=== PATIENT | female | born 1935 | race Caucasian/White ===

== ENCOUNTER 2016-11-21 10:29 | Inpatient (IN) ==
[2016-11-21] MEDS ORDERED: *HR* Morphine 2 MG/ML SYRINGE IVP ONE ×2 (10:45→12:01)
[2016-11-21] MEDS ORDERED: Ondansetron 4 MG/2 ML VIAL IVP STA (10:51)
--- NOTE | 2016-11-21 10:57 | Emergency Department Note ---
Disposition Clinical Impression: Fall, Pain Disposition: Admitted As Inpatient Referrals: Glenroy Lin MD [Primary Care Provider] - Forms: ED Satisfaction Letter Fall HPI - General Chief Complaint: ED Fall Stated Complaint: fall last pm Time Seen by Provider: 11/21/16 10:43 Nursing Notes Reviewed: Yes Vital Signs Reviewed: Yes - Related Data Home Medications Medication Instructions Recorded Confirmed Aspirin Enteric Coated [Aspirin EC] 81 mg PO DAILY 05/27/15 02/05/16 Calcium Carbonate/Vitamin D3 600 mg PO DAILY 05/27/15 02/05/16 [Calcium 600 + D Tablet] Clopidogrel [Plavix] 75 mg PO DAILY 05/27/15 02/05/16 Levothyroxine [Synthroid] 50 mcg PO DAILY 05/27/15 02/05/16 Oxygen 2 l .ROUTE DAILY 05/27/15 02/05/16 Albuterol Sulfate [Albuterol 2 puff IH Q6HR PRN 05/28/15 02/05/16 Inhaler] Gabapentin [Neurontin] 600 mg PO BID 05/28/15 02/05/16 Isosorbide MONOnitrate (24 HR) 60 mg PO DAILY 05/28/15 02/05/16 [Imdur] Metoprolol XL (24 HR) Succ [Toprol 50 mg PO DAILY 05/28/15 02/05/16 XL] Pravastatin Sodium [Pravachol] 40 mg PO DAILY 05/28/15 02/05/16 [place] Oil/[place]-3 Fatty Acids 1 each PO BID 05/28/15 02/05/16 [Fish Oil 500 mg Softgel] Benzonatate [Tessalon] 200 mg PO TID 02/05/16 02/05/16 Calcitonin Nasal [place] [Miacalcin 1 spray NS DAILY 02/05/16 02/05/16 Nasal [place]] Docusate Sodium [Stool Softener] 100 mg PO DAILY 02/05/16 02/05/16 Melatonin [Melatin] 3 mg PO HS 02/05/16 02/05/16 Mv,Calcium,Min/Iron/Folic/Vitk 1 each PO DAILY 02/05/16 02/05/16 [Multi For Her Tablet] Nitroglycerin [Nitrostat] 0.4 mg SL Q5M PRN 02/05/16 02/05/16 Omeprazole [PriLOSEC] 20 mg PO DAILY 02/05/16 02/05/16 Previous Rx's Medication Instructions Recorded Cefdinir [Omnicef] 300 mg PO BID 5 Days 05/31/15 HYDROcodone/Acet 5/325 mg [[place] 1 tab PO Q6H PRN #30 tab 02/06/16 5-325 mg] Ciprofloxacin HCl [Cipro] 500 mg PO BID #14 tablet 05/07/16 Ciprofloxacin HCl [Cipro] 500 mg PO BID #14 tablet 09/04/16 Allergies Allergy/AdvReac Type Severity Reaction Status Date / Time Amoxicillin [From Augmentin] Allergy Rash Verified 05/27/15 12:26 clavulanic acid Allergy Rash Verified 05/27/15 12:26 [From Augmentin] lisinopril Allergy Cough Verified 05/27/15 12:26 nitrofurantoin Allergy Rash Verified 05/27/15 12:26 [From Macrobid] Penicillins [PCN] Allergy Rash Verified 05/27/15 12:26 Sulfa (Sulfonamide AdvReac Nausea Verified 05/27/15 12:26 Antibiotics) Fall PMH - Past Medical History Medical history: Reports: GERD, hyperlipidemia, hypertension, myocardial infarction, syncope, other Surgical history: Reports: cholecystectomy, coronary bypass (CABG), orthopedic, other, other Psychiatric history: Reports: no psych history - Social History Smoking Status: Never smoker Alcohol use: Reports: none Drug use: Reports: none Physical Exam - General General appearance: alert, in no apparent distress Course Vital Signs Temperature 98.2 F 11/21/16 10:31 Pulse Rate 76 11/21/16 10:31 Respiratory Rate 18 11/21/16 10:31 Blood Pressure 163/83 11/21/16 10:31 O2 Sat by Pulse Oximetry 95 11/21/16 10:31 Temperature 98.2 F 11/21/16 10:31 Pulse Rate 87 11/21/16 12:10 Respiratory Rate 18 11/21/16 12:10 Blood Pressure 157/86 11/21/16 12:10 O2 Sat by Pulse Oximetry 98 11/21/16 12:10 Oxygen Delivery Oxygen Delivery Nasal Cannula Fall - [facility] Narrative Medical decision making narrative: I examined this patient and my medical decision-making was reviewed with the DIRECTOR OF CUSTOMER ACQUISITION/PA/Advanced Practice Nurse/Resident Physician. I agree with the documented findings, disposition and treatment plan as described except to the extent set forth below. Patient presents today from home and was seen by myself and Dr. Gross, please see his evaluation, I agree with his management plan and supervised the care of the patient stay. Patient tripped over her oxygen tubing last night using her walker and she fell backwards she said she did not strike her head she says she has pain in her lumbar region denies any hip pain arm pain and wrist pain as a loss of consciousness. Her daughter says this has happened before she does see pain management and set up facet injections and her lumbar spine in the past. Patient states only in her lumbar spine hurts now. Receiving and make her more comfortable DuoNeb reassessment on her exam do x-rays of her lumbar and thoracic spine and then reassess. She is in agreement with this plan. Lumbar Spine X-Ray 11/21/16 10:50 IMPRESSION: 1. Moderate to severe compression deformity at L1, which has progressed since 10/22/2016. 2. Chronic moderate to severe compression deformity at L3. 3. Vertebroplasty changes at L2. 4. 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 D/ / Roderick Marie MD / Roderick Marie MD Interpreting Provider: Roderick Marie MD Thoracic Spine X-Ray 11/21/16 10:50 IMPRESSION: 1. Moderate to severe compression deformity at L1, which has progressed since 10/22/2016. 2. Chronic moderate to severe compression deformity at L3. 3. Vertebroplasty changes at L2. 4. 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 D/ / Roderick Marie MD / Roderick Marie MD Interpreting Provider: Roderick Marie MD 1200 hrs.: Patient does have worsening compression fracture on her spine. I am worried that if she goes home she will not be acute pain or control or she will fall again. We spoke with hospitalist and graciously agreed to bring her into the hospital. Basic labs for them and then we will bring her in patient's in agreement with plan. Did receive another dose of pain medications here while waiting for bed management. Patient's agreement this plan. - Lab Data Lab Results 11/21/16 Range/Units 11:48 Urine Color Yellow (Yellow) Urine Clarity Cloudy A (Clear) Urine pH 7.0 (5.0-8.0) pH Units Ur Specific [place] 1.017 (1.010-1.025) Urine Protein Negative (Neg-Trace) mg/dL Urine Glucose (UA) Normal (Normal) mg/dL Urine Ketones Negative (Negative) mg/dL Urine Blood Negative (Negative) Urine Nitrite Positive A (Negative) Urine Bilirubin Negative (Negative) Urine Urobilinogen Normal (Normal) mg/dL Ur Leukocyte Esterase Moderate H (Negative) Urine Microscopic RBC 3-5 H (0-3) per hpf Urine Microscopic WBC 50-100 H (0-3) per hpf Ur Squamous Epith Cells Many H (None-Few) per lpf Urine Bacteria Many H (None-Few) per hpf Hyaline Casts Few (None-Few) per lpf Ur Culture Indicated? YES A (NO)
--- NOTE | 2016-11-21 11:02 | Emergency Department Note ---
Disposition Clinical Impression: Pain Fall Qualifiers: Encounter type: initial encounter Qualified Code(s): W19.XXXA - Unspecified fall, initial encounter Disposition: Admitted As Inpatient Referrals: Glenroy Lin MD [Primary Care Provider] - Forms: ED Satisfaction Letter Fall HPI - General Chief Complaint: ED Fall Stated Complaint: fall last pm Time Seen by Provider: 11/21/16 10:43 Nursing Notes Reviewed: Yes Vital Signs Reviewed: Yes - History of Present Illness HPI Narrative: Ms. Winters, a 81yo female, presents from home via POV with CC: back pain from fall. Occurred last night. Described as getting her O2 tubing caught on her walker. She describes gently falling onto her back on hardwood floor. Denies LOC or head or neck trauma. She got herself up and called her daughter. She chose to see if the pain improved overnight instead of presenting last night to the ER. Patient lives by herself. She was not 'found down.' Daughter notes patient has required assistance to get out of bed over the past several weeks. Patient has a history of falls. Anticoagulated on plavix. PMH: HLD, HTN, CAD s/p TX with stents. Hx pulmonary fibrosis, osteopenia, vertebral compression fx. PCP: Dr. Lin. Spinal: Dr. Macias. Admits: lower back pain. Denies: Headache, changes in vision, chest pain, palpitations, unusual numbness or tingling in her lower extremities, saddle anesthesia, incontinence of bowel and bladder. - Related Data Home Medications Medication Instructions Recorded Confirmed Aspirin Enteric Coated [Aspirin EC] 81 mg PO DAILY 05/27/15 02/05/16 Calcium Carbonate/Vitamin D3 600 mg PO DAILY 05/27/15 02/05/16 [Calcium 600 + D Tablet] Clopidogrel [Plavix] 75 mg PO DAILY 05/27/15 02/05/16 Levothyroxine [Synthroid] 50 mcg PO DAILY 05/27/15 02/05/16 Oxygen 2 l .ROUTE DAILY 05/27/15 02/05/16 Albuterol Sulfate [Albuterol 2 puff IH Q6HR PRN 05/28/15 02/05/16 Inhaler] Gabapentin [Neurontin] 600 mg PO BID 05/28/15 02/05/16 Isosorbide MONOnitrate (24 HR) 60 mg PO DAILY 05/28/15 02/05/16 [Imdur] Metoprolol XL (24 HR) Succ [Toprol 50 mg PO DAILY 05/28/15 02/05/16 XL] Pravastatin Sodium [Pravachol] 40 mg PO DAILY 05/28/15 02/05/16 [place] Oil/[place]-3 Fatty Acids 1 each PO BID 05/28/15 02/05/16 [Fish Oil 500 mg Softgel] Benzonatate [Tessalon] 200 mg PO TID 02/05/16 02/05/16 Calcitonin Nasal [place] [Miacalcin 1 spray NS DAILY 02/05/16 02/05/16 Nasal [place]] Docusate Sodium [Stool Softener] 100 mg PO DAILY 02/05/16 02/05/16 Melatonin [Melatin] 3 mg PO HS 02/05/16 02/05/16 Mv,Calcium,Min/Iron/Folic/Vitk 1 each PO DAILY 02/05/16 02/05/16 [Multi For Her Tablet] Nitroglycerin [Nitrostat] 0.4 mg SL Q5M PRN 02/05/16 02/05/16 Omeprazole [PriLOSEC] 20 mg PO DAILY 02/05/16 02/05/16 Previous Rx's Medication Instructions Recorded Cefdinir [Omnicef] 300 mg PO BID 5 Days 05/31/15 HYDROcodone/Acet 5/325 mg [[place] 1 tab PO Q6H PRN #30 tab 02/06/16 5-325 mg] Ciprofloxacin HCl [Cipro] 500 mg PO BID #14 tablet 05/07/16 Ciprofloxacin HCl [Cipro] 500 mg PO BID #14 tablet 09/04/16 Allergies Allergy/AdvReac Type Severity Reaction Status Date / Time Amoxicillin [From Augmentin] Allergy Rash Verified 05/27/15 12:26 clavulanic acid Allergy Rash Verified 05/27/15 12:26 [From Augmentin] lisinopril Allergy Cough Verified 05/27/15 12:26 nitrofurantoin Allergy Rash Verified 05/27/15 12:26 [From Macrobid] Penicillins [PCN] Allergy Rash Verified 05/27/15 12:26 Sulfa (Sulfonamide AdvReac Nausea Verified 05/27/15 12:26 Antibiotics) All systems ED: reviewed and negative except as stated. (as per HPI) Fall PMH - Past Medical History Medical history: Reports: GERD, hyperlipidemia, hypertension, myocardial infarction, syncope, other Surgical history: Reports: cholecystectomy, coronary bypass (CABG), orthopedic, other, other Psychiatric history: Reports: no psych history - Social History Smoking Status: Never smoker Alcohol use: Reports: none Drug use: Reports: none Physical Exam - General General appearance: alert, in no apparent distress Course Course Narrative: Patient presents from home with what appears to be a mechanical fall. She denies any preceding symptoms, chest pain, vertigo. As such, I do not suspect cardiac etiology, likely imbalance, or neurologic etiology. Patient's back pain appears to be focal in the mid back. Coupled with her history of falls, I believe this warrants renographic imaging of her thoracic and lumbar spine. She has no lower extremity neurologic deficits. Strength exam is limited secondary to patient. Patient appears to be mildly dehydrated. She has no history of kidney problems or congestive heart disease. All IV rehydration and attempt pain control. Patient notes mild improvement of pain after 4 mg morphine. Had an in-depth discussion with patient and her daughter regarding pain control and rationale for admission versus discharge home with close follow-up. She became teary-eyed as the intensity of her pain which she had been dealing with for some time becoming too great for her. Daughter also noted difficulty caring for her mother as patient is requiring assistance to get out of bed. At this time, not believe the patient will be able to live by herself. Both patient and daughter feel much more comfortable with patient being admitted. 12:00 Spoke with hospitalist, Dr. Navarrete. Discussed patient's past medical history, mechanical fall, regarding the findings, and my concerns not only for pain control but also from the social aspects. He agrees to accept the patient. We discussed baseling labs, which I will place in the ER. Vital Signs Temperature 98.2 F 11/21/16 10:31 Pulse Rate 76 11/21/16 10:31 Respiratory Rate 18 11/21/16 10:31 Blood Pressure 163/83 11/21/16 10:31 O2 Sat by Pulse Oximetry 95 11/21/16 10:31 Temperature 98.2 F 11/21/16 10:31 Pulse Rate 87 11/21/16 12:10 Respiratory Rate 18 11/21/16 12:10 Blood Pressure 157/86 11/21/16 12:10 O2 Sat by Pulse Oximetry 98 11/21/16 12:10 Oxygen Delivery Oxygen Delivery Nasal Cannula Fall - Lab Data Lab Results 11/21/16 Range/Units 11:48 Urine Color Yellow (Yellow) Urine Clarity Cloudy A (Clear) Urine pH 7.0 (5.0-8.0) pH Units Ur Specific [place] 1.017 (1.010-1.025) Urine Protein Negative (Neg-Trace) mg/dL Urine Glucose (UA) Normal (Normal) mg/dL Urine Ketones Negative (Negative) mg/dL Urine Blood Negative (Negative) Urine Nitrite Positive A (Negative) Urine Bilirubin Negative (Negative) Urine Urobilinogen Normal (Normal) mg/dL Ur Leukocyte Esterase Moderate H (Negative) Urine Microscopic RBC 3-5 H (0-3) per hpf Urine Microscopic WBC 50-100 H (0-3) per hpf Ur Squamous Epith Cells Many H (None-Few) per lpf Urine Bacteria Many H (None-Few) per hpf Hyaline Casts Few (None-Few) per lpf Ur Culture Indicated? YES A (NO)
[2016-11-21] MEDS ORDERED: 0.9 % Sodium Chloride 1,000 ML IVC ONE (11:18)
[2016-11-21 12:05] LABS: Bilirubin,Urine Negative (Negative); Blood,Urine Negative (Negative); Clarity,Urine Cloudy (Clear); Color,Urine Yellow (Yellow); Glucose,Urine (UA) Normal (Normal); Ketones,Urine Negative (Negative); Leukocyte Esterase,Urine Moderate (Negative); Nitrite,Urine Positive (Negative); Protein,Urine Negative (Neg-Trace); Specific Gravity,Urine 1.017 (1.010-1.025); Urobilinogen,Urine Normal (Normal)
[2016-11-21 12:09] LABS: Bacteria,Urine Many per hpf (None-Few); Hyaline Casts,Urine Few per lpf (None-Few); Squamous Epithelial Cell,Urine Many per lpf (None-Few); WBC,Urine 50-100 per hpf (0-3)
[2016-11-21 12:42] LABS: Basophils % 0.2 %; Eosinophils # 0.2 K/mcL (0.0-0.6); Hematocrit 40.2 % (35.3-44.9); Immature Granulocytes % 0.7 % (0-4); Lymphocytes # 2.7 K/mcL (0.6-4.6); Lymphocytes % 29.8 %; Mean Corpuscular HGB Conc 32.3 g/dL (31.6-35.5); Mean Corpuscular Hemoglobin 32.1 pg (28.0-33.3); Mean Corpuscular Volume 99.3 fL (83.0-100.0); Mean Platelet Volume 8.5 fL (9.4-12.4); Monocytes # 0.8 K/mcL (0.0-1.3); Neutrophils # 5.2 K/mcL (1.6-8.9); Platelet Count 174 K/mcL (140-400); Red Blood Count 4.05 M/mcL (3.82-4.97); Red Cell Distribution Width 14.6 % (11.5-14.5); Segmented Neutrophils % 58.3 %
[2016-11-21 12:47] LABS: Prothrombin Time 11.2 Seconds (9.4-12.1)
[2016-11-21 12:56] LABS: BUN/Creatinine Ratio 23 (6-26); Blood Urea Nitrogen 16 mg/dL (7-20); Calcium 8.8 mg/dL (8.6-10.8); Carbon Dioxide 24 mEq/L (19-29); Chloride 111 mEq/L (98-109); Glucose 84 mg/dL (70-99); Osmolality,Calculated 292 (280-300); Potassium 3.9 mEq/L (3.5-4.5); Sodium 141 mEq/L (136-145); eGFR For African Americans > 60 (> 60); eGFR For Non-African Americans > 60 (> 60)
[2016-11-21] MEDS ORDERED: Naloxone 0.4 MG/ML INJ IVP PRN (17:48)
[2016-11-21] MEDS: *HR* Morphine 2 MG/ML SYRINGE IVP PRN (18:07)
[2016-11-21] MEDS ORDERED: Nitroglycerin 0.4 MG TAB.SUBL SL PRN (19:00)
[2016-11-21] MEDS: Melatonin 3 MG TABLET PO SCH (21:19)
[2016-11-21] MEDS: Gabapentin 400 MG CAPSULE PO SCH (21:19)
[2016-11-21] MEDS: *HR* OxyCODONE Immed Rel 5 MG TABLET PO PRN (21:21)
--- NOTE | 2016-11-21 22:54 | Internal Med History&Physical ---
Date of Encounter: 11/21/16 Time of Encounter: 22:52 Assessment and Plan (1) Fall Current visit: Yes Status: Acute Patient fell at home, after getting her oxygen tubing tangled in her walker. Denies loss of consciousness or head injury. She has had multiple falls over the last several months. PT consult OT consult Social work consult for consideration of senior living placement on discharge. Qualifiers: Encounter type: initial encounter Qualified Code(s): W19.XXXA - Unspecified fall, initial encounter (2) Pain Current visit: Yes Status: Acute Patient with significant pain in lower back and tail bone related to her fall injury. Oxycodone IR and Morphine IVP ordered PRN for pain control Narcan ordered PRN for respiratory depression. (3) Vertebral compression fracture Current visit: Yes Status: Acute Xray shows moderate to sever compression deformity at L1 which has progressed since prior imaging on 10/22/16. Patient with history of vertebroplasty in January with Dr. Rios. Consult to Dr. Rios, orthopedic spine, he will need to be called tomorrow. Pain control with PRN Oxycodone and morphine. PT/OT consults Qualifiers: Encounter type: initial encounter Qualified Code(s): M48.50XA - Collapsed vertebra, not elsewhere classified, site unspecified, initial encounter for fracture (4) UTI (urinary tract infection) Current visit: Yes Status: Acute Patient denies dysuria, however UA concerning for infection. Cipro 250mg PO BID X 3 days Qualifiers: Urinary tract infection type: acute cystitis Hematuria presence: with hematuria Qualified Code(s): N30.01 - Acute cystitis with hematuria (5) Pulmonary fibrosis Current visit: No Status: Chronic Patient wears 2L NC at night and PRN at home. Titrate oxygen to maintain O2 sat > 92%. (6) DVT prophylaxis Current visit: Yes Status: Acute Up to chair BID anti-embolic stockings Lovenox 40mg SQ Daily Internal Medicine - H&P: HPI Chief complaint: Fall injury Admitted From: Emergency Dept Plans for Post Hospital Care: Home History of present illness: Ms. Winters is a 81 year old female with hypertension, hyperlipidemia, pulmonary fibrosis, coronary artery disease status post CABG, acid reflux, hypothyroid, who presented with to the emergency department today after suffering a fall last evening. Hurts her oxygen to contain gold in her walker and she fell landing on her buttocks. Denies hitting her head, or losing consciousness. He denies dizziness, lightheadedness, faint. She denies any dysuria. She reports she came in because she could not bear the pain. It is in her low back, and tailbone, is worse when sitting up or standing. Pain is improved with pain medication. Evaluation in the emergency department was significant for urinalysis that is suspicious for UTI, x-ray of the lumbar spine shows moderate to severe compression deformity at L1 which has progressed since her previous imaging 10/22/2016. Chronic moderate to severe compression deformity at L3, vertebral plasty changes at L2, multilevel degenerative changes in the thoracic and lumbar spine including severe disc height loss at L4-5. On exam patient is alert and oriented, initially tearful with pain, lungs are clear to auscultation bilaterally, heart has regular rate and rhythm. Abdomen is nontender with normal bowel sounds. Lumbar spine is tender to palpation. Past Med Surg Social Fam HX - Past Medical History Medical history: GERD, hyperlipidemia, hypertension, myocardial infarction, syncope, other Psychiatric history: no psych history - Past Surgical History Surgical History: cholecystectomy, coronary bypass (CABG), orthopedic, other, other - Social History Smoking Status: Never smoker Smokeless Tobacco Status: No Alcohol use: none Drug use: none - Family History Sister Adopted: No Living Status: Hx Family Respiratory Disorders: Yes (PULMONARY FIBROSIS) Mother Living Status: Age at : 84 Cause of : COPD Internal Medicine - H&P: Meds Aspirin Enteric Coated [Aspirin EC] 81 mg PO DAILY 05/27/15 [History] Calcium Carbonate/Vitamin D3 [Calcium 600 + D Tablet] 600 mg PO DAILY 05/27/15 [ History] Clopidogrel [Plavix] 75 mg PO DAILY 05/27/15 [History] Levothyroxine [Synthroid] 50 mcg PO DAILY 05/27/15 [History] Oxygen 2 l .ROUTE DAILY 05/27/15 [History] Albuterol Sulfate [Albuterol Inhaler] 2 puff IH Q6HR PRN 05/28/15 [History] Gabapentin [Neurontin] 1,200 mg PO BID 05/28/15 [History] Isosorbide MONOnitrate (24 HR) [Imdur] 60 mg PO DAILY 05/28/15 [History] Metoprolol XL (24 HR) Succ [Toprol XL] 50 mg PO DAILY 05/28/15 [History] Pravastatin Sodium [Pravachol] 40 mg PO DAILY 05/28/15 [History] [place] Oil/[place]-3 Fatty Acids [Fish Oil 500 mg Softgel] 1 cap PO BID 05/28/15 [ History] Docusate Sodium [Stool Softener] 100 mg PO DAILY 02/05/16 [History] Melatonin [Melatin] 3 mg PO HS 02/05/16 [History] Mv,Calcium,Min/Iron/Folic/Vitk [Multi For Her Tablet] 1 each PO DAILY 02/05/16 [ History] Nitroglycerin [Nitrostat] 0.4 mg SL Q5M PRN 02/05/16 [History] Omeprazole [PriLOSEC] 20 mg PO DAILY 02/05/16 [History] HYDROcodone/Acet 5/325 mg [[place] 5-325 mg] 1 tab PO Q6H PRN #30 tab 02/06/16 [Rx ] Allergies Amoxicillin [From Augmentin] Allergy (Verified 05/27/15 12:26) Rash clavulanic acid [From Augmentin] Allergy (Verified 05/27/15 12:26) Rash lisinopril Allergy (Verified 05/27/15 12:26) Cough nitrofurantoin [From Macrobid] Allergy (Verified 05/27/15 12:26) Rash Penicillins [PCN] Allergy (Verified 05/27/15 12:26) Rash Sulfa (Sulfonamide Antibiotics) Adverse Reaction (Verified 05/27/15 12:26) Nausea All Systems PM: A 10-system review of systems was performed and is negative for pertinent findings except as documented above in the HPI. - Constitutional Constitutional: no chills, no fever(s), no night sweats - EENT Eyes: no change in vision, no discharge, no pain, no photophobia Ears: no ear discharge, no ear pain, no tinnitus Nose, mouth and throat: no dysphagia, no nasal discharge, no neck pain, no sore throat - Cardiovascular Cardiovascular ROS IM: no chest pain, no diaphoresis, no dyspnea, no lightheadedness, no palpitations, no syncope - Respiratory Respiratory: no cough, no dyspnea, no wheezing, no excessive phlegm production - Gastrointestinal Gastrointestinal: no abdominal pain, no diarrhea, no hematemesis, no hematochezia, no melena, no nausea, no vomiting - Genitourinary Genitourinary: no change in urinary stream, no dysuria, no flank pain, no hematuria - Musculoskeletal Musculoskeletal ROS IM: back pain, no numbness, no tingling - Integumentary Integumentary IM: no rash, no unusual bruising - Neurological Neurological ROS: no confusion, no convulsions, no focal weakness, no numbness, no tingling, no tremor(s) - Hematologic/Lymphatic Hematologic/Lymphatic: no easy bruising - Constitutional Vitals: Temp Pulse Resp BP Pulse Ox 98.2 F 71 18 107/64 96 11/21/16 22:48 11/21/16 22:48 11/21/16 22:48 11/21/16 22:48 11/21/16 22:48 General appearance: Present: A&O X 3, no acute distress - Head Head exam: Present: atraumatic, normocephalic - Eye Eye exam: Present: PERRL, conjuntiva pink, sclera anicteric Pupils: Present: PERRL - Neck Neck exam general surgery: Present: supple, trachea midline. Absent: lymphadenopathy - Respiratory Respiratory exam: Present: CTAB. Absent: accessory muscle use, rales, rhonchi, wheezes - Cardiovascular Cardiovascular exam: Present: RRR, +S1, +S2. Absent: diastolic murmur, gallop, rubs, systolic murmur - GI/Abdominal GI/Abdominal exam: Present: normal bowel sounds, soft, no peritoneal signs. Absent: distended, tenderness - Extremities Exam Extremities exam: Present: warm, radial pulses palpable and symetrical. Absent : calf tenderness, cyanotic, pedal edema - Back Exam Back exam: Present: tenderness (lumbar), vertebral tenderness (lumbar) - Neurological Exam Neurological exam: Present: CN II-XII intact, oriented X3, no focal deficits, strengths equal and symetr throughout. Absent: facial droop, speech deficit - Skin Skin exam: Present: dry, intact Internal Med - H&P Results - Labs CBC & Chem 7: 11/21/16 12:36 11/21/16 12:36 Labs: All Lab Results (24 Hours) 11/21/16 11/21/16 11/21/16 Range/Units 11:48 12:36 12:36 WBC 9.0 (4.3-11.1) K/mcL RBC 4.05 (3.82-4.97) M/mcL Hgb 13.0 (11.5-15.4) g/dL Hct 40.2 (35.3-44.9) % MCV 99.3 (83.0-100.0) fL MCH 32.1 (28.0-33.3) pg MCHC 32.3 (31.6-35.5) g/dL RDW 14.6 H (11.5-14.5) % Plt Count 174 (140-400) K/mcL MPV 8.5 L (9.4-12.4) fL Immature Gran % 0.7 (0-4) % Seg Neutrophils % 58.3 % Lymphocytes % 29.8 % Monocytes % 9.0 % Eosinophils % 2.0 % Basophils % 0.2 % Neutrophils # 5.2 (1.6-8.9) K/mcL Lymphocytes # 2.7 (0.6-4.6) K/mcL Monocytes # 0.8 (0.0-1.3) K/mcL Eosinophils # 0.2 (0.0-0.6) K/mcL Basophils # 0.0 (0.0-0.2) K/mcL PT 11.2 (9.4-12.1) Seconds INR 1.0 Sodium (136-145) mEq/L Potassium (3.5-4.5) mEq/L Chloride (98-109) mEq/L Carbon Dioxide (19-29) mEq/L BUN (7-20) mg/dL Creatinine (0.57-1.11) mg/dL Est GFR ( Amer) (> 60) Est GFR (Non-Af Amer) (> 60) BUN/Creatinine Ratio (6-26) Glucose (70-99) mg/dL Calculated Osmolality (280-300) Calcium (8.6-10.8) mg/dL Urine Color Yellow (Yellow) Urine Clarity Cloudy A (Clear) Urine pH 7.0 (5.0-8.0) pH Units Ur Specific [place] 1.017 (1.010-1.025) Urine Protein Negative (Neg-Trace) mg/dL Urine Glucose (UA) Normal (Normal) mg/dL Urine Ketones Negative (Negative) mg/dL Urine Blood Negative (Negative) Urine Nitrite Positive A (Negative) Urine Bilirubin Negative (Negative) Urine Urobilinogen Normal (Normal) mg/dL Ur Leukocyte Esterase Moderate H (Negative) Urine Microscopic RBC 3-5 H (0-3) per hpf Urine Microscopic WBC 50-100 H (0-3) per hpf Ur Squamous Epith Cells Many H (None-Few) per lpf Urine Bacteria Many H (None-Few) per hpf Hyaline Casts Few (None-Few) per lpf Ur Culture Indicated? YES A (NO) 11/21/16 Range/Units 12:36 WBC (4.3-11.1) K/mcL RBC (3.82-4.97) M/mcL Hgb (11.5-15.4) g/dL Hct (35.3-44.9) % MCV (83.0-100.0) fL MCH (28.0-33.3) pg MCHC (31.6-35.5) g/dL RDW (11.5-14.5) % Plt Count (140-400) K/mcL MPV (9.4-12.4) fL Immature Gran % (0-4) % Seg Neutrophils % % Lymphocytes % % Monocytes % % Eosinophils % % Basophils % % Neutrophils # (1.6-8.9) K/mcL Lymphocytes # (0.6-4.6) K/mcL Monocytes # (0.0-1.3) K/mcL Eosinophils # (0.0-0.6) K/mcL Basophils # (0.0-0.2) K/mcL PT (9.4-12.1) Seconds INR Sodium 141 (136-145) mEq/L Potassium 3.9 (3.5-4.5) mEq/L Chloride 111 H (98-109) mEq/L Carbon Dioxide 24 (19-29) mEq/L BUN 16 (7-20) mg/dL Creatinine 0.69 (0.57-1.11) mg/dL Est GFR ( Amer) > 60 (> 60) Est GFR (Non-Af Amer) > 60 (> 60) BUN/Creatinine Ratio 23 (6-26) Glucose 84 (70-99) mg/dL Calculated Osmolality 292 (280-300) Calcium 8.8 (8.6-10.8) mg/dL Urine Color (Yellow) Urine Clarity (Clear) Urine pH (5.0-8.0) pH Units Ur Specific [place] (1.010-1.025) Urine Protein (Neg-Trace) mg/dL Urine Glucose (UA) (Normal) mg/dL Urine Ketones (Negative) mg/dL Urine Blood (Negative) Urine Nitrite (Negative) Urine Bilirubin (Negative) Urine Urobilinogen (Normal) mg/dL Ur Leukocyte Esterase (Negative) Urine Microscopic RBC (0-3) per hpf Urine Microscopic WBC (0-3) per hpf Ur Squamous Epith Cells (None-Few) per lpf Urine Bacteria (None-Few) per hpf Hyaline Casts (None-Few) per lpf Ur Culture Indicated? (NO)
[2016-11-22] MEDS: (Salmon Oil/Omega-3 Fatty Acids [Fish Oil 500 Mg Soft) PO SCH ×3 (00:09→20:05)
--- NOTE | 2016-11-22 01:35 | Event Note ---
Date of Encounter: 11/22/16 Time of Encounter: 01:34 Patients and examined with nurse practitioner. Agree with assessment and plan
[2016-11-22] MEDS: *HR* OxyCODONE Immed Rel 5 MG TABLET PO PRN ×3 (05:08→20:05)
[2016-11-22] MEDS: *HR* Enoxaparin 40 MG/0.4 ML SYRINGE SQ SCH (06:06)
[2016-11-22] MEDS: *HR* Morphine 2 MG/ML SYRINGE IVP PRN (07:46)
[2016-11-22 08:05] LABS: Basophils % 0.4 %; Eosinophils # 0.2 K/mcL (0.0-0.6); Eosinophils % 2.3 %; Hematocrit 40.3 % (35.3-44.9); Hemoglobin 12.7 g/dL (11.5-15.4); Immature Granulocytes % 0.7 % (0-4); Lymphocytes # 2.9 K/mcL (0.6-4.6); Lymphocytes % 30.5 %; Mean Corpuscular HGB Conc 31.5 g/dL (31.6-35.5); Mean Corpuscular Hemoglobin 31.4 pg (28.0-33.3); Mean Corpuscular Volume 99.5 fL (83.0-100.0); Mean Platelet Volume 8.5 fL (9.4-12.4); Monocytes # 0.8 K/mcL (0.0-1.3); Monocytes % 8.3 %; Neutrophils # 5.5 K/mcL (1.6-8.9); Platelet Count 187 K/mcL (140-400); Red Blood Count 4.05 M/mcL (3.82-4.97); Red Cell Distribution Width 14.6 % (11.5-14.5); Segmented Neutrophils % 57.8 %
[2016-11-22 08:11] LABS: BUN/Creatinine Ratio 17 (6-26); Blood Urea Nitrogen 12 mg/dL (7-20); Calcium 9.5 mg/dL (8.6-10.8); Carbon Dioxide 25 mEq/L (19-29); Chloride 108 mEq/L (98-109); Glucose 78 mg/dL (70-99); Osmolality,Calculated 287 (280-300); Potassium 4.5 mEq/L (3.5-4.5); Sodium 139 mEq/L (136-145); eGFR For African Americans > 60 (> 60); eGFR For Non-African Americans > 60 (> 60)
[2016-11-22] MEDS ORDERED: Aspirin Enteric Coated 81 MG Tablet PO SCH (09:00)
[2016-11-22] MEDS: Isosorbide MONOnitrate (24 HR) 60 MG TAB.ER.24H PO SCH (10:29)
[2016-11-22] MEDS: Cholecalciferol (D-3) 1,000 UNIT TABLET PO SCH (10:29)
[2016-11-22] MEDS: Metoprolol XL (24 HR) Succ 50 MG TAB.ER.24H PO SCH (10:30)
[2016-11-22] MEDS: Gabapentin 400 MG CAPSULE PO SCH ×2 (10:30→20:04)
--- NOTE | 2016-11-22 13:08 | Event Note ---
Date of Encounter: 11/22/16 Time of Encounter: 13:07 Holding aspirin and plavix until Spine surgery sees patient in case of possible procedure.
--- NOTE | 2016-11-22 16:40 | Internal Med Progress Note ---
Date of Encounter: 11/22/16 Time of Encounter: 11:45 - Assessment and plan (1) Recurrent falls Current Visit: Yes Status: Acute Assessment and plan: She has had multiple falls over the last several months. Patient is very high risk for fall and not a safe discharge home, she needs placement and is educated about this Xray shows moderate to sever compression deformity at L1 which has progressed since prior imaging on 10/22/16. She meets criteria for in-patient due to recurrent falls with a new vertebral fracture, intractable pain due to vertebral fracture requiring IV morphine and UTI Spine surgery has been consulted, awaiting review Continue to hole ASA/Plavix for possible intervention by spine surgery Patient is high risk due to risk of falls and bleeding (from dual antiplatelet therapy), risk of neurologic compromise from vertebral fracture and stuart of IV opiates PT consult OT consult Social work consult for consideration of shelter placement Already on Vit D replacement Check Vit D level for possible need for high dose therapy Resume other home meds (2) Pain Current Visit: Yes Status: Acute Assessment and plan: As above (3) UTI (urinary tract infection) Current Visit: Yes Status: Acute Assessment and plan: Urine culture with GNR Patient with multiple antibiotic allergies She is on Cipro po, continue same for now Will escalate antibiotic therapy prn culture sensitivity She is not septic Qualifiers: Urinary tract infection type: acute cystitis Hematuria presence: with hematuria Qualified Code(s): N30.01 - Acute cystitis with hematuria (4) Vertebral compression fracture Current Visit: Yes Status: Acute Qualifiers: Encounter type: initial encounter Qualified Code(s): M48.50XA - Collapsed vertebra, not elsewhere classified, site unspecified, initial encounter for fracture (5) Coronary artery disease Current Visit: Yes Status: Chronic Qualifiers: Coronary Disease-Associated Artery/Lesion type: nome artery [place] vs. transplanted heart: nome heart Associated angina: without angina Qualified Code(s): I25.10 - Atherosclerotic heart disease of [place] coronary artery without angina pectoris (6) Hypertension Current Visit: No Status: Chronic Qualifiers: Hypertension type: essential hypertension Qualified Code(s): I10 - Essential (primary) hypertension (7) Overactive bladder Current Visit: Yes Status: Chronic (8) Pulmonary fibrosis Current Visit: Yes Status: Chronic (9) Hypothyroidism Current Visit: No Status: Chronic Qualifiers: Hypothyroidism type: unspecified Qualified Code(s): E03.9 - Hypothyroidism , unspecified - Subjective Interval history: 81 Y/O F Patient is being managed for UTI, Recurrent falls with a new vertebral fracture , Intractable pain due to fall and fracture patient is seen at bedside, teary and complaining of pain and wishing she would ambulate She has other PMH of HTN, HLD, GERD, CAD s/p CABG, Pulmonary fibrosis - Constitutional Vitals: Temp Pulse Resp BP Pulse Ox 98.0 F 78 18 92/60 95 11/22/16 15:24 11/22/16 15:24 11/22/16 15:24 11/22/16 15:24 11/22/16 15:24 General appearance: Present: mild distress, A&O X 3, pleasant, no acute distress - Head Head exam: Present: atraumatic, normocephalic - Eye Eye exam: Present: PERRL, conjuntiva pink, sclera anicteric Pupils: Present: PERRL - Neck Neck exam general surgery: Present: supple, trachea midline. Absent: lymphadenopathy - Respiratory Respiratory exam: Present: CTAB. Absent: accessory muscle use, rales, rhonchi, wheezes - Cardiovascular Cardiovascular exam: Present: RRR, +S1, +S2. Absent: diastolic murmur, gallop, rubs, systolic murmur - GI/Abdominal GI/Abdominal exam: Present: normal bowel sounds, soft, no peritoneal signs. Absent: distended, tenderness - Extremities Exam Extremities exam: Present: warm, radial pulses palpable and symetrical. Absent : calf tenderness, cyanotic, pedal edema - Neurological Exam Neurological exam: Present: CN II-XII intact, oriented X3, no focal deficits. Absent: pronater drift, facial droop, speech deficit - Skin Skin exam: Present: dry Internal Medicine: Result - Labs CBC & Chem 7: 11/22/16 07:20 11/22/16 07:20 Labs: Short CBC 11/22/16 Range/Units 07:20 WBC 9.6 (4.3-11.1) K/mcL Hgb 12.7 (11.5-15.4) g/dL Hct 40.3 (35.3-44.9) % Plt Count 187 (140-400) K/mcL Neutrophils # 5.5 (1.6-8.9) K/mcL BMP 11/22/16 07:20 Sodium 139 Potassium 4.5 Chloride 108 Carbon Dioxide 25 BUN 12 Creatinine 0.70 Glucose 78 Calcium 9.5 - ABG Interpretation ABG results: PT/INR, D-dimer PT 11.2 Seconds (9.4-12.1) 11/21/16 12:36 Consult Discharge Plan - Plan Referrals: Glenroy Lin MD [Primary Care Provider] -
[2016-11-23] MEDS: Melatonin 3 MG TABLET PO SCH ×2 (01:45→21:03)
[2016-11-23] MEDS: *HR* OxyCODONE Immed Rel 5 MG TABLET PO PRN ×3 (02:31→15:24)
[2016-11-23] MEDS: *HR* Enoxaparin 40 MG/0.4 ML SYRINGE SQ SCH (05:43)
[2016-11-23] MEDS: Isosorbide MONOnitrate (24 HR) 60 MG TAB.ER.24H PO SCH (07:58)
[2016-11-23] MEDS: Cholecalciferol (D-3) 1,000 UNIT TABLET PO SCH (07:58)
[2016-11-23] MEDS: Gabapentin 400 MG CAPSULE PO SCH ×2 (07:58→21:04)
[2016-11-23] MEDS: (Salmon Oil/Omega-3 Fatty Acids [Fish Oil 500 Mg Soft) PO SCH ×2 (07:59→21:05)
[2016-11-23] MEDS: Metoprolol XL (24 HR) Succ 50 MG TAB.ER.24H PO SCH (07:59)
[2016-11-23] MEDS: Cefdinir 300 MG CAPSULE PO SCH ×2 (11:25→21:03)
--- NOTE | 2016-11-23 13:44 | Spinal Consult Note ---
Date of Encounter: 11/23/16 Time of Encounter: 13:41 Assessment and Plan (1) History of kyphoplasty Current Visit: Yes Status: Chronic (2) Osteopenia Current Visit: No Status: Chronic The patient is afebrile vital signs are stable. She has tenderness to palpation in the lumbar spine. She is neurovascularly intact with regard to her bilateral upper and lower extremities. MRI examination of the lumbar spine dated 11/23/2016 reveals a new acute vertebral compression fracture at L1 with approximately 50% loss of height. There are old compression fractures and below L1. There are multilevel degenerative changes. Impression: 1) osteopenia 2) acute vertebral compression fracture L1 3) history of previous kyphoplasty Plan: After the Plavix is discontinued for several days and the patient is medically optimized and cleared we will plan to do a kyphoplasty L1. Risk and benefits were discussed and the patient would like to proceed. Qualifiers: Osteopenia location: spine Qualified Code(s): M85.88 - Other specified disorders of bone density and structure, other site History of Present Illness Chief complaint: vertebral fracture, back pain HPI: Ms. Winters is a 81 year old female Who had recent fall and is experiencing significant back pain. She has a history of osteopenia and previous. Vertebral compression fractures. She has had a kyphoplasty in the past which provided significant pain relief. Evaluation by the hospitalist team revealed a new acute vertebral compression fracture at L1. We are asked to see regarding potential management. She denies fevers chills or neurological symptoms. Past Med Surg Social Fam HX - Past Medical History Medical history: GERD, hyperlipidemia, hypertension, myocardial infarction, syncope, other Psychiatric history: no psych history - Past Surgical History Surgical History: cholecystectomy, coronary bypass (CABG), orthopedic, other, other - Social History Smoking Status: Never smoker Smokeless Tobacco Status: No Alcohol use: none Drug use: none - Family History Mother Living Status: Age at : 84 Cause of : COPD Sister Adopted: No Living Status: Hx Family Respiratory Disorders: Yes (PULMONARY FIBROSIS) Medications and Allergies Aspirin Enteric Coated [Aspirin EC] 81 mg PO DAILY 05/27/15 [History] Calcium Carbonate/Vitamin D3 [Calcium 600 + D Tablet] 600 mg PO DAILY 05/27/15 [ History] Clopidogrel [Plavix] 75 mg PO DAILY 05/27/15 [History] Levothyroxine [Synthroid] 50 mcg PO DAILY 05/27/15 [History] Oxygen 2 l .ROUTE DAILY 05/27/15 [History] Albuterol Sulfate [Albuterol Inhaler] 2 puff IH Q6HR PRN 05/28/15 [History] Gabapentin [Neurontin] 1,200 mg PO BID 05/28/15 [History] Isosorbide MONOnitrate (24 HR) [Imdur] 60 mg PO DAILY 05/28/15 [History] Metoprolol XL (24 HR) Succ [Toprol XL] 50 mg PO DAILY 05/28/15 [History] Pravastatin Sodium [Pravachol] 40 mg PO DAILY 05/28/15 [History] [place] Oil/[place]-3 Fatty Acids [Fish Oil 500 mg Softgel] 1 cap PO BID 05/28/15 [ History] Docusate Sodium [Stool Softener] 100 mg PO DAILY 02/05/16 [History] Melatonin [Melatin] 3 mg PO HS 02/05/16 [History] Mv,Calcium,Min/Iron/Folic/Vitk [Multi For Her Tablet] 1 each PO DAILY 02/05/16 [ History] Nitroglycerin [Nitrostat] 0.4 mg SL Q5M PRN 02/05/16 [History] Omeprazole [PriLOSEC] 20 mg PO DAILY 02/05/16 [History] HYDROcodone/Acet 5/325 mg [[place] 5-325 mg] 1 tab PO Q6H PRN #30 tab 02/06/16 [Rx ] Allergies Amoxicillin [From Augmentin] Allergy (Verified 05/27/15 12:26) Rash clavulanic acid [From Augmentin] Allergy (Verified 05/27/15 12:26) Rash lisinopril Allergy (Verified 05/27/15 12:26) Cough nitrofurantoin [From Macrobid] Allergy (Verified 05/27/15 12:26) Rash Penicillins [PCN] Allergy (Verified 05/27/15 12:26) Rash Sulfa (Sulfonamide Antibiotics) Adverse Reaction (Verified 05/27/15 12:26) Nausea Results - Labs Result Diagrams: 11/22/16 07:20 11/22/16 07:20 Labs: Abnormal lab results MCHC 31.5 g/dL (31.6-35.5) L 11/22/16 07:20 RDW 14.6 % (11.5-14.5) H 11/22/16 07:20 MPV 8.5 fL (9.4-12.4) L 11/22/16 07:20 Urine Clarity Cloudy (Clear) A 11/21/16 11:48 Urine Nitrite Positive (Negative) A 11/21/16 11:48 Ur Leukocyte Esterase Moderate (Negative) H 11/21/16 11:48 Urine Microscopic RBC 3-5 per hpf (0-3) H 11/21/16 11:48 Urine Microscopic WBC 50-100 per hpf (0-3) H 11/21/16 11:48 Ur Squamous Epith Cells Many per lpf (None-Few) H 11/21/16 11:48 Urine Bacteria Many per hpf (None-Few) H 11/21/16 11:48 Ur Culture Indicated? YES (NO) A 11/21/16 11:48 All other labs normal. Consult Discharge Plan - Plan Referrals: Glenroy Lin MD [Primary Care Provider] - 12/01/16 1:15 pm
--- NOTE | 2016-11-23 13:47 | Internal Med Progress Note ---
Date of Encounter: 11/23/16 Time of Encounter: 12:40 - Assessment and plan (1) Recurrent falls Current Visit: Yes Status: Acute Assessment and plan: She has had multiple falls over the last several months. Xray shows moderate to sever compression deformity at L1 which has progressed since prior imaging on 10/22/16. Spine surgeon consulted, had requested a Lumbar spine MRI which reveals a subacute L1 compression fracture with severe, greater than 50% loss of vertebral body height and 2-3mm retropulsion of the posterior L1 vertebral body. Associated severe spinal canal stenosis at L1-L2 which is progressive. Patient continues to require pain meds, she is otherwise in stable condition Vitamin D level acceptable, continue supplements Patient will be having kyphoplasty on Saturday 11/25 a.m, ASA and Plavix have been held since 11/22, last dose 11/22 a.m Check CBC, TYpe and screen, coagulation panel again Friday 11/24 a.m She is medically clear for low risk surgery, she has extensive cardiac history but none active at this time Hold PT/OT consultation till after procedure She meets criteria for in-patient due to recurrent falls with a new vertebral fracture, intractable pain due to vertebral fracture requiring IV morphine and need for surgical intervention Patient is very high risk for fall and not a safe discharge home, she probably will need inpatient rehab and physical therapy upon discharge (2) Pain Current Visit: Yes Status: Acute Assessment and plan: As above (3) Vertebral compression fracture Current Visit: Yes Status: Acute Assessment and plan: Mgt as in recurrent falls Spine surgery eval appreciated Qualifiers: Encounter type: initial encounter Qualified Code(s): M48.50XA - Collapsed vertebra, not elsewhere classified, site unspecified, initial encounter for fracture (4) UTI (urinary tract infection) Current Visit: Yes Status: Acute Assessment and plan: Urine culture with GNR E.coli sensitive to cephalosporins, nitrofurantoin, resistant to fluoroquinolones D/C cipro Change to Omnicef po No evidence of sepsis Qualifiers: Urinary tract infection type: acute cystitis Hematuria presence: with hematuria Qualified Code(s): N30.01 - Acute cystitis with hematuria (5) Coronary artery disease Current Visit: Yes Status: Chronic Assessment and plan: Chronic, stable, no chest pain Hold ASA/Plavix for procedure Continue other meds Qualifiers: Coronary Disease-Associated Artery/Lesion type: [place] artery [place] vs. transplanted heart: [place] heart Associated angina: without angina Qualified Code(s): I25.10 - Atherosclerotic heart disease of [place] coronary artery without angina pectoris (6) Hypertension Current Visit: No Status: Chronic Assessment and plan: Controlled, continue meds Qualifiers: Hypertension type: essential hypertension Qualified Code(s): I10 - Essential (primary) hypertension (7) Overactive bladder Current Visit: Yes Status: Chronic (8) Pulmonary fibrosis Current Visit: Yes Status: Chronic (9) Hypothyroidism Current Visit: Yes Status: Chronic Qualifiers: Hypothyroidism type: unspecified Qualified Code(s): E03.9 - Hypothyroidism , unspecified - Subjective Interval history: 81 Y/O F Patient is being managed for UTI, Recurrent falls with a new vertebral fracture , Intractable pain due to fall and fracture She has other PMH of HTN, HLD, GERD, CAD s/p CABG, Pulmonary fibrosis She is seen at bedside with family this morning No new complains, pain persists, but is responsive to medications Urine culture with GNR . Ecoli resistant to fluoroquinolones, patient was on ciprofloxacin po , will change to po cephalosporin - Constitutional Vitals: Temp Pulse Resp BP Pulse Ox 97.4 F L 72 16 97/61 96 11/23/16 11:45 11/23/16 11:45 11/23/16 11:45 11/23/16 11:45 11/23/16 11:45 General appearance: Present: A&O X 3, pleasant, no acute distress - Head Head exam: Present: atraumatic, normocephalic - Eye Eye exam: Present: PERRL, conjuntiva pink, sclera anicteric Pupils: Present: PERRL - Neck Neck exam general surgery: Present: supple, trachea midline. Absent: lymphadenopathy - Respiratory Respiratory exam: Present: CTAB. Absent: accessory muscle use, rales, rhonchi, wheezes - Cardiovascular Cardiovascular exam: Present: RRR, +S1, +S2. Absent: diastolic murmur, gallop, rubs, systolic murmur - GI/Abdominal GI/Abdominal exam: Present: normal bowel sounds, soft, no peritoneal signs. Absent: distended, tenderness - Extremities Exam Extremities exam: Present: warm, radial pulses palpable and symetrical. Absent : calf tenderness, cyanotic, pedal edema - Neurological Exam Neurological exam: Present: CN II-XII intact, oriented X3, no focal deficits. Absent: pronater drift, facial droop, speech deficit - Skin Skin exam: Present: dry Internal Medicine: Result - Labs CBC & Chem 7: 11/22/16 07:20 11/22/16 07:20 - ABG Interpretation ABG results: PT/INR, D-dimer PT 11.2 Seconds (9.4-12.1) 11/21/16 12:36 - Impressions Impressions Lumbar Spine MRI 11/23/16 10:36 IMPRESSION: 1. Subacute L1 compression fracture with severe, greater than 50%, loss of vertebral body height and 2-3 mm retropulsion of the posterior L1 vertebral body. There is associated moderate to severe spinal canal stenosis at L1-L2, which has progressed since the prior examination. 2. Chronic L2 and L3 compression fractures. Loss of vertebral body height at L2 has progressed since the prior examination. Moderate to severe spinal canal stenosis at L2-L3 has mildly progressed since the prior examination. 3. Multilevel degenerative changes of the lumbar spine are similar to prior. Moderate to severe spinal canal stenosis at L3-L4 is unchanged. 4. Multilevel neural foraminal narrowing, including severe bilateral neural foraminal stenosis at L5-S1. D/ /23/2016 11:35:03 Joy Bae MD / Francesca Bowie Interpreting Provider: Joy Bae MD Consult Discharge Plan - Plan Referrals: Glenroy Lin MD [Primary Care Provider] - 12/01/16 1:15 pm
[2016-11-24] MEDS: *HR* OxyCODONE Immed Rel 5 MG TABLET PO PRN ×4 (00:08→22:41)
[2016-11-24 04:27] LABS: Basophils % 0.4 %; Eosinophils # 0.2 K/mcL (0.0-0.6); Eosinophils % 2.1 %; Hematocrit 38.6 % (35.3-44.9); Hemoglobin 12.5 g/dL (11.5-15.4); Immature Granulocytes % 0.4 % (0-4); Lymphocytes # 2.6 K/mcL (0.6-4.6); Lymphocytes % 22.9 %; Mean Corpuscular HGB Conc 32.4 g/dL (31.6-35.5); Mean Corpuscular Hemoglobin 31.9 pg (28.0-33.3); Mean Corpuscular Volume 98.5 fL (83.0-100.0); Monocytes % 8.8 %; Neutrophils # 7.3 K/mcL (1.6-8.9); Platelet Count 183 K/mcL (140-400); Red Blood Count 3.92 M/mcL (3.82-4.97); Red Cell Distribution Width 14.4 % (11.5-14.5); Segmented Neutrophils % 65.4 %
[2016-11-24 04:33] LABS: INR 1.1; Prothrombin Time 11.4 Seconds (9.4-12.1)
[2016-11-24] MEDS: *HR* Enoxaparin 40 MG/0.4 ML SYRINGE SQ SCH (05:59)
[2016-11-24] MEDS: Cefdinir 300 MG CAPSULE PO SCH ×2 (08:30→22:40)
[2016-11-24] MEDS: Isosorbide MONOnitrate (24 HR) 60 MG TAB.ER.24H PO SCH (08:31)
[2016-11-24] MEDS: Metoprolol XL (24 HR) Succ 50 MG TAB.ER.24H PO SCH (08:31)
[2016-11-24] MEDS: Gabapentin 400 MG CAPSULE PO SCH ×2 (08:31→22:41)
[2016-11-24] MEDS: Cholecalciferol (D-3) 1,000 UNIT TABLET PO SCH (08:31)
--- NOTE | 2016-11-24 13:22 | Internal Med Progress Note ---
Date of Encounter: 11/24/16 Time of Encounter: 10:30 - Assessment and plan (1) Vertebral compression fracture Current Visit: Yes Status: Acute Assessment and plan: Continue fall precautions. Imaging consistent with severe compression deformity at L1 which is new for this patient and is currently causing her significant pain and significant limitations to her activities of daily living. Patient remains at elevated risk as she is unable to stand up secondary to pain. Kyphoplasty scheduled for tomorrow of L1 per Dr. Rios. Nothing by mouth at midnight. OT and PT to see the patient after her kyphoplasty to make the determination ECF versus home with home health. ITS Impressions Lumbar Spine X-Ray 11/21/16 10:50 IMPRESSION: 1. Moderate to severe compression deformity at L1, which has progressed since 10/22/2016. 2. Chronic moderate to severe compression deformity at L3. 3. Vertebroplasty changes at L2. 4. 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 D/ / Roderick Marie MD / Roderick Marie MD Interpreting Provider: Roderick Marie MD Electroncally signed by Roderick Marie MD on 11/21/2016 11:41:42 Thoracic Spine X-Ray 11/21/16 10:50 IMPRESSION: 1. Moderate to severe compression deformity at L1, which has progressed since 10/22/2016. 2. Chronic moderate to severe compression deformity at L3. 3. Vertebroplasty changes at L2. 4. 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 D/ / Roderick Marie MD / Roderick Marie MD Interpreting Provider: Roderick Marie MD Lumbar Spine MRI 11/23/16 10:36 IMPRESSION: 1. Subacute L1 compression fracture with severe, greater than 50%, loss of vertebral body height and 2-3 mm retropulsion of the posterior L1 vertebral body. There is associated moderate to severe spinal canal stenosis at L1-L2, which has progressed since the prior examination. 2. Chronic L2 and L3 compression fractures. Loss of vertebral body height at L2 has progressed since the prior examination. Moderate to severe spinal canal stenosis at L2-L3 has mildly progressed since the prior examination. 3. Multilevel degenerative changes of the lumbar spine are similar to prior. Moderate to severe spinal canal stenosis at L3-L4 is unchanged. 4. Multilevel neural foraminal narrowing, including severe bilateral neural foraminal stenosis at L5-S1. D/ / 11/23/2016 11:35:03 Joy Bae MD / Francesca Bowie Interpreting Provider: Joy Bae MD Qualifiers: Encounter type: initial encounter Qualified Code(s): M48.50XA - Collapsed vertebra, not elsewhere classified, site unspecified, initial encounter for fracture (2) UTI (urinary tract infection) Current Visit: Yes Status: Acute Assessment and plan: Urine culture with GNR E.coli sensitive to cephalosporins, nitrofurantoin, resistant to fluoroquinolones. Ciprofloxacin was discharged yesterday and the patient was transitioned to Omnicef. Vital signs stable, no signs of sepsis. Qualifiers: Urinary tract infection type: acute cystitis Hematuria presence: with hematuria Qualified Code(s): N30.01 - Acute cystitis with hematuria (3) Recurrent falls Current Visit: Yes Status: Acute Assessment and plan: She has had multiple falls over the last several months. Xray shows moderate to sever compression deformity at L1 which has progressed since prior imaging on 10/22/16. Spine surgeon consulted, had requested a Lumbar spine MRI which reveals a subacute L1 compression fracture with severe, greater than 50% loss of vertebral body height and 2-3mm retropulsion of the posterior L1 vertebral body. Associated severe spinal canal stenosis at L1-L2 which is progressive. Patient continues to require pain meds, she is otherwise in stable condition. Vitamin D level acceptable, continue supplements. Patient will be having kyphoplasty on Saturday 11/25 a.m, ASA and Plavix have been held since 11/22, last dose 11/22 a.m. Check CBC, TYpe and screen, coagulation panel again Friday 11/24 a.m. She is medically clear for low risk surgery, she has extensive cardiac history but none active at this time. Hold PT/OT consultation till after procedure. She meets criteria for in-patient due to recurrent falls with a new vertebral fracture, intractable pain due to vertebral fracture requiring IV morphine and need for surgical intervention. Patient is very high risk for fall and not a safe discharge home, she probably will need inpatient rehab and physical therapy upon discharge (4) DVT prophylaxis Current Visit: Yes Status: Acute Assessment and plan: Subcutaneous Lovenox (5) Pain Current Visit: Yes Status: Acute Assessment and plan: Her pain is now more tolerable using by mouth medications, will continue to plan on controlling her pain as much as possible with by mouth medications. She remains at high risk. (6) Coronary artery disease Current Visit: Yes Status: Chronic Assessment and plan: Chronic, stable, no chest pain. Hold ASA/Plavix for procedure. Qualifiers: Coronary Disease-Associated Artery/Lesion type: [place] artery [place] vs. transplanted heart: [place] heart Associated angina: without angina Qualified Code(s): I25.10 - Atherosclerotic heart disease of [place] coronary artery without angina pectoris (7) History of kyphoplasty Current Visit: Yes Status: Chronic (8) Hypothyroidism Current Visit: Yes Status: Chronic Assessment and plan: No recent TSH, will check with a.m. labs (9) Overactive bladder Current Visit: Yes Status: Chronic Assessment and plan: +UTI (10) Pulmonary fibrosis Current Visit: Yes Status: Chronic Assessment and plan: Patient denies shortness of breath above her normal (11) Hypertension Current Visit: No Status: Chronic Assessment and plan: Controlled, we will continue to trend and adjust medications as indicated Qualifiers: Hypertension type: essential hypertension Qualified Code(s): I10 - Essential (primary) hypertension (12) Osteopenia Current Visit: No Status: Chronic - Subjective Interval history: Patient seen and examined. On examination, patient sitting upright in her bed eating breakfast. Patient stating her pain is currently controlled. She states that she is unable to stand up at this time secondary to severe pain. - Constitutional Vitals: Temp Pulse Resp BP Pulse Ox 97.9 F 63 18 113/73 97 11/24/16 11:24 11/24/16 11:24 11/24/16 11:24 11/24/16 11:24 11/24/16 11:24 General appearance: Present: A&O X 3, pleasant, no acute distress, answers questions appropriately - Head Head exam: Present: atraumatic, normocephalic - Eye Eye exam: Present: PERRL, conjuntiva pink, sclera anicteric Pupils: Present: PERRL - Neck Neck exam general surgery: Present: supple, trachea midline. Absent: lymphadenopathy - Respiratory Respiratory exam: Present: CTAB. Absent: accessory muscle use, rales, respiratory distress, rhonchi, wheezes - Cardiovascular Cardiovascular exam: Present: RRR, +S1, +S2. Absent: diastolic murmur, gallop, rubs, systolic murmur - GI/Abdominal GI/Abdominal exam: Present: normal bowel sounds, soft, no peritoneal signs. Absent: distended, tenderness - Extremities Exam Extremities exam: Present: warm, radial pulses palpable and symetrical. Absent : calf tenderness, cyanotic, pedal edema - Back Exam Back exam: Present: tenderness, vertebral tenderness - Neurological Exam Neurological exam: Present: alert, CN II-XII intact, oriented X3, no focal deficits, strengths equal and symetr throughout. Absent: pronater drift, facial droop, speech deficit - Skin Skin exam: Present: dry, intact, normal color, warm Internal Medicine: Result - Labs CBC & Chem 7: 11/24/16 03:45 11/22/16 07:20 Labs: Short CBC 11/24/16 Range/Units 03:45 WBC 11.2 H (4.3-11.1) K/mcL Hgb 12.5 (11.5-15.4) g/dL Hct 38.6 (35.3-44.9) % Plt Count 183 (140-400) K/mcL Neutrophils # 7.3 (1.6-8.9) K/mcL - ABG Interpretation ABG results: PT/INR, D-dimer PT 11.4 Seconds (9.4-12.1) 11/24/16 03:45 Consult Discharge Plan - Plan Referrals: Glenroy Lin MD [Primary Care Provider] - 12/01/16 1:15 pm
[2016-11-24] MEDS: (Salmon Oil/Omega-3 Fatty Acids [Fish Oil 500 Mg Soft) PO SCH ×2 (15:52→22:42)
--- NOTE | 2016-11-24 19:13 | Anesthesia Evaluation PreOp ---
Date of Encounter: 11/24/16 Time of Encounter: 19:00 - Past History Planned Operation: Kyphoplasty 1 Level Cardiac History: [place] (s/p PTCA, Plavix held since before 11-21 admission), HTN, Hyperlipidemia, Cardiac Surgery (CABG) Pulmonary History: MICHEAL Dx (does not tolerate CPAP), Other (Pulmonary Fibrosis on home oxygen at night 2L) [employer] History: Denies Any Significant HX Other Medical History: Thyroid Anesthesia History: No Prior Anesthetic Complications : No Alcohol Use: none Drug use: none Medications and Allergies Aspirin Enteric Coated [Aspirin EC] 81 mg PO DAILY 05/27/15 [History] Calcium Carbonate/Vitamin D3 [Calcium 600 + D Tablet] 600 mg PO DAILY 05/27/15 [ History] Clopidogrel [Plavix] 75 mg PO DAILY 05/27/15 [History] Levothyroxine [Synthroid] 50 mcg PO DAILY 05/27/15 [History] Oxygen 2 l .ROUTE DAILY 05/27/15 [History] Albuterol Sulfate [Albuterol Inhaler] 2 puff IH Q6HR PRN 05/28/15 [History] Gabapentin [Neurontin] 1,200 mg PO BID 05/28/15 [History] Isosorbide MONOnitrate (24 HR) [Imdur] 60 mg PO DAILY 05/28/15 [History] Metoprolol XL (24 HR) Succ [Toprol XL] 50 mg PO DAILY 05/28/15 [History] Pravastatin Sodium [Pravachol] 40 mg PO DAILY 05/28/15 [History] [place] Oil/Leiter-3 Fatty Acids [Fish Oil 500 mg Softgel] 1 cap PO BID 05/28/15 [ History] Docusate Sodium [Stool Softener] 100 mg PO DAILY 02/05/16 [History] Melatonin [Melatin] 3 mg PO HS 02/05/16 [History] Mv,Calcium,Min/Iron/Folic/Vitk [Multi For Her Tablet] 1 each PO DAILY 02/05/16 [ History] Nitroglycerin [Nitrostat] 0.4 mg SL Q5M PRN 02/05/16 [History] Omeprazole [PriLOSEC] 20 mg PO DAILY 02/05/16 [History] HYDROcodone/Acet 5/325 mg [[place] 5-325 mg] 1 tab PO Q6H PRN #30 tab 02/06/16 [Rx ] Allergies Amoxicillin [From Augmentin] Allergy (Verified 05/27/15 12:26) Rash clavulanic acid [From Augmentin] Allergy (Verified 05/27/15 12:26) Rash lisinopril Allergy (Verified 05/27/15 12:26) Cough nitrofurantoin [From Macrobid] Allergy (Verified 05/27/15 12:26) Rash Penicillins [PCN] Allergy (Verified 05/27/15 12:26) Rash Sulfa (Sulfonamide Antibiotics) Adverse Reaction (Verified 05/27/15 12:26) Nausea - Meds/Allergy Pre-op Review Medications Reviewed: Yes Allergies Reviewed: Yes Beta Blockers on Current Med List: Yes Anesthesia Results - Labs 11/24/16 03:45 11/22/16 07:20 - Imaging EKG: pending (Ordered 2-15 am, last EKG from showed SR old infarct) Additional studies: ECHO from 2013 showed EF 60-65%, mild LVH, mild diastolic dysfunction Stress test negative for ischemia EF>75% Anesthesia Exam Vital Signs/O2 Sat/Glucose, Most Current Temp Pulse Resp BP Pulse Ox 11/24/16 16:45 97.8 F 71 15 101/52 92 L 11/24/16 15:40 98.1 F 83 17 106/88 92 L Height: 5'1 Weight: 173 lbs NPO (# of Hours): MN Pain Scale: 1 - HEENT Pupil (Motor): Pupils equal, EOMI Mallampati: II Denture Type: Upper: Complete Oral Opening: Greater than 3 - [employer] LOC: Oriented [employer] Motor: Normal RUE, Normal LUE, Normal RLE, Normal LLE, Normal Face [employer] Sensory: Normal: RUE, LUE, RLE, LLE, Face - Cardiac Rhythm: Regular Murmur: None JVD: No Carotid Bruit: No - Pulmonary Breath Sounds: bilateral Clear Respiratory Effort: Symmetrical Anesthesia Assess/Plan ASA Score: 4 (CAD, HTN, Pulmonary Fibrosis on home oxygen) Modified Miguelito Scale for Level of Consciousness: Cooperative, oriented, and tranquil Anesthetic Plan: General Monitoring Plan: Standard Monitors Recovery Plan: PACU (Discussed high risk for GA, possible ICU ventilation post op, discussed with patient and son, understands risk and wishes to proceed)
[2016-11-24] MEDS: *HR* Morphine 2 MG/ML SYRINGE IVP PRN (20:02)
[2016-11-24] MEDS ORDERED: MOM Conc 10 ML UD.LIQ PO ONE ×2 (20:21→20:45)
[2016-11-24] MEDS: Melatonin 3 MG TABLET PO SCH (22:40)
[2016-11-24] MEDS: Sennosides 8.6 MG TABLET PO SCH (22:40)
[2016-11-25] MEDS: *HR* Enoxaparin 40 MG/0.4 ML SYRINGE SQ SCH (05:29)
[2016-11-25 06:22] LABS: Basophils % 0.3 %; Eosinophils # 0.2 K/mcL (0.0-0.6); Eosinophils % 2.3 %; Hematocrit 41.4 % (35.3-44.9); Hemoglobin 13.2 g/dL (11.5-15.4); Immature Granulocytes % 0.4 % (0-4); Lymphocytes # 2.5 K/mcL (0.6-4.6); Lymphocytes % 25.5 %; Mean Corpuscular HGB Conc 31.9 g/dL (31.6-35.5); Mean Corpuscular Hemoglobin 31.1 pg (28.0-33.3); Mean Corpuscular Volume 97.6 fL (83.0-100.0); Mean Platelet Volume 8.5 fL (9.4-12.4); Monocytes # 0.9 K/mcL (0.0-1.3); Monocytes % 8.8 %; Neutrophils # 6.2 K/mcL (1.6-8.9); Platelet Count 197 K/mcL (140-400); Red Blood Count 4.24 M/mcL (3.82-4.97); Red Cell Distribution Width 14.4 % (11.5-14.5); Segmented Neutrophils % 62.7 %
[2016-11-25 06:27] LABS: Prothrombin Time 10.9 Seconds (9.4-12.1)
[2016-11-25 06:42] LABS: BUN/Creatinine Ratio 29 (6-26); Blood Urea Nitrogen 19 mg/dL (7-20); Calcium 9.4 mg/dL (8.6-10.8); Carbon Dioxide 30 mEq/L (19-29); Chloride 107 mEq/L (98-109); Glucose 99 mg/dL (70-99); Osmolality,Calculated 298 (280-300); Potassium 4.5 mEq/L (3.5-4.5); Sodium 143 mEq/L (136-145); eGFR For African Americans > 60 (> 60); eGFR For Non-African Americans > 60 (> 60)
[2016-11-25] MEDS: Isosorbide MONOnitrate (24 HR) 60 MG TAB.ER.24H PO SCH (07:25)
[2016-11-25] MEDS: Cholecalciferol (D-3) 1,000 UNIT TABLET PO SCH (07:25)
[2016-11-25] MEDS: Gabapentin 400 MG CAPSULE PO SCH ×2 (07:25→20:31)
[2016-11-25] MEDS: (Salmon Oil/Omega-3 Fatty Acids [Fish Oil 500 Mg Soft) PO SCH (07:25)
[2016-11-25] MEDS: Cefdinir 300 MG CAPSULE PO SCH ×2 (07:25→20:30)
[2016-11-25] MEDS: Sennosides 8.6 MG TABLET PO SCH ×2 (07:25→20:30)
[2016-11-25] MEDS: Metoprolol XL (24 HR) Succ 50 MG TAB.ER.24H PO SCH (08:05)
[2016-11-25] MEDS ORDERED: *HR* FentaNYL (PF) 100 MCG/2 ML VIAL ONE (12:19)
[2016-11-25] MEDS ORDERED: *HR* Midazolam HCl 2 MG/2 ML VIAL ONE (12:20)
[2016-11-25] MEDS ORDERED: *HR* Propofol 200 MG/20 ML VIAL IVP ONE (12:22)
[2016-11-25] MEDS ORDERED: Ondansetron 4 MG/2 ML VIAL ONE (12:23)
[2016-11-25] MEDS ORDERED: Lidocaine -MPF 2% 2 ML VIAL ONE (12:23)
[2016-11-25] MEDS ORDERED: Dexamethasone 4 MG/ML VIAL ONE (12:23)
[2016-11-25] MEDS ORDERED: Water for inj. (sterile) 10 ML IV ONE (12:25)
[2016-11-25] MEDS ORDERED: *HR* Rocuronium Bromide 50 MG/5 ML VIAL ONE (12:25)
[2016-11-25] MEDS ORDERED: *HR* Succinylcholine 200 MG/10 ML VIAL IVP ONE (12:25)
[2016-11-25] MEDS: *HR* Morphine 2 MG/ML SYRINGE IVP PRN (12:27)
[2016-11-25] MEDS ORDERED: Clindamycin 900 MG/50 ML 900 MG/50 ML IV.SOLN IVPB ONE (14:00)
--- NOTE | 2016-11-25 14:01 | Internal Med Progress Note ---
Date of Encounter: 11/25/16 Time of Encounter: 13:00 - Assessment and plan (1) Vertebral compression fracture Current Visit: Yes Status: Acute Assessment and plan: Patient sustained acute fracture of L1 vertebra after sustaining a mechanical fall at home. Orthopedic/spine surgery consult appreciated, patient has been off aspirin and Plavix for 4 days and is scheduled for L1 vertebroplasty today. Continue pain control with when necessary IV morphine and supportive care. Pending physical therapy evaluation. Plan of care discussed with patient's family at bedside. After reviewing goals of care, patient shows to be DNR/DNI. Qualifiers: Encounter type: initial encounter Qualified Code(s): M48.50XA - Collapsed vertebra, not elsewhere classified, site unspecified, initial encounter for fracture (2) UTI (urinary tract infection) Current Visit: Yes Status: Acute Assessment and plan: Urine culture with E.coli sensitive to cephalosporins, nitrofurantoin, resistant to fluoroquinolones. Patient is noted to be on Omnicef, tolerating well, continue the same. Qualifiers: Urinary tract infection type: acute cystitis Hematuria presence: with hematuria Qualified Code(s): N30.01 - Acute cystitis with hematuria (3) Recurrent falls Current Visit: Yes Status: Acute Assessment and plan: Pending physical and occupation therapy evaluation after spine surgery. Patient will benefit from placement in extended care facility, at least for short-term rehabilitation as she is noted to be living alone at home and has already sustained multiple falls and she is also noted to be on antiplatelet agents like aspirin and Plavix, putting her at increased risk for internal bleeds. (4) Coronary artery disease Current Visit: Yes Status: Chronic Assessment and plan: Hold aspirin and Plavix for now and continue the other home medications. Qualifiers: Coronary Disease-Associated Artery/Lesion type: bypass graft [place] vs. transplanted heart: [place] heart Associated angina: without angina Qualified Code(s): I25.810 - Atherosclerosis of coronary artery bypass graft(s) without angina pectoris (5) Hypothyroidism Current Visit: Yes Status: Chronic Assessment and plan: Resume levothyroxine. Qualifiers: Hypothyroidism type: unspecified Qualified Code(s): E03.9 - Hypothyroidism , unspecified (6) Overactive bladder Current Visit: Yes Status: Chronic (7) Pulmonary fibrosis Current Visit: Yes Status: Chronic Assessment and plan: Continue supplemental oxygen as needed. (8) Hypertension Current Visit: Yes Status: Chronic Qualifiers: Hypertension type: essential hypertension Qualified Code(s): I10 - Essential (primary) hypertension - Subjective Interval history: Reports back pain, only partly controlled with narcotic pain medications. No nausea, vomiting, abdominal pain. No chest pain or shortness of breath. Awaiting back surgery today. Plan of care explained to daughters at bedside. - Constitutional Vitals: Temp Pulse Resp BP Pulse Ox 98.3 F 65 16 119/78 96 11/25/16 10:57 11/25/16 10:57 11/25/16 10:57 11/25/16 10:57 11/25/16 10:57 General appearance: Present: A&O X 3, answers questions appropriately - Respiratory Respiratory exam: Present: CTAB (Anterolaterally). Absent: accessory muscle use , rales, rhonchi, wheezes - Cardiovascular Cardiovascular exam: Present: RRR, +S1, +S2. Absent: diastolic murmur, gallop, rubs, systolic murmur - GI/Abdominal GI/Abdominal exam: Present: normal bowel sounds, soft, no peritoneal signs. Absent: distended, tenderness Internal Medicine: Result - Labs CBC & Chem 7: 11/25/16 06:08 11/25/16 06:08 Labs: Short CBC 11/25/16 Range/Units 06:08 WBC 10.0 (4.3-11.1) K/mcL Hgb 13.2 (11.5-15.4) g/dL Hct 41.4 (35.3-44.9) % Plt Count 197 (140-400) K/mcL Neutrophils # 6.2 (1.6-8.9) K/mcL BMP 11/25/16 06:08 Sodium 143 Potassium 4.5 Chloride 107 Carbon Dioxide 30 H BUN 19 Creatinine 0.65 Glucose 99 Calcium 9.4 - ABG Interpretation ABG results: PT/INR, D-dimer PT 10.9 Seconds (9.4-12.1) 11/25/16 06:08 - VTE Documentation of Mechanical Device: Graduated compression elastic hosiery Consult Discharge Plan - Plan Referrals: Mer Mayer, PAC [Physician Burn Out Scarfing Operator] - 12/08/16 10:00 am Greyson Macias DO [Partnered Physician] - 12/07/16 3:40 pm Glenroy Lin MD [Primary Care Provider] - 12/01/16 1:15 pm Baldev Olivier DO [Partnered Physician] - 01/21/17 9:40 am
[2016-11-25] MEDS ORDERED: *HR* Morphine 2 MG/ML SYRINGE IVP PRN ×2 (14:33→15:43)
[2016-11-25] MEDS ORDERED: Ringers Solution, Lactated 1,000 ML IVC SCH (14:45)
--- NOTE | 2016-11-25 14:58 | Orthopedic Operative Note ---
Date of procedure: 11/25/16 Pre-op diagnosis: osteopenia, vertebral compression fracture Post-op diagnosis: same Operation/Findings: Kyphoplasty L1: The patient was brought to the operative theater where successful endotracheal anesthesia was performed. The patient was given antibiotics prior to the start of the procedure. Compression boots and stockings were used for deep vein thrombosis prophylaxis. Patient was then turned prone on a well-padded Yony table. The back was prepped and draped in the usual sterile fashion. 2 C-arm fluorographic devices were brought into position such that simultaneous AP and lateral views centered over the involved 1 vertebral body could be performed. A stab incision was made over the superior -lateral aspect of the left L1 pedicle. We introduced a Jamshidi needle into the vertebral body via a transpedicular route. We took biplanar images of the vertebral body using fluorography. The needle was found to be in appropriate position and within the confines of the L1 vertebral body. We then introduced a biopsy trocar and obtained a biopsy specimen of the L1 vertebral body. This was sent for pathologic evaluation. We then removed the biopsy trocar and introduced a Kyphon balloon. The balloon was insufflated to approximately 54mL volume and subsequently deflated. The balloon was seen to expand within the confines of the vertebral body on biplanar fluorographic views. The balloon was then removed. We then inserted cement trochars and sequentially placed bone cement within the confines of the L1 vertebral body. We took intermittent fluorographic views which confirmed satisfactory placement of the cement. After completion of the cementation process, the trocar was removed. We took final AP and lateral fluorographic views. We then closed the stab incision with 2-0 nylon suture. A Band-Aid was placed over the wound. The patient was turned supine on a hospital bed and extubated. All sponge instrument and needle counts were correct at the end of the procedure. The patient tolerated the procedure well without complications. Anesthesia: GETA Surgeon: Diogenes Rios Jr Estimated blood loss (cc): 2 Specimen: L1 vertebral biopsy Condition: stable Disposition: PACU
--- NOTE | 2016-11-25 15:32 | Anesthesia Evaluation Post Op ---
Date of Encounter: 11/25/16 Time of Encounter: 15:32 - Vital Signs Vital Signs: Vital Signs/O2 Sat/Glucose, Most Current Temp Pulse Resp BP Pulse Ox 11/25/16 15:26 70 16 152/86 98 11/25/16 15:16 69 16 146/98 99 11/25/16 15:06 97.8 F 67 16 147/73 100 - Lungs Lungs: Clear Ascult./Percussion - Airway Airway: Non-obstructed - Cardiovascular Regular Rate - Mental Status Mental Status: Alert & Oriented, Answers Appropriately - Pain Pain Scale: 0 - Nausea Vomiting Nausea Vomiting: Not Present - Hydration Hydration: NPO - Discharge PostOp Status: Transfer Patient to floor
[2016-11-25] MEDS ORDERED: Nitroglycerin 0.4 MG TAB.SUBL SL PRN (15:43)
[2016-11-25] MEDS ORDERED: Naloxone 0.4 MG/ML INJ IVP PRN (15:43)
[2016-11-25] MEDS ORDERED: *HR* OxyCODONE Immed Rel 5 MG TABLET PO PRN (15:43)
[2016-11-25] MEDS ORDERED: Clindamycin 300 MG in D5% in Water 50 ML IVPB SCH ×3 (16:00→22:00)
[2016-11-25] MEDS: Clindamycin 300 MG in D5% in Water 50 ML IVPB SCH (20:31)
[2016-11-25] MEDS ORDERED: Melatonin 3 MG TABLET PO SCH (21:00)
[2016-11-26] MEDS ORDERED: Acetaminophen 325 MG TABLET PO PRN (03:24)
[2016-11-26] MEDS ORDERED: *HR* Enoxaparin 40 MG/0.4 ML SYRINGE SQ SCH (06:00)
[2016-11-26] MEDS: Clindamycin 300 MG in D5% in Water 50 ML IVPB SCH (06:04)
[2016-11-26] MEDS: Gabapentin 400 MG CAPSULE PO SCH (08:44)
[2016-11-26] MEDS: Cefdinir 300 MG CAPSULE PO SCH (08:44)
[2016-11-26] MEDS: Sennosides 8.6 MG TABLET PO SCH (08:45)
[2016-11-26] MEDS ORDERED: Isosorbide MONOnitrate (24 HR) 60 MG TAB.ER.24H PO SCH (09:00)
[2016-11-26] MEDS ORDERED: Multivit/Ca/Min/Fe/FA 1 TAB TABLET PO SCH (09:00)
[2016-11-26] MEDS ORDERED: Metoprolol XL (24 HR) Succ 50 MG TAB.ER.24H PO SCH (09:00)
[2016-11-26] MEDS ORDERED: Cholecalciferol (D-3) 1,000 UNIT TABLET PO SCH (09:00)
[2016-11-26] MEDS ORDERED: NON-FORMULARY MEDICATION 1 EACH EACH (Oxygen [Oxygen] 2 L) SCH (09:00)
--- NOTE | 2016-11-26 14:52 | Discharge Summary ---
Date of Encounter: 11/26/16 Time of Encounter: 14:50 - Discharge Diagnosis (1) Vertebral compression fracture Priority: Primary Status: Acute Qualifiers: Encounter type: initial encounter Qualified Code(s): M48.50XA - Collapsed vertebra, not elsewhere classified, site unspecified, initial encounter for fracture (2) UTI (urinary tract infection) Priority: Primary Status: Acute Qualifiers: Urinary tract infection type: acute cystitis Hematuria presence: with hematuria Qualified Code(s): N30.01 - Acute cystitis with hematuria (3) Recurrent falls Priority: Primary Status: Acute (4) Coronary artery disease Priority: Secondary Status: Chronic Qualifiers: Coronary Disease-Associated Artery/Lesion type: bypass graft [place] vs. transplanted heart: unga heart Associated angina: without angina Qualified Code(s): I25.810 - Atherosclerosis of coronary artery bypass graft(s) without angina pectoris (5) Hypothyroidism Priority: Secondary Status: Chronic Qualifiers: Hypothyroidism type: unspecified Qualified Code(s): E03.9 - Hypothyroidism , unspecified (6) Overactive bladder Priority: Secondary Status: Chronic (7) Pulmonary fibrosis Priority: Secondary Status: Chronic (8) Hypertension Priority: Secondary Status: Chronic Qualifiers: Hypertension type: essential hypertension Qualified Code(s): I10 - Essential (primary) hypertension - Discharge Medications Prescriptions: Cefdinir [Omnicef] 300 mg PO BID #4 capsule Home Medications: Aspirin Enteric Coated [Aspirin EC] 81 mg PO DAILY 05/27/15 [History] Calcium Carbonate/Vitamin D3 [Calcium 600 + D Tablet] 600 mg PO DAILY 05/27/15 [ History] Clopidogrel [Plavix] 75 mg PO DAILY 05/27/15 [History] Levothyroxine [Synthroid] 50 mcg PO DAILY 05/27/15 [History] Oxygen 2 l .ROUTE DAILY 05/27/15 [History] Albuterol Sulfate [Albuterol Inhaler] 2 puff IH Q6HR PRN 05/28/15 [History] Gabapentin [Neurontin] 1,200 mg PO BID 05/28/15 [History] Isosorbide MONOnitrate (24 HR) [Imdur] 60 mg PO DAILY 05/28/15 [History] Metoprolol XL (24 HR) Succ [Toprol XL] 50 mg PO DAILY 05/28/15 [History] Pravastatin Sodium [Pravachol] 40 mg PO DAILY 05/28/15 [History] [place] Oil/[place]-3 Fatty Acids [Fish Oil 500 mg Softgel] 1 cap PO BID 05/28/15 [ History] Docusate Sodium [Stool Softener] 100 mg PO DAILY 02/05/16 [History] Melatonin [Melatin] 3 mg PO HS 02/05/16 [History] Mv,Calcium,Min/Iron/Folic/Vitk [Multi For Her Tablet] 1 each PO DAILY 02/05/16 [ History] Nitroglycerin [Nitrostat] 0.4 mg SL Q5M PRN 02/05/16 [History] Omeprazole [PriLOSEC] 20 mg PO DAILY 02/05/16 [History] HYDROcodone/Acet 5/325 mg [[place] 5-325 mg] 1 tab PO Q6H PRN #30 tab 02/06/16 [Rx ] Cranberry Fruit Extract/Vit C [Azo Cranberry Softgel] 1 each PO DAILY 11/25/16 [ History] Cefdinir [Omnicef] 300 mg PO BID #4 capsule 11/26/16 [Rx] Allergies/Adverse Reactions: Allergies Amoxicillin [From Augmentin] Allergy (Verified 05/27/15 12:26) Rash clavulanic acid [From Augmentin] Allergy (Verified 05/27/15 12:26) Rash lisinopril Allergy (Verified 05/27/15 12:26) Cough nitrofurantoin [From Macrobid] Allergy (Verified 05/27/15 12:26) Rash Penicillins [PCN] Allergy (Verified 05/27/15 12:26) Rash Sulfa (Sulfonamide Antibiotics) Adverse Reaction (Verified 05/27/15 12:26) Nausea Procedures/tests Complete & Pending: Procedures Performed prior 72 hours Category Date Time Status ECG 12 lead ECG [ECG] AM 0600 Y 11/25/16 06:00 Completed Date of admission: 11/21/16 17:48 Primary care physician: Glenroy Lin MD Consults: 11/21/16 19:23 Consult to Occupational Therapy [CONS] Routine Comment: Evaluate, develop and implement POC Consult to Physical Therapy [CONS] Routine Comment: Evaluate, develop and implement POC 11/26/16 09:57 Consult to Occupational Therapy [CONS] Routine Comment: Evaluate, develop and implement POC Consult to Physical Therapy [CONS] Routine Comment: Evaluate, develop and implement POC Discharging clinician: Mey Graham Anticipated date of discharge: 11/26/16 - Patient Status Disposition: Home Health Service Condition: Fair Functional capacity at discharge: uses cane/walker Overall status at discharge: patient is progressing back to baseline - Discharge Instructions Follow Up With: Mer Mayer PAC [Physician Manager Cardiology] - 12/08/16 10:00 am Greyson Macias DO [Partnered Physician] - 12/07/16 3:40 pm Glenroy Lin MD [Primary Care Provider] - 12/01/16 1:15 pm Baldev Olivier DO [Partnered Physician] - 01/21/17 9:40 am Additional Instructions: Discharge Instructions: Lumbar Please call [facility] ([phone]), your Primary Care Physician, or report to the ER if you have any of the following symptoms: Fever greater that 101.5, increased pain/redness/drainage/odor for your incision site or any other concerning symptoms. ACTIVITY * May Shower * No Tub Baths * No lifting greater than 10 pounds * No Smoking * No Swimming * No off Ground Activities (Running, Climbing, Ladders, Horseback Riding) * No Driving MEDICATIONS: Upon discharge resume your home medications. Take all the medications as prescribed. Take a stool softener if taking narcotic pain medications. Stool softeners are only effective if you drink enough fluids. Drink 6-8 glass of water or fluids a day, unless this is not allowed for another health problem. Despite using stool softeners, if you haven't had a bowel movement in 3 days, please switch to a gentle laxative. Gentle laxatives are sold over the counter. You should have a bowel movement within 24 hours, if not call the office. You will be discharged from the hospital with a prescription for pain medication. You are encouraged to decrease the use of narcotic pain medication as tolerated. Should you require a refill, please call the office. It is best to call 48-72 hours in advance of needing a prescription refill so you don't run out of medication. WOUND CARE: Remove Dressing Tomorrow. Leave incision open to air. Pat dry when you get out of the shower. FOLLOW-UP: Please follow up with your surgeon in the orthopedic clinic in 2 weeks from the day of surgery. References: [employer] (www.apta.org) - Diet and Activity Activity: as per physical therapy, wear oxygen at all times Diet: low fat, low cholesterol, low salt diet Hospital course: Ms. Winters is a 81 year old female with the above medical problems who was admitted after sustaining a mechanical fall at home and injuring her back, complaining of low back pain. MRI lumbar spine showed subacute L1 compression fracture with loss of body height. She was given pain control and supportive care. Spine surgery was consulted. Patient was noted to be on aspirin and Plavix at home, which were held for 3 days and patient underwent L1 vertebroplasty. She had an uneventful recovery. Physical therapy evaluation was done and recommended home health PT. Home health referral has been done. Patient was also noted to have a UTI at the time of admission. Urine culture grew Escherichia coli, resistant to fluoroquinolones and she is being discharged with Omnicef to complete the antibiotic course. Patient is medically stable for discharge. - Time Spent with Patient Total time spent providing and/or coordinating discharge services: Greater than 30 minutes (45 min) - Constitutional Vitals: Temp Pulse Resp BP Pulse Ox 98.1 F 76 18 119/78 95 11/26/16 06:35 11/26/16 06:35 11/26/16 06:35 11/26/16 06:35 11/26/16 06:35 General appearance: Present: A&O X 3, answers questions appropriately - Respiratory Respiratory exam: Present: CTAB. Absent: accessory muscle use, rales, rhonchi, wheezes - Cardiovascular Cardiovascular exam: Present: RRR, +S1, +S2. Absent: diastolic murmur, gallop, rubs, systolic murmur - VTE Documentation of Mechanical Device: Intermittent pneumatic compression device
--- NOTE | 2016-11-26 14:55 | Physician Discharge Referral ---
Home Health/Hosp Referral Info Transfer to: Home Health Attending Provider: Mey Graham Provider in Charge Post Discharge: PCP - Diagnosis (1) Vertebral compression fracture Priority: Primary Status: Acute (2) UTI (urinary tract infection) Priority: Primary Status: Acute (3) Recurrent falls Priority: Primary Status: Acute (4) Coronary artery disease Priority: Secondary Status: Chronic (5) Hypothyroidism Priority: Secondary Status: Chronic (6) Overactive bladder Priority: Secondary Status: Chronic (7) Pulmonary fibrosis Priority: Secondary Status: Chronic (8) Hypertension Priority: Secondary Status: Chronic - Respiratory Orders Oxygen / L per min (2L/min) Smoking Cessation: Smoking cessation has been advised. For more information, call the [employer] Tobacco Quit Line at 1-497-IVZN-NOW. - Diet/Nutrition Diet/Nutrition Orders: Cardiac - Activity Activity Orders: Ambulate - Services Needed Following services are medically necessary services: Home Health Aide, Physical Therapy, Occupational Therapy - Transfer Medications Prescriptions: Cefdinir [Omnicef] 300 mg PO BID #4 capsule Home Medications: Aspirin Enteric Coated [Aspirin EC] 81 mg PO DAILY 05/27/15 [History] Calcium Carbonate/Vitamin D3 [Calcium 600 + D Tablet] 600 mg PO DAILY 05/27/15 [ History] Clopidogrel [Plavix] 75 mg PO DAILY 05/27/15 [History] Levothyroxine [Synthroid] 50 mcg PO DAILY 05/27/15 [History] Oxygen 2 l .ROUTE DAILY 05/27/15 [History] Albuterol Sulfate [Albuterol Inhaler] 2 puff IH Q6HR PRN 05/28/15 [History] Gabapentin [Neurontin] 1,200 mg PO BID 05/28/15 [History] Isosorbide MONOnitrate (24 HR) [Imdur] 60 mg PO DAILY 05/28/15 [History] Metoprolol XL (24 HR) Succ [Toprol XL] 50 mg PO DAILY 05/28/15 [History] Pravastatin Sodium [Pravachol] 40 mg PO DAILY 05/28/15 [History] [place] Oil/[place]-3 Fatty Acids [Fish Oil 500 mg Softgel] 1 cap PO BID 05/28/15 [ History] Docusate Sodium [Stool Softener] 100 mg PO DAILY 02/05/16 [History] Melatonin [Melatin] 3 mg PO HS 02/05/16 [History] Mv,Calcium,Min/Iron/Folic/Vitk [Multi For Her Tablet] 1 each PO DAILY 02/05/16 [ History] Nitroglycerin [Nitrostat] 0.4 mg SL Q5M PRN 02/05/16 [History] Omeprazole [PriLOSEC] 20 mg PO DAILY 02/05/16 [History] HYDROcodone/Acet 5/325 mg [[place] 5-325 mg] 1 tab PO Q6H PRN #30 tab 02/06/16 [Rx ] Cranberry Fruit Extract/Vit C [Azo Cranberry Softgel] 1 each PO DAILY 11/25/16 [ History] Cefdinir [Omnicef] 300 mg PO BID #4 capsule 11/26/16 [Rx] Allergies/Adverse Reactions: Allergies Amoxicillin [From Augmentin] Allergy (Verified 05/27/15 12:26) Rash clavulanic acid [From Augmentin] Allergy (Verified 05/27/15 12:26) Rash lisinopril Allergy (Verified 05/27/15 12:26) Cough nitrofurantoin [From Macrobid] Allergy (Verified 05/27/15 12:26) Rash Penicillins [PCN] Allergy (Verified 05/27/15 12:26) Rash Sulfa (Sulfonamide Antibiotics) Adverse Reaction (Verified 05/27/15 12:26) Nausea Certification: Further, I certify that my clinical findings support that this patient is homebound (i.e. absences from home require considerable and taxing effort and are for medical reasons or rastafarian services or infrequently or short duration when for other reasons) because: Homebound Reason: Patient requires assistance of a person or device to safely leave home, Severity of cardiac or pulmonary status limits activity tolerance Attestation: My signature below is to certify that this patient is under my care and that I, or nurse practitioner, or a physician's parts room assistant working with me, has a face-to -face encounter with this patient.
[2016-11-26 16:02] VITALS: BP 124/68
--- NOTE | 2016-11-26 19:40 | Electrocardiograph Report ---
[address] [place], [place] [address] Test Date: 2016-11-25 Pat Name: Kathryn Winters Department: 114 Room: [facility] Gender: F Voice Systems Engineer: : [id number] Requested By: Parrish Cordero Order Number: [id number] Reading MD: Parrish Boudreaux Measurements Intervals [place] Rate: 69 P: 51 NE: 136 QRS: 7 QRSD: 82 T: -7 QT: 364 QTc: 383 Interpretive Statements SINUS RHYTHM LOW QRS VOLTAGE IN PRECORDIAL LEADS ST DEVIATION AND MODERATE T-WAVE ABNORMALITY, CONSIDER ANTERIOR ISCHEMIA Electronically Signed On 11-26-2016 19:38:46 EST by Parrish Boudreaux
== END 2016-11-26 18:40 | disposition home health service (06) | DRG 478 ==
LOC: 3BNU 10:29 → EMEROO 10:29 → 3BNU 15:05 → SUATTDRO 17:48 → 3NENU 11-24 16:54
PROVIDERS: ADMIT Internal Medicine; ATTEND Internal Medicine

== ENCOUNTER 2016-12-01 14:13 | Inpatient (IN) ==
[2016-12-01] MEDS ORDERED: *HR* OxyCODONE/APAP 5/325 TABLET PO ONE ×2 (15:45→20:08)
--- NOTE | 2016-12-01 15:48 | Emergency Department Note ---
Disposition Clinical Impression: Unable to ambulate T12 compression fracture Qualifiers: Encounter type: initial encounter Qualified Code(s): M48.54XA - Collapsed vertebra, not elsewhere classified, thoracic region, initial encounter for fracture Disposition: Admitted As Inpatient Condition: Good Back Pain HPI - General Chief Complaint: ED Back Pain/Injury Stated Complaint: Back pain Time Seen by Provider: 12/01/16 15:05 Source: patient, family Mode of arrival: wheelchair Limitations: physical limitation Nursing Notes Reviewed: Yes Vital Signs Reviewed: Yes - History of Present Illness HPI Narrative: 81-year-old female presents to the ER with a chief complaint of back pain. Pt Subjective Complaint: back pain Onset (ago): day(s) Duration: constant Similar Symptoms Previously: Yes Location: lumbar spine Pain Severity: moderate Quality: aching Radiation: none Improves with: immobilization Worsens with: movement Context: other (Recent kyphoplasty status post L1 vertebral compression fracture ) Associated symptoms: Reports: weakness, difficulty walking. Denies: numbness, incontinence of bowel/bladder, fever, abdominal pain - Related Data Home Medications Medication Instructions Recorded Confirmed Aspirin Enteric Coated [Aspirin EC] 81 mg PO DAILY 05/27/15 12/01/16 Calcium Carbonate/Vitamin D3 600 mg PO DAILY 05/27/15 12/01/16 [Calcium 600 + D Tablet] Clopidogrel [Plavix] 75 mg PO DAILY 05/27/15 12/01/16 Levothyroxine [Synthroid] 50 mcg PO DAILY 05/27/15 12/01/16 Oxygen 2 l NS HS 05/27/15 12/01/16 Albuterol Sulfate [Albuterol 2 puff IH Q6HR PRN 05/28/15 12/01/16 Inhaler] Gabapentin [Neurontin] 1,200 mg PO BID 05/28/15 12/01/16 Isosorbide MONOnitrate (24 HR) 60 mg PO DAILY 05/28/15 12/01/16 [Imdur] Metoprolol XL (24 HR) Succ [Toprol 50 mg PO DAILY 05/28/15 12/01/16 XL] Pravastatin Sodium [Pravachol] 40 mg PO DAILY 05/28/15 12/01/16 [place] Oil/[place]-3 Fatty Acids 1 cap PO BID 05/28/15 12/01/16 [Fish Oil 500 mg Softgel] Docusate Sodium [Stool Softener] 100 mg PO DAILY 04/27/16 02/21/17 Melatonin [Melatin] 3 mg PO HS 02/05/16 12/01/16 Mv,Calcium,Min/Iron/Folic/Vitk 1 each PO DAILY 02/05/16 12/01/16 [Multi For Her Tablet] Nitroglycerin [Nitrostat] 0.4 mg SL Q5M PRN 02/05/16 12/01/16 Omeprazole [PriLOSEC] 20 mg PO DAILY 02/05/16 12/01/16 Cranberry Fruit Extract/Vit C [Azo 1 each PO DAILY 11/25/16 12/01/16 Cranberry Softgel] Tramadol HCl [Ultram] 100 mg PO Q6H PRN 12/01/16 12/01/16 Allergies Allergy/AdvReac Type Severity Reaction Status Date / Time Amoxicillin [From Augmentin] Allergy Rash Verified 05/27/15 12:26 clavulanic acid Allergy Rash Verified 05/27/15 12:26 [From Augmentin] lisinopril Allergy Cough Verified 05/27/15 12:26 nitrofurantoin Allergy Rash Verified 05/27/15 12:26 [From Macrobid] Penicillins [PCN] Allergy Rash Verified 05/27/15 12:26 Sulfa (Sulfonamide AdvReac Nausea Verified 05/27/15 12:26 Antibiotics) All systems ED: reviewed and negative except as stated. Constitutional: Denies: fever ( ) Cardiovascular: Denies: chest pain Gastrointestinal: Denies: abdominal pain, nausea, vomiting Genitourinary: Denies: dysuria, frequency Musculoskeletal: Reports: back pain Neurological: Reports: weakness. Denies: numbness Past Medical History - Past Medical History Attestation: Yes The following information was validated with the patient. Source: patient Medical history: Reports: GERD, hyperlipidemia, hypertension, myocardial infarction, syncope, other Surgical history: Reports: cholecystectomy, coronary bypass (CABG), orthopedic, other, other Psychiatric history: Reports: no psych history - Social History Smoking Status: Never smoker Smokeless Tobacco Status: No Alcohol use: Reports: none Drug use: Reports: none Physical Exam - General Limitations: no limitations General appearance: alert, in no apparent distress - Head Head exam: atraumatic, normocephalic, normal inspection - Eye Eye exam: Present: normal appearance - ENT ENT exam: normal exam - Neck Neck exam: Present: normal inspection - Chest Chest inspection: Present: normal inspection - Respiratory Respiratory exam: Present: normal lung sounds bilaterally - Cardiovascular Cardiovascular exam: Present: regular rate, normal rhythm, normal heart sounds - Abdominal Exam Abdominal exam: Present: soft, Non-Tender. Absent: tenderness, guarding, rigidity - Extremities Exam Extremities exam: Present: normal inspection - Expanded Lower Extremity Exam Hip/Pelvis exam: Present: normal inspection Upper leg exam: Present: normal inspection Knee exam: Present: normal inspection Lower leg exam: Present: normal inspection Ankle exam: Present: normal inspection Foot/toe exam: Present: normal inspection - Back Exam Back exam: Present: normal inspection, other (Vertical midline incision over the lumbar spine with sutures intact without surrounding erythema or induration. ) - Neurological Exam Neurological exam: Present: alert, other (Negative straight leg raise bilaterally.). Absent: motor sensory deficit - Psychiatric Psychiatric exam: Present: normal affect, normal mood - Skin Skin exam: Present: warm, dry, intact Course Course Narrative: 81-year-old female history of recent L1 vertebral compression fracture status post kyphoplasty of L1 on 11/25/16 presents to the ER with a chief complaint of back pain. Patient reports that she fell at home and sustained the L1 fracture. She was admitted here and underwent kyphoplasty on the of this month and was discharged soon after. She reports that she has had continued pain since discharge. She reports that she has been taking tramadol and contacted her primary care provider who told her to double the dose but the daughter did not want to change the medication dose because she was afraid they would mask symptoms. She reports that she walks at home with a walker and has felt weaker on her feet. Family is concerned that she went home too early or requires rehabilitation. She denies any numbness, tingling or paresthesias in her lower extremity. She denies any bowel or bladder incontinence out of her usual. She denies saddle anesthesia. No other complaints voiced. Plan for this patient is x-ray of the lumbar spine as the patient's family is very concerned that she might have fractured something else although she has no recent trauma. We will also obtain a urinalysis as the patient's family states that she recently had a UTI and was treated and they would like to check on that. meat process worker will also come in and talk to the family about placement options. - Reevaluation(s) Reevaluation #1: Discussed the results of lumbar x-ray with patient and family. Also discussed diet program with the spine surgeon and the family is in agreement for admission to the hospital. - Consultations Consultation #1: I discussed this patient with the on-call spine surgeon Dr. Riso. He reports that if she is unable to complete her care for herself at home that we can admit to the hospitalist service and he will consult for management of her fracture. Vital Signs Temperature 98.4 F 12/01/16 14:22 Pulse Rate 84 12/01/16 14:22 Respiratory Rate 18 12/01/16 14:22 Blood Pressure 104/72 12/01/16 14:22 O2 Sat by Pulse Oximetry 94 L 12/01/16 14:22 Temperature 98.4 F 12/01/16 14:22 Pulse Rate 84 12/01/16 14:22 Respiratory Rate 14 12/01/16 20:10 Blood Pressure 110/78 12/01/16 20:10 O2 Sat by Pulse Oximetry 94 L 12/01/16 14:22 Oxygen Delivery Oxygen Delivery Room Air Back Pain/Injury - MDM Narrative Medical decision making narrative: 81-year-old female presents to the ER due to low back pain status post kyphoplasty on 11/25/16. She reports no recent trauma however x-rays today show a new compression fracture of T12. She has a nonfocal neurologic exam. She is unable to ambulate here or to care for herself at home. Case discussed with her spinal surgeon. Patient will be admitted to the hospital for further management. - Radiology Data Radiology results reviewed: Yes I reviewed the patient's radiology results. Lumbar Spine X-Ray 12/01/16 15:45 IMPRESSION: New T12 compression D/ / Rigoberto Ulloa MD / Rigoberto Ulloa MD Interpreting Provider: Rigoberto Ulloa MD S.B.A.R. - S.B.A.R. Situation: Demographics, MOA Background: Presenting Complaint, Relevant PMH, Meds, & Allergies Assessment: Vital Signs, Course and respsone to treatment, Exam Concerns, Patient/Family Expectation, Pertinant Lab Results, Outstanding Labs Recommendation: Barrier(s) to disposition, Recommendation based on pending studies, treatments, or consults S.B.A.R. Report Given to: Dr. Hansen
--- NOTE | 2016-12-01 17:35 | Emergency Department Note ---
Disposition Clinical Impression: T12 compression fracture, Unable to ambulate Disposition: Admitted As Inpatient Condition: Good General Adult HPI - General Chief complaint: ED Back Pain/Injury Stated complaint: Back pain Time Seen by Provider: 12/01/16 15:05 Source: patient, family Mode of arrival: wheelchair Limitations: no limitations - History of Present Illness Pain Scale: 5 - Related Data Home Medications Medication Instructions Recorded Confirmed Aspirin Enteric Coated [Aspirin EC] 81 mg PO DAILY 05/27/15 12/01/16 Calcium Carbonate/Vitamin D3 600 mg PO DAILY 05/27/15 12/01/16 [Calcium 600 + D Tablet] Clopidogrel [Plavix] 75 mg PO QPM 05/27/15 12/01/16 Levothyroxine [Synthroid] 50 mcg PO DAILY 05/27/15 12/01/16 Oxygen 2 l NS HS 05/27/15 12/01/16 Albuterol Sulfate [Albuterol 2 puff IH Q6HR PRN 05/28/15 12/01/16 Inhaler] Gabapentin [Neurontin] 1,200 mg PO BID 05/28/15 12/01/16 Isosorbide MONOnitrate (24 HR) 60 mg PO DAILY 05/28/15 12/01/16 [Imdur] Metoprolol XL (24 HR) Succ [Toprol 50 mg PO DAILY 05/28/15 12/01/16 XL] Pravastatin Sodium [Pravachol] 40 mg PO DAILY 05/28/15 12/01/16 [place] Oil/[place]-3 Fatty Acids 1 cap PO BID 05/28/15 12/01/16 [Fish Oil 500 mg Softgel] Docusate Sodium [Stool Softener] 100 mg PO DAILY 02/05/16 12/01/16 Melatonin [Melatin] 3 mg PO HS 02/05/16 12/01/16 Mv,Calcium,Min/Iron/Folic/Vitk 1 each PO DAILY 02/05/16 12/01/16 [Multi For Her Tablet] Nitroglycerin [Nitrostat] 0.4 mg SL Q5M PRN 02/05/16 12/01/16 Omeprazole [PriLOSEC] 20 mg PO DAILY 02/05/16 12/01/16 Cranberry Fruit Extract/Vit C [Azo 1 each PO DAILY 11/25/16 12/01/16 Cranberry Softgel] Tramadol HCl [Ultram] 100 mg PO Q6H PRN 12/01/16 12/01/16 Allergies Allergy/AdvReac Type Severity Reaction Status Date / Time Amoxicillin [From Augmentin] Allergy Rash Verified 05/27/15 12:26 clavulanic acid Allergy Rash Verified 05/27/15 12:26 [From Augmentin] lisinopril Allergy Cough Verified 05/27/15 12:26 nitrofurantoin Allergy Rash Verified 05/27/15 12:26 [From Macrobid] Penicillins [PCN] Allergy Rash Verified 05/27/15 12:26 Sulfa (Sulfonamide AdvReac Nausea Verified 05/27/15 12:26 Antibiotics) Constitutional: Denies: fever ( ) Cardiovascular: Denies: chest pain Gastrointestinal: Denies: abdominal pain, nausea, vomiting Genitourinary: Denies: dysuria, frequency Musculoskeletal: Reports: back pain Neurological: Reports: weakness. Denies: numbness Past Medical History - Past Medical History Medical history: Reports: GERD, hyperlipidemia, hypertension, myocardial infarction, syncope, other Surgical history: Reports: cholecystectomy, coronary bypass (CABG), orthopedic, other, other Psychiatric history: Reports: no psych history - Social History Smoking Status: Never smoker Smokeless Tobacco Status: No Alcohol use: Reports: none Drug use: Reports: none Physical Exam - General Limitations: no limitations General appearance: alert, in no apparent distress Course - Reevaluation(s) Reevaluation #1: I saw the patient with the resident, Dr. Bragg. Patient presents with back pain. She just had a kyphoplasty done on her back. She started having more pain after that. She denied any neurologic symptoms to the lower extremities. She denied any bowel or bladder issues acutely. Examination shows no actual tenderness to palpation but there is pain with range of motion. Distal neurologic examination extremities is normal. X-rays reveal an acute compression fracture at T 12. We spoke with the trading specialist, Dr. Rios, and he recommended admission to the hospitalist service and he will consult and consider another kyphoplasty. Patient and family are comfortable with the plan. Time: 17:35 Vital Signs Temperature 98.4 F 12/01/16 14:22 Pulse Rate 84 12/01/16 14:22 Respiratory Rate 18 12/01/16 14:22 Blood Pressure 104/72 12/01/16 14:22 O2 Sat by Pulse Oximetry 94 L 12/01/16 14:22 Temperature 97.7 F 12/01/16 21:10 Pulse Rate 75 12/01/16 21:10 Respiratory Rate 16 12/01/16 21:10 Blood Pressure 114/76 12/01/16 21:10 O2 Sat by Pulse Oximetry 93 L 12/01/16 21:10 Oxygen Delivery Oxygen Delivery Room Air Attestation Statement - Attestation Attestation: I, Dr. Mcdonald, examined this patient [id number] and my medical decision- making was reviewed with Dr. Bragg, Resident Physician. I agree with the documented findings, disposition and treatment plan as described except to the extent set forth below. Please see my progress note for details.
[2016-12-01] MEDS ORDERED: *HR* Morphine 2 MG/ML SYRINGE IVP PRN (21:10)
[2016-12-01] MEDS ORDERED: Naloxone 0.4 MG/ML INJ IVP PRN (21:10)
[2016-12-01] MEDS ORDERED: Nitroglycerin 0.4 MG TAB.SUBL SL PRN (21:20)
--- NOTE | 2016-12-01 21:39 | Internal Med History&Physical ---
Date of Encounter: 12/01/16 Time of Encounter: 20:00 Assessment and Plan (1) T12 compression fracture Current visit: Yes Status: Acute 1. Will initiate pain control with oral Oxycodone for mild pain; IV Morphine for severe pain. 2. Will order MRI of spine. 3. Consult Dr. Rios for possible kyphoplasty. 4. Pt will need PT/OT consults once pain controlled. 5. Hold Aspirin and Plavix in anticipation of surgery. Qualifiers: Encounter type: initial encounter Qualified Code(s): M48.54XA - Collapsed vertebra, not elsewhere classified, thoracic region, initial encounter for fracture (2) Coronary artery disease Current visit: No Status: Chronic 1. No signs or symptoms of angina. 2. Continue home meds as appropriate. 3. Check baseline EKG and monitor telemetry. Qualifiers: Coronary Disease-Associated Artery/Lesion type: bypass graft [place] vs. transplanted heart: [place] heart Associated angina: without angina Qualified Code(s): I25.810 - Atherosclerosis of coronary artery bypass graft(s) without angina pectoris (3) Pulmonary fibrosis Current visit: No Status: Chronic 1. Continue home meds and oxygen as needed. 2. No chronic steroid use. Pt did have one course of Medrol Dose Pack this winter per family for treatment of bronchitis. 3. Monitor clinically. Pt follows with [facility] chronically. (4) DVT prophylaxis Current visit: No Status: Acute 1. Heparin SQ. Internal Medicine - H&P: HPI Chief complaint: back pain Admitted From: Emergency Dept Plans for Post Hospital Care: Home History of present illness: Ms. Winters is a 81 year old female who presents with severe pain in her back for the last several days. She was just discharged from the hospital last week after undergoing kyphoplasty for an L1 compression fracture. She denies any trauma, fall, or injury to her back since her discharge. She noticed the pain in her back the very next day after discharge. She saw her PCP today who referred her to ER for evaluation. Workup in the ER included an x-ray of her spine which revealed a new T12 compression fracture. She was therefore admitted to hospitalist service for further workup and care. Of note, ER staff contacted Dr. Rios who noted he will see her in the morning and and consider further intervention/kyphoplasty if she is a candidate. I saw and interviewed patient in the ER. She and her family confirms above history. She otherwise feels well and has no complaints. Her only complaint is the pain in her back which is severe with any mobility and/or activity. She again denies any fall or injury. She denies any fevers, vomiting, or diarrhea. Appetite and fluid intake have been depressed somewhat however. Past Med Surg Social Fam HX - Past Medical History Attestation: Yes The following information was validated with the patient. Source: patient, old records reviewed, obtained from family Medical history: GERD, hyperlipidemia, hypertension, myocardial infarction, syncope, other (pulmonary fibrosis) Psychiatric history: no psych history - Past Surgical History Surgical History: cholecystectomy, coronary bypass (CABG), orthopedic, other, other - Social History Smoking Status: Never smoker Smokeless Tobacco Status: No Alcohol use: none Drug use: none Current living situation: Home - Independent Activity Level: Independent ambulation Recent Out of Country Travel Within the Last 8 Weeks: No - Family History Mother Living Status: Sister Adopted: No Living Status: Hx Family Respiratory Disorders: Yes (PULMONARY FIBROSIS) Internal Medicine - H&P: Meds Aspirin Enteric Coated [Aspirin EC] 81 mg PO DAILY 05/27/15 [History] Calcium Carbonate/Vitamin D3 [Calcium 600 + D Tablet] 600 mg PO DAILY 05/27/15 [ History] Clopidogrel [Plavix] 75 mg PO QPM 05/27/15 [History] Levothyroxine [Synthroid] 50 mcg PO DAILY 05/27/15 [History] Oxygen 2 l NS HS 05/27/15 [History] Albuterol Sulfate [Albuterol Inhaler] 2 puff IH Q6HR PRN 05/28/15 [History] Gabapentin [Neurontin] 1,200 mg PO BID 05/28/15 [History] Isosorbide MONOnitrate (24 HR) [Imdur] 60 mg PO DAILY 05/28/15 [History] Metoprolol XL (24 HR) Succ [Toprol XL] 50 mg PO DAILY 05/28/15 [History] Pravastatin Sodium [Pravachol] 40 mg PO DAILY 05/28/15 [History] [place] Oil/[place]-3 Fatty Acids [Fish Oil 500 mg Softgel] 1 cap PO BID 05/28/15 [ History] Docusate Sodium [Stool Softener] 100 mg PO DAILY 04/27/16 [History] Melatonin [Melatin] 3 mg PO HS 02/05/16 [History] Mv,Calcium,Min/Iron/Folic/Vitk [Multi For Her Tablet] 1 each PO DAILY 02/05/16 [ History] Nitroglycerin [Nitrostat] 0.4 mg SL Q5M PRN 02/05/16 [History] Omeprazole [PriLOSEC] 20 mg PO DAILY 02/05/16 [History] Cranberry Fruit Extract/Vit C [Azo Cranberry Softgel] 1 each PO DAILY 11/25/16 [ History] Tramadol HCl [Ultram] 100 mg PO Q6H PRN 12/01/16 [History] Allergies Amoxicillin [From Augmentin] Allergy (Verified 05/27/15 12:26) Rash clavulanic acid [From Augmentin] Allergy (Verified 05/27/15 12:26) Rash lisinopril Allergy (Verified 05/27/15 12:26) Cough nitrofurantoin [From Macrobid] Allergy (Verified 05/27/15 12:26) Rash Penicillins [PCN] Allergy (Verified 05/27/15 12:26) Rash Sulfa (Sulfonamide Antibiotics) Adverse Reaction (Verified 05/27/15 12:26) Nausea - Constitutional Constitutional: fatigue, falls (none recently, but + history of falls), no chills, no fever(s) - EENT Eyes: no blurry vision, no change in vision Ears: no ear pain, no tinnitus Nose, mouth and throat: no nasal congestion, no sinus pressure, no sore throat - Cardiovascular Cardiovascular ROS IM: dyspnea (chronic), no chest pain, no palpitations - Respiratory Respiratory: dyspnea, no cough, no hemoptysis, no wheezing, no excessive phlegm production, no change in phlegm color - Gastrointestinal Gastrointestinal: no abdominal pain, no hematemesis, no hematochezia, no melena , no nausea, no vomiting - Genitourinary Genitourinary: no dysuria, no hematuria - Musculoskeletal Musculoskeletal ROS IM: arthralgias, back pain - Integumentary Integumentary IM: no rash, no unusual bruising - Neurological Neurological ROS: frequent falls, no dizziness, no focal weakness, no headache(s ) - Psychiatric Psychiatric: no anxiety, no depression - Endocrine Endocrine IM: no polydipsia, no polyuria - Hematologic/Lymphatic Hematologic/Lymphatic: no easy bruising, no lymphadenopathy - Allergic/Immunologic Allergic/Immunologic: no GI upset with certain foods - Constitutional Vitals: Temp Pulse Resp BP Pulse Ox 97.7 F 75 16 114/76 93 L 12/01/16 21:10 12/01/16 21:10 12/01/16 21:10 12/01/16 21:10 12/01/16 21:10 General appearance: Present: cooperative, mild distress, A&O X 3, pleasant, answers questions appropriately - Head Head exam: Present: atraumatic, normal inspection - Expanded Head Exam Head exam expanded: Absent: abrasion, contusion, general tenderness - Eye Eye exam: Present: EOMI, normal appearance, PERRL. Absent: scleral icterus Pupils: Present: normal accommodation - ENT ENT exam: Present: mucous membranes dry, normal exam, normal oropharynx - Neck Neck exam general surgery: Present: full ROM, normal inspection, supple. Absent : lymphadenopathy, nuchal rigidity - Respiratory Respiratory exam: Present: rales (dry crackles in bases). Absent: accessory muscle use, chest wall tenderness, respiratory distress, rhonchi, wheezes - Cardiovascular Cardiovascular exam: Present: RRR, +S1, +S2. Absent: diastolic murmur, systolic murmur - GI/Abdominal GI/Abdominal exam: Present: normal bowel sounds, soft. Absent: guarding, hepatomegaly, mass, rebound, splenomegaly, tenderness - Extremities Exam Extremities exam: Present: full ROM, normal capillary refill, warm. Absent: calf tenderness, joint swelling, tenderness - Back Exam Back exam: Present: vertebral tenderness - Neurological Exam Neurological exam: Present: alert, oriented X3, no focal deficits - Psychiatric Psychiatric exam: Present: normal affect, normal mood - Skin Skin exam: Present: dry, warm. Absent: rash Internal Med - H&P Results - Diagnostic Studies Other Images Additional comments: Lumbar Spine X-ray report reviewed -- new T12 compression fracture
[2016-12-01] MEDS: 0.9 % Sodium Chloride 1,000 ML IVC SCH (22:06)
[2016-12-01] MEDS: *HR* Heparin 5,000 UNIT/ML VIAL SQ SCH (22:06)
[2016-12-02] MEDS: *HR* OxyCODONE Immed Rel 5 MG TABLET PO PRN ×3 (02:31→11:25)
[2016-12-02 04:22] LABS: Basophils % 0.3 %; Eosinophils # 0.4 K/mcL (0.0-0.6); Hematocrit 36.5 % (35.3-44.9); Hemoglobin 11.8 g/dL (11.5-15.4); Immature Granulocytes % 0.4 % (0-4); Lymphocytes # 1.9 K/mcL (0.6-4.6); Lymphocytes % 26.4 %; Mean Corpuscular HGB Conc 32.3 g/dL (31.6-35.5); Mean Corpuscular Hemoglobin 31.9 pg (28.0-33.3); Mean Corpuscular Volume 98.6 fL (83.0-100.0); Mean Platelet Volume 9.1 fL (9.4-12.4); Monocytes # 0.8 K/mcL (0.0-1.3); Monocytes % 11.2 %; Neutrophils # 4.2 K/mcL (1.6-8.9); Platelet Count 158 K/mcL (140-400); Red Cell Distribution Width 14.2 % (11.5-14.5); Segmented Neutrophils % 56.7 %
[2016-12-02 04:25] LABS: INR 1.1; Prothrombin Time 11.8 Seconds (9.4-12.1)
[2016-12-02 04:28] LABS: Activated Partial Thrombo Time 29.6 Seconds (26.0-36.0)
[2016-12-02 04:40] LABS: Alanine Aminotransferase 17 Units/L (0-55); Albumin 2.4 g/dL (3.5-5.0); Albumin/Globulin Ratio 0.8 (1.1-2.2); Alkaline Phosphatase 51 Units/L (38-126); Aspartate Amino Transferase 17 Units/L (5-34); BUN/Creatinine Ratio 17 (6-26); Bilirubin,Total 0.5 mg/dL (0.2-1.2); Blood Urea Nitrogen 12 mg/dL (7-20); Calcium 8.9 mg/dL (8.6-10.8); Carbon Dioxide 27 mEq/L (19-29); Chloride 105 mEq/L (98-109); Glucose 79 mg/dL (70-99); Magnesium 1.9 mg/dL (1.6-2.6); Osmolality,Calculated 287 (280-300); Potassium 4.4 mEq/L (3.5-4.5); Sodium 139 mEq/L (136-145); Total Protein 5.4 g/dL (6.0-8.3); eGFR For African Americans > 60 (> 60); eGFR For Non-African Americans > 60 (> 60)
[2016-12-02] MEDS: *HR* Heparin 5,000 UNIT/ML VIAL SQ SCH ×2 (06:05→18:16)
[2016-12-02 06:15] LABS: Bilirubin,Urine Negative (Negative); Blood,Urine Negative (Negative); Clarity,Urine Clear (Clear); Color,Urine Yellow (Yellow); Glucose,Urine (UA) Normal (Normal); Ketones,Urine Trace mg/dL (Negative); Leukocyte Esterase,Urine Negative (Negative); Nitrite,Urine Negative (Negative); PH,Urine 6.5 pH Units (5.0-8.0); Protein,Urine Negative (Neg-Trace); Urobilinogen,Urine Normal (Normal)
[2016-12-02] MEDS: Gabapentin 400 MG CAPSULE PO SCH ×2 (07:47→21:06)
[2016-12-02] MEDS: Metoprolol XL (24 HR) Succ 50 MG TAB.ER.24H PO SCH (07:48)
[2016-12-02] MEDS: Isosorbide MONOnitrate (24 HR) 60 MG TAB.ER.24H PO SCH (07:48)
[2016-12-02] MEDS: Multivit/Ca/Min/Fe/FA 1 TAB TABLET PO SCH (07:49)
--- NOTE | 2016-12-02 09:39 | Internal Med Progress Note ---
Date of Encounter: 12/02/16 Time of Encounter: 08:45 - Assessment and plan (1) T12 compression fracture Current Visit: Yes Status: Acute Assessment and plan: Patient is status post kyphoplasty of L1 on 11/25/[address] Rios. She was then discharged home with home health services on 11/26/16. Patient is stating that she noticed pain in her back the day after her discharge but failed to improve prompting of presentation to her primary care provider sent her to the emergency department. Patient denies any falls, trauma, or injuries since her discharge. Imaging consistent with new T12 compression fracture. Dr. Rios was contacted per ER and will see the patient today for possible kyphoplasty. MRI of cervical, lumbar, and thoracic spine pending. Patient's pain medication increased at this time. ITS Impressions Lumbar Spine X-Ray 12/01/16 15:45 IMPRESSION: New T12 compression D/ / Rigoberto Ulloa MD / Rigoberto Ulloa MD Interpreting Provider: Rigoberto Ulloa MD Qualifiers: Encounter type: initial encounter Qualified Code(s): M48.54XA - Collapsed vertebra, not elsewhere classified, thoracic region, initial encounter for fracture (2) Unable to ambulate Current Visit: Yes Status: Acute (3) DVT prophylaxis Current Visit: No Status: Acute Assessment and plan: Subcutaneous heparin (4) Vertebral compression fracture Current Visit: No Status: Acute Qualifiers: Encounter type: initial encounter Qualified Code(s): M48.50XA - Collapsed vertebra, not elsewhere classified, site unspecified, initial encounter for fracture (5) Weakness Current Visit: No Status: Acute Assessment and plan: Will bring IT and PTT on board after her procedure if one is indicated. (6) Coronary artery disease Current Visit: No Status: Chronic Assessment and plan: Patient denies chest pain or shortness of breath. Qualifiers: Coronary Disease-Associated Artery/Lesion type: bypass graft [place] vs. transplanted heart: [place] heart Associated angina: without angina Qualified Code(s): I25.810 - Atherosclerosis of coronary artery bypass graft(s) without angina pectoris (7) History of kyphoplasty Current Visit: No Status: Chronic (8) Hypertension Current Visit: No Status: Chronic Assessment and plan: Controlled, we will continue to trend and adjust medications as indicated. Qualifiers: Hypertension type: essential hypertension Qualified Code(s): I10 - Essential (primary) hypertension (9) Hypothyroidism Current Visit: No Status: Chronic Assessment and plan: TSH normal (10) Osteopenia Current Visit: No Status: Chronic Qualifiers: Osteopenia location: spine Qualified Code(s): M85.88 - Other specified disorders of bone density and structure, other site (11) Overactive bladder Current Visit: No Status: Chronic (12) Pulmonary fibrosis Current Visit: No Status: Chronic Assessment and plan: Patient denies shortness of breath above her norm. - Subjective Interval history: Patient seen and examined. On examination, patient resting supine in bed. Patient tearful at this time complaining of severe pain to her back. She states she does not have an appetite. She denies nausea. - Constitutional Vitals: Temp Pulse Resp BP Pulse Ox 98.2 F 77 20 135/81 94 L 12/02/16 07:16 12/02/16 07:16 12/02/16 07:16 12/02/16 07:16 12/02/16 07:16 General appearance: Present: cooperative, mild distress (moderate 2/2 pain), A& O X 3, pleasant, answers questions appropriately - Head Head exam: Present: atraumatic, normocephalic - Eye Eye exam: Present: PERRL, conjuntiva pink, sclera anicteric Pupils: Present: PERRL - Neck Neck exam general surgery: Present: supple, trachea midline. Absent: lymphadenopathy - Respiratory Respiratory exam: Present: decreased breath sounds. Absent: accessory muscle use, rales, respiratory distress, rhonchi, wheezes - Cardiovascular Cardiovascular exam: Present: RRR, +S1, +S2. Absent: diastolic murmur, gallop, rubs, systolic murmur - GI/Abdominal GI/Abdominal exam: Present: normal bowel sounds, soft, no peritoneal signs. Absent: distended, tenderness - Extremities Exam Extremities exam: Present: warm, radial pulses palpable and symetrical. Absent : calf tenderness, cyanotic, pedal edema - Back Exam Back exam: Present: paraspinal tenderness, tenderness, vertebral tenderness - Neurological Exam Neurological exam: Present: alert, CN II-XII intact, oriented X3, no focal deficits, strengths equal and symetr throughout. Absent: pronater drift, facial droop, speech deficit - Skin Skin exam: Present: dry, intact, pallor, warm Internal Medicine: Result - Labs CBC & Chem 7: 12/02/16 03:46 12/02/16 03:46 Labs: Short CBC 12/02/16 Range/Units 03:46 WBC 7.3 (4.3-11.1) K/mcL Hgb 11.8 (11.5-15.4) g/dL Hct 36.5 (35.3-44.9) % Plt Count 158 (140-400) K/mcL Neutrophils # 4.2 (1.6-8.9) K/mcL BMP 12/02/16 03:46 Sodium 139 Potassium 4.4 Chloride 105 Carbon Dioxide 27 BUN 12 Creatinine 0.72 Glucose 79 Calcium 8.9 Liver Function 12/02/16 Range/Units 03:46 Total Bilirubin 0.5 (0.2-1.2) mg/dL AST 17 (5-34) Units/L ALT 17 (0-55) Units/L Alkaline Phosphatase 51 (38-126) Units/L Albumin 2.4 L (3.5-5.0) g/dL Urine 12/02/16 Range/Units 06:00 Urine Color Yellow (Yellow) Urine Clarity Clear (Clear) Urine pH 6.5 (5.0-8.0) pH Units Ur Specific [place] 1.010 (1.010-1.025) Urine Protein Negative (Neg-Trace) mg/dL Urine Glucose (UA) Normal (Normal) mg/dL - ABG Interpretation ABG results: PT/INR, D-dimer PT 11.8 Seconds (9.4-12.1) 12/02/16 03:46 Consult Discharge Plan - Plan Referrals: Glenroy Lin MD [Primary Care Provider] -
[2016-12-02] MEDS ORDERED: Ondansetron 4 MG/2 ML VIAL IVP PRN (09:48)
[2016-12-02] MEDS: 0.9 % Sodium Chloride 1,000 ML IVC SCH (12:28)
[2016-12-02] MEDS: *HR* Morphine 2 MG/ML SYRINGE IVP PRN ×2 (15:01→18:16)
[2016-12-02] MEDS: Acetaminophen 325 MG TABLET PO PRN (21:07)
[2016-12-03] MEDS: Melatonin 3 MG TABLET PO SCH ×2 (00:37→21:14)
[2016-12-03] MEDS: 0.9 % Sodium Chloride 1,000 ML IVC SCH ×2 (01:45→15:22)
[2016-12-03 04:49] LABS: INR 1.1; Prothrombin Time 12.3 Seconds (9.4-12.1)
[2016-12-03 05:54] LABS: Basophils % 0.4 %; Eosinophils # 0.2 K/mcL (0.0-0.6); Eosinophils % 4.5 %; Hematocrit 33.9 % (35.3-44.9); Immature Granulocytes % 0.8 % (0-4); Immature Platelets 1.5 % (1.1-6.1); Lymphocytes # 0.8 K/mcL (0.6-4.6); Lymphocytes % 15.6 %; Mean Corpuscular HGB Conc 32.4 g/dL (31.6-35.5); Mean Corpuscular Hemoglobin 32.1 pg (28.0-33.3); Mean Corpuscular Volume 98.8 fL (83.0-100.0); Mean Platelet Volume 8.9 fL (9.4-12.4); Monocytes # 0.7 K/mcL (0.0-1.3); Neutrophils # 3.2 K/mcL (1.6-8.9); Platelet Count 155 K/mcL (140-400); Red Blood Count 3.43 M/mcL (3.82-4.97); Red Cell Distribution Width 14.4 % (11.5-14.5); Segmented Neutrophils % 64.7 %
[2016-12-03] MEDS: *HR* Heparin 5,000 UNIT/ML VIAL SQ SCH ×2 (06:19→18:07)
[2016-12-03 06:49] LABS: BUN/Creatinine Ratio 16 (6-26); Blood Urea Nitrogen 11 mg/dL (7-20); Calcium 8.3 mg/dL (8.6-10.8); Carbon Dioxide 25 mEq/L (19-29); Chloride 108 mEq/L (98-109); Glucose 93 mg/dL (70-99); Osmolality,Calculated 287 (280-300); Potassium 4.2 mEq/L (3.5-4.5); Sodium 139 mEq/L (136-145); eGFR For African Americans > 60 (> 60); eGFR For Non-African Americans > 60 (> 60)
[2016-12-03] MEDS: *HR* OxyCODONE Immed Rel 5 MG TABLET PO PRN ×2 (08:06→21:13)
[2016-12-03] MEDS: Gabapentin 400 MG CAPSULE PO SCH ×2 (08:07→21:14)
[2016-12-03] MEDS: Multivit/Ca/Min/Fe/FA 1 TAB TABLET PO SCH (08:07)
[2016-12-03] MEDS: Isosorbide MONOnitrate (24 HR) 60 MG TAB.ER.24H PO SCH (08:07)
[2016-12-03] MEDS: Metoprolol XL (24 HR) Succ 50 MG TAB.ER.24H PO SCH (08:07)
[2016-12-03] MEDS: *HR* Morphine 2 MG/ML SYRINGE IVP PRN ×3 (11:11→19:33)
--- NOTE | 2016-12-03 12:32 | Pain Management History & Phys ---
Date of Encounter: 12/03/16 Time of Encounter: 12:00 Assessment and Plan (1) T12 compression fracture Current Visit: Yes Status: Acute The assessment and plan as outlined above was discussed with the patient and/or family members who expressed understanding and agreement. All questions were answered. Discussion with the patient. Back pain is concordant with the patient's T12 inferior endplate compression fracture. Due to the Plavix last taken prior to admission, 7 full days abstains from Plavix would be Wednesday. Patient will be added to the schedule Wednesday for kyphoplasty of T12. Recommendations at this time or pain control and advance activity as tolerated. She is a fall precaution. Qualifiers: Encounter type: initial encounter Qualified Code(s): M48.54XA - Collapsed vertebra, not elsewhere classified, thoracic region, initial encounter for fracture History of Present Illness Chief complaint: back pain HPI: Ms. Winters is a 81 year old female who is status post L1 and L2 kyphoplasty 2 weeks ago. Patient had new onset thoracolumbar pain that began a few days ago. The patient went to see her for primary care provider, and she was subsequently sent to the emergency room. Imaging was performed and the patient was found to have a new T12 compression fracture. Patient was admitted in anticipation of repair. Patient complains of thoracic back pain that is constant and worse with walking. She has a hard time sitting upright. She is not maintaining her activities of daily living. She is having difficulty caring for herself subsequent to the severe pain. Patient has a cardiac history and had taken Plavix up to the day of admission. She reports no new onset weakness, fevers, chills or malaise. She is reporting no new bowel or bladder dysfunction. Past Med Surg Social Fam HX - Past Medical History Medical history: GERD, hyperlipidemia, hypertension, myocardial infarction, syncope, other Psychiatric history: no psych history - Past Surgical History Surgical History: cholecystectomy, coronary bypass (CABG), orthopedic, other, other - Social History Smoking Status: Never smoker Smokeless Tobacco Status: No Alcohol use: none Drug use: none - Family History Mother Living Status: Sister Adopted: No Living Status: Hx Family Respiratory Disorders: Yes (PULMONARY FIBROSIS) Medications and Allergies Aspirin Enteric Coated [Aspirin EC] 81 mg PO DAILY 05/27/15 [History] Calcium Carbonate/Vitamin D3 [Calcium 600 + D Tablet] 600 mg PO DAILY 05/27/15 [ History] Clopidogrel [Plavix] 75 mg PO QPM 05/27/15 [History] Levothyroxine [Synthroid] 50 mcg PO DAILY 05/27/15 [History] Oxygen 2 l NS HS 05/27/15 [History] Albuterol Sulfate [Albuterol Inhaler] 2 puff IH Q6HR PRN 05/28/15 [History] Gabapentin [Neurontin] 1,200 mg PO BID 05/28/15 [History] Isosorbide MONOnitrate (24 HR) [Imdur] 60 mg PO DAILY 05/28/15 [History] Metoprolol XL (24 HR) Succ [Toprol XL] 50 mg PO DAILY 05/28/15 [History] Pravastatin Sodium [Pravachol] 40 mg PO DAILY 05/28/15 [History] [place] Oil/[place]-3 Fatty Acids [Fish Oil 500 mg Softgel] 1 cap PO BID 05/28/15 [ History] Docusate Sodium [Stool Softener] 100 mg PO DAILY 02/05/16 [History] Melatonin [Melatin] 3 mg PO HS 02/05/16 [History] Mv,Calcium,Min/Iron/Folic/Vitk [Multi For Her Tablet] 1 each PO DAILY 02/05/16 [ History] Nitroglycerin [Nitrostat] 0.4 mg SL Q5M PRN 02/05/16 [History] Omeprazole [PriLOSEC] 20 mg PO DAILY 02/05/16 [History] Cranberry Fruit Extract/Vit C [Azo Cranberry Softgel] 1 each PO DAILY 11/25/16 [ History] Tramadol HCl [Ultram] 100 mg PO Q6H PRN 12/01/16 [History] Allergies Amoxicillin [From Augmentin] Allergy (Verified 05/27/15 12:26) Rash clavulanic acid [From Augmentin] Allergy (Verified 05/27/15 12:26) Rash lisinopril Allergy (Verified 05/27/15 12:26) Cough nitrofurantoin [From Macrobid] Allergy (Verified 05/27/15 12:26) Rash Penicillins [PCN] Allergy (Verified 05/27/15 12:26) Rash Sulfa (Sulfonamide Antibiotics) Adverse Reaction (Verified 05/27/15 12:26) Nausea Review of Systems - Constitutional Constitutional ROS IM: as per HPI - Cardiovascular Cardiovascular ROS: no chest pain, no leg edema, no lightheadedness - Respiratory Respiratory: no pain on inspiration, no pain with cough - Gastrointestinal Gastrointestinal: no abdominal pain, no constipation, no diarrhea, no heartburn - Genitourinary Genitourinary ROS: no difficulty urinating, no flank pain, no urinary hesitancy - Musculoskeletal Musculoskeletal ROS: as per HPI, abnormal gait - Integumentary Integumentary: no erythema, no lesions, no swelling - Neurological Neurological ROS: abnormal gait, no behavioral changes, no focal weakness, no radicular pain - Psychiatric Psychiatric general: no anxiety, no confusion, no depression - Hematologic/Lymphatic Hematologic/Lymphatic pediatric: easy bleeding Physical Exam Initial Vital Signs Temp Pulse Resp BP Pulse Ox 98.4 F 84 18 104/72 94 L 12/01/16 14:22 12/01/16 14:22 12/01/16 14:22 12/01/16 14:22 12/01/16 14:22 - General physical appearance General physical appearance: awake & oriented - Eyes Eye exam: normal ocular movement - Respiratory normal respiratory effort - Integumentary Integumentary general surgery: no rash - Neurologic other (Moving all extremities equally) - Musculoskeletal Musculoskeletal: kyphosis, point tenderness over spinal process (T12 severe TTP) - Psychiatric Psychiatric: other (tearful) Results - Labs 12/03/16 04:30 12/03/16 04:30 Abnormal lab results RBC 3.43 M/mcL (3.82-4.97) L 12/03/16 04:30 Hgb 11.0 g/dL (11.5-15.4) L 12/03/16 04:30 Hct 33.9 % (35.3-44.9) L 12/03/16 04:30 MPV 8.9 fL (9.4-12.4) L 12/03/16 04:30 PT 12.3 Seconds (9.4-12.1) H 12/03/16 04:30 Calcium 8.3 mg/dL (8.6-10.8) L 12/03/16 04:30 Serum Total Protein 5.4 g/dL (6.0-8.3) L 12/02/16 03:46 Albumin 2.4 g/dL (3.5-5.0) L 12/02/16 03:46 Albumin/Globulin Ratio 0.8 (1.1-2.2) L 12/02/16 03:46 Urine Ketones Trace mg/dL (Negative) H 12/02/16 06:00 Diabetes panel 12/03/16 Range/Units 04:30 Sodium 139 (136-145) mEq/L Potassium 4.2 (3.5-4.5) mEq/L Chloride 108 (98-109) mEq/L Carbon Dioxide 25 (19-29) mEq/L BUN 11 (7-20) mg/dL Creatinine 0.70 (0.57-1.11) mg/dL Glucose 93 (70-99) mg/dL Calcium 8.3 L (8.6-10.8) mg/dL Calcium panel 12/03/16 Range/Units 04:30 Calcium 8.3 L (8.6-10.8) mg/dL Pituitary panel 12/03/16 Range/Units 04:30 Sodium 139 (136-145) mEq/L Potassium 4.2 (3.5-4.5) mEq/L Chloride 108 (98-109) mEq/L Carbon Dioxide 25 (19-29) mEq/L BUN 11 (7-20) mg/dL Creatinine 0.70 (0.57-1.11) mg/dL Glucose 93 (70-99) mg/dL Calcium 8.3 L (8.6-10.8) mg/dL Adrenal panel 12/03/16 Range/Units 04:30 Sodium 139 (136-145) mEq/L Potassium 4.2 (3.5-4.5) mEq/L Chloride 108 (98-109) mEq/L Carbon Dioxide 25 (19-29) mEq/L BUN 11 (7-20) mg/dL Creatinine 0.70 (0.57-1.11) mg/dL Glucose 93 (70-99) mg/dL Calcium 8.3 L (8.6-10.8) mg/dL All other labs normal. - Imaging Additional studies: I reviewed the patient's recent thoracic and lumbar MRI images and report.
--- NOTE | 2016-12-03 12:38 | Internal Med Progress Note ---
Date of Encounter: 12/03/16 Time of Encounter: 09:00 - Assessment and plan (1) T12 compression fracture Current Visit: Yes Status: Acute Assessment and plan: Patient is status post kyphoplasty of L1 on 11/25/[address] Rios. She was then discharged home with home health services on 11/26/16. Patient is stating that she noticed pain in her back the day after her discharge but failed to improve prompting of presentation to her primary care provider sent her to the emergency department. Patient denies any falls, trauma, or injuries since her discharge. Imaging consistent with new T12 compression fracture. Dr. Rios was contacted per ER and saw the patient however he would be unable to perform the surgery until wednesday, so another physician, Dr Dennis was brought onboard to possible perform the kyphoplasty tomrrow (wednesday). The patient, however last took her Plavix 3 days ago and there needs to be a 7 day washout time prior to surgery. Therefore, she will need to be kept inpatient until Wednesday when she can have her srugery. Plan is to then discharge her to an inpatient rehabilitation. She is not safe to be discharged in the meantime. She is also requiring regular dosing of IV pain medication. MRI of cervical, lumbar, and thoracic spine again revealing new T12 compression fracture. Her pain is currently controlled. ITS Impressions Lumbar Spine X-Ray 12/01/16 15:45 IMPRESSION: New T12 compression D/ / Rigoberto Ulloa MD / Rigoberto Ulloa MD Interpreting Provider: Rigoberto Ulloa MD Cervical Spine MRI 12/02/16 08:46 IMPRESSION: No evidence of fracture or destructive osseous lesion in the cervical spine. No prevertebral soft tissue edema. Multilevel degenerative disc disease as described above, exacerbating congenitally narrow cervical spinal canal. Spinal canal narrowing, mild at C4-5 and C5-6, minimal at C6-7. Foraminal narrowing, moderate to severe at left C5-6 and left C6-7, moderate at the bilateral C4-5, right C5-6 and right C6-7, mild at bilateral C2-3 and bilateral C3-4. D/ / Morales Soto MD / Morales Soto MD Interpreting Provider: Morales Soto MD Lumbar Spine MRI 12/02/16 08:46 IMPRESSION: 1. Acute T12 inferior endplate compression fracture with approximately 15% loss of vertebral body height. 2. Interval vertebroplasty at L1 since the 11/23/2016 exam. 3. Stable vertebroplasty at L2, and chronic compression fracture at L3. 4. Multilevel foraminal narrowing and central spinal canal narrowing, not appreciably changed, as above. D/ / 12/02/2016 11:41:23 Edin Trimble MD / leila Interpreting Provider: Edin Trimble MD Thoracic Spine MRI 12/02/16 08:46 IMPRESSION: 1. Mild T12 inferior endplate compression deformity with associated bone marrow edema, new from MRI of 11/23/2016. There is less than 25% vertebral body height loss centrally at this level. 2. Mild degenerative disease in the lower thoracic spine with shallow disc bulges, but no high-grade spinal canal or neural foraminal stenosis. D/ / 12/02/2016 11:46:31 Rudy Sargent MD / leila Interpreting Provider: Rudy Sargent MD Qualifiers: Encounter type: initial encounter Qualified Code(s): M48.54XA - Collapsed vertebra, not elsewhere classified, thoracic region, initial encounter for fracture (2) Unable to ambulate Current Visit: Yes Status: Acute (3) DVT prophylaxis Current Visit: No Status: Acute Assessment and plan: Subcutaneous heparin (4) Vertebral compression fracture Current Visit: No Status: Acute Qualifiers: Encounter type: initial encounter Qualified Code(s): M48.50XA - Collapsed vertebra, not elsewhere classified, site unspecified, initial encounter for fracture (5) Weakness Current Visit: No Status: Acute Assessment and plan: Will bring OT and PT on board after her procedure; prior to her procedure, her pain and inability to ambulate proclude her from participating in physical or occupational therapy. (6) Coronary artery disease Current Visit: No Status: Chronic Assessment and plan: Patient denies chest pain or shortness of breath. Qualifiers: Coronary Disease-Associated Artery/Lesion type: bypass graft [place] vs. transplanted heart: [place] heart Associated angina: without angina Qualified Code(s): I25.810 - Atherosclerosis of coronary artery bypass graft(s) without angina pectoris (7) History of kyphoplasty Current Visit: No Status: Chronic (8) Hypertension Current Visit: No Status: Chronic Assessment and plan: Controlled, we will continue to trend and adjust medications as indicated. Qualifiers: Hypertension type: essential hypertension Qualified Code(s): I10 - Essential (primary) hypertension (9) Hypothyroidism Current Visit: No Status: Chronic Assessment and plan: TSH normal (10) Osteopenia Current Visit: No Status: Chronic Qualifiers: Osteopenia location: spine Qualified Code(s): M85.88 - Other specified disorders of bone density and structure, other site (11) Overactive bladder Current Visit: No Status: Chronic (12) Pulmonary fibrosis Current Visit: No Status: Chronic Assessment and plan: Patient denies shortness of breath above her norm. - Subjective Interval history: Patient seen and examined. On examination, patient sitting upright in bed eating breakfast. She is much more alert and interactive than yesterday and states that her pain is currently controlled. She states she is feeling much better now that her pain is controlled. She denies any numbness or tingling but states that when she does have pain, sharp pain radiates down her left leg. - Constitutional Vitals: Temp Pulse Resp BP Pulse Ox 98.1 F 76 16 119/76 92 L 12/03/16 11:33 12/03/16 11:33 12/03/16 11:33 12/03/16 11:33 12/03/16 11:33 General appearance: Present: cooperative, A&O X 3, pleasant, no acute distress, answers questions appropriately - Head Head exam: Present: atraumatic, normocephalic - Eye Eye exam: Present: PERRL, conjuntiva pink, sclera anicteric Pupils: Present: PERRL - Neck Neck exam general surgery: Present: supple, trachea midline. Absent: lymphadenopathy - Respiratory Respiratory exam: Present: CTAB. Absent: accessory muscle use, rales, respiratory distress, rhonchi, wheezes - Cardiovascular Cardiovascular exam: Present: RRR, +S1, +S2. Absent: diastolic murmur, gallop, rubs, systolic murmur - GI/Abdominal GI/Abdominal exam: Present: normal bowel sounds, soft, no peritoneal signs. Absent: distended, tenderness - Extremities Exam Extremities exam: Present: warm, radial pulses palpable and symetrical. Absent : calf tenderness, cyanotic, pedal edema - Back Exam Back exam: Present: paraspinal tenderness, vertebral tenderness - Neurological Exam Neurological exam: Present: alert, CN II-XII intact, oriented X3, no focal deficits, strengths equal and symetr throughout. Absent: pronater drift, facial droop, speech deficit - Skin Skin exam: Present: dry, intact, normal color, warm Internal Medicine: Result - Labs CBC & Chem 7: 12/03/16 04:30 12/03/16 04:30 Labs: Short CBC 12/03/16 Range/Units 04:30 WBC 4.9 (4.3-11.1) K/mcL Hgb 11.0 L (11.5-15.4) g/dL Hct 33.9 L (35.3-44.9) % Plt Count 155 (140-400) K/mcL Neutrophils # 3.2 (1.6-8.9) K/mcL BMP 12/03/16 04:30 Sodium 139 Potassium 4.2 Chloride 108 Carbon Dioxide 25 BUN 11 Creatinine 0.70 Glucose 93 Calcium 8.3 L - ABG Interpretation ABG results: PT/INR, D-dimer PT 12.3 Seconds (9.4-12.1) H 12/03/16 04:30 - Impressions Impressions Thoracic Spine MRI 12/02/16 08:46 IMPRESSION: 1. Mild T12 inferior endplate compression deformity with associated bone marrow edema, new from MRI of 11/23/2016. There is less than 25% vertebral body height loss centrally at this level. 2. Mild degenerative disease in the lower thoracic spine with shallow disc bulges, but no high-grade spinal canal or neural foraminal stenosis. D/ / 12/02/2016 11:46:31 Rudy Sargent MD / [email or web address] Interpreting Provider: Rudy Sargent MD Consult Discharge Plan - Plan Referrals: Glenroy Lin MD [Primary Care Provider] -
[2016-12-04] MEDS: 0.9 % Sodium Chloride 1,000 ML IVC SCH (05:21)
--- NOTE | 2016-12-04 06:38 | Electrocardiograph Report ---
[address] [place], [place] [address] Test Date: 2016-12-02 Pat Name: Kathryn Winters Department: 113 Room: [facility] Gender: F Registered Dental Hygienist: : 1935 Requested By: Rick Vázquez Order Number: [id number] Reading MD: Ricci Hensley MD Measurements Intervals [place] Rate: 73 P: 52 LA: 140 QRS: 5 QRSD: 90 T: -19 QT: 392 QTc: 417 Interpretive Statements SINUS RHYTHM INFERIOR MYOCARDIAL INFARCTION, OF INDETERMINATE AGE MODERATE T-WAVE ABNORMALITY, CONSIDER ANTEROLATERAL ISCHEMIA Electronically Signed On 12-04-2016 6:36:02 EST by Ricci Hensley MD
[2016-12-04] MEDS: *HR* Heparin 5,000 UNIT/ML VIAL SQ SCH ×2 (06:50→17:29)
[2016-12-04] MEDS: Isosorbide MONOnitrate (24 HR) 60 MG TAB.ER.24H PO SCH (09:12)
[2016-12-04] MEDS: Multivit/Ca/Min/Fe/FA 1 TAB TABLET PO SCH (09:12)
[2016-12-04] MEDS: Gabapentin 400 MG CAPSULE PO SCH ×2 (09:12→20:13)
[2016-12-04] MEDS: Metoprolol XL (24 HR) Succ 50 MG TAB.ER.24H PO SCH (09:12)
--- NOTE | 2016-12-04 10:21 | Internal Med Progress Note ---
Date of Encounter: 12/04/16 Time of Encounter: 10:17 - Assessment and plan (1) T12 compression fracture Current Visit: Yes Status: Acute Assessment and plan: Patient is status post kyphoplasty of L1 on 11/25/[address] Rios. She was then discharged home with home health services on 11/26/16. Patient is stating that she noticed pain in her back the day after her discharge but failed to improve prompting of presentation to her primary care provider sent her to the emergency department. Patient denies any falls, trauma, or injuries since her discharge. Imaging consistent with new T12 compression fracture. The patient, however last took her Plavix 3 days ago and there needs to be a 7 day washout time prior to surgery. Therefore, she will need to be kept inpatient until Wednesday when she can have her surgery. Plan is to then discharge her to an inpatient rehabilitation. She is not safe to be discharged in the meantime. She is still also requiring IV pain medication. MRI of cervical, lumbar, and thoracic spine again revealing new T12 compression fracture. Her pain is currently controlled. ITS Impressions Lumbar Spine X-Ray 12/01/16 15:45 IMPRESSION: New T12 compression D/ / Rigoberto Ulloa MD / Rigoberto Ulloa MD Interpreting Provider: Rigoberto Ulloa MD Cervical Spine MRI 12/02/16 08:46 IMPRESSION: No evidence of fracture or destructive osseous lesion in the cervical spine. No prevertebral soft tissue edema. Multilevel degenerative disc disease as described above, exacerbating congenitally narrow cervical spinal canal. Spinal canal narrowing, mild at C4-5 and C5-6, minimal at C6-7. Foraminal narrowing, moderate to severe at left C5-6 and left C6-7, moderate at the bilateral C4-5, right C5-6 and right C6-7, mild at bilateral C2-3 and bilateral C3-4. D/ / Morales Soto MD / Morales Soto MD Interpreting Provider: Morales Soto MD Lumbar Spine MRI 12/02/16 08:46 IMPRESSION: 1. Acute T12 inferior endplate compression fracture with approximately 15% loss of vertebral body height. 2. Interval vertebroplasty at L1 since the 11/23/2016 exam. 3. Stable vertebroplasty at L2, and chronic compression fracture at L3. 4. Multilevel foraminal narrowing and central spinal canal narrowing, not appreciably changed, as above. D/ / 12/02/2016 11:41:23 Edin Trimble MD / leila Interpreting Provider: Edin Trimble MD Thoracic Spine MRI 12/02/16 08:46 IMPRESSION: 1. Mild T12 inferior endplate compression deformity with associated bone marrow edema, new from MRI of 11/23/2016. There is less than 25% vertebral body height loss centrally at this level. 2. Mild degenerative disease in the lower thoracic spine with shallow disc bulges, but no high-grade spinal canal or neural foraminal stenosis. D/ / 12/02/2016 11:46:31 Rudy Sargent MD / leila Interpreting Provider: Rudy Sargent MD Qualifiers: Encounter type: initial encounter Qualified Code(s): M48.54XA - Collapsed vertebra, not elsewhere classified, thoracic region, initial encounter for fracture (2) Unable to ambulate Current Visit: Yes Status: Acute (3) DVT prophylaxis Current Visit: No Status: Acute Assessment and plan: Subcutaneous heparin (4) Constipation Current Visit: Yes Status: Acute Assessment and plan: Miralax today. Qualifiers: Constipation type: other constipation type Qualified Code(s): K59.09 - Other constipation - Time Spent With Patient 25 - 35 minutes - Subjective Interval history: First encounter with the patient. Afebrile. Pain is currently controlled. Last bowel movement was 1 week ago. Had breakfast, no nausea or abd pain. Lives by herself. - Constitutional Vitals: Temp Pulse Resp BP Pulse Ox 98.3 F 80 16 122/76 93 L 12/04/16 06:45 12/04/16 06:45 12/04/16 06:45 12/04/16 06:45 12/04/16 06:45 General appearance: Present: cooperative, A&O X 3, pleasant, no acute distress, answers questions appropriately - Head Head exam: Present: atraumatic, normocephalic - Eye Eye exam: Present: PERRL, conjuntiva pink, sclera anicteric Pupils: Present: PERRL - Neck Neck exam general surgery: Present: supple, trachea midline. Absent: lymphadenopathy - Respiratory Respiratory exam: Present: CTAB. Absent: accessory muscle use, rales, rhonchi, wheezes - Cardiovascular Cardiovascular exam: Present: RRR, +S1, +S2. Absent: diastolic murmur, gallop, rubs, systolic murmur - GI/Abdominal GI/Abdominal exam: Present: normal bowel sounds, soft, no peritoneal signs. Absent: distended, tenderness - Extremities Exam Extremities exam: Present: warm, radial pulses palpable and symetrical. Absent : calf tenderness, cyanotic, pedal edema - Neurological Exam Neurological exam: Present: CN II-XII intact, oriented X3, no focal deficits. Absent: pronater drift, facial droop, speech deficit - Skin Skin exam: Present: dry, intact Internal Medicine: Result - Labs CBC & Chem 7: 12/03/16 04:30 12/03/16 04:30 - ABG Interpretation ABG results: PT/INR, D-dimer PT 12.3 Seconds (9.4-12.1) H 12/03/16 04:30 Consult Discharge Plan - Plan Referrals: Glenroy Lin MD [Primary Care Provider] -
[2016-12-04] MEDS: Melatonin 3 MG TABLET PO SCH (20:13)
[2016-12-05 04:06] LABS: Basophils % 0.4 %; Eosinophils # 0.4 K/mcL (0.0-0.6); Eosinophils % 4.8 %; Hematocrit 36.9 % (35.3-44.9); Hemoglobin 11.7 g/dL (11.5-15.4); Immature Granulocytes % 0.4 % (0-4); Lymphocytes # 2.2 K/mcL (0.6-4.6); Lymphocytes % 26.3 %; Mean Corpuscular HGB Conc 31.7 g/dL (31.6-35.5); Mean Corpuscular Hemoglobin 31.5 pg (28.0-33.3); Mean Corpuscular Volume 99.5 fL (83.0-100.0); Mean Platelet Volume 8.9 fL (9.4-12.4); Monocytes # 0.7 K/mcL (0.0-1.3); Monocytes % 8.2 %; Neutrophils # 4.9 K/mcL (1.6-8.9); Platelet Count 116 K/mcL (140-400); Red Blood Count 3.71 M/mcL (3.82-4.97); Red Cell Distribution Width 14.5 % (11.5-14.5); Segmented Neutrophils % 59.9 %
[2016-12-05 04:19] LABS: BUN/Creatinine Ratio 9 (6-26); Blood Urea Nitrogen 6 mg/dL (7-20); Calcium 9.1 mg/dL (8.6-10.8); Carbon Dioxide 26 mEq/L (19-29); Chloride 109 mEq/L (98-109); Glucose 97 mg/dL (70-99); Osmolality,Calculated 290 (280-300); Potassium 4.7 mEq/L (3.5-4.5); Sodium 141 mEq/L (136-145); eGFR For African Americans > 60 (> 60); eGFR For Non-African Americans > 60 (> 60)
[2016-12-05 04:49] LABS: Platelet Estimate Normal (Normal); Reactive Lymphocytes Present (Not Present)
[2016-12-05] MEDS: *HR* Heparin 5,000 UNIT/ML VIAL SQ SCH ×2 (07:15→17:46)
[2016-12-05] MEDS: Metoprolol XL (24 HR) Succ 50 MG TAB.ER.24H PO SCH (07:45)
[2016-12-05] MEDS: Gabapentin 400 MG CAPSULE PO SCH ×2 (07:46→22:04)
[2016-12-05] MEDS: Multivit/Ca/Min/Fe/FA 1 TAB TABLET PO SCH (07:46)
[2016-12-05] MEDS: Isosorbide MONOnitrate (24 HR) 60 MG TAB.ER.24H PO SCH (07:46)
[2016-12-05] MEDS: *HR* OxyCODONE Immed Rel 5 MG TABLET PO PRN (09:26)
--- NOTE | 2016-12-05 11:26 | Internal Med Progress Note ---
Date of Encounter: 12/05/16 Time of Encounter: 11:25 - Assessment and plan (1) T12 compression fracture Current Visit: Yes Status: Acute Assessment and plan: Patient is status post kyphoplasty of L1 on 11/25/[address] Rios. She was then discharged home with home health services on 11/26/16. Patient is stating that she noticed pain in her back the day after her discharge but failed to improve prompting of presentation to her primary care provider sent her to the emergency department. Patient denies any falls, trauma, or injuries since her discharge. Imaging consistent with new T12 compression fracture. The patient, however last took her Plavix 3 days ago and there needs to be a 7 day washout time prior to surgery. Therefore, she will need to be kept inpatient until Wednesday when she can have her surgery. Plan is to then discharge her to an inpatient rehabilitation. She is not safe to be discharged in the meantime. She is still also requiring IV pain medication. MRI of cervical, lumbar, and thoracic spine again revealing new T12 compression fracture. Her pain is currently controlled. ITS Impressions Lumbar Spine X-Ray 12/01/16 15:45 IMPRESSION: New T12 compression D/ / Rigoberto Ulloa MD / Rigoberto Ulloa MD Interpreting Provider: Rigoberto Ulloa MD Cervical Spine MRI 12/02/16 08:46 IMPRESSION: No evidence of fracture or destructive osseous lesion in the cervical spine. No prevertebral soft tissue edema. Multilevel degenerative disc disease as described above, exacerbating congenitally narrow cervical spinal canal. Spinal canal narrowing, mild at C4-5 and C5-6, minimal at C6-7. Foraminal narrowing, moderate to severe at left C5-6 and left C6-7, moderate at the bilateral C4-5, right C5-6 and right C6-7, mild at bilateral C2-3 and bilateral C3-4. D/ / Morales Soto MD / Morales Soto MD Interpreting Provider: Morales Soto MD Lumbar Spine MRI 12/02/16 08:46 IMPRESSION: 1. Acute T12 inferior endplate compression fracture with approximately 15% loss of vertebral body height. 2. Interval vertebroplasty at L1 since the 11/23/2016 exam. 3. Stable vertebroplasty at L2, and chronic compression fracture at L3. 4. Multilevel foraminal narrowing and central spinal canal narrowing, not appreciably changed, as above. D/ / 12/02/2016 11:41:23 Edin Trimble MD / leila Interpreting Provider: Edin Trimble MD Thoracic Spine MRI 12/02/16 08:46 IMPRESSION: 1. Mild T12 inferior endplate compression deformity with associated bone marrow edema, new from MRI of 11/23/2016. There is less than 25% vertebral body height loss centrally at this level. 2. Mild degenerative disease in the lower thoracic spine with shallow disc bulges, but no high-grade spinal canal or neural foraminal stenosis. D/ / 12/02/2016 11:46:31 Rudy Sargent MD / leila Interpreting Provider: Rudy Sargent MD Qualifiers: Encounter type: initial encounter Qualified Code(s): M48.54XA - Collapsed vertebra, not elsewhere classified, thoracic region, initial encounter for fracture (2) Unable to ambulate Current Visit: Yes Status: Acute (3) DVT prophylaxis Current Visit: No Status: Acute Assessment and plan: Subcutaneous heparin (4) Constipation Current Visit: Yes Status: Acute Qualifiers: Constipation type: other constipation type Qualified Code(s): K59.09 - Other constipation - Subjective Interval history: Afebrile. Pain is currently controlled. Last bowel movement was 1 week ago. Had breakfast, no nausea or abd pain. Lives by herself. Awaiting for surgery on wednesday. - Constitutional Vitals: Temp Pulse Resp BP Pulse Ox 98.3 F 82 16 99/63 95 12/05/16 10:53 12/05/16 10:53 12/05/16 10:53 12/05/16 10:53 12/05/16 10:53 General appearance: Present: cooperative, A&O X 3, pleasant, no acute distress, answers questions appropriately - Head Head exam: Present: atraumatic, normocephalic - Eye Eye exam: Present: PERRL, conjuntiva pink, sclera anicteric Pupils: Present: PERRL - Neck Neck exam general surgery: Present: supple, trachea midline. Absent: lymphadenopathy - Respiratory Respiratory exam: Present: CTAB. Absent: accessory muscle use, rales, rhonchi, wheezes - Cardiovascular Cardiovascular exam: Present: RRR, +S1, +S2. Absent: diastolic murmur, gallop, rubs, systolic murmur - GI/Abdominal GI/Abdominal exam: Present: normal bowel sounds, soft, no peritoneal signs. Absent: distended, tenderness - Extremities Exam Extremities exam: Present: warm, radial pulses palpable and symetrical. Absent : calf tenderness, cyanotic, pedal edema - Neurological Exam Neurological exam: Present: CN II-XII intact, oriented X3, no focal deficits. Absent: pronater drift, facial droop, speech deficit - Skin Skin exam: Present: dry, intact Internal Medicine: Result - Labs CBC & Chem 7: 12/05/16 03:42 12/05/16 03:42 Labs: Short CBC 12/05/16 Range/Units 03:42 WBC 8.2 D (4.3-11.1) K/mcL Hgb 11.7 (11.5-15.4) g/dL Hct 36.9 (35.3-44.9) % Plt Count 116 L (140-400) K/mcL Neutrophils # 4.9 (1.6-8.9) K/mcL BMP 12/05/16 03:42 Sodium 141 Potassium 4.7 H Chloride 109 Carbon Dioxide 26 BUN 6 L Creatinine 0.65 Glucose 97 Calcium 9.1 - ABG Interpretation ABG results: PT/INR, D-dimer PT 12.3 Seconds (9.4-12.1) H 12/03/16 04:30 Consult Discharge Plan - Plan Referrals: Glenroy Lin MD [Primary Care Provider] -
[2016-12-05] MEDS: Melatonin 3 MG TABLET PO SCH (22:04)
[2016-12-06] MEDS: *HR* Heparin 5,000 UNIT/ML VIAL SQ SCH ×2 (06:17→17:18)
[2016-12-06] MEDS: Multivit/Ca/Min/Fe/FA 1 TAB TABLET PO SCH (07:35)
[2016-12-06] MEDS: Isosorbide MONOnitrate (24 HR) 60 MG TAB.ER.24H PO SCH (07:35)
[2016-12-06] MEDS: Metoprolol XL (24 HR) Succ 50 MG TAB.ER.24H PO SCH (07:35)
[2016-12-06] MEDS: Gabapentin 400 MG CAPSULE PO SCH ×2 (07:35→21:22)
--- NOTE | 2016-12-06 11:41 | Internal Med Progress Note ---
Date of Encounter: 12/06/16 Time of Encounter: 11:40 - Assessment and plan (1) T12 compression fracture Current Visit: Yes Status: Acute Assessment and plan: Patient is status post kyphoplasty of L1 on 11/25/[address] Rios. She was then discharged home with home health services on 11/26/16. Patient is stating that she noticed pain in her back the day after her discharge but failed to improve prompting of presentation to her primary care provider sent her to the emergency department. Patient denies any falls, trauma, or injuries since her discharge. Imaging consistent with new T12 compression fracture. The patient, however last took her Plavix 3 days ago and there needs to be a 7 day washout time prior to surgery. Therefore, she will need to be kept inpatient until Wednesday when she can have her surgery. Plan is to then discharge her to an inpatient rehabilitation. She is not safe to be discharged in the meantime. She is still also requiring IV pain medication. MRI of cervical, lumbar, and thoracic spine again revealing new T12 compression fracture. Her pain is currently controlled. NPO after midnight in anticipation for surgery. ITS Impressions Lumbar Spine X-Ray 12/01/16 15:45 IMPRESSION: New T12 compression D/ / Rigoberto Ulloa MD / Rigoberto Ulloa MD Interpreting Provider: Rigoberto Ulloa MD Cervical Spine MRI 12/02/16 08:46 IMPRESSION: No evidence of fracture or destructive osseous lesion in the cervical spine. No prevertebral soft tissue edema. Multilevel degenerative disc disease as described above, exacerbating congenitally narrow cervical spinal canal. Spinal canal narrowing, mild at C4-5 and C5-6, minimal at C6-7. Foraminal narrowing, moderate to severe at left C5-6 and left C6-7, moderate at the bilateral C4-5, right C5-6 and right C6-7, mild at bilateral C2-3 and bilateral C3-4. D/ / Morales Soto MD / Morales Soto MD Interpreting Provider: Morales Soto MD Lumbar Spine MRI 12/02/16 08:46 IMPRESSION: 1. Acute T12 inferior endplate compression fracture with approximately 15% loss of vertebral body height. 2. Interval vertebroplasty at L1 since the 11/23/2016 exam. 3. Stable vertebroplasty at L2, and chronic compression fracture at L3. 4. Multilevel foraminal narrowing and central spinal canal narrowing, not appreciably changed, as above. D/ / 12/02/2016 11:41:23 Edin Trimble MD / leila Interpreting Provider: Edin Trimble MD Thoracic Spine MRI 12/02/16 08:46 IMPRESSION: 1. Mild T12 inferior endplate compression deformity with associated bone marrow edema, new from MRI of 11/23/2016. There is less than 25% vertebral body height loss centrally at this level. 2. Mild degenerative disease in the lower thoracic spine with shallow disc bulges, but no high-grade spinal canal or neural foraminal stenosis. D/ / 12/02/2016 11:46:31 Rudy Sargent MD / leila Interpreting Provider: Rudy Sargent MD Qualifiers: Encounter type: initial encounter Qualified Code(s): M48.54XA - Collapsed vertebra, not elsewhere classified, thoracic region, initial encounter for fracture (2) Unable to ambulate Current Visit: Yes Status: Acute (3) DVT prophylaxis Current Visit: No Status: Acute (4) Constipation Current Visit: Yes Status: Acute Qualifiers: Constipation type: other constipation type Qualified Code(s): K59.09 - Other constipation - Time Spent With Patient 25 - 35 minutes - Subjective Interval history: Afebrile. Pain is currently controlled. Last bowel movement was 1 week ago. Had breakfast, no nausea or abd pain. Lives by herself. Awaiting for surgery tomorrow. - Constitutional Vitals: Temp Pulse Resp BP Pulse Ox 97.8 F 76 18 106/58 95 12/06/16 06:34 12/06/16 06:34 12/06/16 06:34 12/06/16 06:34 12/06/16 06:34 General appearance: Present: cooperative, A&O X 3, pleasant, no acute distress, answers questions appropriately Exam: mccann placed. - Head Head exam: Present: atraumatic, normocephalic - Eye Eye exam: Present: PERRL, conjuntiva pink, sclera anicteric Pupils: Present: PERRL - Neck Neck exam general surgery: Present: supple, trachea midline. Absent: lymphadenopathy - Respiratory Respiratory exam: Present: CTAB. Absent: accessory muscle use, rales, rhonchi, wheezes - Cardiovascular Cardiovascular exam: Present: RRR, +S1, +S2. Absent: diastolic murmur, gallop, rubs, systolic murmur - GI/Abdominal GI/Abdominal exam: Present: normal bowel sounds, soft, no peritoneal signs. Absent: distended, tenderness - Extremities Exam Extremities exam: Present: warm, radial pulses palpable and symetrical. Absent : calf tenderness, cyanotic, pedal edema - Neurological Exam Neurological exam: Present: CN II-XII intact, oriented X3, no focal deficits. Absent: pronater drift, facial droop, speech deficit - Skin Skin exam: Present: dry, intact Internal Medicine: Result - Labs CBC & Chem 7: 12/05/16 03:42 12/05/16 03:42 - ABG Interpretation ABG results: PT/INR, D-dimer PT 12.3 Seconds (9.4-12.1) H 12/03/16 04:30 Consult Discharge Plan - Plan Referrals: Glenroy Lin MD [Primary Care Provider] -
[2016-12-06] MEDS: Melatonin 3 MG TABLET PO SCH (21:22)
[2016-12-06] MEDS: Acetaminophen 325 MG TABLET PO PRN (21:26)
[2016-12-07 05:16] LABS: Basophils % 0.5 %; Eosinophils # 0.6 K/mcL (0.0-0.6); Eosinophils % 6.4 %; Hematocrit 37.9 % (35.3-44.9); Hemoglobin 12.1 g/dL (11.5-15.4); Immature Granulocytes % 0.5 % (0-4); Lymphocytes # 2.4 K/mcL (0.6-4.6); Lymphocytes % 27.2 %; Mean Corpuscular HGB Conc 31.9 g/dL (31.6-35.5); Mean Corpuscular Hemoglobin 31.8 pg (28.0-33.3); Mean Corpuscular Volume 99.7 fL (83.0-100.0); Mean Platelet Volume 9.4 fL (9.4-12.4); Monocytes % 11.8 %; Neutrophils # 4.6 K/mcL (1.6-8.9); Platelet Count 117 K/mcL (140-400); Red Cell Distribution Width 14.2 % (11.5-14.5); Segmented Neutrophils % 53.6 %
[2016-12-07] MEDS: *HR* Heparin 5,000 UNIT/ML VIAL SQ SCH ×2 (05:19→21:38)
[2016-12-07 05:29] LABS: BUN/Creatinine Ratio 11 (6-26); Blood Urea Nitrogen 8 mg/dL (7-20); Calcium 9.6 mg/dL (8.6-10.8); Carbon Dioxide 27 mEq/L (19-29); Chloride 105 mEq/L (98-109); Glucose 92 mg/dL (70-99); Osmolality,Calculated 286 (280-300); Potassium 4.5 mEq/L (3.5-4.5); Sodium 139 mEq/L (136-145); eGFR For African Americans > 60 (> 60); eGFR For Non-African Americans > 60 (> 60)
[2016-12-07] MEDS: *HR* OxyCODONE Immed Rel 5 MG TABLET PO PRN (08:13)
[2016-12-07] MEDS: Metoprolol XL (24 HR) Succ 50 MG TAB.ER.24H PO SCH (08:14)
[2016-12-07] MEDS: Multivit/Ca/Min/Fe/FA 1 TAB TABLET PO SCH (09:36)
[2016-12-07] MEDS: Gabapentin 400 MG CAPSULE PO SCH ×2 (09:37→21:39)
[2016-12-07] MEDS: Isosorbide MONOnitrate (24 HR) 60 MG TAB.ER.24H PO SCH (09:37)
[2016-12-07] MEDS ORDERED: D5% in 0.45% NACL 1,000 ML IVC SCH (10:15)
--- NOTE | 2016-12-07 10:15 | Internal Med Progress Note ---
Date of Encounter: 12/07/16 Time of Encounter: 10:14 - Assessment and plan (1) T12 compression fracture Current Visit: Yes Status: Acute Assessment and plan: Patient is status post kyphoplasty of L1 on 11/25/[address] Rios. She was then discharged home with home health services on 11/26/16. Patient is stating that she noticed pain in her back the day after her discharge but failed to improve prompting of presentation to her primary care provider sent her to the emergency department. Patient denies any falls, trauma, or injuries since her discharge. Imaging consistent with new T12 compression fracture. The patient, however last took her Plavix 3 days ago and there needs to be a 7 day washout time prior to surgery. Therefore, she will need to be kept inpatient until Wednesday when she can have her surgery. Plan is to then discharge her to an inpatient rehabilitation. She is not safe to be discharged in the meantime. She is still also requiring IV pain medication. MRI of cervical, lumbar, and thoracic spine again revealing new T12 compression fracture. Her pain is currently controlled. NPO in anticipation for surgery, iv fluids for now. ITS Impressions Lumbar Spine X-Ray 12/01/16 15:45 IMPRESSION: New T12 compression D/ / Rigoberto Ulloa MD / Rigoberto Ulloa MD Interpreting Provider: Rigoberto Ulloa MD Cervical Spine MRI 12/02/16 08:46 IMPRESSION: No evidence of fracture or destructive osseous lesion in the cervical spine. No prevertebral soft tissue edema. Multilevel degenerative disc disease as described above, exacerbating congenitally narrow cervical spinal canal. Spinal canal narrowing, mild at C4-5 and C5-6, minimal at C6-7. Foraminal narrowing, moderate to severe at left C5-6 and left C6-7, moderate at the bilateral C4-5, right C5-6 and right C6-7, mild at bilateral C2-3 and bilateral C3-4. D/ / Morales Soto MD / Morales Soto MD Interpreting Provider: Morales Soto MD Lumbar Spine MRI 12/02/16 08:46 IMPRESSION: 1. Acute T12 inferior endplate compression fracture with approximately 15% loss of vertebral body height. 2. Interval vertebroplasty at L1 since the 11/23/2016 exam. 3. Stable vertebroplasty at L2, and chronic compression fracture at L3. 4. Multilevel foraminal narrowing and central spinal canal narrowing, not appreciably changed, as above. D/ / 12/02/2016 11:41:23 Edin Trimble MD / leila Interpreting Provider: Edin Trimble MD Thoracic Spine MRI 12/02/16 08:46 IMPRESSION: 1. Mild T12 inferior endplate compression deformity with associated bone marrow edema, new from MRI of 11/23/2016. There is less than 25% vertebral body height loss centrally at this level. 2. Mild degenerative disease in the lower thoracic spine with shallow disc bulges, but no high-grade spinal canal or neural foraminal stenosis. D/ / 12/02/2016 11:46:31 Rudy Sargent MD / leila Interpreting Provider: Rudy aSrgent MD Qualifiers: Encounter type: initial encounter Qualified Code(s): M48.54XA - Collapsed vertebra, not elsewhere classified, thoracic region, initial encounter for fracture (2) Unable to ambulate Current Visit: Yes Status: Acute (3) DVT prophylaxis Current Visit: No Status: Acute (4) Constipation Current Visit: Yes Status: Acute Qualifiers: Constipation type: other constipation type Qualified Code(s): K59.09 - Other constipation - Subjective Interval history: Afebrile. Pain is currently controlled. Had a bowel movement yesterday. NPO since midnight, no nausea or abd pain. Lives by herself. Awaiting for surgery today. - Constitutional Vitals: Temp Pulse Resp BP Pulse Ox 98.2 F 72 20 120/69 97 12/07/16 08:34 12/07/16 08:34 12/07/16 08:34 12/07/16 08:34 12/07/16 08:34 General appearance: Present: cooperative, A&O X 3, pleasant, no acute distress, answers questions appropriately - Head Head exam: Present: atraumatic, normocephalic - Eye Eye exam: Present: PERRL, conjuntiva pink, sclera anicteric Pupils: Present: PERRL - Neck Neck exam general surgery: Present: supple, trachea midline. Absent: lymphadenopathy - Respiratory Respiratory exam: Present: CTAB. Absent: accessory muscle use, rales, rhonchi, wheezes - Cardiovascular Cardiovascular exam: Present: RRR, +S1, +S2. Absent: diastolic murmur, gallop, rubs, systolic murmur - GI/Abdominal GI/Abdominal exam: Present: normal bowel sounds, soft, no peritoneal signs. Absent: distended, tenderness - Extremities Exam Extremities exam: Present: warm, radial pulses palpable and symetrical. Absent : calf tenderness, cyanotic, pedal edema - Neurological Exam Neurological exam: Present: CN II-XII intact, oriented X3, no focal deficits. Absent: pronater drift, facial droop, speech deficit - Skin Skin exam: Present: dry, intact Internal Medicine: Result - Labs CBC & Chem 7: 12/07/16 04:51 12/07/16 04:51 Labs: Short CBC 12/07/16 Range/Units 04:51 WBC 8.6 (4.3-11.1) K/mcL Hgb 12.1 (11.5-15.4) g/dL Hct 37.9 (35.3-44.9) % Plt Count 117 L (140-400) K/mcL Neutrophils # 4.6 (1.6-8.9) K/mcL BMP 12/07/16 04:51 Sodium 139 Potassium 4.5 Chloride 105 Carbon Dioxide 27 BUN 8 Creatinine 0.72 Glucose 92 Calcium 9.6 - ABG Interpretation ABG results: PT/INR, D-dimer PT 12.3 Seconds (9.4-12.1) H 12/03/16 04:30 Consult Discharge Plan - Plan Referrals: Glenroy Lin MD [Primary Care Provider] -
[2016-12-07] MEDS ORDERED: *HR* Remifentanil 1 MG VIAL IVP ONE (11:38)
[2016-12-07] MEDS ORDERED: Lidocaine -MPF 4% 5 ML AMPUL ONE (11:40)
[2016-12-07] MEDS ORDERED: *HR* Propofol 200 MG/20 ML VIAL IVP ONE (11:40)
[2016-12-07] MEDS ORDERED: Lidocaine -MPF 2% 2 ML VIAL ONE (11:40)
[2016-12-07] MEDS ORDERED: Dexamethasone 4 MG/ML VIAL ONE (11:40)
[2016-12-07] MEDS ORDERED: Ondansetron 4 MG/2 ML VIAL ONE (11:40)
[2016-12-07] MEDS ORDERED: *HR* FentaNYL (PF) 100 MCG/2 ML VIAL ONE (11:40)
[2016-12-07] MEDS ORDERED: *HR* Succinylcholine 200 MG/10 ML VIAL IVP ONE (11:40)
--- NOTE | 2016-12-07 12:47 | Spine Progress Note ---
Date of Encounter: 12/07/16 Time of Encounter: 12:46 Subjective Principal diagnosis: vertebral compression fracture Interval history: The patient has been medically optimized including weaning off anticoagulants prior the hospital service. Patient's been seen and evaluated and is well known to this practice. MRI shows an acute vertebral compression fracture at T12. She has had success with prior kyphoplasty. I find a reason to consider surgery in the form of a kyphoplasty T12. Risks benefits possible complications and alternatives were discussed and the patient would like to proceed. Objective Vital signs: Vital Signs Temp Pulse Resp BP Pulse Ox 12/07/16 11:17 98.4 F 83 16 122/68 98 12/07/16 08:34 98.2 F 72 20 120/69 97 12/07/16 06:25 98.8 F 68 16 135/81 99 12/07/16 05:15 98.4 F 66 15 120/76 98 12/07/16 00:22 98.4 F 76 14 98/53 94 L 12/06/16 20:31 97.9 F 79 18 130/79 97 12/06/16 15:21 97.8 F 80 18 98/62 96 Intake and Output 12/06/16 12/07/16 12/07/16 23:59 07:59 15:59 Intake Total 200 / 200 600 / 600 Output Total 850 / 850 250 / 250 Balance -650 / -650 600 / 600 -250 / -250 Intake: Oral 200 / 200 600 / 600 Output: Urine 250 / 250 Catheter 850 / 850 Other: Stool Size Large Stool Consistency soft Stool Characteristics Normal for Patient Stool Color Brown # Bowel Movements 1 - Labs CBC & BMP: 12/07/16 04:51 12/07/16 04:51 Labs: Abnormal lab results RBC 3.80 M/mcL (3.82-4.97) L 12/07/16 04:51 Plt Count 117 K/mcL (140-400) L 12/07/16 04:51 Reactive Lymphocytes Present (Not Present) A 12/05/16 03:42 PT 12.3 Seconds (9.4-12.1) H 12/03/16 04:30 Serum Total Protein 5.4 g/dL (6.0-8.3) L 12/02/16 03:46 Albumin 2.4 g/dL (3.5-5.0) L 12/02/16 03:46 Albumin/Globulin Ratio 0.8 (1.1-2.2) L 12/02/16 03:46 Urine Ketones Trace mg/dL (Negative) H 12/02/16 06:00 Consult Discharge Plan - Plan Referrals: Glenroy Lin MD [Primary Care Provider] -
--- NOTE | 2016-12-07 12:50 | Anesthesia Evaluation PreOp ---
Date of Encounter: 12/07/16 Time of Encounter: 12:49 - Past History Planned Operation: Kyphoplasty T12 Cardiac History: LA, HTN, Hyperlipidemia, Cardiac Surgery, Cardiac Stent Pulmonary History: MICHEAL Dx (Does not tolerate CPAP), Other (Pulmonary fibrosis on 2L home O2) SYSTEMS ADMIN History: Denies Any Significant HX, Syncope Other Medical History: Thyroid (Hypothyroid), GERD Anesthesia History: No Prior Anesthetic Complications, Past Anesthesia (GB, CABG , Orhopedic procedures) : No Alcohol Use: none Drug use: none Medications and Allergies Aspirin Enteric Coated [Aspirin EC] 81 mg PO DAILY 05/27/15 [History] Calcium Carbonate/Vitamin D3 [Calcium 600 + D Tablet] 600 mg PO DAILY 05/27/15 [ History] Clopidogrel [Plavix] 75 mg PO QPM 05/27/15 [History] Levothyroxine [Synthroid] 50 mcg PO DAILY 05/27/15 [History] Oxygen 2 l NS HS 05/27/15 [History] Albuterol Sulfate [Albuterol Inhaler] 2 puff IH Q6HR PRN 05/28/15 [History] Gabapentin [Neurontin] 1,200 mg PO BID 05/28/15 [History] Isosorbide MONOnitrate (24 HR) [Imdur] 60 mg PO DAILY 05/28/15 [History] Metoprolol XL (24 HR) Succ [Toprol XL] 50 mg PO DAILY 05/28/15 [History] Pravastatin Sodium [Pravachol] 40 mg PO DAILY 05/28/15 [History] [place] Oil/Landis-3 Fatty Acids [Fish Oil 500 mg Softgel] 1 cap PO BID 05/28/15 [ History] Docusate Sodium [Stool Softener] 100 mg PO DAILY 02/05/16 [History] Melatonin [Melatin] 3 mg PO HS 02/05/16 [History] Mv,Calcium,Min/Iron/Folic/Vitk [Multi For Her Tablet] 1 each PO DAILY 02/05/16 [ History] Nitroglycerin [Nitrostat] 0.4 mg SL Q5M PRN 02/05/16 [History] Omeprazole [PriLOSEC] 20 mg PO DAILY 02/05/16 [History] Cranberry Fruit Extract/Vit C [Azo Cranberry Softgel] 1 each PO DAILY 11/25/16 [ History] Tramadol HCl [Ultram] 100 mg PO Q6H PRN 12/01/16 [History] Allergies Amoxicillin [From Augmentin] Allergy (Verified 05/27/15 12:26) Rash clavulanic acid [From Augmentin] Allergy (Verified 05/27/15 12:26) Rash lisinopril Allergy (Verified 05/27/15 12:26) Cough nitrofurantoin [From Macrobid] Allergy (Verified 05/27/15 12:26) Rash Penicillins [PCN] Allergy (Verified 05/27/15 12:26) Rash Sulfa (Sulfonamide Antibiotics) Adverse Reaction (Verified 05/27/15 12:26) Nausea - Meds/Allergy Pre-op Review Medications Reviewed: Yes Allergies Reviewed: Yes Beta Blockers on Current Med List: Yes If Beta Blockers taken, Date/Time (Last Dose taken): 08:14 12/07/16 Anesthesia Results - Labs 12/07/16 04:51 12/07/16 04:51 Echo 2013 60-65% EF Mild LVH mild diastolic dysfunction Stress 10/2013 no ischemia EF 75% - Imaging EKG: image reviewed (, poss. Old Inf LA, consider Anterolateral ischemia) Anesthesia Exam Height: 5'1'' Weight: 182# NPO (# of Hours): > 8 Hrs Pain Scale: 0 Pain Scale Used: Numeric (1 - 10) - HEENT Pupil (Motor): Pupils equal, EOMI Mallampati: II Teeth: Missing Denture Type: Upper: Complete Oral Opening: Greater than 3 - SYSTEMS ADMIN LOC: Oriented SYSTEMS ADMIN Motor: Normal RUE, Normal LUE, Normal RLE, Normal LLE, Normal Face SYSTEMS ADMIN Sensory: Normal: RUE, LUE, RLE, LLE, Face - Cardiac Rhythm: Regular Murmur: None JVD: No Carotid Bruit: No - Pulmonary Breath Sounds: bilateral Clear Respiratory Effort: Symmetrical Anesthesia Assess/Plan ASA Score: 4 Modified Miguelito Scale for Level of Consciousness: Cooperative, oriented, and tranquil Anesthetic Plan: General Autologous Blood: Yes Monitoring Plan: Standard Monitors Recovery Plan: PACU
[2016-12-07] MEDS ORDERED: *HR* HYDROmorphone (PF) 1 MG/ML SYRINGE IVP PRN (13:12)
[2016-12-07] MEDS ORDERED: *HR* Promethazine 25 MG/ML VIAL IVP PRN ×2 (13:12→16:49)
[2016-12-07] MEDS ORDERED: Clindamycin 900 MG/50 ML 900 MG/50 ML IV.SOLN IVPB ONE (13:25)
[2016-12-07] MEDS ORDERED: *HR* Phenylephrine 10 MG/ML VIAL ONE (14:09)
[2016-12-07] MEDS ORDERED: *HR* HYDROmorphone 2 MG/ML SYRINGE ONE (14:13)
--- NOTE | 2016-12-07 14:19 | Orthopedic Operative Note ---
Date of procedure: 12/07/16 Pre-op diagnosis: osteopenia, vertebral compression fracture Post-op diagnosis: same Operation/Findings: Kyphoplasty T12: The patient was brought to the operative theater where successful endotracheal anesthesia was performed. The patient was given antibiotics prior to the start of the procedure. Compression boots and stockings were used for deep vein thrombosis. Patient was then turned prone on a well-padded Yony table. The back was prepped and draped in the usual sterile fashion. 2 C-arm fluorographic devices were brought into position such that simultaneous AP and lateral views centered over the involved T12 vertebral body could be performed. A stab incision was made over the superior-lateral aspect of the left T12 pedicle. We introduced a Jamshidi needle into the vertebral body via a transpedicular route. We took biplanar images of the vertebral body using fluorography. The needle was found to be in appropriate position and within the confines of the T12 vertebral body. We then introduced a biopsy trocar and obtained a biopsy specimen of the vertebral body. This was sent for pathologic evaluation. We then removed the biopsy trocar and introduced a Kyphon balloon. The balloon was insufflated to approximately 4mL volume and subsequently deflated. The balloon was seen to expand within the confines of the T12 vertebral body on biplanar fluorographic views. The balloon was then removed. We then inserted some cement trochars and sequentially placed bone cement within the confines of the T12 vertebral body. We took intermittent fluorographic views which confirmed satisfactory placement of the cement. After completion of the cementation process, the trocar was removed. We took final AP and lateral fluorographic views. We then closed the stab incision with 2-0 nylon suture. A Band-Aid was placed over the wound. The patient was turned supine on a hospital bed and extubated. All sponge instrument and needle counts were correct at the end of the procedure. The patient tolerated the procedure well without complications. Anesthesia: GETA Surgeon: Diogenes Rios Jr Estimated blood loss (cc): 2 Specimen: T12 vertebral biopsy Condition: stable Disposition: PACU
--- NOTE | 2016-12-07 15:16 | Anesthesia Evaluation Post Op ---
Date of Encounter: 12/07/16 Time of Encounter: 15:14 - Vital Signs Vital Signs: Last Vital Signs Temp 97.9 F 12/07/16 14:58 Pulse 84 12/07/16 15:08 Resp 18 12/07/16 15:08 BP 132/74 12/07/16 15:08 Pulse Ox 98 12/07/16 15:08 - Lungs Lungs: Clear Ascult./Percussion - Airway Airway: Non-obstructed - Cardiovascular Regular Rate - Mental Status Mental Status: Alert & Oriented, Answers Appropriately - Pain Pain Scale: 2 - Nausea Vomiting Nausea Vomiting: Not Present - Hydration Hydration: Ice chips, Bueno catheter - Discharge PostOp Status: Transfer Patient to floor
[2016-12-07] MEDS ORDERED: Acetaminophen 325 MG TABLET PO PRN (16:49)
[2016-12-07] MEDS ORDERED: Ondansetron 4 MG/2 ML VIAL IVP PRN (16:49)
[2016-12-07] MEDS ORDERED: Naloxone 0.4 MG/ML INJ IVP PRN (16:49)
[2016-12-07] MEDS ORDERED: *HR* OxyCODONE Immed Rel 5 MG TABLET PO PRN (16:49)
[2016-12-07] MEDS ORDERED: Nitroglycerin 0.4 MG TAB.SUBL SL PRN (16:49)
[2016-12-07] MEDS ORDERED: *HR* Morphine 2 MG/ML SYRINGE IVP PRN (16:49)
[2016-12-07] MEDS ORDERED: Melatonin 3 MG TABLET PO SCH (21:00)
[2016-12-08] MEDS: Clindamycin 600 MG/50 ML 600 MG/50 ML IV.SOLN IVPB SCH ×2 (00:06→08:40)
[2016-12-08] MEDS: *HR* Heparin 5,000 UNIT/ML VIAL SQ SCH (06:47)
[2016-12-08] MEDS: Gabapentin 400 MG CAPSULE PO SCH (08:42)
[2016-12-08] MEDS ORDERED: Isosorbide MONOnitrate (24 HR) 60 MG TAB.ER.24H PO SCH (09:00)
[2016-12-08] MEDS ORDERED: Multivit/Ca/Min/Fe/FA 1 TAB TABLET PO SCH (09:00)
[2016-12-08] MEDS ORDERED: Metoprolol XL (24 HR) Succ 50 MG TAB.ER.24H PO SCH (09:00)
[2016-12-08] MEDS ORDERED: Cholecalciferol (D-3) 1,000 UNIT TABLET PO SCH (09:45)
[2016-12-08 11:27] VITALS: BP 100/72
--- NOTE | 2016-12-08 14:05 | Spine Progress Note ---
Date of Encounter: 12/08/16 Time of Encounter: 14:04 Subjective Principal diagnosis: vertebral compression fracture Interval history: The patient is without complaints. Afebrile vital signs are stable. Incision is clean dry and intact. Neurovascularly intact with regard to bilateral lower extremities. Fires all upper and lower extremity motor groups. Assessment : stable. Plan mobilize ,continue analgesics, discharge planning per hospitalist service. Objective Vital signs: Vital Signs Temp Pulse Resp BP Pulse Ox 12/08/16 11:22 97.8 F 71 16 100/72 95 12/08/16 07:13 97.5 F L 78 18 128/76 93 L 12/08/16 03:52 98.2 F 81 17 121/76 96 12/08/16 00:12 95 12/08/16 00:00 98.0 F 85 17 108/61 95 12/07/16 17:24 97.9 F 88 16 107/64 95 12/07/16 16:45 98.2 F 89 16 108/61 94 L 12/07/16 16:16 97.2 F L 89 16 125/88 94 L 12/07/16 15:43 98.2 F 84 16 111/75 93 L 12/07/16 15:28 87 18 133/88 97 12/07/16 15:18 98.0 F 84 16 131/80 96 12/07/16 15:08 84 18 132/74 98 12/07/16 14:58 97.9 F 84 18 132/81 96 12/07/16 14:48 84 16 138/81 98 12/07/16 14:38 84 16 148/85 97 12/07/16 14:28 98.1 F 79 12 140/70 100 Intake and Output 12/07/16 12/08/16 12/08/16 23:59 07:59 15:59 Intake Total 50 / 50 Output Total 750 / 750 300 / 300 Balance -750 / -750 -250 / -250 Intake: IV Fluids 50 / 50 Cleocin 600 MG/50 ML 600 50 / 50 mg In 50 ml @ 50 mls/hr IVPB Q8HR [facility] Rx#: [id number] Output: Catheter 750 / 750 300 / 300 Other: # Urine Diapers 1 - Labs CBC & BMP: 12/07/16 04:51 12/07/16 04:51 Labs: Abnormal lab results RBC 3.80 M/mcL (3.82-4.97) L 12/07/16 04:51 Plt Count 117 K/mcL (140-400) L 12/07/16 04:51 Reactive Lymphocytes Present (Not Present) A 12/05/16 03:42 PT 12.3 Seconds (9.4-12.1) H 12/03/16 04:30 Serum Total Protein 5.4 g/dL (6.0-8.3) L 12/02/16 03:46 Albumin 2.4 g/dL (3.5-5.0) L 12/02/16 03:46 Albumin/Globulin Ratio 0.8 (1.1-2.2) L 12/02/16 03:46 Urine Ketones Trace mg/dL (Negative) H 12/02/16 06:00 Consult Discharge Plan - Plan Additional Instructions: Discharge Instructions: Lumbar Please call [facility] ([phone]), your Primary Care Physician, or report to the ER if you have any of the following symptoms: Fever greater that 101.5, increased pain/redness/drainage/odor for your incision site or any other concerning symptoms. ACTIVITY * May Shower * No Tub Baths * No lifting greater than 10 pounds * No Smoking * No Swimming * No off Ground Activities (Running, Climbing, Ladders, Horseback Riding) * No Driving MEDICATIONS: Upon discharge resume your home medications. Take all the medications as prescribed. Take a stool softener if taking narcotic pain medications. Stool softeners are only effective if you drink enough fluids. Drink 6-8 glass of water or fluids a day, unless this is not allowed for another health problem. Despite using stool softeners, if you haven't had a bowel movement in 3 days, please switch to a gentle laxative. Gentle laxatives are sold over the counter. You should have a bowel movement within 24 hours, if not call the office. You will be discharged from the hospital with a prescription for pain medication. You are encouraged to decrease the use of narcotic pain medication as tolerated. Should you require a refill, please call the office. It is best to call 48-72 hours in advance of needing a prescription refill so you don't run out of medication. WOUND CARE: Remove Dressing Tomorrow. Leave incision open to air. Pat dry when you get out of the shower. FOLLOW-UP: Please follow up with your surgeon in the orthopedic clinic in 2 weeks from the day of surgery. References: [employer] ([email or web address]) Referrals: Mer Mayer PAC [Physician Industrial Arts Teacher] - 12/22/16 9:00 am Glenroy Lin MD [Primary Care Provider] - 12/24/16 2:45 pm Baldev Olivier DO [Partnered Physician] - 01/21/17 9:40 am
--- NOTE | 2016-12-08 14:33 | Discharge Summary ---
Date of Encounter: 12/08/16 Time of Encounter: 14:31 - Discharge Diagnosis (1) T12 compression fracture Priority: Primary Status: Acute Qualifiers: Encounter type: initial encounter Qualified Code(s): M48.54XA - Collapsed vertebra, not elsewhere classified, thoracic region, initial encounter for fracture (2) Unable to ambulate Priority: Secondary Status: Acute (3) DVT prophylaxis Priority: Secondary Status: Acute (4) Constipation Priority: Secondary Status: Acute Qualifiers: Constipation type: other constipation type Qualified Code(s): K59.09 - Other constipation - Discharge Medications Prescriptions: Cholecalciferol (D-3) [Vitamin D] 1,000 unit PO DAILY #30 tablet Tramadol HCl [Ultram] 100 mg PO Q6H PRN #20 tablet PRN Reason: Pain Home Medications: Aspirin Enteric Coated [Aspirin EC] 81 mg PO DAILY 05/27/15 [History] Calcium Carbonate/Vitamin D3 [Calcium 600 + D Tablet] 600 mg PO DAILY 05/27/15 [ History] Clopidogrel [Plavix] 75 mg PO QPM 05/27/15 [History] Levothyroxine [Synthroid] 50 mcg PO DAILY 05/27/15 [History] Oxygen 2 l NS HS 05/27/15 [History] Albuterol Sulfate [Albuterol Inhaler] 2 puff IH Q6HR PRN 05/28/15 [History] Gabapentin [Neurontin] 1,200 mg PO BID 05/28/15 [History] Isosorbide MONOnitrate (24 HR) [Imdur] 60 mg PO DAILY 05/28/15 [History] Metoprolol XL (24 HR) Succ [Toprol XL] 50 mg PO DAILY 05/28/15 [History] Pravastatin Sodium [Pravachol] 40 mg PO DAILY 05/28/15 [History] [place] Oil/[place]-3 Fatty Acids [Fish Oil 500 mg Softgel] 1 cap PO BID 05/28/15 [ History] Docusate Sodium [Stool Softener] 100 mg PO DAILY 02/05/16 [History] Melatonin [Melatin] 3 mg PO HS 02/05/16 [History] Mv,Calcium,Min/Iron/Folic/Vitk [Multi For Her Tablet] 1 each PO DAILY 02/05/16 [ History] Nitroglycerin [Nitrostat] 0.4 mg SL Q5M PRN 02/05/16 [History] Omeprazole [PriLOSEC] 20 mg PO DAILY 02/05/16 [History] Cranberry Fruit Extract/Vit C [Azo Cranberry Softgel] 1 each PO DAILY 11/25/16 [ History] Cholecalciferol (D-3) [Vitamin D] 1,000 unit PO DAILY #30 tablet 12/08/16 [Rx] Tramadol HCl [Ultram] 100 mg PO Q6H PRN #20 tablet 12/08/16 [Rx] Allergies/Adverse Reactions: Allergies Amoxicillin [From Augmentin] Allergy (Verified 05/27/15 12:26) Rash clavulanic acid [From Augmentin] Allergy (Verified 05/27/15 12:26) Rash lisinopril Allergy (Verified 05/27/15 12:26) Cough nitrofurantoin [From Macrobid] Allergy (Verified 05/27/15 12:26) Rash Penicillins [PCN] Allergy (Verified 05/27/15 12:26) Rash Sulfa (Sulfonamide Antibiotics) Adverse Reaction (Verified 05/27/15 12:26) Nausea Date of admission: 12/03/16 12:41 Primary care physician: Glenroy Lin MD Consults: 12/08/16 08:30 Consult to Physical Therapy [CONS] Routine Comment: Evaluate, develop and implement POC OT [Consult to Occupational Therapy] [CONS] Routine Comment: Evaluate, develop and implement POC Discharging clinician: Jalen Gary Anticipated date of discharge: 12/08/16 - Patient Status Disposition: Transfer SNF Condition: Good Functional capacity at discharge: bed bound Overall status at discharge: patient is progressing back to baseline - Discharge Instructions Follow Up With: Mer Mayer PAC [Physician Athletic Equipment Manager] - 12/22/16 9:00 am Glenroy Lin MD [Primary Care Provider] - 12/24/16 2:45 pm Baldev Olivier DO [Partnered Physician] - 01/21/17 9:40 am Additional Instructions: Discharge Instructions: Lumbar Please call [facility] ([phone]), your Primary Care Physician, or report to the ER if you have any of the following symptoms: Fever greater that 101.5, increased pain/redness/drainage/odor for your incision site or any other concerning symptoms. ACTIVITY * May Shower * No Tub Baths * No lifting greater than 10 pounds * No Smoking * No Swimming * No off Ground Activities (Running, Climbing, Ladders, Horseback Riding) * No Driving MEDICATIONS: Upon discharge resume your home medications. Take all the medications as prescribed. Take a stool softener if taking narcotic pain medications. Stool softeners are only effective if you drink enough fluids. Drink 6-8 glass of water or fluids a day, unless this is not allowed for another health problem. Despite using stool softeners, if you haven't had a bowel movement in 3 days, please switch to a gentle laxative. Gentle laxatives are sold over the counter. You should have a bowel movement within 24 hours, if not call the office. You will be discharged from the hospital with a prescription for pain medication. You are encouraged to decrease the use of narcotic pain medication as tolerated. Should you require a refill, please call the office. It is best to call 48-72 hours in advance of needing a prescription refill so you don't run out of medication. WOUND CARE: Remove Dressing Tomorrow. Leave incision open to air. Pat dry when you get out of the shower. FOLLOW-UP: Please follow up with your surgeon in the orthopedic clinic in 2 weeks from the day of surgery. References: [employer] ([email or web address]) - Diet and Activity Activity: as per physical therapy Diet: advance to your usual diet Interval History: Ms. Winters is a 81 year old female who presents with severe pain in her back for the last several days. She was just discharged from the hospital last week after undergoing kyphoplasty for an L1 compression fracture. She denies any trauma, fall, or injury to her back since her discharge. She noticed the pain in her back the very next day after discharge. She saw her PCP today who referred her to ER for evaluation. Workup in the ER included an x-ray of her spine which revealed a new T12 compression fracture. She was therefore admitted to hospitalist service for further workup and care. Of note, ER staff contacted Dr. Rios who noted he will see her in the morning and and consider further intervention/kyphoplasty if she is a candidate. I saw and interviewed patient in the ER. She and her family confirms above history. She otherwise feels well and has no complaints. Her only complaint is the pain in her back which is severe with any mobility and/or activity. She again denies any fall or injury. She denies any fevers, vomiting, or diarrhea. Appetite and fluid intake have been depressed somewhat however. Hospital course: Ms. Winters is a 81 year old female Patient is status post kyphoplasty of L1 on 11/25/[address] Rios. She was then discharged home with home health services on 11/26/16. Patient is stating that she noticed pain in her back the day after her discharge but failed to improve prompting of presentation to her primary care provider sent her to the emergency department. Patient denies any falls, trauma, or injuries since her discharge. Imaging consistent with new T12 compression fracture. The patient, however last took her plavix just before admission and there needs to be a 7 day washout time prior to surgery. Therefore, she was kept inpatient until Wednesday when she had her surgery. Plan is to discharge her to an inpatient rehabilitation. Her pain is currently controlled. Patient will follow up with pcp, jade benefit from treatment for ospteoporosis. D/W patient. Date of procedure: 12/07/16 Pre-op diagnosis: osteopenia, vertebral compression fracture Post-op diagnosis: same Operation/Findings: Kyphoplasty T12: The patient was brought to the operative theater where successful endotracheal anesthesia was performed. The patient was given antibiotics prior to the start of the procedure. Compression boots and stockings were used for deep vein thrombosis. Patient was then turned prone on a well-padded Yony table. The back was prepped and draped in the usual sterile fashion. 2 C-arm fluorographic devices were brought into position such that simultaneous AP and lateral views centered over the involved T12 vertebral body could be performed. A stab incision was made over the superior-lateral aspect of the left T12 pedicle. We introduced a Jamshidi needle into the vertebral body via a transpedicular route. We took biplanar images of the vertebral body using fluorography. The needle was found to be in appropriate position and within the confines of the T12 vertebral body. We then introduced a biopsy trocar and obtained a biopsy specimen of the vertebral body. This was sent for pathologic evaluation. We then removed the biopsy trocar and introduced a Kyphon balloon. The balloon was insufflated to approximately 4mL volume and subsequently deflated. The balloon was seen to expand within the confines of the T12 vertebral body on biplanar fluorographic views. The balloon was then removed. We then inserted some cement trochars and sequentially placed bone cement within the confines of the T12 vertebral body. We took intermittent fluorographic views which confirmed satisfactory placement of the cement. After completion of the cementation process, the trocar was removed. We took final AP and lateral fluorographic views. We then closed the stab incision with 2-0 nylon suture. A Band-Aid was placed over the wound. The patient was turned supine on a hospital bed and extubated. All sponge instrument and needle counts were correct at the end of the procedure. The patient tolerated the procedure well without complications. Please call [facility] ([phone]), your Primary Care Physician, or report to the ER if you have any of the following symptoms: Fever greater that 101.5, increased pain/redness/drainage/odor for your incision site or any other concerning symptoms. ACTIVITY * May Shower * No Tub Baths * No lifting greater than 10 pounds * No Smoking * No Swimming * No off Ground Activities (Running, Climbing, Ladders, Horseback Riding) * No Driving MEDICATIONS: Upon discharge resume your home medications. Take all the medications as prescribed. Take a stool softener if taking narcotic pain medications. Stool softeners are only effective if you drink enough fluids. Drink 6-8 glass of water or fluids a day, unless this is not allowed for another health problem. Despite using stool softeners, if you haven't had a bowel movement in 3 days, please switch to a gentle laxative. Gentle laxatives are sold over the counter. You should have a bowel movement within 24 hours, if not call the office. You will be discharged from the hospital with a prescription for pain medication. You are encouraged to decrease the use of narcotic pain medication as tolerated. Should you require a refill, please call the office. It is best to call 48-72 hours in advance of needing a prescription refill so you don't run out of medication. WOUND CARE: Remove Dressing Tomorrow. Leave incision open to air. Pat dry when you get out of the shower. FOLLOW-UP: Please follow up with your surgeon in the orthopedic clinic in 2 weeks from the day of surgery. References: [employer] ([email or web address]) Referrals: Mer Mayer, PAC [Physician Athletic Equipment Manager] - 12/22/16 9:00 am Glenroy Lin MD [Primary Care Provider] - 12/24/16 2:45 pm Baldev Olivier DO [Partnered Physician] - 01/21/17 9:40 am Anesthesia: GETA Surgeon: Diogenes Rios Jr Estimated blood loss (cc): 2 Specimen: T12 vertebral biopsy Condition: stable Disposition: PACU ITS Impressions Lumbar Spine X-Ray 12/01/16 15:45 IMPRESSION: New T12 compression D/ / Rigoberto Ulloa MD / Rigoberto Ulloa MD Interpreting Provider: Rigoberto Ulloa MD Cervical Spine MRI 12/02/16 08:46 IMPRESSION: No evidence of fracture or destructive osseous lesion in the cervical spine. No prevertebral soft tissue edema. Multilevel degenerative disc disease as described above, exacerbating congenitally narrow cervical spinal canal. Spinal canal narrowing, mild at C4-5 and C5-6, minimal at C6-7. Foraminal narrowing, moderate to severe at left C5-6 and left C6-7, moderate at the bilateral C4-5, right C5-6 and right C6-7, mild at bilateral C2-3 and bilateral C3-4. D/ / Morales Soto MD / Morales Soto MD Interpreting Provider: Morales Soto MD Lumbar Spine MRI 12/02/16 08:46 IMPRESSION: 1. Acute T12 inferior endplate compression fracture with approximately 15% loss of vertebral body height. 2. Interval vertebroplasty at L1 since the 11/23/2016 exam. 3. Stable vertebroplasty at L2, and chronic compression fracture at L3. 4. Multilevel foraminal narrowing and central spinal canal narrowing, not appreciably changed, as above. D/ / 12/02/2016 11:41:23 Edin Trimble MD / leila Interpreting Provider: Edin Trimble MD Thoracic Spine MRI 12/02/16 08:46 IMPRESSION: 1. Mild T12 inferior endplate compression deformity with associated bone marrow edema, new from MRI of 11/23/2016. There is less than 25% vertebral body height loss centrally at this level. 2. Mild degenerative disease in the lower thoracic spine with shallow disc bulges, but no high-grade spinal canal or neural foraminal stenosis. D/ / 12/02/2016 11:46:31 Rudy Sargent MD / leila Interpreting Provider: Rudy Sargent MD - Time Spent with Patient Total time spent providing and/or coordinating discharge services: Greater than 30 minutes - Constitutional Vitals: Temp Pulse Resp BP Pulse Ox 97.8 F 71 16 100/72 95 12/08/16 11:22 12/08/16 11:22 12/08/16 11:22 12/08/16 11:22 12/08/16 11:22 General appearance: Present: cooperative, A&O X 3, pleasant, no acute distress, answers questions appropriately - Head Head exam: Present: atraumatic, normocephalic - Eye Eye exam: Present: PERRL, conjuntiva pink, sclera anicteric Pupils: Present: PERRL - Neck Neck exam general surgery: Present: supple, trachea midline. Absent: lymphadenopathy - Respiratory Respiratory exam: Present: CTAB. Absent: accessory muscle use, rales, rhonchi, wheezes - Cardiovascular Cardiovascular exam: Present: RRR, +S1, +S2. Absent: diastolic murmur, gallop, rubs, systolic murmur - GI/Abdominal GI/Abdominal exam: Present: normal bowel sounds, soft, no peritoneal signs. Absent: distended, tenderness - Extremities Exam Extremities exam: Present: warm, radial pulses palpable and symetrical. Absent : calf tenderness, cyanotic, pedal edema - Neurological Exam Neurological exam: Present: CN II-XII intact, oriented X3, no focal deficits. Absent: pronater drift, facial droop, speech deficit - Skin Skin exam: Present: dry, intact - VTE Documentation of Mechanical Device: Intermittent pneumatic compression device
--- NOTE | 2016-12-08 14:39 | Physician Discharge Referral ---
ExtendedCare Referral Info Transfer To: [facility] Provider in Charge after Transfer: PCP Institutional Level of Care: Skilled - Diagnosis (1) T12 compression fracture Status: Acute (2) Unable to ambulate Status: Acute (3) DVT prophylaxis Status: Acute (4) Constipation Status: Acute Prognosis: Fair Aware of Diagnosis: Patient Aware of Prognosis: Patient - Transfer Medications Prescriptions: Cholecalciferol (D-3) [Vitamin D] 1,000 unit PO DAILY #30 tablet Tramadol HCl [Ultram] 100 mg PO Q6H PRN #20 tablet PRN Reason: Pain Home Medications: Aspirin Enteric Coated [Aspirin EC] 81 mg PO DAILY 05/27/15 [History] Calcium Carbonate/Vitamin D3 [Calcium 600 + D Tablet] 600 mg PO DAILY 05/27/15 [ History] Clopidogrel [Plavix] 75 mg PO QPM 05/27/15 [History] Levothyroxine [Synthroid] 50 mcg PO DAILY 05/27/15 [History] Oxygen 2 l NS HS 05/27/15 [History] Albuterol Sulfate [Albuterol Inhaler] 2 puff IH Q6HR PRN 05/28/15 [History] Gabapentin [Neurontin] 1,200 mg PO BID 05/28/15 [History] Isosorbide MONOnitrate (24 HR) [Imdur] 60 mg PO DAILY 05/28/15 [History] Metoprolol XL (24 HR) Succ [Toprol XL] 50 mg PO DAILY 05/28/15 [History] Pravastatin Sodium [Pravachol] 40 mg PO DAILY 05/28/15 [History] [place] Oil/[place]-3 Fatty Acids [Fish Oil 500 mg Softgel] 1 cap PO BID 05/28/15 [ History] Docusate Sodium [Stool Softener] 100 mg PO DAILY 02/05/16 [History] Melatonin [Melatin] 3 mg PO HS 02/05/16 [History] Mv,Calcium,Min/Iron/Folic/Vitk [Multi For Her Tablet] 1 each PO DAILY 02/05/16 [ History] Nitroglycerin [Nitrostat] 0.4 mg SL Q5M PRN 02/05/16 [History] Omeprazole [PriLOSEC] 20 mg PO DAILY 02/05/16 [History] Cranberry Fruit Extract/Vit C [Azo Cranberry Softgel] 1 each PO DAILY 11/25/16 [ History] Cholecalciferol (D-3) [Vitamin D] 1,000 unit PO DAILY #30 tablet 12/08/16 [Rx] Tramadol HCl [Ultram] 100 mg PO Q6H PRN #20 tablet 12/08/16 [Rx] Allergies/Adverse Reactions: Allergies Amoxicillin [From Augmentin] Allergy (Verified 05/27/15 12:26) Rash clavulanic acid [From Augmentin] Allergy (Verified 05/27/15 12:26) Rash lisinopril Allergy (Verified 05/27/15 12:26) Cough nitrofurantoin [From Macrobid] Allergy (Verified 05/27/15 12:26) Rash Penicillins [PCN] Allergy (Verified 05/27/15 12:26) Rash Sulfa (Sulfonamide Antibiotics) Adverse Reaction (Verified 05/27/15 12:26) Nausea - Respiratory Orders Smoking Cessation: Smoking cessation has been advised. For more information, call the [place] Tobacco Quit Line at 2-965-FPPG-NOW. - Advance Directives Code Status: Full Code - Mobility Orders Other ( per PT) - Rehabiliation Orders Rehab Potential: Fair Rehab Orders: ROM Exercises, Evaluation for Physical Therapy, Evaluation for Occupational Therapy - Diet Orders Regular CERTIFICATION: I certify that the transfer of the above named patient to an Extended Care Facility is necessary for the continuing treatment of the diagnosis listed. The above information is true and accurate reflection of patient's current condition. Confidential - Redisclosure prohibited without a patient's written consent.
== END 2016-12-08 16:20 | DRG 479 ==
LOC: EMEROO 14:13 → 3BNU 14:13 → SUATTDRO 12-03 12:41 → 3NENU 12-03 20:40
PROVIDERS: ADMIT Internal Medicine; ATTEND Internal Medicine

== ENCOUNTER 2017-02-03 11:04 | Inpatient (IN) ==
[2017-02-03] MEDS ORDERED: Furosemide 40 MG/4 ML VIAL IVP ONE (11:31)
[2017-02-03] MEDS ORDERED: Nitroglycerin 0.4 MG TAB.SUBL SL PRN ×2 (11:31→15:21)
[2017-02-03 11:33] LABS: Basophils # 0.1 K/mcL (0.0-0.2); Basophils % 0.6 %; Eosinophils # 0.6 K/mcL (0.0-0.6); Eosinophils % 5.6 %; Hemoglobin 11.2 g/dL (11.5-15.4); Immature Granulocytes % 0.5 % (0-4); Lymphocytes # 2.4 K/mcL (0.6-4.6); Lymphocytes % 21.6 %; Mean Corpuscular HGB Conc 31.1 g/dL (31.6-35.5); Mean Corpuscular Hemoglobin 30.4 pg (28.0-33.3); Mean Corpuscular Volume 97.8 fL (83.0-100.0); Mean Platelet Volume 8.5 fL (9.4-12.4); Monocytes # 1.2 K/mcL (0.0-1.3); Neutrophils # 6.6 K/mcL (1.6-8.9); Platelet Count 279 K/mcL (140-400); Red Blood Count 3.68 M/mcL (3.82-4.97); Red Cell Distribution Width 13.5 % (11.5-14.5); Segmented Neutrophils % 60.7 %
--- NOTE | 2017-02-03 11:34 | Emergency Department Note ---
Disposition Clinical Impression: Pulmonary fibrosis, Localized swelling of both lower legs, Hypoxia Pulmonary edema Qualifiers: Chronicity: acute Qualified Code(s): J81.0 - Acute pulmonary edema Disposition: Admitted As Inpatient Condition: Fair Referrals: NO,PCP [Primary Care Provider] - Forms: ED Satisfaction Letter SOB HPI - General Chief Complaint: ED Shortness of Breath/Dyspnea Stated Complaint: DARIUS Time Seen by Provider: 02/03/17 11:04 Source: patient, family Mode of arrival: ambulatory Limitations: no limitations Nursing Notes Reviewed: Yes Vital Signs Reviewed: Yes - History of Present Illness 81-year-old female is for evaluation of dyspnea for the past 2-3 days. Notes more dyspnea with exertion. Patient does have a history of pulmonary fibrosis ( not on any steroids) as well as CABG in the remote past. Patient also notes that she is anticoagulated on Coumadin for a DVT. Patient denies any fevers or cough. Denies any confirmed diagnosis of CHF. Denies any nausea vomiting. No abdominal pain. Denies being on any diuretics. - Related Data Home Medications Medication Instructions Recorded Confirmed Aspirin Enteric Coated [Aspirin EC] 81 mg PO DAILY 05/27/15 02/03/17 Calcium Carbonate/Vitamin D3 600 mg PO DAILY 05/27/15 02/03/17 [Calcium 600 + D Tablet] Clopidogrel [Plavix] 75 mg PO QPM 05/27/15 02/03/17 Levothyroxine [Synthroid] 50 mcg PO QAM 05/27/15 02/03/17 Oxygen 2 l NS HS 05/27/15 02/03/17 Albuterol Sulfate [Albuterol 2 puff IH Q6HR PRN 05/28/15 02/03/17 Inhaler] Gabapentin [Neurontin] 600 mg PO BID 05/28/15 02/03/17 Isosorbide MONOnitrate (24 HR) 60 mg PO QPM 05/28/15 02/03/17 [Imdur] Metoprolol XL (24 HR) Succ [Toprol 50 mg PO DAILY 05/28/15 02/03/17 XL] Pravastatin Sodium [Pravachol] 40 mg PO QPM 05/28/15 02/03/17 [place] Oil/[place]-3 Fatty Acids 1,200 mg PO BID 05/28/15 02/03/17 [Fish Oil 500 mg Softgel] Docusate Sodium [Stool Softener] 100 mg PO 1-2XD 02/05/16 02/03/17 Melatonin [Melatin] 3 mg PO HS 02/05/16 02/03/17 Mv,Calcium,Min/Iron/Folic/Vitk 1 tab PO DAILY 02/05/16 02/03/17 [Multi For Her Tablet] Nitroglycerin [Nitrostat] 0.4 mg SL Q5M PRN 02/05/16 02/03/17 Cranberry Fruit Extract/Vit C [Azo 1 cap PO BID 11/25/16 02/03/17 Cranberry Softgel] Alendronate Sodium [Fosamax] 70 mg PO SA 02/03/17 02/03/17 Citalopram [CeleXA] 20 mg PO DAILY 02/03/17 02/03/17 Famotidine [Pepcid] 40 mg PO DAILY 02/03/17 02/03/17 Tramadol HCl [Ultram] 50 mg PO Q6H PRN 02/03/17 02/03/17 Vitamin E Mixed [Vitamin E] 1,000 unit PO DAILY 02/03/17 02/03/17 Warfarin [Coumadin] 2.5 mg PO Q48H 02/03/17 02/03/17 Warfarin [Coumadin] 5 mg PO Q48H 02/03/17 02/03/17 Allergies Allergy/AdvReac Type Severity Reaction Status Date / Time Amoxicillin [From Augmentin] Allergy Rash Verified 01/23/17 14:43 clavulanic acid Allergy Rash Verified 01/23/17 14:43 [From Augmentin] lisinopril Allergy Cough Verified 01/23/17 14:43 nitrofurantoin Allergy Rash Verified 01/23/17 14:43 [From Macrobid] Penicillins [PCN] Allergy Rash Verified 01/23/17 14:43 Sulfa (Sulfonamide AdvReac Nausea Verified 01/23/17 14:43 Antibiotics) All systems ED: reviewed and negative except as stated. Constitutional: Reports: as per HPI. Denies: fever Eyes: Reports: as per HPI ENT ED: Reports: as per HPI Cardiovascular: Reports: as per HPI. Denies: chest pain, palpitations Respiratory: Reports: as per HPI, dyspnea. Denies: cough, sputum production Gastrointestinal: Reports: as per HPI. Denies: abdominal pain, nausea, vomiting Genitourinary: Reports: as per HPI Musculoskeletal: Reports: as per HPI Integumentary: Reports: as per HPI Neurological: Reports: as per HPI Psychiatric: Reports: as per HPI Endocrine: Reports: as per HPI Past Medical History - Past Medical History Medical history: Reports: GERD, hyperlipidemia, hypertension, myocardial infarction, syncope, other Surgical history: Reports: cholecystectomy, coronary bypass (CABG), orthopedic, other, other Psychiatric history: Reports: no psych history - Social History Smoking Status: Never smoker Smokeless Tobacco Status: No Alcohol use: Reports: none Drug use: Reports: none Physical Exam - General Limitations: no limitations General appearance: alert, in no apparent distress - Head Head exam: atraumatic, normocephalic, normal inspection - Eye Eye exam: Present: normal appearance, PERRL, EOMI - ENT ENT exam: normal exam, mucous membranes moist - Neck Neck exam: Present: normal inspection, trachea midline - Chest Chest inspection: Present: normal inspection, symmetric chest wall rise - Respiratory Respiratory exam: Present: accessory muscle use, other (Dependent Rales bilaterally). Absent: respiratory distress - Cardiovascular Cardiovascular exam: Present: regular rate, normal rhythm - Abdominal Exam Abdominal exam: Present: soft, Non-Tender - Extremities Exam Extremities exam: Present: normal inspection, pedal edema (3+ B/L) - Back Exam Back exam: Present: normal inspection - Neurological Exam Neurological exam: Present: alert, oriented X3 - Skin Skin exam: Present: warm, dry, intact, normal color Course Course Narrative: Patient seen and examined. Patient is not conversational dyspneic. Patient does have signs and symptoms consistent with congestive heart failure. Patient denies having known history of congestive heart failure despite having a CABG in the remote past. Reported intermittent chest pain that is resolved over the past 2-3 days. Patient will get a cardiac evaluation including chest x-ray, labs, EKG. Patient also be treated with nitroglycerin as well as diuretics and Lasix. Disposition pending - Reevaluation(s) Reevaluation #1: Patient has responded to Lasix. Patient's breathing has not significantly improved. Patient's labs revealed. Patient possibly has multiple etiologies to explain her dyspnea. A lengthy discussion with the family bedside about plan of care and recommendation for admission. Patient family agree. Time: 13:12 Vital Signs Temperature 97.3 F L 02/03/17 11:06 Pulse Rate 86 04/26/17 11:06 Respiratory Rate 24 02/03/17 11:06 Blood Pressure 136/69 02/03/17 11:06 O2 Sat by Pulse Oximetry 75 02/03/17 11:06 Temperature 97.3 F L 02/03/17 11:06 Pulse Rate 87 02/03/17 13:38 Respiratory Rate 18 02/03/17 13:38 Blood Pressure 112/72 02/03/17 13:38 O2 Sat by Pulse Oximetry 96 02/03/17 13:38 Oxygen Delivery Oxygen Delivery Room Air Shortness of Breath/Dyspnea - MDM Narrative Medical decision making narrative: 81-year-old female with a history of pulmonary fibrosis presents for evaluation of dyspnea. Patient does have a cardiac history with CABG in the remote past. Patient also had intermittent chest pain associated with dyspnea over the past 2 -3 days. Patient stable on 3 L is cannula at home. Patient's clinical picture was consistent with congestive heart failure. Patient did have symmetric pitting bilateral edema as well as rails on lung exam. Patient was dyspneic with exertion in the department. Patient was treated with IV Lasix with relief of dyspnea with exertion at bedside. Patient is also given sublingual nitroglycerin. Patient's EKG shows no acute changes. Patient's lab work shows a BNP that was not significantly elevated. Patient's records were reviewed and showed that she had pulmonary function test last year that showed FEV1 over FVC of 25-75%. Patient would likely benefit from inpatient admission, pulmonology consult, heart echo. This information was assessed with the family at bedside as well as the patient who agreed with plan of care. - Lab Data Lab results reviewed: Yes I reviewed the patient's lab results. Result diagrams: 02/03/17 11:26 02/03/17 11:26 Lab Results 02/03/17 02/03/17 02/03/17 Range/Units 11:26 11:26 11:26 WBC 10.9 (4.3-11.1) K/mcL RBC 3.68 L (3.82-4.97) M/mcL Hgb 11.2 L (11.5-15.4) g/dL Hct 36.0 (35.3-44.9) % MCV 97.8 (83.0-100.0) fL MCH 30.4 (28.0-33.3) pg MCHC 31.1 L (31.6-35.5) g/dL RDW 13.5 (11.5-14.5) % Plt Count 279 (140-400) K/mcL MPV 8.5 L (9.4-12.4) fL Immature Gran % 0.5 (0-4) % Seg Neutrophils % 60.7 % Lymphocytes % 21.6 % Monocytes % 11.0 % Eosinophils % 5.6 % Basophils % 0.6 % Neutrophils # 6.6 (1.6-8.9) K/mcL Lymphocytes # 2.4 (0.6-4.6) K/mcL Monocytes # 1.2 (0.0-1.3) K/mcL Eosinophils # 0.6 (0.0-0.6) K/mcL Basophils # 0.1 (0.0-0.2) K/mcL PT (9.4-12.1) Seconds INR Sodium 136 (136-145) mEq/L Potassium 4.1 (3.5-4.5) mEq/L Chloride 103 (98-109) mEq/L Carbon Dioxide 27 (19-29) mEq/L BUN 10 (7-20) mg/dL Creatinine 0.65 (0.57-1.11) mg/dL Est GFR ( Amer) > 60 (> 60) Est GFR (Non-Af Amer) > 60 (> 60) BUN/Creatinine Ratio 15 (6-26) Glucose 121 H (70-99) mg/dL Calculated Osmolality 282 (280-300) Calcium 9.1 (8.6-10.8) mg/dL Troponin I 0.00 (0-0.03) ng/mL B-Natriuretic Peptide (0-100) pg/mL 02/03/17 02/03/17 Range/Units 11:26 11:26 WBC (4.3-11.1) K/mcL RBC (3.82-4.97) M/mcL Hgb (11.5-15.4) g/dL Hct (35.3-44.9) % MCV (83.0-100.0) fL MCH (28.0-33.3) pg MCHC (31.6-35.5) g/dL RDW (11.5-14.5) % Plt Count (140-400) K/mcL MPV (9.4-12.4) fL Immature Gran % (0-4) % Seg Neutrophils % % Lymphocytes % % Monocytes % % Eosinophils % % Basophils % % Neutrophils # (1.6-8.9) K/mcL Lymphocytes # (0.6-4.6) K/mcL Monocytes # (0.0-1.3) K/mcL Eosinophils # (0.0-0.6) K/mcL Basophils # (0.0-0.2) K/mcL PT 24.2 H (9.4-12.1) Seconds INR 2.2 Sodium (136-145) mEq/L Potassium (3.5-4.5) mEq/L Chloride (98-109) mEq/L Carbon Dioxide (19-29) mEq/L BUN (7-20) mg/dL Creatinine (0.57-1.11) mg/dL Est GFR ( Amer) (> 60) Est GFR (Non-Af Amer) (> 60) BUN/Creatinine Ratio (6-26) Glucose (70-99) mg/dL Calculated Osmolality (280-300) Calcium (8.6-10.8) mg/dL Troponin I (0-0.03) ng/mL B-Natriuretic Peptide 128 H (0-100) pg/mL - Radiology Data Radiology results reviewed: Yes I reviewed the patient's radiology results. Chest X-Ray 02/03/17 11:20 IMPRESSION: 1. Mild prominence of the interstitial markings bilaterally. 2. Patchy opacification within the lungs bilaterally. D/ / Dieter Palacios MD / Dieter Palacios MD Interpreting Provider: Dieter Palacios MD Chest CTA 02/03/17 12:11 IMPRESSION: No evidence of pulmonary embolism. Moderate pulmonary fibrosis. Interval increased patchy airspace opacities bilaterally, likely related to superimposed pneumonia or pulmonary edema. Interval increased mediastinal and hilar lymphadenopathy, likely reactive. D/ / Morales Soto MD / Morales Soto MD Interpreting Provider: Morales Soto MD - EKG Data EKG attestation: Yes I reviewed and interpreted this EKG. EKG shows normal: Reports: sinus rhythm Rate: Reports: normal Rhythm: Reports: NSR [place]le/QRS: Reports: normal T wave inversions noted in: Reports: v1, v2, v3 Interpretation: Reports: no acute changes, unchanged when compared to prior tracing (date) (11/2016) Jose - Jose Situation: Demographics Background: Presenting Complaint Assessment: Vital Signs, Course and respsone to treatment, Patient/Family Expectation, Pertinant Lab Results Recommendation: Barrier(s) to disposition, Recommendation based on pending studies, treatments, or consults Jose Report Given to: Dr. Talya Garcia Repor Time: 13:42 Attestation Statement - Attestation Attestation: I examined this patient and my medical decision-making was reviewed with the SUPERVISOR [employer] TESTING/PA/Advanced Practice Nurse/Resident Physician. I agree with the documented findings, disposition and treatment plan as described except to the extent set forth below. Patient emergency department difficulty in breathing. Dyspnea on exertion. Brought in by family. Patient states he normally wears 3 L of oxygen at home but her oxygen level is dropping now when she ambulates. Also swelling in her legs is chronic but now pitting. No history of CHF. 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 Examination she is in no respiratory distress. Bilateral Rales. 2+ pitting edema bilateral lower charities. Plan. Cardiac workup with CT chest. CT shows pulmonary fibrosis and possible pulmonary edema versus pneumonia. As no fever no white count. Clinical picture is more consistent with pulmonary edema. Admitted to medicine.
[2017-02-03] MEDS ORDERED: Aspirin 81 MG TAB.CHEW PO ONE (11:36)
[2017-02-03 11:40] LABS: INR 2.2; Prothrombin Time 24.2 Seconds (9.4-12.1)
[2017-02-03 11:48] LABS: BUN/Creatinine Ratio 15 (6-26); Blood Urea Nitrogen 10 mg/dL (7-20); Calcium 9.1 mg/dL (8.6-10.8); Carbon Dioxide 27 mEq/L (19-29); Chloride 103 mEq/L (98-109); Glucose 121 mg/dL (70-99); Osmolality,Calculated 282 (280-300); Potassium 4.1 mEq/L (3.5-4.5); Sodium 136 mEq/L (136-145); eGFR For African Americans > 60 (> 60); eGFR For Non-African Americans > 60 (> 60)
[2017-02-03] MEDS ORDERED: Naloxone 0.4 MG/ML INJ IVP PRN (15:06)
[2017-02-03] MEDS ORDERED: traMADol 50 MG TABLET PO PRN (15:21)
--- NOTE | 2017-02-03 15:35 | Internal Med History&Physical ---
<Garima Landry - Last Filed: 02/03/17 15:59> Date of Encounter: 02/03/17 Time of Encounter: 15:29 Assessment and Plan (1) CHF (congestive heart failure) Current visit: Yes Status: Acute Patient with increased shortness of breath and weakness. She wears 3 L of oxygen at home for restrictive lung disease, is requiring 4-5 L to maintain saturations on presentation. CTA showed increased patchy airspace opacities bilaterally likely related to superimposed pneumonia or pulmonary edema, No PE. Patient had bilateral lower extremity edema left greater than right (patient has DVT in LLE). BNP mildly elevated to 128. Patient responded to Lasix with improvement in symptoms. Continuous night monitor and pulse oximetry Daily weights Is/Os Lasix 40mg IVP BID titrate oxygen to maintain O2 sat > 92% echocardiogram in the morning. Qualifiers: Congestive heart failure type: unspecified congestive heart failure type Congestive heart failure chronicity: acute Qualified Code(s): I50.9 - Heart failure, unspecified (2) Hypoxia Current visit: Yes Status: Acute Patient has increased oxygen requirements, requiring 4L NC to maintain saturations > 90% initially. CTA showed increased patchy airspace opacities bilaterally, likely related to superimposed pneumonia or pulmonary edema. Patient denies fever, chills, sweats, or change in appetites. She recently completed a course of cipro (on Wednesday) for suspected UTI. She is afebrile and WBC normal at 10.9. BLE have increased swelling, and patient responded to lasix with improvement in her symptoms. Low suspicion for pneumonia as cause of hypoxia. Will treat for congestive heart failure. (3) Chest pain Current visit: Yes Status: Acute Patient reporting mild dull ache in her mid chest with activity, accompanied by shortness of breath. She has a history of CAD s/p CABG and stent placement. Initial troponin negative at 0.0. EKG with no changes Serial troponins continuous night monitor echocardiogram. Qualifiers: Chest pain type: precordial pain Qualified Code(s): R07.2 - Precordial pain (4) Restrictive lung disease Current visit: Yes Status: Acute Patient follows with Dr. Arroyo as an outpatient and is being worked up for ideopathic pulmonary fibrosis. CTA showed moderate pulmonary fibrosis. increased patchy airspace opacities bilaterally, likely related to superimposed pneumonia or pulmonary edema, interval increased mediastinal and hilar lymphadenopathy, likely reactive. Consult to pulmonology, they will see patient. (5) Anticoagulation management encounter Current visit: Yes Status: Acute Patient on Coumadin for recent DVT diagnosis. INR therapeutic at 2.2. Check PT/INR daily PHarmacy to dose coumadin. (6) Coronary artery disease Current visit: No Status: Chronic Continue home doses of imdur, metoprolol. Qualifiers: Coronary Disease-Associated Artery/Lesion type: bypass graft [place] vs. transplanted heart: [place] heart Associated angina: without angina Qualified Code(s): I25.810 - Atherosclerosis of coronary artery bypass graft(s) without angina pectoris (7) Hypertension Current visit: No Status: Chronic Qualifiers: Hypertension type: essential hypertension Qualified Code(s): I10 - Essential (primary) hypertension (8) DVT prophylaxis Current visit: No Status: Acute Ambulate with assistance, PT ordered anti-embolic stocking to RLE (LLE has DVT) Patient on coumadin for recent DVT diagnosis, additional pharmacologic prophylaxis not indicated. Internal Medicine - H&P: HPI Chief complaint: shortness of breath Admitted From: Emergency Dept Plans for Post Hospital Care: Home History of present illness: Ms. Winters is a 81 year old female with hypertension, hyperlipidemia, coronary artery disease status post CABG and stent placement, sleep apnea, hypothyroid, restrictive lung disease who was brought to the ED today by her family for increasing shortness of breath and weakness. Patient reports that she has had increased shortness of breath over the last several weeks as well as generalized weakness. She reports the shortness of breath happens with any activity, with standing up, if any walking. She also has aching in her chest during these shortness of breath episodes that also resolved at rest. She is using 3L oxygen at home for her restrictive lung disease. She reports an occasional dry cough, occasional lightheadedness, occasional palpitations. She denies headache, fever, chills, sweats, change in appetite, nausea, vomiting, abdominal pain or diarrhea. Patient had recent hospitalization for back surgery in November and was discharged to long-term for rehabilitation where she was diagnosed with a DVT in her left lower extremity, for which she takes coumadin. She also recently just completed a course of antibiotics, Cipro, on Wednesday for a suspected UTI. Evaluation in the emergency department showed normal white blood cell count of 10.9, troponin negative at 0.0, BNP mildly elevated at 128 EKG showed normal sinus rhythm with no acute changes. Chest x- ray shows mild prominence of interstitial markings bilaterally and patchy opacification within the lungs bilaterally. A CTA was obtained given patient's DVT, which showed no evidence of pulmonary embolism, moderate pulmonary fibrosis , interval increased patchy airspace opacities bilaterally likely related to superimposed pneumonia or pulmonary edema, interval increased mediastinal and hilar lymphadenopathy likely reactive. Patient was given Lasix in the ER, and her symptoms improved. On exam, patient is alert and oriented, in no acute distress. She was satting 95% on 4 L nasal cannula. Lungs had fine crackles bilaterally. Heart regular rate and rhythm. Extremities had edema with left greater than right. Past Med Surg Social Fam HX - Past Medical History Medical history: coronary artery disease, DVT, GERD, hyperlipidemia, hypertension, myocardial infarction, syncope, other Psychiatric history: no psych history - Past Surgical History Surgical History: angioplasty/stent, cholecystectomy, coronary bypass (CABG), orthopedic, other, other - Social History Smoking Status: Never smoker Smokeless Tobacco Status: No Alcohol use: none Drug use: none - Family History Mother Living Status: Age at : 84 Cause of : COPD Hx Family Respiratory Disorders: Yes Sister Adopted: No Living Status: Hx Family Respiratory Disorders: Yes (PULMONARY FIBROSIS) Father Living Status: Age at : 82 Internal Medicine - H&P: Meds Aspirin Enteric Coated [Aspirin EC] 81 mg PO DAILY 05/27/15 [History] Calcium Carbonate/Vitamin D3 [Calcium 600 + D Tablet] 600 mg PO DAILY 05/27/15 [ History] Clopidogrel [Plavix] 75 mg PO QPM 05/27/15 [History] Levothyroxine [Synthroid] 50 mcg PO QAM 05/27/15 [History] Oxygen 2 l NS AD 05/27/15 [History] Albuterol Sulfate [Albuterol Inhaler] 2 puff IH Q6HR PRN 05/28/15 [History] Gabapentin [Neurontin] 600 mg PO BID 05/28/15 [History] Isosorbide MONOnitrate (24 HR) [Imdur] 60 mg PO QPM 05/28/15 [History] Metoprolol XL (24 HR) Succ [Toprol XL] 50 mg PO DAILY 05/28/15 [History] Pravastatin Sodium [Pravachol] 40 mg PO QPM 05/28/15 [History] [place] Oil/[place]-3 Fatty Acids [Fish Oil 500 mg Softgel] 1,200 mg PO BID [History] Docusate Sodium [Stool Softener] 100 mg PO 1-2XD 02/05/16 [History] Melatonin [Melatin] 3 mg PO HS 02/05/16 [History] Mv,Calcium,Min/Iron/Folic/Vitk [Multi For Her Tablet] 1 tab PO DAILY 02/05/16 [ History] Nitroglycerin [Nitrostat] 0.4 mg SL Q5M PRN 02/05/16 [History] Cranberry Fruit Extract/Vit C [Azo Cranberry Softgel] 1 cap PO BID 11/25/16 [ History] Alendronate Sodium [Fosamax] 70 mg PO SA 02/03/17 [History] Citalopram [CeleXA] 20 mg PO DAILY 02/03/17 [History] Famotidine [Pepcid] 40 mg PO DAILY 02/03/17 [History] Tramadol HCl [Ultram] 50 mg PO Q6H PRN 02/03/17 [History] Vitamin E Mixed [Vitamin E] 1,000 unit PO DAILY 02/03/17 [History] Warfarin [Coumadin] 2.5 mg PO Q48H 02/03/17 [History] Warfarin [Coumadin] 5 mg PO Q48H 02/03/17 [History] Allergies Amoxicillin [From Augmentin] Allergy (Verified 01/23/17 14:43) Rash clavulanic acid [From Augmentin] Allergy (Verified 01/23/17 14:43) Rash lisinopril Allergy (Verified 01/23/17 14:43) Cough nitrofurantoin [From Macrobid] Allergy (Verified 01/23/17 14:43) Rash Penicillins [PCN] Allergy (Verified 01/23/17 14:43) Rash Sulfa (Sulfonamide Antibiotics) Adverse Reaction (Verified 01/23/17 14:43) Nausea All Systems PM: A 10-system review of systems was performed and is negative for pertinent findings except as documented above in the HPI. - Constitutional Constitutional: weakness, no chills, no fever(s), no night sweats - EENT Eyes: no change in vision, no discharge, no pain, no photophobia Ears: no ear discharge, no ear pain, no tinnitus Nose, mouth and throat: no dysphagia, no nasal discharge, no neck pain, no sore throat - Cardiovascular Cardiovascular ROS IM: chest pain (ache with activity), dyspnea, dyspnea on exertion, lightheadedness, palpitations, no diaphoresis, no syncope - Respiratory Respiratory: cough (dry), dyspnea, dyspnea on exertion, no wheezing, no excessive phlegm production - Gastrointestinal Gastrointestinal: no abdominal pain, no diarrhea, no hematemesis, no hematochezia, no melena, no nausea, no vomiting - Genitourinary Genitourinary: no change in urinary stream, no dysuria, no flank pain, no hematuria - Musculoskeletal Musculoskeletal ROS IM: no numbness, no tingling - Integumentary Integumentary IM: no rash, no unusual bruising - Neurological Neurological ROS: no confusion, no convulsions, no focal weakness, no numbness, no tingling, no tremor(s) - Hematologic/Lymphatic Hematologic/Lymphatic: no easy bruising - Constitutional Vitals: Temp Pulse Resp BP Pulse Ox 97.3 F L 81 18 92/60 93 02/03/17 11:06 02/03/17 14:38 02/03/17 14:52 02/03/17 14:52 02/03/17 14:38 General appearance: Present: A&O X 3, pleasant, no acute distress - Head Head exam: Present: atraumatic, normocephalic - Eye Eye exam: Present: PERRL, conjuntiva pink, sclera anicteric Pupils: Present: PERRL - Neck Neck exam general surgery: Present: supple, trachea midline. Absent: lymphadenopathy - Respiratory Respiratory exam: Present: rales. Absent: accessory muscle use, rhonchi, wheezes - Cardiovascular Cardiovascular exam: Present: RRR, +S1, +S2. Absent: diastolic murmur, gallop, rubs, systolic murmur - GI/Abdominal GI/Abdominal exam: Present: normal bowel sounds, soft, no peritoneal signs. Absent: distended, tenderness - Extremities Exam Extremities exam: Present: pedal edema (+1 RLE, +2 LLE), warm, radial pulses palpable and symetrical. Absent: calf tenderness, cyanotic - Neurological Exam Neurological exam: Present: CN II-XII intact, oriented X3, no focal deficits. Absent: facial droop, speech deficit - Skin Skin exam: Present: dry, intact Internal Med - H&P Results - Labs CBC & Chem 7: 02/03/17 11:26 02/03/17 11:26 <Mayra Babin - Last Filed: 02/03/17 16:45> Date of Encounter: 02/03/17 Internal Medicine - H&P: HPI History of present illness: Ms. Winters is a 81 year old female All Systems PM: A 10-system review of systems was performed and is negative for pertinent findings except as documented above in the HPI. - Constitutional Vitals: Temp Pulse Resp BP Pulse Ox 97.3 F L 81 18 92/60 93 02/03/17 11:06 02/03/17 14:38 02/03/17 14:52 02/03/17 14:52 02/03/17 14:38 Internal Med - H&P Results - Labs CBC & Chem 7: 02/03/17 11:26 02/03/17 11:26 - Attending Attestation I examined this patient and my medical decision-making was reviewed with the Nurse Practitioner. I agree with the documented history of present illness, review of systems, past medical, surgical social and family histories and examination findings, disposition and treatment plan as described above except to any changes set forth below. Patient is a 81-year-old female with a history of restrictive lung disease on chronic home oxygen who presented to the ER with complaints of shortness of breath over the past several weeks but mainly worsening over the past 3 days. She was seen by her radio commentator yesterday and had some blood work done. She continued to decline with increasing shortness of breath and apparently had bluish discoloration of 4 fingernail beds and her daughter brought her into the ER today. She has been having occasional cough with worsening swelling in her both lower extremities. She says her lower extremities have been swollen and ever since was diagnosed with a deep vein thrombosis in December of this year. She is on anticoagulation for this with Coumadin. However over the past 3 days the swelling has also worsened. On arrival to the ER, she was hypoxic on her usual O2 supplementation and required increased FiO2. She has mild dull chest pain. No fever or chills or night sweats. Patient was recently treated for UTI with ciprofloxacin which she completed on Wednesday for 10 days. On examination, she is awake alert and oriented 3. Heart sounds sound normal with normal S1 and S2 without any murmur. Patient does have dry crackles bilaterally in all lung thapa. Bilateral pedal edema is also present. CTA shows patchy bilateral airspace opacities concerning for pulmonary edema/ pneumonia. Chest x-ray shows increased interstitial markings. Patient's respiratory status improved after she received IV Lasix. She has an elevated BNP which is actually improved compared to yesterday. She also has elevated ESR and CRP on labs done yesterday. For now, we will place the patient under observation. Treat her for acute congestive heart failure. Will get 2-D echocardiogram. Telemetry and cardiac monitoring. Nonspecific at this time. Continue IV Lasix. Acute on chronic hypoxia: Due to CHF/restrictive lung disease. Will continue O2 supplementation and wean FiO2 as tolerated. For chest pain, we will trend troponins. Continue telemetry monitoring. Restrictive lung disease: Will consult pulmonology. We will follow recommendations. No indication for steroids at this time. History of DVT: Continue anticoagulation with Coumadin. Her hypertension and coronary artery disease, we will continue patient's usual medications and monitor blood pressure closely. This document has been at least partially created by [employer] voice recognition technology by Dr. Babin. Errors in grammar, wording or other phrases may exist. If errors are found after the documentation is signed, they will be addressed individually in the addendum section of this document when appropriate.
--- NOTE | 2017-02-03 16:53 | Pulmonology Consult Note ---
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 There is no clinical evidence to support a bacterial or infectious etiology as a possible concurrent issue producing exacerbation and respiratory failure. I reviewed my impressions with the patient as well as the family member (I believe it is the patient's granddaughter). I explained that idiopathic pulmonary fibrosis is a chronic relentlessly progressive disorder progressing at various rates depending upon patient makeup. I agree with empiric diuresis. I believe it is also be reasonable to place the patient on a two-week to 3 week course of prednisone which can be tapered off. Echocardiography may be useful in order to discern whether the patient has diastolic or systolic heart dysfunction although I suspect diastolic is the etiology of concurrent acute congestive heart failure. Patient may also have pulmonary hypertension based upon physical examination findings as well as enlargement of the pulmonary artery noted from my review of the CT scan of the chest. If this is in fact the case, pulmonary hypertension is always a serious poor prognostic factor in patient's with interstitial fibrotic lung disease. Patients with the pulmonary fibrosis may have occult reflux and therefore the patient should receive empiric PPI treatment in spite of other potential side effects related to the same. Continue supplemental O2, saturation goal 90-94% Immunizations are current. The patient may benefit form outpatient plmonary rehabilitation Please call if you have any questions. Thank you for this consultation. Rudy Lozano [phone] Code(s): J96.21 - Acute and chronic respiratory failure with hypoxia SNOMED Code(s): 39193596075337141 History of Present Illness Consult date: 02/03/17 Chief complaint: Dyspnea, nonproductive cough History of present illness: 81-year-old female who is a lifelong nonsmoker although has had secondhand smoke exposure, note family history of pulmonary fibrosis was admitted to the hospital with progressive exertional breathlessness. She noted worsening of her respiratory status over the past 2-3 days. Per discussion with the family member that accompanies the patient, reportedly this individual utilizes supplemental oxygen in the home setting and has not and has done so for the last several years and reportedly periodically checks pulse oximetry. Pulse oximetry values claimed to be approximately 75-80% which intempo with the patient's progressive breathlessness prompted evaluation and admission to the hospital. The patient has a history of interstitial lung disease likely idiopathic pulmonary fibrosis. Patient as well as the family member accompanying the patient are aware of this diagnosis and have known of the same for approximately a year to year and a half. Reportedly, the patient was recently evaluated through outpatient pulmonary clinic for ILD. Past Med Surg Social Fam HX - Past Medical History Medical history: coronary artery disease, DVT, GERD, hyperlipidemia, hypertension, myocardial infarction, syncope, other Psychiatric history: no psych history - Past Surgical History Surgical History: angioplasty/stent, cholecystectomy, coronary bypass (CABG), orthopedic, other, other - Social History Smoking Status: Never smoker Smokeless Tobacco Status: No Alcohol use: none Drug use: none - Family History Mother Living Status: Age at : 84 Cause of : COPD Hx Family Respiratory Disorders: Yes Father Living Status: Age at : 82 Sister Adopted: No Living Status: Hx Family Respiratory Disorders: Yes (PULMONARY FIBROSIS) Medications and Allergies Aspirin Enteric Coated [Aspirin EC] 81 mg PO DAILY 05/27/15 [History] Calcium Carbonate/Vitamin D3 [Calcium 600 + D Tablet] 600 mg PO DAILY 05/27/15 [ History] Clopidogrel [Plavix] 75 mg PO QPM 05/27/15 [History] Levothyroxine [Synthroid] 50 mcg PO QAM 05/27/15 [History] Oxygen 2 l NS AD 05/27/15 [History] Albuterol Sulfate [Albuterol Inhaler] 2 puff IH Q6HR PRN 05/28/15 [History] Gabapentin [Neurontin] 600 mg PO BID 05/28/15 [History] Isosorbide MONOnitrate (24 HR) [Imdur] 60 mg PO QPM 05/28/15 [History] Metoprolol XL (24 HR) Succ [Toprol XL] 50 mg PO DAILY 05/28/15 [History] Pravastatin Sodium [Pravachol] 40 mg PO QPM 05/28/15 [History] [place] Oil/[place]-3 Fatty Acids [Fish Oil 500 mg Softgel] 1,200 mg PO BID [History] Docusate Sodium [Stool Softener] 100 mg PO 1-2XD 02/05/16 [History] Melatonin [Melatin] 3 mg PO HS 02/05/16 [History] Mv,Calcium,Min/Iron/Folic/Vitk [Multi For Her Tablet] 1 tab PO DAILY 02/05/16 [ History] Nitroglycerin [Nitrostat] 0.4 mg SL Q5M PRN 02/05/16 [History] Cranberry Fruit Extract/Vit C [Azo Cranberry Softgel] 1 cap PO BID 11/25/16 [ History] Alendronate Sodium [Fosamax] 70 mg PO SA 02/03/17 [History] Citalopram [CeleXA] 20 mg PO DAILY 02/03/17 [History] Famotidine [Pepcid] 40 mg PO DAILY 02/03/17 [History] Tramadol HCl [Ultram] 50 mg PO Q6H PRN 02/03/17 [History] Vitamin E Mixed [Vitamin E] 1,000 unit PO DAILY 02/03/17 [History] Warfarin [Coumadin] 2.5 mg PO Q48H 02/03/17 [History] Warfarin [Coumadin] 5 mg PO Q48H 02/03/17 [History] Allergies Amoxicillin [From Augmentin] Allergy (Verified 01/23/17 14:43) Rash clavulanic acid [From Augmentin] Allergy (Verified 01/23/17 14:43) Rash lisinopril Allergy (Verified 01/23/17 14:43) Cough nitrofurantoin [From Macrobid] Allergy (Verified 01/23/17 14:43) Rash Penicillins [PCN] Allergy (Verified 01/23/17 14:43) Rash Sulfa (Sulfonamide Antibiotics) Adverse Reaction (Verified 01/23/17 14:43) Nausea All Systems: A 10-system review of systems was performed and is negative for pertinent findings except as documented above in the HPI. - Constitutional Constitutional: as per HPI - Respiratory Respiratory: as per HPI Physical Examination Vital Signs: Vital Signs, Last 4 Hours Pulse Resp BP Pulse Ox 02/03/17 14:52 18 92/60 02/03/17 14:38 81 18 92/60 93 General appearance: no acute distress, other (Elderly obese female awake alert no distress) Eyes: nonicteric ENT: oropharynx moist Mallampati (class): 2 Neck: supple, no lymphadenopathy, no JVD Effort: normal Inspection: other (Healed sternotomy, abundant soft tissue structures) Auscultation: bilateral: rales (Dry Velcro type crackles over the mid lower lung zones.) Cardiovascular: regular rate and rhythm, other (Gallop) Gastrointestinal: normoactive bowel sounds, non-distended Extremities: no cyanosis, no clubbing, edema (Mild lower extremity edema) Results - Laboratory Findings CBC and BMP: 02/03/17 11:26 02/03/17 11:26 PT/INR, D-dimer PT 24.2 Seconds (9.4-12.1) H 02/03/17 11:26 Abnormal lab findings: Abnormal lab results RBC 3.68 M/mcL (3.82-4.97) L 02/03/17 11:26 Hgb 11.2 g/dL (11.5-15.4) L 02/03/17 11:26 MCHC 31.1 g/dL (31.6-35.5) L 02/03/17 11:26 MPV 8.5 fL (9.4-12.4) L 02/03/17 11:26 PT 24.2 Seconds (9.4-12.1) H 02/03/17 11:26 Glucose 121 mg/dL (70-99) H 02/03/17 11:26 B-Natriuretic Peptide 128 pg/mL (0-100) H 02/03/17 11:26 - Diagnostic Findings CT scan - chest: image reviewed (The chest CT scan reveals findings suggestive of fibrotic lung disease probable UIP pattern. In addition there are superimposed airspace opacities likely due to either pulmonary edema or perhaps groundglass opacities due to exacerbation of interstitial lung disease.) Consult Discharge Plan - Plan Referrals: NO,PCP [Primary Care Provider] -
[2017-02-03] MEDS ORDERED: Warfarin perPT PO PRN (18:00)
[2017-02-03] MEDS: Isosorbide MONOnitrate (24 HR) 60 MG TAB.ER.24H PO SCH (18:06)
[2017-02-03] MEDS: Furosemide 40 MG/4 ML VIAL IVP SCH (18:06)
[2017-02-03] MEDS: Melatonin 3 MG TABLET PO SCH (19:53)
[2017-02-03] MEDS: Gabapentin 300 MG CAPSULE PO SCH (19:53)
[2017-02-04 07:03] LABS: INR 2.2; Prothrombin Time 23.8 Seconds (9.4-12.1)
[2017-02-04 07:06] LABS: Activated Partial Thrombo Time 37.8 Seconds (26.0-36.0); Basophils # 0.1 K/mcL (0.0-0.2); Basophils % 0.5 %; Eosinophils # 0.8 K/mcL (0.0-0.6); Eosinophils % 7.4 %; Hematocrit 35.3 % (35.3-44.9); Hemoglobin 11.4 g/dL (11.5-15.4); Immature Granulocytes % 0.5 % (0-4); Lymphocytes # 2.5 K/mcL (0.6-4.6); Lymphocytes % 22.7 %; Mean Corpuscular HGB Conc 32.3 g/dL (31.6-35.5); Mean Corpuscular Volume 95.9 fL (83.0-100.0); Mean Platelet Volume 8.8 fL (9.4-12.4); Monocytes # 1.3 K/mcL (0.0-1.3); Monocytes % 11.4 %; Neutrophils # 6.4 K/mcL (1.6-8.9); Platelet Count 291 K/mcL (140-400); Red Blood Count 3.68 M/mcL (3.82-4.97); Red Cell Distribution Width 13.5 % (11.5-14.5); Segmented Neutrophils % 57.5 %
[2017-02-04 07:14] LABS: BUN/Creatinine Ratio 18 (6-26); Blood Urea Nitrogen 13 mg/dL (7-20); Calcium 8.9 mg/dL (8.6-10.8); Carbon Dioxide 29 mEq/L (19-29); Chloride 100 mEq/L (98-109); Glucose 95 mg/dL (70-99); Osmolality,Calculated 286 (280-300); Potassium 3.8 mEq/L (3.5-4.5); Sodium 138 mEq/L (136-145); eGFR For African Americans > 60 (> 60); eGFR For Non-African Americans > 60 (> 60)
[2017-02-04] MEDS ORDERED: Famotidine 20 MG TABLET PO SCH (09:00)
--- NOTE | 2017-02-04 09:59 | ECHO - Doppler Report ---
Echocardiogram Name: Kathryn Winters Date of Study: 02/04/2017 Date: 1935 Ht: 61.0 in Medical Record#: [id number] Age: 81 Wt: 167.0 lb Gender: Female BSA: 1.75 Order #: [id number] Location: [facility] Room #: 3B11 Reading Physician: Lizbeth Mohan DO Industrial Ecologist: FRANK RaymundoT, [facility] Ordering Physician: Garima Landry CNP Primary Physician: Glenroy Lin MD Indications: Congestive heart failure Impressions: LVEF 65%. Normal left ventricular size and systolic function. There is evidence of mild diastolic dysfunction of the left ventricle. Atypical septal motion. Normal right ventricular size and function in visualized views. No significant valvular dysfunction. No pulmonary hypertension. Left Ventricular Wall Motion: Rest Echo Findings All wall segments showed normal motion. Findings: Study Quality * Technically adequate exam. ECG Findings * Normal sinus rhythm. Aortic Valve * No aortic regurgitation. * Trileaflet aortic valve. * No aortic stenosis. Mitral Valve * No mitral regurgitation. * No mitral stenosis. * Suboptimally visualized but appears to demonstrate normal leaflet excursion. Aorta * Normally sized aortic root. Left Ventricle * Atypical septal motion consistent with post-operative status. * Mild left ventricular diastolic dysfunction. * LVEF 65%. * Normal LV chamber size, wall thickness and function. Tricuspid Valve * Tricuspid valve not well visualized. * No tricuspid regurgitation. Pulmonic Valve * Pulmonic valve is not well visualized. * No pulmonic stenosis. * Trace pulmonic regurgitation. Left Atrium * Normal left atrial size. Right Atrium * Normal right atrial size. Right Ventricle * Normal right ventricular structure and function in the apical and subcostal view. Not well seen in Parasternal views. Suboptimal Lat S Dwayne. Pulmonary Artery * Pulmonary artery not well visualized. Interatrial Septum * No evidence of PFO by color Doppler. Pericardium * There is no pericardial effusion present. IVC * The IVC is not well evaluated. History Hypertension Hypercholesteremia History of CAD/PTCA Myocardial Infarction Coronary Artery Bypass Graft Measurements: BP: 97/ 62 2D Normal Values RVIDd: 2.10 cm <2.7 cm IVSd: .90 cm 0.6 - 1.0 cm LVIDd: 3.70 cm 3.7 - 5.6 cm LVPWd: .80 cm 0.6 - 1.1 cm LVIDs: 2.50 cm 1.5 - 3.6 cm AO: 2.80 cm < 4.0 cm LA: 2.50 cm 2.0 - 4.0cm %FS: 32.40 cm >25 % LA volume: 29 Mitral Valve Dec Time:289.00 msec Peak E:.54 m/sec Peak A:.81 m/sec E/A Ratio:0.7 Peak E' Lat Dwayne:6.73 cm/s Peak E' Med Dwayne:5.46 cm/s E/E' Lat Ratio:8 E/E' Med Ratio:9.8 Updated by Lizbeth Mohan on 02/04/2017 9:49:22 AM electronically signed on 02/04/2017 9:54:55 AM with status of Final Wall Motion [place]: 1=Normal, 2=Hypokinesis, 3=Akinesis, 4=Dyskinesis, 5=Aneurysmal, 6=Hyperkinetic, X=Not Visualized (Blank)=Missing
[2017-02-04] MEDS: Gabapentin 300 MG CAPSULE PO SCH ×2 (10:45→20:04)
[2017-02-04] MEDS: Furosemide 40 MG/4 ML VIAL IVP SCH ×3 (10:45→16:54)
[2017-02-04] MEDS: Metoprolol XL (24 HR) Succ 50 MG TAB.ER.24H PO SCH (10:45)
[2017-02-04] MEDS: predniSONE 20 MG TABLET PO SCH (10:45)
--- NOTE | 2017-02-04 11:37 | Electrocardiograph Report ---
Bryan Bozuko Test Date: 2017-02-03 Pat Name: Kathryn Winters Department: 102 Room: 3B11 Gender: F Field Evidence Technician: Ki : 1935 Requested By: Roberth Kearney Order Number: [id number] Reading MD: Behzad Iyer MD Measurements Intervals [place] Rate: 83 P: 46 SD: 121 QRS: 8 QRSD: 90 T: 29 QT: 343 QTc: 383 Interpretive Statements SINUS RHYTHM WITH SINUS ARRHYTHMIA INFERIOR MYOCARDIAL INFARCTION [40+ ms Q WAVE AND/OR ST/T ABNORMALITY IN II/aVF], OF INDETERMINATE AGE MODERATE T-WAVE ABNORMALITY, CONSIDER ANTEROLATERAL ISCHEMIA [-0.1+ mV T WAVE IN V3-V6] Electronically Signed On 02-04-2017 11:35:33 EDT by Behzad Iyer MD
--- NOTE | 2017-02-04 15:25 | Internal Med Progress Note ---
Date of Encounter: 02/04/17 Time of Encounter: 08:15 - Assessment and plan (1) CHF (congestive heart failure) Current Visit: Yes Status: Acute Assessment and plan: Patient has approximately 2 week history of increasing shortness of breath, dyspnea on exertion, and weakness. She says that her sats drop to 66% when she is walking, even with her 3 L of oxygen at home. She denies a cough but reports minimal peripheral edema. CTA showed increased patchy airspace opacities bilaterally, likely related to superimposed pneumonia or pulmonary edema. It was negative for PE. On admission patient had bilateral lower extremity edema left greater than right. Patient does have a DVT in her left lower extremity. Her symptoms resolved after Lasix in the emergency department. She said she did feel as if she was breathing better. BNP was mildly elevated at 128 this morning. Peripheral edema according to patient and family has drastically improved. There is little to no edema in lower extremities this morning. Patient had echo this morning LVEF of 65%, normal systolic function, mild diastolic dysfunction. There is atypical septal motion. No significant valvular dysfunction and no pulmonary hypertension. Daily weight Intake and output Lasix 40 mg IVP twice a day- renal function labs within normal limits Maintain oxygen saturations greater than 92% Monitor labs Monitor vital signs Qualifiers: Congestive heart failure type: unspecified congestive heart failure type Congestive heart failure chronicity: acute Qualified Code(s): I50.9 - Heart failure, unspecified (2) Chest pain Current Visit: Yes Status: Resolved Assessment and plan: Patient states that if she did have chest pain was minimal and hard to recall. She says that she did have very mild midsternal/epigastric pain without radiation. She was more concerned with the shortness of breath. Her troponins were negative 3. Echocardiogram was done this morning. Showed ejection fraction of 60-65% with mild diastolic dysfunction. Plan as above Qualifiers: Chest pain type: precordial pain Qualified Code(s): R07.2 - Precordial pain (3) Pulmonary fibrosis Current Visit: No Status: Chronic Assessment and plan: Patient was seen by pulmonology today, as well as previously outpatient in the office. Pulmonology feels that hypoxia is most likely due to pulmonary fibrosis with either an exacerbation of this, superimposed heart failure, or combination of both. Agree with diuresis. Recommend the patient be on a 2 to three-week prednisone taper on discharge. Also recommend him. PPI treatment due to patient with pulmonary fibrosis may have occult reflux. Her lungs are clear and diminished throughout. She denies a cough. There is no leukocytosis or signs of infection. CTA showed moderate pulmonary fibrosis, increased patchy airspace opacities bilaterally, likely related to superimposed pneumonia or pulmonary edema, interval increased mediastinal and hilar lymphadenopathy likely reactive. Titrate oxygen to maintain saturations greater than 92%. Referral to outpatient pulmonary rehabilitation on discharge. (4) Acute on chronic respiratory failure with hypoxemia Current Visit: Yes Status: Acute Assessment and plan: Patient is requiring increased oxygen to maintain her saturations above 90%. She reports that she normally wears 3 L at home and even on continuous home oxygen her sats decreased to around 66% when she is up walking around. She is having to wear 5 L to maintain her saturation around 90%. Titrate oxygen to maintain oxygen saturations above 92% Pulmonology has been consulted. Potential pulmonary rehabilitation on discharge (5) Interstitial lung disease Current Visit: Yes Status: Chronic Assessment and plan: Plan as above. (6) Anticoagulation management encounter Current Visit: Yes Status: Acute Assessment and plan: Patient has current DVT. She is on Coumadin INR is therapeutic today at 2.2. Pharmacy dosing Coumadin PT and INR in the morning Monitor labs. (7) Hypertension Current Visit: No Status: Chronic Assessment and plan: Chronic. Continue home medications. Qualifiers: Hypertension type: essential hypertension Qualified Code(s): I10 - Essential (primary) hypertension (8) Coronary artery disease Current Visit: No Status: Chronic Assessment and plan: Chronic. Continue Imdur and metoprolol Patient has no longer taking Plavix. She is on Coumadin now due to DVT in left lower extremity. Telemetry Qualifiers: Coronary Disease-Associated Artery/Lesion type: bypass graft [place] vs. transplanted heart: [place] heart Associated angina: without angina Qualified Code(s): I25.810 - Atherosclerosis of coronary artery bypass graft(s) without angina pectoris (9) DVT prophylaxis Current Visit: No Status: Acute Assessment and plan: Patient on Coumadin for recurrent DVT. Patient up to bedside with assistance. Antiembolic stocking right lower extremity. - Time Spent With Patient less than 15 minutes - Subjective Interval history: Patient is sitting up in bed. She has returned from her echocardiogram. She reports left chest pain that is minimal, she says is even hard to recall if she did have chest pain. She reports increasing shortness of breath and dyspnea on exertion for the last 2 weeks. She denies any cough fever or mild peripheral edema. She does report intermittent diarrhea for the last 2 weeks but denies abdominal pain. She states when she gets up to go to the bathroom at home her saturation drops to 66% on her oxygen that she wears at home. I have spoken to multiple family members multiple times today. Regarding patient's condition and plan of care. Family member this afternoon has requested evaluation by PT and OT. I also got the criminal justice social worker involved. Family states they do not feel the patient can live on her own anymore due to her decrease in oxygen saturation and increased shortness of breath. Physical therapy consult was put in at admission, they have not been to see her yet. - Constitutional Vitals: Temp Pulse Resp BP Pulse Ox 98.1 F 74 18 95/59 91 02/04/17 14:43 02/04/17 14:43 02/04/17 14:43 02/04/17 14:43 02/04/17 14:43 General appearance: Present: A&O X 3, pleasant, no acute distress, answers questions appropriately - Head Head exam: Present: normal inspection - Eye Eye exam: Present: normal appearance, conjuntiva pink - ENT ENT exam: Present: mucous membranes moist, normal exam - Neck Neck exam general surgery: Absent: lymphadenopathy, tenderness - Respiratory Respiratory exam: Present: decreased breath sounds, rales. Absent: chest wall tenderness, CTAB, respiratory distress, rhonchi, stridor, wheezes, tachypnea - Cardiovascular Cardiovascular exam: Present: RRR, +S1, +S2. Absent: diastolic murmur, systolic murmur - Expanded Cardiovascular Exam Peripheral pulses: 2+: Dorsalis Pedis (L) PM, Dorsalis Pedis (R) PM - GI/Abdominal GI/Abdominal exam: Present: normal bowel sounds, soft. Absent: hepatomegaly, tenderness - Extremities Exam Extremities exam: Present: normal capillary refill, normal inspection, warm, radial pulses palpable and symetrical. Absent: pedal edema, tenderness - Neurological Exam Neurological exam: Present: alert, oriented X3, no focal deficits, strengths equal and symetr throughout. Absent: facial droop, speech deficit Internal Medicine: Result - Labs CBC & Chem 7: 02/04/17 06:47 04/27/17 06:47 Labs: Short CBC 02/04/17 Range/Units 06:47 WBC 11.1 (4.3-11.1) K/mcL Hgb 11.4 L (11.5-15.4) g/dL Hct 35.3 (35.3-44.9) % Plt Count 291 (140-400) K/mcL Neutrophils # 6.4 (1.6-8.9) K/mcL BMP 02/04/17 06:47 Sodium 138 Potassium 3.8 Chloride 100 Carbon Dioxide 29 BUN 13 Creatinine 0.73 Glucose 95 Calcium 8.9 Cardiac Enzymes 02/03/17 02/03/17 Range/Units 17:41 23:45 Troponin I 0.00 0.00 (0-0.03) ng/mL - ABG Interpretation ABG results: PT/INR, D-dimer PT 23.8 Seconds (9.4-12.1) H 02/04/17 06:47 - Impressions Impressions Chest X-Ray 02/04/17 07:00 IMPRESSION: Persistent bilateral lung infiltrates concerning for pulmonary edema versus pneumonia superimposed on chronic lung disease. D/ / 02/04/2017 09:21:20 Colt Ludwig MD / Francesca Bowie Interpreting Provider: Colt Ludwig MD Consult Discharge Plan - Plan Referrals: Glenroy Lin MD [Primary Care Provider] - 02/10/17 9:45 am
[2017-02-04] MEDS: Isosorbide MONOnitrate (24 HR) 60 MG TAB.ER.24H PO SCH (16:54)
[2017-02-04] MEDS ORDERED: *HR* Warfarin 5 MG TABLET PO SCH (18:00)
[2017-02-04] MEDS: Melatonin 3 MG TABLET PO SCH (20:03)
[2017-02-05 03:56] LABS: Basophils % 0.3 %; Eosinophils # 0.1 K/mcL (0.0-0.6); Hematocrit 36.8 % (35.3-44.9); Hemoglobin 11.8 g/dL (11.5-15.4); Immature Granulocytes % 0.7 % (0-4); Lymphocytes # 2.3 K/mcL (0.6-4.6); Lymphocytes % 20.7 %; Mean Corpuscular HGB Conc 32.1 g/dL (31.6-35.5); Mean Corpuscular Hemoglobin 30.7 pg (28.0-33.3); Mean Corpuscular Volume 95.8 fL (83.0-100.0); Mean Platelet Volume 8.7 fL (9.4-12.4); Monocytes % 8.6 %; Neutrophils # 7.8 K/mcL (1.6-8.9); Platelet Count 306 K/mcL (140-400); Red Blood Count 3.84 M/mcL (3.82-4.97); Red Cell Distribution Width 13.1 % (11.5-14.5); Segmented Neutrophils % 68.7 %
[2017-02-05 04:05] LABS: INR 1.8; Prothrombin Time 20.2 Seconds (9.4-12.1)
[2017-02-05 04:14] LABS: BUN/Creatinine Ratio 17 (6-26); Blood Urea Nitrogen 11 mg/dL (7-20); Calcium 9.2 mg/dL (8.6-10.8); Carbon Dioxide 29 mEq/L (19-29); Chloride 99 mEq/L (98-109); Glucose 96 mg/dL (70-99); Osmolality,Calculated 285 (280-300); Potassium 3.9 mEq/L (3.5-4.5); Sodium 138 mEq/L (136-145); eGFR For African Americans > 60 (> 60); eGFR For Non-African Americans > 60 (> 60)
[2017-02-05] MEDS: Furosemide 40 MG/4 ML VIAL IVP SCH ×2 (08:48→17:31)
[2017-02-05] MEDS: predniSONE 20 MG TABLET PO SCH (08:51)
[2017-02-05] MEDS: Metoprolol XL (24 HR) Succ 50 MG TAB.ER.24H PO SCH (08:51)
[2017-02-05] MEDS: Gabapentin 300 MG CAPSULE PO SCH ×2 (08:51→21:13)
--- NOTE | 2017-02-05 17:03 | Internal Med Progress Note ---
Date of Encounter: 02/05/17 Time of Encounter: 08:40 - Assessment and plan (1) CHF (congestive heart failure) Current Visit: Yes Status: Acute Assessment and plan: Patient is diuresing nicely. Her edema in her legs has improved from yesterday. +1-2 nonpitting. She has no edema in her feet. Left leg is larger than the right due to positive DVT in left lower extremity. Patient has been having low normal blood pressures that is sometimes presenting the use of all of her antihypertensive. She is getting her Lasix today. She does have crackles in posterior lung thapa, left greater than right. She is having to wear his oxygen to maintain her saturations. At times when she is sitting her oxygen saturation will drop into the high 80s. She is not in any distress. She is able to get up and around in her room. She did take a shower today and has been sitting in her chair for meals. Daily weight Intake and output Lasix 40 mg IVP twice a day- renal function labs within normal limits Maintain oxygen saturations greater than 92% Monitor labs Monitor vital signs Qualifiers: Congestive heart failure type: unspecified congestive heart failure type Congestive heart failure chronicity: acute Qualified Code(s): I50.9 - Heart failure, unspecified (2) Chest pain Current Visit: Yes Status: Resolved Assessment and plan: Patient denies chest pain. She denies shortness of breath this morning. Her troponins were negative 3. Echocardiogram was done this morning. Showed ejection fraction of 60-65% with mild diastolic dysfunction. Continue diuresis and supplemental oxygen by nasal cannula. Plan as above Qualifiers: Chest pain type: precordial pain Qualified Code(s): R07.2 - Precordial pain (3) Pulmonary fibrosis Current Visit: No Status: Chronic Assessment and plan: Pulmonology feels that hypoxia is most likely due to pulmonary fibrosis with either an exacerbation of this, superimposed heart failure, or combination of both. Agree with diuresis. Recommend the patient be on a 2 to three-week prednisone taper on discharge. Also recommend him. PPI treatment due to patient with pulmonary fibrosis may have occult reflux. Her lungs are clear and diminished throughout. She denies a cough. There is no leukocytosis or signs of infection. CTA showed moderate pulmonary fibrosis, increased patchy airspace opacities bilaterally, likely related to superimposed pneumonia or pulmonary edema, interval increased mediastinal and hilar lymphadenopathy likely reactive. Titrate oxygen to maintain saturations greater than 92%. Referral to outpatient pulmonary rehabilitation on discharge. Started prednisone 40 mg by mouth daily yesterday. Continue long-term taper on discharge. (4) Acute on chronic respiratory failure with hypoxemia Current Visit: Yes Status: Acute Assessment and plan: Patient is requiring increased oxygen to maintain her saturations above 90%. She reports that she normally wears 3 L at home. Patient was wearing 5 L yesterday, today she appears to be between 3 and 4 L. Her saturation was around 90% this morning. Primary nurse reports the patient is 96%, improving potentially due to diuresis. Titrate oxygen to maintain oxygen saturations above 92% Pulmonology has been consulted. Potential pulmonary rehabilitation on discharge (5) Interstitial lung disease Current Visit: Yes Status: Chronic Assessment and plan: Plan as above (6) Anticoagulation management encounter Current Visit: Yes Status: Acute Assessment and plan: Patient has current DVT. She is on Coumadin INR is therapeutic today at 1.8. Pharmacy dosing Coumadin PT and INR in the morning Monitor labs. (7) Hypertension Current Visit: No Status: Chronic Assessment and plan: Patient has been low normal. Some blood pressure medications have been held. Continue to monitor Qualifiers: Hypertension type: essential hypertension Qualified Code(s): I10 - Essential (primary) hypertension (8) Coronary artery disease Current Visit: No Status: Chronic Assessment and plan: Chronic. Continue Imdur and metoprolol Patient has no longer taking Plavix. She is on Coumadin now due to DVT in left lower extremity. Telemetry Qualifiers: Coronary Disease-Associated Artery/Lesion type: bypass graft [place] vs. transplanted heart: [place] heart Associated angina: without angina Qualified Code(s): I25.810 - Atherosclerosis of coronary artery bypass graft(s) without angina pectoris (9) DVT prophylaxis Current Visit: No Status: Acute Assessment and plan: Patient on Coumadin. Pharmacy is dosing. PT/INR daily - Time Spent With Patient less than 15 minutes - Subjective Interval history: Patient is sitting up in bed eating breakfast this morning. She was seen at about oh 8:40 AM. She is satting 90% on 3 L. There is no pedal edema. She does have lower extremity edema left greater than right. She does have a DVT in her left lower extremity. She has crackles in posterior lung thapa. Left greater than right. Patient is in no respiratory distress and she speaks easily in full sentences. Patient is going to stay until Wednesday for diuresis and placement into [facility]. She is inpatient today. She is alert and oriented and is getting up and around her room, she took a shower, has been seeing her chair. She has family who is very involved and visits for a large portion of the day. - Constitutional Vitals: Temp Pulse Resp BP Pulse Ox 97.5 F L 65 17 110/71 95 02/05/17 15:33 02/05/17 15:33 02/05/17 15:33 02/05/17 15:33 02/05/17 15:33 General appearance: Present: A&O X 3, pleasant, no acute distress, answers questions appropriately - Head Head exam: Present: normal inspection - Eye Eye exam: Present: normal appearance, conjuntiva pink - ENT ENT exam: Present: mucous membranes moist, normal exam, normal external ear exam - Neck Neck exam general surgery: Present: normal inspection. Absent: lymphadenopathy , tenderness - Respiratory Respiratory exam: Present: decreased breath sounds, rales. Absent: accessory muscle use, chest wall tenderness, respiratory distress, rhonchi, stridor, wheezes - Cardiovascular Cardiovascular exam: Present: RRR, +S1, +S2. Absent: diastolic murmur, systolic murmur - GI/Abdominal GI/Abdominal exam: Present: normal bowel sounds. Absent: distended, hernia, hepatomegaly, tenderness - Extremities Exam Extremities exam: Present: normal capillary refill, normal inspection, warm, radial pulses palpable and symetrical. Absent: pedal edema, tenderness - Neurological Exam Neurological exam: Present: alert, oriented X3, no focal deficits, strengths equal and symetr throughout. Absent: facial droop, speech deficit Internal Medicine: Result - Labs CBC & Chem 7: 02/05/17 03:31 02/05/17 03:31 - ABG Interpretation ABG results: PT/INR, D-dimer PT 20.2 Seconds (9.4-12.1) H 02/05/17 03:31 Consult Discharge Plan - Plan Referrals: Glenroy Lin MD [Primary Care Provider] - 02/10/17 9:45 am
[2017-02-05] MEDS: Isosorbide MONOnitrate (24 HR) 60 MG TAB.ER.24H PO SCH (17:32)
[2017-02-05] MEDS ORDERED: *HR* Warfarin 5 MG TABLET PO ONE (18:00)
[2017-02-05] MEDS: Melatonin 3 MG TABLET PO SCH (21:13)
[2017-02-06 04:44] LABS: Basophils % 0.2 %; Eosinophils # 0.2 K/mcL (0.0-0.6); Eosinophils % 1.2 %; Hematocrit 37.5 % (35.3-44.9); INR 2.5; Immature Granulocytes % 0.6 % (0-4); Immature Platelets 2.4 % (1.1-6.1); Lymphocytes # 3.1 K/mcL (0.6-4.6); Lymphocytes % 22.2 %; Mean Corpuscular Hemoglobin 30.7 pg (28.0-33.3); Mean Corpuscular Volume 95.9 fL (83.0-100.0); Monocytes % 7.1 %; Neutrophils # 9.6 K/mcL (1.6-8.9); Platelet Count 375 K/mcL (140-400); Prothrombin Time 27.9 Seconds (9.4-12.1); Red Blood Count 3.91 M/mcL (3.82-4.97); Red Cell Distribution Width 13.2 % (11.5-14.5); Segmented Neutrophils % 68.7 %
[2017-02-06 04:55] LABS: BUN/Creatinine Ratio 23 (6-26); Blood Urea Nitrogen 17 mg/dL (7-20); Calcium 9.2 mg/dL (8.6-10.8); Carbon Dioxide 32 mEq/L (19-29); Chloride 100 mEq/L (98-109); Glucose 87 mg/dL (70-99); Osmolality,Calculated 289 (280-300); Potassium 4.1 mEq/L (3.5-4.5); Sodium 139 mEq/L (136-145); eGFR For African Americans > 60 (> 60); eGFR For Non-African Americans > 60 (> 60)
[2017-02-06] MEDS: Furosemide 40 MG/4 ML VIAL IVP SCH ×3 (10:13→18:40)
[2017-02-06] MEDS: Gabapentin 300 MG CAPSULE PO SCH ×2 (10:14→21:19)
[2017-02-06] MEDS: predniSONE 20 MG TABLET PO SCH (10:14)
--- NOTE | 2017-02-06 11:05 | Internal Med Progress Note ---
Date of Encounter: 02/06/17 Time of Encounter: 11:02 - Assessment and plan (1) Hypertension Current Visit: No Status: Chronic Assessment and plan: well controlled Qualifiers: Hypertension type: essential hypertension Qualified Code(s): I10 - Essential (primary) hypertension (2) Coronary artery disease Current Visit: No Status: Chronic Assessment and plan: atypical chest pain Qualifiers: Coronary Disease-Associated Artery/Lesion type: bypass graft [place] vs. transplanted heart: [place] heart Associated angina: without angina Qualified Code(s): I25.810 - Atherosclerosis of coronary artery bypass graft(s) without angina pectoris (3) Pulmonary fibrosis Current Visit: No Status: Chronic Assessment and plan: followed by pulmonary service on steroids (4) Weakness Current Visit: No Status: Chronic Assessment and plan: generalized and chronic (5) Pulmonary fibrosis Current Visit: Yes Status: Chronic Assessment and plan: chronic (6) CHF (congestive heart failure) Current Visit: Yes Status: Acute Assessment and plan: symptoms is more of pulmonary with mild contribution of diastolic heart failure recheck bnp today Qualifiers: Congestive heart failure type: unspecified congestive heart failure type Congestive heart failure chronicity: acute Qualified Code(s): I50.9 - Heart failure, unspecified (7) Anticoagulation management encounter Current Visit: Yes Status: Acute Assessment and plan: inr therapeutic (8) Acute on chronic respiratory failure with hypoxemia Current Visit: Yes Status: Acute Assessment and plan: due to chronic nita fibrosis pulmonary following - Subjective Interval history: Patient with history of hypertension, high cholesterol, CAD history of CABG and stents, sleep apnea, DVT recently and a gerd patient was admitted with several weeks of increased shortness shortness of breath and increased leg swelling has been 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 with diagnoses of restrictive lung disease she is on steroid and breathing treatment also started on some Lasix because of leg edema today patient reported that she had been feeling better no chest pain shortness of breath is better - Constitutional Vitals: Temp Pulse Resp BP Pulse Ox 97.6 F 77 20 118/75 94 02/06/17 11:00 02/06/17 11:00 02/06/17 11:00 02/06/17 11:00 02/06/17 11:00 General appearance: Present: A&O X 3, pleasant, no acute distress, answers questions appropriately - Eye Eye exam: Present: PERRL, conjuntiva pink, sclera anicteric Pupils: Present: PERRL - Neck Neck exam general surgery: Present: supple, trachea midline. Absent: lymphadenopathy - Respiratory Respiratory exam: Present: decreased breath sounds, rales - Cardiovascular Cardiovascular exam: Present: RRR, +S1, +S2. Absent: diastolic murmur, gallop, rubs, systolic murmur - GI/Abdominal GI/Abdominal exam: Present: normal bowel sounds, soft, no peritoneal signs. Absent: distended, tenderness - Extremities Exam Extremities exam: Present: warm, radial pulses palpable and symetrical. Absent : calf tenderness, cyanotic, pedal edema Internal Medicine: Result - Labs CBC & Chem 7: 02/06/17 04:22 02/06/17 04:22 Labs: Short CBC 02/06/17 Range/Units 04:22 WBC 14.0 H (4.3-11.1) K/mcL Hgb 12.0 (11.5-15.4) g/dL Hct 37.5 (35.3-44.9) % Plt Count 375 (140-400) K/mcL Neutrophils # 9.6 H (1.6-8.9) K/mcL BMP 02/06/17 04:22 Sodium 139 Potassium 4.1 Chloride 100 Carbon Dioxide 32 H BUN 17 Creatinine 0.75 Glucose 87 Calcium 9.2 - ABG Interpretation ABG results: PT/INR, D-dimer PT 27.9 Seconds (9.4-12.1) H 02/06/17 04:22 Consult Discharge Plan - Plan Referrals: Glenroy Lin MD [Primary Care Provider] - 02/10/17 9:45 am
[2017-02-06] MEDS: Metoprolol XL (24 HR) Succ 50 MG TAB.ER.24H PO SCH (16:50)
[2017-02-06] MEDS: Isosorbide MONOnitrate (24 HR) 60 MG TAB.ER.24H PO SCH (17:55)
[2017-02-06] MEDS ORDERED: *HR* Warfarin 2.5 MG TABLET PO SCH (18:00)
[2017-02-06] MEDS: Melatonin 3 MG TABLET PO SCH (21:19)
[2017-02-07 03:30] LABS: INR 3.2; Prothrombin Time 35.2 Seconds (9.4-12.1)
[2017-02-07] MEDS: predniSONE 20 MG TABLET PO SCH (09:19)
[2017-02-07] MEDS: Furosemide 40 MG/4 ML VIAL IVP SCH ×2 (09:19→18:06)
[2017-02-07] MEDS: Gabapentin 300 MG CAPSULE PO SCH ×2 (09:20→21:10)
[2017-02-07] MEDS: Metoprolol XL (24 HR) Succ 50 MG TAB.ER.24H PO SCH (09:21)
--- NOTE | 2017-02-07 15:14 | Internal Med Progress Note ---
Date of Encounter: 02/07/17 Time of Encounter: 15:12 - Assessment and plan (1) Hypertension Current Visit: No Status: Chronic Assessment and plan: bP low will decrease lopressor dose to 25 mg bid Qualifiers: Hypertension type: essential hypertension Qualified Code(s): I10 - Essential (primary) hypertension (2) Coronary artery disease Current Visit: No Status: Chronic Assessment and plan: no chest pain Qualifiers: Coronary Disease-Associated Artery/Lesion type: bypass graft [place] vs. transplanted heart: [place] heart Associated angina: without angina Qualified Code(s): I25.810 - Atherosclerosis of coronary artery bypass graft(s) without angina pectoris (3) Pulmonary fibrosis Current Visit: No Status: Chronic Assessment and plan: on steroid appreciate pulm evaluation need s FU (4) Weakness Current Visit: No Status: Chronic (5) Pulmonary fibrosis Current Visit: Yes Status: Chronic Assessment and plan: chronic (6) CHF (congestive heart failure) Current Visit: Yes Status: Acute Assessment and plan: clinically much improved Qualifiers: Congestive heart failure type: unspecified congestive heart failure type Congestive heart failure chronicity: acute Qualified Code(s): I50.9 - Heart failure, unspecified (7) Anticoagulation management encounter Current Visit: Yes Status: Acute Assessment and plan: therapeutic (8) Acute on chronic respiratory failure with hypoxemia Current Visit: Yes Status: Acute - Subjective Interval history: Patient with history of hypertension, high cholesterol, CAD history of CABG and stents, sleep apnea, DVT recently and a gerd patient was admitted with several weeks of increased shortness shortness of breath and increased leg swelling has been seen by narcotics and/or vice detective with diagnoses of restrictive lung disease she is on steroid and breathing treatment also started on some Lasix because of leg edema today patient reported that she had been feeling better no chest pain shortness of breath is better feels much better nurse reports low BP - Constitutional Vitals: Temp Pulse Resp BP Pulse Ox 98.1 F 80 20 100/66 97 02/07/17 14:57 02/07/17 14:57 02/07/17 14:57 02/07/17 14:57 02/07/17 14:57 General appearance: Present: A&O X 3, pleasant, no acute distress, answers questions appropriately - Neck Neck exam general surgery: Present: supple, trachea midline. Absent: lymphadenopathy - Respiratory Respiratory exam: Present: rales - Cardiovascular Cardiovascular exam: Present: RRR, +S1, +S2. Absent: diastolic murmur, gallop, rubs, systolic murmur - GI/Abdominal GI/Abdominal exam: Present: normal bowel sounds, soft, no peritoneal signs. Absent: distended, tenderness - Extremities Exam Extremities exam: Present: warm, radial pulses palpable and symetrical. Absent : calf tenderness, cyanotic, pedal edema Internal Medicine: Result - Labs CBC & Chem 7: 02/06/17 04:22 02/06/17 04:22 - ABG Interpretation ABG results: PT/INR, D-dimer PT 35.2 Seconds (9.4-12.1) H 02/07/17 02:45 Consult Discharge Plan - Plan Referrals: Glenroy Lin MD [Primary Care Provider] - 02/10/17 9:45 am
[2017-02-07] MEDS ORDERED: Metoprolol XL (24 HR) Succ 50 MG TAB.ER.24H PO SCH (15:16)
[2017-02-07] MEDS ORDERED: *HR* Warfarin 5 MG TABLET PO SCH (18:00)
[2017-02-07] MEDS ORDERED: Melatonin 3 MG TABLET PO SCH (19:58)
[2017-02-07] MEDS: Isosorbide MONOnitrate (24 HR) 60 MG TAB.ER.24H PO SCH (21:10)
[2017-02-08 03:50] LABS: Hemoglobin 12.1 g/dL (11.5-15.4); Mean Corpuscular HGB Conc 31.8 g/dL (31.6-35.5); Mean Corpuscular Volume 94.1 fL (83.0-100.0); Mean Platelet Volume 8.5 fL (9.4-12.4); Platelet Count 365 K/mcL (140-400); Red Blood Count 4.04 M/mcL (3.82-4.97); Red Cell Distribution Width 12.8 % (11.5-14.5)
[2017-02-08 03:55] LABS: INR 2.2; Prothrombin Time 24.6 Seconds (9.4-12.1)
[2017-02-08 07:10] VITALS: BP 115/68
[2017-02-08] MEDS: Gabapentin 300 MG CAPSULE PO SCH (07:31)
[2017-02-08] MEDS: predniSONE 20 MG TABLET PO SCH (07:31)
[2017-02-08] MEDS: Furosemide 40 MG/4 ML VIAL IVP SCH (07:31)
--- NOTE | 2017-02-08 11:15 | Discharge Summary ---
Date of Encounter: 02/08/17 Time of Encounter: 09:15 - Discharge Diagnosis (1) Acute on chronic respiratory failure with hypoxemia Priority: Primary Status: Acute (2) Anticoagulation management encounter Priority: Secondary Status: Acute (3) CHF (congestive heart failure) Priority: Secondary Status: Acute Qualifiers: Congestive heart failure type: diastolic Congestive heart failure chronicity: acute on chronic Qualified Code(s): I50.33 - Acute on chronic diastolic (congestive) heart failure (4) Pulmonary fibrosis Priority: Secondary Status: Chronic (5) Weakness Priority: Secondary Status: Chronic (6) Hypertension Priority: Secondary Status: Chronic Qualifiers: Hypertension type: essential hypertension Qualified Code(s): I10 - Essential (primary) hypertension - Discharge Medications Prescriptions: Furosemide [Lasix] 20 mg PO BID #60 tablet PredniSONE 10 mg PO DAILY 12 Days Tramadol HCl [Ultram] 50 mg PO Q6H PRN #20 tablet PRN Reason: Pain Home Medications: Aspirin Enteric Coated [Aspirin EC] 81 mg PO DAILY 05/27/15 [History] Calcium Carbonate/Vitamin D3 [Calcium 600 + D Tablet] 600 mg PO DAILY 05/27/15 [ History] Clopidogrel [Plavix] 75 mg PO QPM 05/27/15 [History] Levothyroxine [Synthroid] 50 mcg PO QAM 05/27/15 [History] Oxygen 2 l NS AD 05/27/15 [History] Albuterol Sulfate [Albuterol Inhaler] 2 puff IH Q6HR PRN 05/28/15 [History] Gabapentin [Neurontin] 600 mg PO BID 05/28/15 [History] Isosorbide MONOnitrate (24 HR) [Imdur] 60 mg PO QPM 05/28/15 [History] Metoprolol XL (24 HR) Succ [Toprol XL] 50 mg PO DAILY 05/28/15 [History] Pravastatin Sodium [Pravachol] 40 mg PO QPM 05/28/15 [History] [place] Oil/[place]-3 Fatty Acids [Fish Oil 500 mg Softgel] 1,200 mg PO BID [History] Docusate Sodium [Stool Softener] 100 mg PO 1-2XD 02/05/16 [History] Melatonin [Melatin] 3 mg PO HS 02/05/16 [History] Mv,Calcium,Min/Iron/Folic/Vitk [Multi For Her Tablet] 1 tab PO DAILY 02/05/16 [ History] Nitroglycerin [Nitrostat] 0.4 mg SL Q5M PRN 02/05/16 [History] Cranberry Fruit Extract/Vit C [Azo Cranberry Softgel] 1 cap PO BID 11/25/16 [ History] Alendronate Sodium [Fosamax] 70 mg PO SA 02/03/17 [History] Citalopram [CeleXA] 20 mg PO DAILY 02/03/17 [History] Famotidine [Pepcid] 40 mg PO DAILY 02/03/17 [History] Vitamin E Mixed [Vitamin E] 1,000 unit PO DAILY 02/03/17 [History] Warfarin [Coumadin] 2.5 mg PO Q48H 02/03/17 [History] Warfarin [Coumadin] 5 mg PO Q48H 02/03/17 [History] Furosemide [Lasix] 20 mg PO BID #60 tablet 02/08/17 [Rx] PredniSONE 10 mg PO DAILY 12 Days 02/08/17 [Rx] Tramadol HCl [Ultram] 50 mg PO Q6H PRN #20 tablet 02/08/17 [Rx] Allergies/Adverse Reactions: Allergies Amoxicillin [From Augmentin] Allergy (Verified 01/23/17 14:43) Rash clavulanic acid [From Augmentin] Allergy (Verified 01/23/17 14:43) Rash lisinopril Allergy (Verified 01/23/17 14:43) Cough nitrofurantoin [From Macrobid] Allergy (Verified 01/23/17 14:43) Rash Penicillins [PCN] Allergy (Verified 01/23/17 14:43) Rash Sulfa (Sulfonamide Antibiotics) Adverse Reaction (Verified 01/23/17 14:43) Nausea Date of admission: 02/05/17 11:15 Primary care physician: Glenroy Lin MD Consults: 02/03/17 15:14 Consult to Physical Therapy [CONS] Routine Comment: Evaluate, develop and implement POC 02/03/17 15:18 Consult to Pulmonology [CONS] Routine Consulting Provider: [facility] Reason for Consult: Patient of Dr. Arroyo with restrictive lung disease, here with increased SOB, likely CHF, but CTA could not rule out PNA Call Completed: Yes 02/03/17 18:33 Consult to Numerical Control Nesting Operator [CONS] Routine Reason for SW Consult: Pt has HH and oxygen 02/04/17 15:31 Consult to Occupational Therapy [CONS] Routine Comment: Evaluate, develop and implement POC Discharging clinician: Mayra Babin Anticipated date of discharge: 02/08/17 - Patient Status Disposition: Transfer SNF Condition: Fair Functional capacity at discharge: uses cane/walker Overall status at discharge: patient is progressing back to baseline - Discharge Instructions Instructions: Chronic Hypertension (DC), Acute Respiratory Distress Syndrome ( DC) Follow Up With: Glenroy Lin MD [Primary Care Provider] - 02/10/17 9:45 am Additional Instructions: Follow up with pulmonology in 2-3 weeks - Diet and Activity Activity: as per physical therapy, wear oxygen at all times Diet: low fat, low cholesterol, low salt diet Hospital course: Ms. 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 This was believed to be due to combination of congestive heart failure and underlying pulmonary fibrosis. She was treated for this with O2 supplementation and IV diuretics. She was seen by pulmonology and recommended steroids also. She underwent a 2-D echocardiogram which showed that the patient had a normal ejection fraction of 65% without and pulmonary hypertension. She did have mild diastolic dysfunction of the left ventricle. The patient has been evaluated by physical therapy and recommended placement to skilled rehabilitation. She will be discharged today to skilled rehabilitation and will follow up with her primary care provider for further management for chronic medical conditions. She will also follow up with pulmonology for further management of her lung disease. She will complete a 2 to three-week course of prednisone taper. She will also be discharged on oral Lasix. - Time Spent with Patient Total time spent providing and/or coordinating discharge services: Greater than 30 minutes (45 min) - Constitutional Vitals: Temp Pulse Resp BP Pulse Ox 98.1 F 75 16 115/68 93 02/08/17 07:07 02/08/17 07:07 02/08/17 07:07 02/08/17 07:07 02/08/17 08:04 General appearance: Present: A&O X 3, pleasant, no acute distress, answers questions appropriately - Neck Neck exam general surgery: Present: supple, trachea midline. Absent: lymphadenopathy - Respiratory Respiratory exam: Absent: accessory muscle use, rales, rhonchi, wheezes Additional comments: Dry crackles bilaterally - Cardiovascular Cardiovascular exam: Present: RRR, +S1, +S2. Absent: diastolic murmur, gallop, rubs, systolic murmur - GI/Abdominal GI/Abdominal exam: Present: normal bowel sounds, soft, no peritoneal signs. Absent: distended, tenderness - Extremities Exam Extremities exam: Present: warm, radial pulses palpable and symetrical. Absent : calf tenderness, cyanotic, pedal edema - Neurological Exam Neurological exam: Present: alert, oriented X3, no focal deficits. Absent: facial droop, speech deficit - Skin Skin exam: Present: dry, intact - Attending Attestation This document has been at least partially created by [employer] voice recognition technology by Dr. Babin. Errors in grammar, wording or other phrases may exist. If errors are found after the documentation is signed, they will be addressed individually in the addendum section of this document when appropriate.
--- NOTE | 2017-02-08 11:34 | Physician Discharge Referral ---
ExtendedCare Referral Info Transfer To: SNF Provider in Charge after Transfer: PCP Institutional Level of Care: Skilled - Diagnosis (1) Acute on chronic respiratory failure with hypoxemia Priority: Primary Status: Acute (2) Anticoagulation management encounter Priority: Secondary Status: Acute (3) CHF (congestive heart failure) Priority: Secondary Status: Acute (4) Pulmonary fibrosis Priority: Secondary Status: Chronic (5) Weakness Priority: Secondary Status: Chronic (6) Hypertension Priority: Secondary Status: Chronic Prognosis: Fair Aware of Diagnosis: Patient Aware of Prognosis: Patient - Transfer Medications Prescriptions: Furosemide [Lasix] 20 mg PO BID #60 tablet PredniSONE 10 mg PO DAILY 12 Days Tramadol HCl [Ultram] 50 mg PO Q6H PRN #20 tablet PRN Reason: Pain Home Medications: Aspirin Enteric Coated [Aspirin EC] 81 mg PO DAILY 05/27/15 [History] Calcium Carbonate/Vitamin D3 [Calcium 600 + D Tablet] 600 mg PO DAILY 05/27/15 [ History] Clopidogrel [Plavix] 75 mg PO QPM 05/27/15 [History] Levothyroxine [Synthroid] 50 mcg PO QAM 05/27/15 [History] Oxygen 2 l NS AD 05/27/15 [History] Albuterol Sulfate [Albuterol Inhaler] 2 puff IH Q6HR PRN 05/28/15 [History] Gabapentin [Neurontin] 600 mg PO BID 05/28/15 [History] Isosorbide MONOnitrate (24 HR) [Imdur] 60 mg PO QPM 05/28/15 [History] Metoprolol XL (24 HR) Succ [Toprol XL] 50 mg PO DAILY 05/28/15 [History] Pravastatin Sodium [Pravachol] 40 mg PO QPM 05/28/15 [History] [place] Oil/[place]-3 Fatty Acids [Fish Oil 500 mg Softgel] 1,200 mg PO BID [History] Docusate Sodium [Stool Softener] 100 mg PO 1-2XD 02/05/16 [History] Melatonin [Melatin] 3 mg PO HS 02/05/16 [History] Mv,Calcium,Min/Iron/Folic/Vitk [Multi For Her Tablet] 1 tab PO DAILY 02/05/16 [ History] Nitroglycerin [Nitrostat] 0.4 mg SL Q5M PRN 02/05/16 [History] Cranberry Fruit Extract/Vit C [Azo Cranberry Softgel] 1 cap PO BID 11/25/16 [ History] Alendronate Sodium [Fosamax] 70 mg PO SA 02/03/17 [History] Citalopram [CeleXA] 20 mg PO DAILY 02/03/17 [History] Famotidine [Pepcid] 40 mg PO DAILY 02/03/17 [History] Vitamin E Mixed [Vitamin E] 1,000 unit PO DAILY 02/03/17 [History] Warfarin [Coumadin] 2.5 mg PO Q48H 02/03/17 [History] Warfarin [Coumadin] 5 mg PO Q48H 02/03/17 [History] Furosemide [Lasix] 20 mg PO BID #60 tablet 02/08/17 [Rx] PredniSONE 10 mg PO DAILY 12 Days 02/08/17 [Rx] Tramadol HCl [Ultram] 50 mg PO Q6H PRN #20 tablet 02/08/17 [Rx] Allergies/Adverse Reactions: Allergies Amoxicillin [From Augmentin] Allergy (Verified 01/23/17 14:43) Rash clavulanic acid [From Augmentin] Allergy (Verified 01/23/17 14:43) Rash lisinopril Allergy (Verified 01/23/17 14:43) Cough nitrofurantoin [From Macrobid] Allergy (Verified 01/23/17 14:43) Rash Penicillins [PCN] Allergy (Verified 01/23/17 14:43) Rash Sulfa (Sulfonamide Antibiotics) Adverse Reaction (Verified 01/23/17 14:43) Nausea - Respiratory Orders Oxygen / L per min (Keep sats >90%) Smoking Cessation: Smoking cessation has been advised. For more information, call the [place] Tobacco Quit Line at 2-387-OZTD-NOW. - Ancillary Orders May use pressure relief devices daily prn, May consult with Dentist, It Security Consulting Director, Face Painter PRN - Advance Directives Code Status: Full Code - Mobility Orders Other (per PT) - Rehabiliation Orders Rehab Orders: Evaluation for Physical Therapy, Evaluation for Occupational Therapy - Diet Orders Cardiac CERTIFICATION: I certify that the transfer of the above named patient to an Extended Care Facility is necessary for the continuing treatment of the diagnosis listed. The above information is true and accurate reflection of patient's current condition. Confidential - Redisclosure prohibited without a patient's written consent.
== END 2017-02-08 12:55 | DRG 291 ==
LOC: EMEROO 11:04 → 3BNU 11:04 → SUATTDRO 02-05 11:15
PROVIDERS: ADMIT Internal Medicine; ATTEND Internal Medicine

== ENCOUNTER 2017-03-01 18:22 | Observation (INO) ==
[2017-03-01 20:06] LABS: Basophils % 0.4 %; Eosinophils # 0.6 K/mcL (0.0-0.6); Eosinophils % 8.2 %; Hemoglobin 11.6 g/dL (11.5-15.4); Immature Granulocytes % 0.5 % (0-4); Lymphocytes # 2.3 K/mcL (0.6-4.6); Lymphocytes % 29.1 %; Mean Corpuscular HGB Conc 31.4 g/dL (31.6-35.5); Mean Corpuscular Hemoglobin 29.9 pg (28.0-33.3); Mean Corpuscular Volume 95.4 fL (83.0-100.0); Mean Platelet Volume 8.7 fL (9.4-12.4); Monocytes # 0.7 K/mcL (0.0-1.3); Monocytes % 8.8 %; Neutrophils # 4.1 K/mcL (1.6-8.9); Platelet Count 250 K/mcL (140-400); Red Blood Count 3.88 M/mcL (3.82-4.97); Red Cell Distribution Width 13.9 % (11.5-14.5)
[2017-03-01 20:17] LABS: BUN/Creatinine Ratio 12 (6-26); Blood Urea Nitrogen 8 mg/dL (7-20); Calcium 9.6 mg/dL (8.6-10.8); Carbon Dioxide 31 mEq/L (19-29); Chloride 103 mEq/L (98-109); Glucose 97 mg/dL (70-99); Osmolality,Calculated 290 (280-300); Potassium 4.3 mEq/L (3.5-4.5); Sodium 141 mEq/L (136-145); eGFR For African Americans > 60 (> 60); eGFR For Non-African Americans > 60 (> 60)
--- NOTE | 2017-03-01 20:59 | Emergency Department Note ---
Disposition Clinical Impression: Urinary tract infection Qualifiers: Urinary tract infection type: site unspecified Hematuria presence: without hematuria Qualified Code(s): N39.0 - Urinary tract infection, site not specified Disposition: Admitted As Inpatient Referrals: NO,PCP [Non-Partnered Physician] - Forms: ED Satisfaction Letter General Adult HPI - General Chief complaint: ED Nausea/Vomiting/Diarrhea Stated complaint: diarrhea Time Seen by Provider: 03/01/17 18:51 Source: patient Limitations: no limitations Nursing Notes Reviewed: Yes Vital Signs Reviewed: Yes - History of Present Illness HPI Narrative: Patient here for evaluation of weakness and being unable to care for herself at home. [facility] to her wanting to go home as she had a granddaughter's wedding to get to. Patient had some blood work and a urinalysis performed which is available in our system that shows that she has a UTI. Daughter is concerned about dehydration secondary to the patient having 3 episodes of loose stool over the last 24 hours. After significant discussion with the patient and the daughter, they did not believe she go home as she lives alone. Do not believe it is safe to discharge her. They state they are unable to watch her. This time it appears that we will have to admit the patient to the hospitalist service so that they can try to get her placed back in [facility] tomorrow. UTI will be treated in the process. Pain Scale: 0 - Related Data Home Medications Medication Instructions Recorded Confirmed Aspirin Enteric Coated [Aspirin EC] 81 mg PO DAILY 05/27/15 02/03/17 Calcium Carbonate/Vitamin D3 600 mg PO DAILY 05/27/15 02/03/17 [Calcium 600 + D Tablet] Clopidogrel [Plavix] 75 mg PO QPM 05/27/15 02/03/17 Levothyroxine [Synthroid] 50 mcg PO QAM 05/27/15 02/03/17 Oxygen 2 l NS AD 05/27/15 02/03/17 Albuterol Sulfate [Albuterol 2 puff IH Q6HR PRN 05/28/15 02/03/17 Inhaler] Gabapentin [Neurontin] 600 mg PO BID 05/28/15 02/03/17 Isosorbide MONOnitrate (24 HR) 60 mg PO QPM 05/28/15 02/03/17 [Imdur] Metoprolol XL (24 HR) Succ [Toprol 50 mg PO DAILY 05/28/15 02/03/17 XL] Pravastatin Sodium [Pravachol] 40 mg PO QPM 05/28/15 02/03/17 [place] Oil/[place]-3 Fatty Acids 1,200 mg PO BID 05/28/15 02/03/17 [Fish Oil 500 mg Softgel] Docusate Sodium [Stool Softener] 100 mg PO 1-2XD 02/05/16 02/03/17 Melatonin [Melatin] 3 mg PO HS 02/05/16 02/03/17 Mv,Calcium,Min/Iron/Folic/Vitk 1 tab PO DAILY 02/05/16 02/03/17 [Multi For Her Tablet] Nitroglycerin [Nitrostat] 0.4 mg SL Q5M PRN 02/05/16 02/03/17 Cranberry Fruit Extract/Vit C [Azo 1 cap PO BID 11/25/16 02/03/17 Cranberry Softgel] Alendronate Sodium [Fosamax] 70 mg PO SA 02/03/17 02/03/17 Citalopram [CeleXA] 20 mg PO DAILY 02/03/17 02/03/17 Famotidine [Pepcid] 40 mg PO DAILY 02/03/17 02/03/17 Vitamin E Mixed [Vitamin E] 1,000 unit PO DAILY 02/03/17 02/03/17 Warfarin [Coumadin] 2.5 mg PO Q48H 02/03/17 02/03/17 Warfarin [Coumadin] 5 mg PO Q48H 02/03/17 02/03/17 Previous Rx's Medication Instructions Recorded Furosemide [Lasix] 20 mg PO BID #60 tablet 02/08/17 Tramadol HCl [Ultram] 50 mg PO Q6H PRN #20 tablet 02/08/17 predniSONE [PredniSONE] 10 mg PO DAILY 12 Days 02/08/17 Allergies Allergy/AdvReac Type Severity Reaction Status Date / Time Amoxicillin [From Augmentin] Allergy Rash Verified 01/23/17 14:43 clavulanic acid Allergy Rash Verified 01/23/17 14:43 [From Augmentin] lisinopril Allergy Cough Verified 01/23/17 14:43 nitrofurantoin Allergy Rash Verified 01/23/17 14:43 [From Macrobid] Penicillins [PCN] Allergy Rash Verified 01/23/17 14:43 Sulfa (Sulfonamide AdvReac Nausea Verified 01/23/17 14:43 Antibiotics) All systems ED: reviewed and negative except as stated. Constitutional: Reports: weakness. Denies: fever, chills Cardiovascular: Denies: chest pain, palpitations Respiratory: Denies: cough, dyspnea, wheezes Gastrointestinal: Reports: diarrhea. Denies: abdominal pain, nausea, vomiting Genitourinary: Denies: urgency, dysuria, frequency Musculoskeletal: Denies: back pain, neck pain Integumentary: Denies: rash, abrasion Neurological: Denies: headache, weakness Past Medical History - Past Medical History Medical history: Reports: CHF, coronary artery disease, DVT, GERD, hyperlipidemia, hypertension, myocardial infarction, syncope, other Surgical history: Reports: angioplasty/stent, cholecystectomy, coronary bypass ( CABG), orthopedic, other, other Psychiatric history: Reports: depression - Social History Smoking Status: Never smoker Smokeless Tobacco Status: No Alcohol use: Reports: none Drug use: Reports: none Physical Exam - General Limitations: no limitations General appearance: alert, in no apparent distress - Head Head exam: atraumatic, normocephalic - Eye Eye exam: Present: normal appearance, PERRL - ENT ENT exam: normal exam, normal oropharynx - Neck Neck exam: Present: normal inspection - Chest Chest inspection: Present: normal inspection - Respiratory Respiratory exam: Present: normal lung sounds bilaterally. Absent: respiratory distress, wheezes - Cardiovascular Cardiovascular exam: Present: regular rate, normal rhythm - Abdominal Exam Abdominal exam: Present: soft, Non-Tender - Extremities Exam Extremities exam: Present: normal inspection. Absent: tenderness - Back Exam Back exam: Present: normal inspection. Absent: CVA tenderness (R), CVA tenderness (L) - Neurological Exam Neurological exam: Present: alert, oriented X3 - Psychiatric Psychiatric exam: Present: normal affect, normal mood Course - Consultations Consultation #1: Discussed with hospitalist. Patient accepted for admission. Vital Signs Temperature 97.5 F L 03/01/17 18:33 Pulse Rate 90 03/01/17 18:33 Respiratory Rate 18 03/01/17 18:33 Blood Pressure 117/69 03/01/17 18:33 O2 Sat by Pulse Oximetry 86 03/01/17 18:33 Temperature 97.5 F L 03/01/17 18:33 Pulse Rate 75 03/01/17 20:57 Respiratory Rate 18 03/01/17 20:57 Blood Pressure 121/69 03/01/17 20:57 O2 Sat by Pulse Oximetry 98 03/01/17 20:57 Oxygen Delivery Oxygen Delivery Nasal Cannula Medical Decision Making - Lab Data Result diagrams: 03/01/17 19:47 03/01/17 19:47 Lab Results 03/01/17 03/01/17 Range/Units 19:47 19:47 WBC 7.8 (4.3-11.1) K/mcL RBC 3.88 (3.82-4.97) M/mcL Hgb 11.6 (11.5-15.4) g/dL Hct 37.0 (35.3-44.9) % MCV 95.4 (83.0-100.0) fL MCH 29.9 (28.0-33.3) pg MCHC 31.4 L (31.6-35.5) g/dL RDW 13.9 (11.5-14.5) % Plt Count 250 D (140-400) K/mcL MPV 8.7 L (9.4-12.4) fL Immature Gran % 0.5 (0-4) % Seg Neutrophils % 53.0 % Lymphocytes % 29.1 % Monocytes % 8.8 % Eosinophils % 8.2 % Basophils % 0.4 % Neutrophils # 4.1 (1.6-8.9) K/mcL Lymphocytes # 2.3 (0.6-4.6) K/mcL Monocytes # 0.7 (0.0-1.3) K/mcL Eosinophils # 0.6 (0.0-0.6) K/mcL Basophils # 0.0 (0.0-0.2) K/mcL Sodium 141 (136-145) mEq/L Potassium 4.3 (3.5-4.5) mEq/L Chloride 103 (98-109) mEq/L Carbon Dioxide 31 H (19-29) mEq/L BUN 8 (7-20) mg/dL Creatinine 0.66 (0.57-1.11) mg/dL Est GFR ( Amer) > 60 (> 60) Est GFR (Non-Af Amer) > 60 (> 60) BUN/Creatinine Ratio 12 (6-26) Glucose 97 (70-99) mg/dL Calculated Osmolality 290 (280-300) Calcium 9.6 (8.6-10.8) mg/dL Attestation Statement - Attestation Attestation: I examined this patient and my medical decision-making was reviewed with the WELDING FOREMAN/PA/Advanced Practice Nurse/Resident Physician. I agree with the documented findings, disposition and treatment plan as described except to the extent set forth below.
--- NOTE | 2017-03-01 23:32 | Internal Med History&Physical ---
Date of Encounter: 03/01/17 Time of Encounter: 23:30 Assessment and Plan (1) UTI (urinary tract infection) Current visit: Yes Status: Acute patient with a history of recurrent UTI's comes in with constitutional symptoms but admits to LUTS when asked, her UA done recently was also suggestive of UTI, it is unclear is she was treated for that, we will empirically treat with Ceftriaxone 2g daily pending microbiology results and clinical resolution Qualifiers: Urinary tract infection type: acute cystitis Hematuria presence: with hematuria Qualified Code(s): N30.01 - Acute cystitis with hematuria (2) Hypertension Current visit: Yes Status: Chronic we will continue her home regimen and monitor BP Qualifiers: Hypertension type: essential hypertension Qualified Code(s): I10 - Essential (primary) hypertension (3) DVT (deep venous thrombosis) Current visit: Yes Status: Chronic per reports she had LLE DVT recently and has been on coumadin for that, I could not find any venous doppler report in the EMR, we will continue her Coumadin with INR monitoring, will need to take into consideration her coumadin intake when selecting outpatient Abx, Qualifiers: DVT location: lower extremity Affected thrombotic vein of extremity: unspecified lower extremity distal vein Laterality: left Chronicity: chronic Qualified Code(s): I82.5Z2 - 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 transplanted heart: [place] heart Associated angina: without angina Qualified Code(s): I25.10 - Atherosclerotic heart disease of [place] coronary artery without angina pectoris (7) Interstitial lung disease Current visit: Yes Status: Chronic nebs PRN Internal Medicine - H&P: HPI Chief complaint: generalized weakness and diarrhea Admitted From: Emergency Dept Plans for Post Hospital Care: Transfer [facility] History of present illness: Ms. Winters is a 81 year old female with a history of prior UTI's was brought in by family with generalized weakness and loose watery stools. [place] was in [place] but was checked out on last week for her granddaughter's wedding. For the past 2 days she has multiple episode of loose watery stools followed by generalized weakness and fatigued. She reports associated nausea but no vomiting as well as subjective chills with no fever. Further history reveals dysuria and frequency and actually had a UA performed on the 02/25 that was suggestive of UTI. Past Med Surg Social Fam HX - Past Medical History Medical history: CHF, coronary artery disease, DVT, GERD, hyperlipidemia, hypertension, myocardial infarction, syncope, other Psychiatric history: depression - Past Surgical History Surgical History: angioplasty/stent, cholecystectomy, coronary bypass (CABG), orthopedic, other, other - Social History Smoking Status: Never smoker Smokeless Tobacco Status: No Alcohol use: none Drug use: none - Family History Mother History Unknown: Yes Living Status: Hx Family Respiratory Disorders: Yes Father History Unknown: Yes Living Status: Sister Adopted: No Living Status: Hx Family Respiratory Disorders: Yes (PULMONARY FIBROSIS) Internal Medicine - H&P: Meds Aspirin Enteric Coated [Aspirin EC] 81 mg PO DAILY 05/27/15 [History] Calcium Carbonate/Vitamin D3 [Calcium 600 + D Tablet] 600 mg PO DAILY 05/27/15 [ History] Clopidogrel [Plavix] 75 mg PO QPM 05/27/15 [History] Levothyroxine [Synthroid] 50 mcg PO QAM 05/27/15 [History] Oxygen 2 l NS AD 05/27/15 [History] Albuterol Sulfate [Albuterol Inhaler] 2 puff IH Q6HR PRN 05/28/15 [History] Gabapentin [Neurontin] 600 mg PO BID 05/28/15 [History] Isosorbide MONOnitrate (24 HR) [Imdur] 60 mg PO QPM 05/28/15 [History] Metoprolol XL (24 HR) Succ [Toprol XL] 25 mg PO HS 05/28/15 [History] Pravastatin Sodium [Pravachol] 40 mg PO QPM 05/28/15 [History] [place] Oil/[place]-3 Fatty Acids [Fish Oil 500 mg Softgel] 1,200 mg PO BID [History] Docusate Sodium [Stool Softener] 100 mg PO 1-2XD PRN 02/05/16 [History] Melatonin [Melatin] 3 mg PO HS 02/05/16 [History] Mv,Calcium,Min/Iron/Folic/Vitk [Multi For Her Tablet] 1 tab PO DAILY 02/05/16 [ History] Nitroglycerin [Nitrostat] 0.4 mg SL Q5M PRN 02/05/16 [History] Cranberry Fruit Extract/Vit C [Azo Cranberry Softgel] 1 cap PO BID 11/25/16 [ History] Alendronate Sodium [Fosamax] 70 mg PO SA 02/03/17 [History] Citalopram [CeleXA] 20 mg PO DAILY 02/03/17 [History] Famotidine [Pepcid] 40 mg PO DAILY 02/03/17 [History] Vitamin E Mixed [Vitamin E] 1,000 unit PO DAILY 02/03/17 [History] Warfarin [Coumadin] 5 mg PO DAILY 02/03/17 [History] Tramadol HCl [Ultram] 50 mg PO Q6H PRN #20 tablet 02/08/17 [Rx] Furosemide [Lasix] 20 mg PO DAILY 03/01/17 [History] Ipratropium/Albuterol Neb [Duoneb] 3 ml IH Q6HR PRN 03/01/17 [History] Potassium Chloride 20 meq PO DAILY 03/01/17 [History] Allergies Amoxicillin [From Augmentin] Allergy (Verified 01/23/17 14:43) Rash clavulanic acid [From Augmentin] Allergy (Verified 01/23/17 14:43) Rash lisinopril Allergy (Verified 01/23/17 14:43) Cough nitrofurantoin [From Macrobid] Allergy (Verified 01/23/17 14:43) Rash Penicillins [PCN] Allergy (Verified 01/23/17 14:43) Rash Sulfa (Sulfonamide Antibiotics) Adverse Reaction (Verified 01/23/17 14:43) Nausea All Systems PM: A 10-system review of systems was performed and is negative for pertinent findings except as documented above in the HPI. - Constitutional Vitals: Temp Pulse Resp BP Pulse Ox 97.6 F 81 14 129/76 94 03/01/17 22:44 03/01/17 22:44 03/01/17 22:44 03/01/17 22:44 03/01/17 22:44 PHYSICAL EXAMINATION: GENERAL: Elderly female, lying in bed with no sign of distress, Alert, HEENT: NC/AT, EOMI, PERRLA, anicteric sclera, conjunctiva normal, sunken eyes, dry mucous membranes RESP: lungs are clear to auscultation bilaterally, good AE bilaterally, No crackles or wheeze CARDIO: normal heart sounds, RRR with no murmurs, GI: Soft, full, no tenderness, no organomegaly felt, normal bowel sounds heard MUSCULOSKELETAL: left lower extremity has non pitting edema and bigger than the right, no deformity noted in either extremity NEUROLOGIC: CN 2-12 intact grossly. No motor/sensory deficit appreciated, PSYCHIATRY: AAO x 3. Mood is fair, SKIN: no rash noted Internal Med - H&P Results - Labs CBC & Chem 7: 03/01/17 19:47 03/01/17 19:47
[2017-03-01] MEDS ORDERED: Ondansetron 4 MG/2 ML VIAL IVP PRN (23:35)
[2017-03-01] MEDS ORDERED: Naloxone 0.4 MG/ML INJ IVP PRN (23:35)
[2017-03-01] MEDS ORDERED: Albuterol 2.5 MG/3 ML NEBULIZER IH PRN (23:44)
[2017-03-01] MEDS: 0.9 % Sodium Chloride 1,000 ML IVC SCH (23:57)
[2017-03-02] MEDS ORDERED: Nitroglycerin 0.4 MG TAB.SUBL SL PRN (00:02)
[2017-03-02] MEDS ORDERED: traMADol 50 MG TABLET PO PRN (00:02)
[2017-03-02] MEDS ORDERED: *HR* Warfarin 5 MG TABLET PO SCH (00:15)
[2017-03-02] MEDS ORDERED: Melatonin 3 MG TABLET PO SCH (00:15)
[2017-03-02 05:24] LABS: Hematocrit 34.3 % (35.3-44.9); Hemoglobin 10.6 g/dL (11.5-15.4); Mean Corpuscular HGB Conc 30.9 g/dL (31.6-35.5); Mean Corpuscular Hemoglobin 29.6 pg (28.0-33.3); Mean Corpuscular Volume 95.8 fL (83.0-100.0); Mean Platelet Volume 8.7 fL (9.4-12.4); Platelet Count 222 K/mcL (140-400); Red Blood Count 3.58 M/mcL (3.82-4.97)
[2017-03-02 05:37] LABS: BUN/Creatinine Ratio 11 (6-26); Blood Urea Nitrogen 7 mg/dL (7-20); Calcium 8.7 mg/dL (8.6-10.8); Carbon Dioxide 30 mEq/L (19-29); Chloride 103 mEq/L (98-109); Glucose 69 mg/dL (70-99); INR 5.1; Magnesium 1.9 mg/dL (1.6-2.6); Osmolality,Calculated 284 (280-300); Phosphorous 2.7 mg/dL (2.3-4.7); Potassium 3.7 mEq/L (3.5-4.5); Prothrombin Time 57.4 Seconds (9.4-12.1); Sodium 139 mEq/L (136-145); eGFR For African Americans > 60 (> 60); eGFR For Non-African Americans > 60 (> 60)
[2017-03-02 06:16] VITALS: BP 105/65
[2017-03-02] MEDS: 0.9 % Sodium Chloride 1,000 ML IVC SCH (08:00)
[2017-03-02] MEDS ORDERED: Gabapentin 300 MG CAPSULE PO SCH (09:00)
[2017-03-02] MEDS ORDERED: Metoprolol XL (24 HR) Succ 50 MG TAB.ER.24H PO SCH (09:00)
[2017-03-02] MEDS ORDERED: Aspirin Enteric Coated 81 MG Tablet PO SCH (09:00)
[2017-03-02] MEDS ORDERED: Famotidine 20 MG TABLET PO SCH (09:00)
[2017-03-02] MEDS ORDERED: Multivit/Ca/Min/Fe/FA 1 TAB TABLET PO SCH (09:00)
[2017-03-02] MEDS ORDERED: Metoprolol XL (24 HR) Succ 25 MG TAB.ER.24H PO SCH (09:00)
[2017-03-02] MEDS ORDERED: Calcium 600 + D PO SCH (09:00)
[2017-03-02] MEDS ORDERED: AZO CRANBERRY PO SCH (09:00)
[2017-03-02 09:10] LABS: Bilirubin,Urine Negative (Negative); Blood,Urine Negative (Negative); Color,Urine Yellow (Yellow); Glucose,Urine (UA) Normal (Normal); Ketones,Urine 15 mg/dL (Negative); Leukocyte Esterase,Urine Large (Negative); Nitrite,Urine Negative (Negative); PH,Urine 6.5 pH Units (5.0-8.0); Protein,Urine Trace mg/dL (Neg-Trace); Specific Gravity,Urine 1.021 (1.010-1.025); Urobilinogen,Urine Normal (Normal)
[2017-03-02 09:11] LABS: Squamous Epithelial Cell,Urine Many per lpf (None-Few); WBC,Urine TNTC per hpf (0-3)
[2017-03-02 09:12] LABS: Clarity,Urine Slightly Hazy (Clear)
[2017-03-02 09:22] LABS: Mucus,Urine Moderate (Few); Renal Epithelial Cells,Urine Few per hpf (None-Few); Transitional Epi Cells,Urine Few per hpf (None-Few)
[2017-03-02 09:24] LABS: Bacteria,Urine Few per hpf (None-Few)
--- NOTE | 2017-03-02 13:07 | Discharge Summary ---
Date of Encounter: 03/02/17 Time of Encounter: 09:15 - Discharge Diagnosis (1) UTI (urinary tract infection) Priority: Primary Status: Acute Comments: Patient with history of recurrent UTIs, cultures show Escherichia coli. Patient has received Rocephin inpatient and will go home on Cefriaxone 500mg by mouth 4x/day x 7 days. Last culture grew Escherichia coli was sensitive Cefazolin, was resistant to Levaquin and Bactrim. Pt has multiple antibiotic allergies. Patient does report a little bit of cramping in her low abdomen, but denies back pain or any other urinary symptoms. Urine the emergency department was slightly hazy with a trace of protein and negative for blood, large leukocyte esterase, 5-15 cells, white cells too numerous to count, few bacteria, moderate amount of mucus, culture pending. Qualifiers: Urinary tract infection type: acute cystitis Hematuria presence: with hematuria Qualified Code(s): N30.01 - Acute cystitis with hematuria (2) Diarrhea Priority: Secondary Status: Resolved Comments: Patient reports that she had diarrhea for 2 days prior to arrival. She says that she has had none since arrival. She does report a little bit of dominant cramping, however, this could be due to urinary tract infection. Her abdomen is soft and nontender with normal bowel sounds. I encouraged the patient to eat this morning, she said that she had been afraid to eat due to the diarrhea. She did tolerate regular breakfast and lunch without any pain, nausea, vomiting, diarrhea. Qualifiers: Diarrhea type: unspecified type Qualified Code(s): R19.7 - Diarrhea, unspecified (3) Hypertension Priority: Secondary Status: Chronic Comments: Chronic. Continue home medications. Qualifiers: Hypertension type: essential hypertension Qualified Code(s): I10 - Essential (primary) hypertension (4) Coronary artery disease Priority: Secondary Status: Chronic Comments: Chronic. Continue aspirin, Plavix, beta rut, Imdur. Qualifiers: Coronary Disease-Associated Artery/Lesion type: [place] artery [place] vs. transplanted heart: [place] heart Associated angina: without angina Qualified Code(s): I25.10 - Atherosclerotic heart disease of [place] coronary artery without angina pectoris (5) Hypothyroidism Priority: Secondary Status: Chronic Comments: Chronic. Continue levothyroxine. Qualifiers: Hypothyroidism type: acquired Qualified Code(s): E03.9 - Hypothyroidism, unspecified (6) Interstitial lung disease Priority: Secondary Status: Chronic Comments: Chronic. Nebulizers when necessary. Lungs are clear and diminished. No wheezing, rhonchi, or rails. Patient does require continuous oxygen at 3 L. (7) DVT (deep venous thrombosis) Priority: Secondary Status: Chronic Comments: Patient has left lower extremity DVT and is taking Coumadin. This will be continued as well as INR monitoring back at the alf. 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 Continue Celexa. Qualifiers: Depression Type: reactive depression Qualified Code(s): F32.9 - Major depressive disorder, single episode, unspecified - Discharge Medications Prescriptions: Cephalexin [Keflex] 500 mg PO QID #28 capsule Home Medications: Aspirin Enteric Coated [Aspirin EC] 81 mg PO DAILY 05/27/15 [History] Calcium Carbonate/Vitamin D3 [Calcium 600 + D Tablet] 600 mg PO DAILY 05/27/15 [ History] Clopidogrel [Plavix] 75 mg PO QPM 05/27/15 [History] Levothyroxine [Synthroid] 50 mcg PO QAM 05/27/15 [History] Oxygen 2 l NS AD 05/27/15 [History] Albuterol Sulfate [Albuterol Inhaler] 2 puff IH Q6HR PRN 05/28/15 [History] Gabapentin [Neurontin] 600 mg PO BID 05/28/15 [History] Isosorbide MONOnitrate (24 HR) [Imdur] 60 mg PO QPM 05/28/15 [History] Metoprolol XL (24 HR) Succ [Toprol XL] 25 mg PO HS 05/28/15 [History] Pravastatin Sodium [Pravachol] 40 mg PO QPM 05/28/15 [History] [place] Oil/[place]-3 Fatty Acids [Fish Oil 500 mg Softgel] 1,200 mg PO BID [History] Docusate Sodium [Stool Softener] 100 mg PO 1-2XD PRN 02/05/16 [History] Melatonin [Melatin] 3 mg PO HS 02/05/16 [History] Mv,Calcium,Min/Iron/Folic/Vitk [Multi For Her Tablet] 1 tab PO DAILY 02/05/16 [ History] Nitroglycerin [Nitrostat] 0.4 mg SL Q5M PRN 02/05/16 [History] Cranberry Fruit Extract/Vit C [Azo Cranberry Softgel] 1 cap PO BID 11/25/16 [ History] Alendronate Sodium [Fosamax] 70 mg PO SA 02/03/17 [History] Citalopram [CeleXA] 20 mg PO DAILY 02/03/17 [History] Famotidine [Pepcid] 40 mg PO DAILY 02/03/17 [History] Vitamin E Mixed [Vitamin E] 1,000 unit PO DAILY 02/03/17 [History] Warfarin [Coumadin] 5 mg PO DAILY 02/03/17 [History] Tramadol HCl [Ultram] 50 mg PO Q6H PRN #20 tablet 02/08/17 [Rx] Furosemide [Lasix] 20 mg PO DAILY 03/01/17 [History] Ipratropium/Albuterol Neb [Duoneb] 3 ml IH Q6HR PRN 03/01/17 [History] Potassium Chloride 20 meq PO DAILY 03/01/17 [History] Cephalexin [Keflex] 500 mg PO QID #28 capsule 03/02/17 [Rx] Allergies/Adverse Reactions: Allergies Amoxicillin [From Augmentin] Allergy (Verified 01/23/17 14:43) Rash clavulanic acid [From Augmentin] Allergy (Verified 01/23/17 14:43) Rash lisinopril Allergy (Verified 01/23/17 14:43) Cough nitrofurantoin [From Macrobid] Allergy (Verified 01/23/17 14:43) Rash Penicillins [PCN] Allergy (Verified 01/23/17 14:43) Rash Sulfa (Sulfonamide Antibiotics) Adverse Reaction (Verified 01/23/17 14:43) Nausea Date of admission: 03/01/17 21:41 Primary care physician: Glenroy Lin MD Consults: 03/01/17 23:37 Consult to Occupational Therapy [CONS] Routine Comment: Evaluate, develop and implement POC Reason for Consult: pls eval and make recs, thanks Consult to Physical Therapy [CONS] Routine Comment: Evaluate, develop and implement POC Reason for Consult: fatoumata eval and isidro recs, thanks 03/02/17 09:25 Consult to Environmental Health Aide [CONS] Routine Reason for SW Consult: to send back to [facility] Discharging clinician: Tammy Kaur Anticipated date of discharge: 03/02/17 - Patient Status Disposition: Transfer LTC Condition: Good Functional capacity at discharge: uses cane/walker Overall status at discharge: patient is progressing back to baseline - Discharge Instructions Follow Up With: Glenroy Lin MD [Primary Care Provider] - Additional Instructions: Return to ED if you have any problems or concerns. Take your antibiotic as scheduled until they are gone. Urine Culture is pending, may need an antibiotic change. INR was 5.1 today, hold pm dose of Coumadin and recheck labs in the a.m. - Diet and Activity Activity: increase activity as tolerated, wear oxygen at all times Diet: advance to your usual diet Interval History: Patient was admitted back to the hospital for 2 day history of diarrhea. She was just recently discharged and went to the alf, [facility], and signed herself out due to close family member wedding on the weekend. Patient has had no diarrhea since arrival. She says that she does have some low abdominal cramping at times. She is able to tolerate a regular diet without nausea, vomiting, diarrhea. She is being admitted with a urinary tract infection at this time. She has a long history of recurrent UTIs that are all positive for Escherichia coli. She has been getting Rocephin inpatient. It is not clear that she was treated for the last urine that appeared to have urinary tract infection. I will treat her with cephalexin 500 mg 4 times daily for 7 days and she returns to the alf. I did note in my discharge instructions her culture is pending and she may need a change in antibiotic. Escherichia coli was resistant to Cipro, Levaquin and Bactrim. Patient has multiple antibiotic allergies. Patient and family both wish for patient to return to [facility] at this time. Patient reports that she is not able to care for herself at home. PT recommends SNF for rehabilitation. Patient is agreeable to this disposition. Patient's INR was 5.1 this morning. Hold p.m. dose and redraw labs in the morning. Otherwise, labs and vital signs are stable. Patient is stable and appropriate for discharge. Hospital course: Ms. Winters is a 81 year old female - Time Spent with Patient Total time spent providing and/or coordinating discharge services: Less than 30 minutes - Constitutional Vitals: Temp Pulse Resp BP Pulse Ox 97.8 F 72 14 105/65 97 03/02/17 07:05 03/02/17 07:05 03/02/17 07:05 03/02/17 08:47 03/02/17 07:05 General appearance: Present: cooperative, A&O X 3, pleasant, no acute distress, answers questions appropriately - Head Head exam: Present: normal inspection - Eye Eye exam: Present: normal appearance, conjuntiva pink - ENT ENT exam: Present: mucous membranes moist, normal exam - Neck Neck exam general surgery: Present: normal inspection. Absent: lymphadenopathy , tenderness - Respiratory Respiratory exam: Present: CTAB. Absent: rales, respiratory distress, rhonchi, stridor, wheezes - Cardiovascular Cardiovascular exam: Present: RRR, +S1, +S2. Absent: diastolic murmur, systolic murmur - GI/Abdominal GI/Abdominal exam: Present: normal bowel sounds, soft. Absent: distended, firm , hepatomegaly, tenderness - Extremities Exam Extremities exam: Present: normal capillary refill, pedal edema, warm, radial pulses palpable and symetrical. Absent: normal inspection, tenderness - Neurological Exam Neurological exam: Present: alert, oriented X3, no focal deficits, strengths equal and symetr throughout. Absent: facial droop, speech deficit
--- NOTE | 2017-03-02 14:17 | Physician Discharge Referral ---
ExtendedCare Referral Info Transfer To: [facility] Provider in Charge after Transfer: PCP Institutional Level of Care: Skilled - Diagnosis (1) UTI (urinary tract infection) Priority: Primary Status: Acute (2) Diarrhea Priority: Secondary Status: Acute (3) Hypertension Priority: Secondary Status: Chronic (4) Coronary artery disease Priority: Secondary Status: Chronic (5) Hypothyroidism Priority: Secondary Status: Chronic (6) Interstitial lung disease Priority: Secondary Status: Chronic (7) DVT (deep venous thrombosis) Priority: Secondary Status: Chronic (8) Depression Priority: Secondary Status: Chronic Expected Duration of Placement: 14 days Prognosis: Good Aware of Diagnosis: Patient - Transfer Medications Prescriptions: Cephalexin [Keflex] 500 mg PO QID #28 capsule Home Medications: Aspirin Enteric Coated [Aspirin EC] 81 mg PO DAILY 05/27/15 [History] Calcium Carbonate/Vitamin D3 [Calcium 600 + D Tablet] 600 mg PO DAILY 05/27/15 [ History] Clopidogrel [Plavix] 75 mg PO QPM 05/27/15 [History] Levothyroxine [Synthroid] 50 mcg PO QAM 05/27/15 [History] Oxygen 2 l NS AD 05/27/15 [History] Albuterol Sulfate [Albuterol Inhaler] 2 puff IH Q6HR PRN 05/28/15 [History] Gabapentin [Neurontin] 600 mg PO BID 05/28/15 [History] Isosorbide MONOnitrate (24 HR) [Imdur] 60 mg PO QPM 05/28/15 [History] Metoprolol XL (24 HR) Succ [Toprol XL] 25 mg PO HS 05/28/15 [History] Pravastatin Sodium [Pravachol] 40 mg PO QPM 05/28/15 [History] [place] Oil/[place]-3 Fatty Acids [Fish Oil 500 mg Softgel] 1,200 mg PO BID [History] Docusate Sodium [Stool Softener] 100 mg PO 1-2XD PRN 02/05/16 [History] Melatonin [Melatin] 3 mg PO HS 02/05/16 [History] Mv,Calcium,Min/Iron/Folic/Vitk [Multi For Her Tablet] 1 tab PO DAILY 02/05/16 [ History] Nitroglycerin [Nitrostat] 0.4 mg SL Q5M PRN 02/05/16 [History] Cranberry Fruit Extract/Vit C [Azo Cranberry Softgel] 1 cap PO BID 11/25/16 [ History] Alendronate Sodium [Fosamax] 70 mg PO SA 02/03/17 [History] Citalopram [CeleXA] 20 mg PO DAILY 02/03/17 [History] Famotidine [Pepcid] 40 mg PO DAILY 02/03/17 [History] Vitamin E Mixed [Vitamin E] 1,000 unit PO DAILY 02/03/17 [History] Warfarin [Coumadin] 5 mg PO DAILY 02/03/17 [History] Tramadol HCl [Ultram] 50 mg PO Q6H PRN #20 tablet 02/08/17 [Rx] Furosemide [Lasix] 20 mg PO DAILY 03/01/17 [History] Ipratropium/Albuterol Neb [Duoneb] 3 ml IH Q6HR PRN 03/01/17 [History] Potassium Chloride 20 meq PO DAILY 03/01/17 [History] Cephalexin [Keflex] 500 mg PO QID #28 capsule 03/02/17 [Rx] Allergies/Adverse Reactions: Allergies Amoxicillin [From Augmentin] Allergy (Verified 01/23/17 14:43) Rash clavulanic acid [From Augmentin] Allergy (Verified 01/23/17 14:43) Rash lisinopril Allergy (Verified 01/23/17 14:43) Cough nitrofurantoin [From Macrobid] Allergy (Verified 01/23/17 14:43) Rash Penicillins [PCN] Allergy (Verified 01/23/17 14:43) Rash Sulfa (Sulfonamide Antibiotics) Adverse Reaction (Verified 01/23/17 14:43) Nausea - Respiratory Orders Oxygen / L per min Smoking Cessation: Smoking cessation has been advised. For more information, call the [place] Tobacco Quit Line at 8-897-YVAR-NOW. - Lab Orders Lab Orders: U/A - Ancillary Orders May use pressure relief devices daily prn, May go on ANGELICA w/family/respon alliance party w /meds at nurse discretion PRN, May consult with Dentist, Senior Research Project Manager, Prop Cutter PRN - Advance Directives Code Status: Full Code - Mobility Orders Other - Rehabiliation Orders Rehab Potential: Good Rehab Orders: ROM Exercises - Treatments May check for fecal impaction rectally daily PRN - Diet Orders Regular (Pt will need INR/PT in the morning. Hold Coumadin on 03/02/17. INR 5.1 today.) CERTIFICATION: I certify that the transfer of the above named patient to an Extended Care Facility is necessary for the continuing treatment of the diagnosis listed. The above information is true and accurate reflection of patient's current condition. Confidential - Redisclosure prohibited without a patient's written consent.
[2017-03-02] MEDS ORDERED: Isosorbide MONOnitrate (24 HR) 60 MG TAB.ER.24H PO SCH (18:00)
[2017-03-06] MEDS ORDERED: NON-FORMULARY MEDICATION 1 EACH EACH (Alendronate Sodium [Fosamax] 70 MG) PO SCH (00:02)
== END 2017-03-02 15:16 ==
LOC: 3BNU 18:22 → EMEROO 18:22 → 3BNU 22:32
PROVIDERS: ADMIT Internal Medicine; ATTEND Nurse Practitioner Family

== ENCOUNTER 2017-04-20 06:02 | Inpatient (IN) ==
[2017-04-20] MEDS ORDERED: Nitroglycerin 0.4 MG TAB.SUBL SL ONE (06:24)
--- NOTE | 2017-04-20 06:43 | Emergency Department Note ---
Disposition Clinical Impression: NSTEMI (non-ST elevated myocardial infarction) Disposition: Admitted As Inpatient Condition: Fair Referrals: NO,PCP [Non-Partnered Physician] - Forms: ED Satisfaction Letter Time of Disposition: : Chest Pain HPI - General Chief Complaint: ED Chest Pain Stated Complaint: Chest pain Time Seen by Provider: 04/20/17 06:06 Source: patient, EMS Limitations: no limitations Vital Signs Reviewed: Yes Nursing Notes Reviewed: Yes - History of Present Illness HPI Narrative: Alert and oriented 81-year-old female presents to the emergency department by EMS for evaluation of left-sided chest pain that woke the patient out of her sleep several hours ago. The patient states the pain has been steadily worsening ever since. She was given aspirin 325 mg per EMS as well as nitroglycerin sublingual tablet 1 prior to arrival by EMS. She states that her pain was drastically improved after the administration of one tablet of nitroglycerin. Patient states pain originates in her left chest and radiates into her left neck and left upper extremity. She complains of being short of breath however states that she is always short of breath due to her pulmonary fibrosis which requires continuous home oxygen by nasal cannula. She denies any cough, hemoptysis, sputum production, or recent fevers. She denies any nausea, vomiting, or diarrhea. She denies any abnormal bleeding. She does state that she was recently switched to Xarelto after being on Coumadin for a DVT in her left lower extremity that was diagnosed in December of this year. Pt complaint: chest pain Onset (ago): hour(s) Duration: constant Onset: awoke with symptoms Pain Location: left chest Severity: moderate Severity scale (1-10): 5 Quality: sharp Pain Radiation: LUE, neck Improves with: nitroglycerin Worsens with: nothing Context: history of DVT/PE Associated symptoms: Denies: nausea, vomiting, diaphoresis, dyspnea, syncope, palpitations, fever, cough Treatments prior to arrival chest pain: aspirin (325mg ASA per EMS), nitroglycerin (Nitro SL x 1 per EMS) - Related Data Home Medications Medication Instructions Recorded Confirmed Aspirin Enteric Coated [Aspirin EC] 81 mg PO DAILY 05/27/15 04/20/17 Calcium Carbonate/Vitamin D3 600 mg PO DAILY 05/27/15 04/20/17 [Calcium 600 + D Tablet] Clopidogrel [Plavix] 75 mg PO QPM 05/27/15 04/20/17 Levothyroxine [Synthroid] 50 mcg PO QAM 05/27/15 04/20/17 Oxygen 4 l NS AD 05/27/15 04/20/17 Albuterol Sulfate [Albuterol 2 puff IH Q6HR PRN 05/28/15 04/20/17 Inhaler] Isosorbide MONOnitrate (24 HR) 60 mg PO QPM 05/28/15 04/20/17 [Imdur] Metoprolol XL (24 HR) Succ [Toprol 25 mg PO HS 05/28/15 04/20/17 XL] Pravastatin Sodium [Pravachol] 40 mg PO QPM 05/28/15 04/20/17 [place] Oil/[place]-3 Fatty Acids 1,200 mg PO BID 05/28/15 04/20/17 [Fish Oil 500 mg Softgel] Docusate Sodium [Stool Softener] 100 mg PO 1-2XD PRN 02/05/16 04/20/17 Melatonin [Melatin] 3 mg PO 02/05/16 04/20/17 Mv,Calcium,Min/Iron/Folic/Vitk 1 tab PO DAILY 02/05/16 04/20/17 [Multi For Her Tablet] Nitroglycerin [Nitrostat] 0.4 mg SL Q5M PRN 02/05/16 04/20/17 Cranberry Fruit Extract/Vit C [Azo 1 cap PO BID 11/25/16 04/20/17 Cranberry Softgel] Alendronate Sodium [Fosamax] 70 mg PO TU 02/03/17 04/20/17 Citalopram [CeleXA] 20 mg PO DAILY 02/03/17 04/20/17 Famotidine [Pepcid] 40 mg PO DAILY 02/03/17 04/20/17 Vitamin E Mixed [Vitamin E] 1,000 unit PO DAILY 02/03/17 04/20/17 Furosemide [Lasix] 20 mg PO DAILY 03/01/17 04/20/17 Ipratropium/Albuterol Neb [Duoneb] 3 ml IH Q6HR PRN 03/01/17 04/20/17 Potassium Chloride 20 meq PO DAILY 03/01/17 04/20/17 Gabapentin [Neurontin] 150 mg PO BID 04/20/17 04/20/17 Rivaroxaban [Xarelto] 20 mg PO DAILY 04/20/17 04/20/17 Previous Rx's Medication Instructions Recorded Tramadol HCl [Ultram] 50 mg PO Q6H PRN #10 tablet 03/02/17 Allergies Allergy/AdvReac Type Severity Reaction Status Date / Time Amoxicillin [From Augmentin] Allergy Rash Verified 01/23/17 14:43 clavulanic acid Allergy Rash Verified 01/23/17 14:43 [From Augmentin] lisinopril Allergy Cough Verified 01/23/17 14:43 nitrofurantoin Allergy Rash Verified 01/23/17 14:43 [From Macrobid] Penicillins [PCN] Allergy Rash Verified 01/23/17 14:43 Sulfa (Sulfonamide AdvReac Nausea Verified 01/23/17 14:43 Antibiotics) All systems ED: reviewed and negative except as stated. Constitutional: Denies: fever, chills, weakness, weight change Eyes: Denies: eye pain, eye discharge, vision change ENT ED: Denies: ear pain, throat pain, dental pain, hearing loss, epistaxis, congestion, dysphagia Cardiovascular: Reports: as per HPI, chest pain. Denies: palpitations, dyspnea on exertion, edema, syncope Respiratory: Reports: as per HPI, dyspnea. Denies: cough, wheezes, hemoptysis, stridor Gastrointestinal: Denies: abdominal pain, nausea, vomiting, diarrhea, constipation, hematemesis, melena, hematochezia Genitourinary: Denies: dysuria, frequency, hematuria, discharge Musculoskeletal: Denies: back pain, neck pain, arthralgia, myalgia Integumentary: Denies: rash, abrasion, lesions Neurological: Denies: headache, weakness, numbness, paresthesias, confusion, abnormal gait, vertigo Psychiatric: Denies: anxiety, depression, suicidal thoughts, homicidal thoughts , auditory hallucinations, visual hallucinations Endocrine: Denies: fatigue Hematological/Lymphatic: Denies: easy bleeding, easy bruising Allergic/Immunologic: Denies: facial swelling, urticaria Chest Pain PMH - Past Medical History Medical history: Reports: CHF, coronary artery disease, DVT, GERD, hyperlipidemia, hypertension, myocardial infarction, syncope, other Surgical history: Reports: angioplasty/stent, cholecystectomy, coronary bypass ( CABG), orthopedic, other, other Psychiatric history: Reports: depression - Social History Smoking Status: Never smoker Alcohol use: Reports: none Drug use: Reports: none Physical Exam - General Limitations: no limitations General appearance: alert, in no apparent distress - Head Head exam: atraumatic, normocephalic, normal inspection - Eye Eye exam: Present: normal appearance, PERRL, EOMI. Absent: nystagmus - ENT ENT exam: mucous membranes moist - Neck Neck exam: Present: normal inspection, full ROM, trachea midline - Chest Chest inspection: Present: normal inspection, symmetric chest wall rise. Absent : tenderness - Respiratory Respiratory exam: Present: normal lung sounds bilaterally. Absent: respiratory distress, wheezes, stridor, accessory muscle use, prolonged expiratory phase - Cardiovascular Cardiovascular exam: Present: regular rate, normal rhythm, normal heart sounds - Abdominal Exam Abdominal exam: Present: soft, Non-Tender, normal bowel sounds. Absent: tenderness, distention, guarding, rebound, rigidity - Extremities Exam Extremities exam: Present: normal inspection, full ROM, pedal edema (2-3+ pedal/ pretibial edema noted bilaterally.). Absent: tenderness - Neurological Exam Neurological exam: Present: alert, oriented X3 - Psychiatric Psychiatric exam: Present: normal affect, normal mood - Skin Skin exam: Present: warm, dry, intact, normal color Course Course Narrative: 0730: I have discussed this patient's case with Dr. Lee. I have discussed her presentation, history, and laboratory results up to this point. Dr. Lee recommends a CT angiogram of the chest, which has been ordered at this time. Repeat evaluation of the patient, the patient states that her pain has much improved even from initial presentation to the emergency department. 0916: I spoke with Dr. Graham of the hospitalist service who has accepted the patient to admission to her service. Vital Signs Temperature 98.5 F 04/20/17 06:04 Pulse Rate 71 04/20/17 06:04 Respiratory Rate 18 04/20/17 06:04 Blood Pressure 129/85 04/20/17 06:04 O2 Sat by Pulse Oximetry 97 04/20/17 06:04 Temperature 98.5 F 04/20/17 06:04 Pulse Rate 80 04/20/17 08:21 Respiratory Rate 20 04/20/17 08:21 Blood Pressure 139/93 04/20/17 08:21 O2 Sat by Pulse Oximetry 97 04/20/17 08:21 Oxygen Delivery Oxygen Delivery Nasal Cannula Chest Pain - Medical Records Medical records reviewed: Yes I reviewed the patient's medical records. - Lab Data Lab results reviewed: Yes I reviewed the patient's lab results. Result diagrams: 04/20/17 06:45 04/20/17 06:45 Lab Results 04/20/17 04/20/17 04/20/17 Range/Units 06:45 06:45 06:45 WBC 8.2 (4.3-11.1) K/mcL RBC 3.63 L (3.82-4.97) M/mcL Hgb 11.0 L (11.5-15.4) g/dL Hct 34.9 L (35.3-44.9) % MCV 96.1 (83.0-100.0) fL MCH 30.3 (28.0-33.3) pg MCHC 31.5 L (31.6-35.5) g/dL RDW 15.2 H (11.5-14.5) % Plt Count 170 (140-400) K/mcL MPV 9.2 L (9.4-12.4) fL Immature Gran % 0.2 (0-4) % Seg Neutrophils % 50.5 % Lymphocytes % 29.8 % Monocytes % 9.8 % Eosinophils % 9.3 % Basophils % 0.4 % Neutrophils # 4.1 (1.6-8.9) K/mcL Lymphocytes # 2.4 (0.6-4.6) K/mcL Monocytes # 0.8 (0.0-1.3) K/mcL Eosinophils # 0.8 H (0.0-0.6) K/mcL Basophils # 0.0 (0.0-0.2) K/mcL PT 19.9 H (9.4-12.1) Seconds INR 1.8 APTT 43.8 H (26.0-36.0) Seconds Sodium (136-145) mEq/L Potassium (3.5-4.5) mEq/L Chloride (98-109) mEq/L Carbon Dioxide (19-29) mEq/L BUN (7-20) mg/dL Creatinine (0.57-1.11) mg/dL Est GFR ( Amer) (> 60) Est GFR (Non-Af Amer) (> 60) BUN/Creatinine Ratio (6-26) Glucose (70-99) mg/dL Calculated Osmolality (280-300) Calcium (8.6-10.8) mg/dL Troponin I (0-0.03) ng/mL B-Natriuretic Peptide 271 H (0-100) pg/mL Urine Color (Yellow) Urine Clarity (Clear) Urine pH (5.0-8.0) pH Units Ur Specific [place] (1.010-1.025) Urine Protein (Neg-Trace) mg/dL Urine Glucose (UA) (Normal) mg/dL Urine Ketones (Negative) mg/dL Urine Blood (Negative) Urine Nitrite (Negative) Urine Bilirubin (Negative) Urine Urobilinogen (Normal) mg/dL Ur Leukocyte Esterase (Negative) Urine Microscopic RBC (0-3) per hpf Urine Microscopic WBC (0-3) per hpf Ur Squamous Epith Cells (None-Few) per lpf Urine Bacteria (None-Few) per hpf Hyaline Casts (None-Few) per lpf Ur Culture Indicated? (NO) 04/20/17 04/20/17 04/20/17 Range/Units 06:45 06:45 08:21 WBC (4.3-11.1) K/mcL RBC (3.82-4.97) M/mcL Hgb (11.5-15.4) g/dL Hct (35.3-44.9) % MCV (83.0-100.0) fL MCH (28.0-33.3) pg MCHC (31.6-35.5) g/dL RDW (11.5-14.5) % Plt Count (140-400) K/mcL MPV (9.4-12.4) fL Immature Gran % (0-4) % Seg Neutrophils % % Lymphocytes % % Monocytes % % Eosinophils % % Basophils % % Neutrophils # (1.6-8.9) K/mcL Lymphocytes # (0.6-4.6) K/mcL Monocytes # (0.0-1.3) K/mcL Eosinophils # (0.0-0.6) K/mcL Basophils # (0.0-0.2) K/mcL PT (9.4-12.1) Seconds INR APTT (26.0-36.0) Seconds Sodium 139 (136-145) mEq/L Potassium 4.2 (3.5-4.5) mEq/L Chloride 106 (98-109) mEq/L Carbon Dioxide 28 (19-29) mEq/L BUN 12 (7-20) mg/dL Creatinine 0.71 (0.57-1.11) mg/dL Est GFR ( Amer) > 60 (> 60) Est GFR (Non-Af Amer) > 60 (> 60) BUN/Creatinine Ratio 17 (6-26) Glucose 96 (70-99) mg/dL Calculated Osmolality 288 (280-300) Calcium 9.8 (8.6-10.8) mg/dL Troponin I 0.27 H* (0-0.03) ng/mL B-Natriuretic Peptide (0-100) pg/mL Urine Color Yellow (Yellow) Urine Clarity Clear (Clear) Urine pH 7.5 (5.0-8.0) pH Units Ur Specific [place] 1.017 (1.010-1.025) Urine Protein Negative (Neg-Trace) mg/dL Urine Glucose (UA) Normal (Normal) mg/dL Urine Ketones Negative (Negative) mg/dL Urine Blood Negative (Negative) Urine Nitrite Positive A (Negative) Urine Bilirubin Negative (Negative) Urine Urobilinogen Normal (Normal) mg/dL Ur Leukocyte Esterase Small H (Negative) Urine Microscopic RBC 0-3 (0-3) per hpf Urine Microscopic WBC 5-15 H (0-3) per hpf Ur Squamous Epith Cells Moderate H (None-Few) per lpf Urine Bacteria Many H (None-Few) per hpf Hyaline Casts None Seen (None-Few) per lpf Ur Culture Indicated? YES A (NO) - Radiology Data Radiology results reviewed: Yes I reviewed the patient's radiology results. - EKG Data EKG attestation: Yes I reviewed and interpreted this EKG. EKG results narrative: EKG reviewed by Dr. Yin Wen as well. EKG shows a sinus rhythm at a rate of 75 bpm with a possible anterior myocardial infarction of indeterminate age. DC interval 126, QRS duration 85, QT/QTc interval 349/378. No ectopy Noted. No STEMI. Heart Score - Score History: Highly Suspicious EKG: Non Specific repolarisation Disturbance Age: Greater than 65 Risk Factors: Equal/Greater than 3 risk factor or history of atherosclerotic disease Troponin: Greater than 3x normal limit HEART Score Total: 9 Attestation Statement - Attestation Attestation: For this encounter, I have reviewed the HAT DESIGNER or PA documentation, treatment plan, and medical decision making; and I have had face to face time with this patient. 81-year-old female who presents to emergency department complaining of chest pain. Patient has a history of DVT and is on anticoagulant and physical examination lungs are clear cardiovascular exams unremarkable. EKG shows T-wave inversion in V1 V2 V3 and V4 V5 which is not new. Summary findings on her EKG from 02/03/2017. We'll obtain a CT scan patient will be admitted to the for evaluation of her chest pain.
--- NOTE | 2017-04-20 06:53 | Electrocardiograph Report ---
[facility] Test Date: 2017-04-20 Pat Name: Kathryn Winters Department: 102 Room: Gender: F Remote Sensing Technician: : 1935 Requested By: Lyndon Crane Order Number: [id number] Reading MD: Glenroy Lin MD Measurements Intervals [place] Rate: 75 P: 42 NE: 126 QRS: -2 QRSD: 85 T: -6 QT: 349 QTc: 378 Interpretive Statements SINUS RHYTHM POSSIBLE ANTERIOR MYOCARDIAL INFARCTION Electronically Signed On 04-20-2017 6:51:13 EDT by Glenroy Lin MD
[2017-04-20 06:56] LABS: Basophils % 0.4 %; Eosinophils # 0.8 K/mcL (0.0-0.6); Eosinophils % 9.3 %; Hematocrit 34.9 % (35.3-44.9); Immature Granulocytes % 0.2 % (0-4); Lymphocytes # 2.4 K/mcL (0.6-4.6); Lymphocytes % 29.8 %; Mean Corpuscular HGB Conc 31.5 g/dL (31.6-35.5); Mean Corpuscular Hemoglobin 30.3 pg (28.0-33.3); Mean Corpuscular Volume 96.1 fL (83.0-100.0); Mean Platelet Volume 9.2 fL (9.4-12.4); Monocytes # 0.8 K/mcL (0.0-1.3); Monocytes % 9.8 %; Neutrophils # 4.1 K/mcL (1.6-8.9); Platelet Count 170 K/mcL (140-400); Red Blood Count 3.63 M/mcL (3.82-4.97); Red Cell Distribution Width 15.2 % (11.5-14.5); Segmented Neutrophils % 50.5 %
[2017-04-20 07:08] LABS: INR 1.8; Prothrombin Time 19.9 Seconds (9.4-12.1)
[2017-04-20 07:10] LABS: Activated Partial Thrombo Time 43.8 Seconds (26.0-36.0)
[2017-04-20 07:18] LABS: BUN/Creatinine Ratio 17 (6-26); Blood Urea Nitrogen 12 mg/dL (7-20); Calcium 9.8 mg/dL (8.6-10.8); Carbon Dioxide 28 mEq/L (19-29); Chloride 106 mEq/L (98-109); Glucose 96 mg/dL (70-99); Osmolality,Calculated 288 (280-300); Potassium 4.2 mEq/L (3.5-4.5); Sodium 139 mEq/L (136-145); eGFR For African Americans > 60 (> 60); eGFR For Non-African Americans > 60 (> 60)
[2017-04-20 08:28] LABS: Bilirubin,Urine Negative (Negative); Blood,Urine Negative (Negative); Clarity,Urine Clear (Clear); Color,Urine Yellow (Yellow); Glucose,Urine (UA) Normal (Normal); Ketones,Urine Negative (Negative); Leukocyte Esterase,Urine Small (Negative); Nitrite,Urine Positive (Negative); PH,Urine 7.5 pH Units (5.0-8.0); Protein,Urine Negative (Neg-Trace); Specific Gravity,Urine 1.017 (1.010-1.025); Urobilinogen,Urine Normal (Normal)
[2017-04-20 08:31] LABS: Bacteria,Urine Many per hpf (None-Few); Hyaline Casts,Urine None Seen per lpf (None-Few); RBC,Urine 0-3 per hpf (0-3); Squamous Epithelial Cell,Urine Moderate per lpf (None-Few)
[2017-04-20] MEDS ORDERED: Naloxone 0.4 MG/ML INJ IVP PRN (11:18)
[2017-04-20] MEDS ORDERED: Acetaminophen 325 MG TABLET PO PRN (11:18)
[2017-04-20] MEDS ORDERED: Ipratropium/Albuterol Neb 3 ML IH PRN (11:31)
[2017-04-20] MEDS ORDERED: traMADol 50 MG TABLET PO PRN (11:31)
[2017-04-20] MEDS ORDERED: Nitroglycerin 0.4 MG TAB.SUBL SL PRN (11:31)
--- NOTE | 2017-04-20 11:41 | Internal Med History&Physical ---
Date of Encounter: 04/20/17 Time of Encounter: 10:30 Assessment and Plan (1) NSTEMI (non-ST elevated myocardial infarction) Current visit: Yes Status: Acute 1 patient has been experiencing left-sided chest pain radiating to his left arm which has been constant and relieved with nitroglycerin prescribed troponin was 0.27 we will continue to cycle cardiac troponins. EKG with only slight ST depressions V2 V4 and V5.-Continue to monitor EKG 2 continuous cardiac monitoring 3 consult cardiology-to speak with Dr. Hensley who states we will hold her Ultram for now place patient on heparin drip. Make patient nothing by mouth after midnight for cardiac catheter in a.m. 4 oxygen as needed to maintain SPO2 greater than 92% 5 nitroglycerine as needed (2) CHF (congestive heart failure) Current visit: No Status: Chronic 1 BNP is 271 x-ray with no pulmonary edema noted. Echo 01/25 showed EF of 65% with mild diastolic dysfunction. We will continue with Lasix 2 low sodium diet 3 monitor intake and output daily weights Qualifiers: Congestive heart failure type: diastolic Congestive heart failure chronicity: chronic Qualified Code(s): I50.32 - Chronic diastolic (congestive ) heart failure (3) Restrictive lung disease Current visit: No Status: Acute 1 patient has history of pulmonary fibrosis we will continue with oxygen to maintain SPO2 greater than 90% 2 continue bronchodilators (4) UTI (urinary tract infection) Current visit: Yes Status: Acute 1 urinalysis did show some nitrates plus leuk estrase in urine. Patient is asymptomatic leukocytosis. We will initiate on Cipro adjust/ urine culture sensitivity Qualifiers: Urinary tract infection type: acute cystitis Hematuria presence: with hematuria Qualified Code(s): N30.01 - Acute cystitis with hematuria (5) DVT (deep venous thrombosis) Current visit: No Status: Chronic 1 she has been diagnosed with DVT March of this year. 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 (6) Hypertension Current visit: No Status: Chronic 1 resume controlled we will continue with home medications Qualifiers: Hypertension type: essential hypertension Qualified Code(s): I10 - Essential (primary) hypertension (7) Hypothyroidism Current visit: No Status: Chronic 1 check TSH 2 continue with Synthroid Qualifiers: Hypothyroidism type: acquired Qualified Code(s): E03.9 - Hypothyroidism, unspecified (8) DVT prophylaxis Current visit: No Status: Acute 1 heparin drip Internal Medicine - H&P: HPI Chief complaint: CP Admitted From: Emergency Dept Plans for Post Hospital Care: Home History of present illness: Ms. Winters is a 81 year old female past history of hypertension hyperlipidemia coronary disease with CABG 8 years ago 2 stents placed 5 years ago pulmonary fibrosis hypothyroid DVT left lower leg sleep apnea. According to the patient she began to experience left-sided heaviness/stabbing pain that radiated to her left arm 9 out of 10. She did experience some nausea, heart racing and shortness of breath, however she states she is chronically short of breath. This pain continued all through the morning with no relief she became concerned and called EMS upon arrival they gave her 4 baby aspirin and nitroglycerin which did ease her pain. She was transported to the emergency room for further evaluation. Upon arrival to the ER lab work did reveal elevated troponin at 0.27 BNP was 271 rest of lab work was unremarkable. Patient is on Xarelto at 20 mg daily Urinalysis did reveal positive nitrates and small amount of leuk esterase. EKG with sinus rhythm some slight ST depression V2 V4 V5. CTA was obtained which was negative for PE she is admitted for further workup and evaluation. Presently patient does complain of 2 out of 10 chest pressure nonradiating. Her lung sounds have crackles in the right base. Heart sounds are regular S1 and S2 with no rubs clicks, murmurs noted. She does have +2 pitting edema to lower extremity is bilaterally. Abdomen soft and nontender. At present time she is hemodynamically stable. I reviewed this case with Dr. Swanson. Past Med Surg Social Fam HX - Past Medical History Medical history: CHF, coronary artery disease, DVT, GERD, hyperlipidemia, hypertension, myocardial infarction, syncope, other Psychiatric history: depression - Past Surgical History Surgical History: angioplasty/stent, cholecystectomy, coronary bypass (CABG), orthopedic, other, other - Social History Smoking Status: Never smoker Smokeless Tobacco Status: No Alcohol use: none Drug use: none - Family History Mother Living Status: Hx Family Respiratory Disorders: Yes Father Living Status: Sister Adopted: No Living Status: Hx Family Respiratory Disorders: Yes (PULMONARY FIBROSIS) Internal Medicine - H&P: Meds Aspirin Enteric Coated [Aspirin EC] 81 mg PO DAILY 05/27/15 [History] Calcium Carbonate/Vitamin D3 [Calcium 600 + D Tablet] 600 mg PO DAILY 05/27/15 [ History] Clopidogrel [Plavix] 75 mg PO QPM 05/27/15 [History] Levothyroxine [Synthroid] 50 mcg PO QAM 05/27/15 [History] Oxygen 4 l NS AD 05/27/15 [History] Albuterol Sulfate [Albuterol Inhaler] 2 puff IH Q6HR PRN 05/28/15 [History] Isosorbide MONOnitrate (24 HR) [Imdur] 60 mg PO QPM 05/28/15 [History] Metoprolol XL (24 HR) Succ [Toprol XL] 25 mg PO HS 05/28/15 [History] Pravastatin Sodium [Pravachol] 40 mg PO QPM 05/28/15 [History] [place] Oil/[place]-3 Fatty Acids [Fish Oil 500 mg Softgel] 1,200 mg PO BID [History] Docusate Sodium [Stool Softener] 100 mg PO 1-2XD PRN 02/05/16 [History] Melatonin [Melatin] 3 mg PO HS 02/05/16 [History] Mv,Calcium,Min/Iron/Folic/Vitk [Multi For Her Tablet] 1 tab PO DAILY 02/05/16 [ History] Nitroglycerin [Nitrostat] 0.4 mg SL Q5M PRN 02/05/16 [History] Cran[place] Fruit Extract/Vit C [Azo Cranberry Softgel] 1 cap PO BID 11/25/16 [ History] Alendronate Sodium [Fosamax] 70 mg PO TU 02/03/17 [History] Citalopram [CeleXA] 20 mg PO DAILY 02/03/17 [History] Famotidine [Pepcid] 40 mg PO DAILY 02/03/17 [History] Vitamin E Mixed [Vitamin E] 1,000 unit PO DAILY 02/03/17 [History] Furosemide [Lasix] 20 mg PO DAILY 03/01/17 [History] Ipratropium/Albuterol Neb [Duoneb] 3 ml IH Q6HR PRN 03/01/17 [History] Potassium Chloride 20 meq PO DAILY 03/01/17 [History] Tramadol HCl [Ultram] 50 mg PO Q6H PRN #10 tablet 03/02/17 [Rx] Gabapentin [Neurontin] 150 mg PO BID 04/20/17 [History] Rivaroxaban [Xarelto] 20 mg PO DAILY 04/20/17 [History] Allergies Amoxicillin [From Augmentin] Allergy (Verified 01/23/17 14:43) Rash clavulanic acid [From Augmentin] Allergy (Verified 01/23/17 14:43) Rash lisinopril Allergy (Verified 01/23/17 14:43) Cough nitrofurantoin [From Macrobid] Allergy (Verified 01/23/17 14:43) Rash Penicillins [PCN] Allergy (Verified 01/23/17 14:43) Rash Sulfa (Sulfonamide Antibiotics) Adverse Reaction (Verified 01/23/17 14:43) Nausea All Systems PM: A 10-system review of systems was performed and is negative for pertinent findings except as documented above in the HPI. - Constitutional Constitutional: no chills, no fever(s), no night sweats - EENT Eyes: no change in vision, no discharge, no pain, no photophobia Ears: no ear discharge, no ear pain, no tinnitus Nose, mouth and throat: no dysphagia, no nasal discharge, no neck pain, no sore throat - Cardiovascular Cardiovascular ROS IM: chest pain, dyspnea on exertion, edema - Respiratory Respiratory: dyspnea on exertion - Gastrointestinal Gastrointestinal: no abdominal pain, no diarrhea, no hematemesis, no hematochezia, no melena, no nausea, no vomiting - Genitourinary Genitourinary: no change in urinary stream, no dysuria, no flank pain, no hematuria - Musculoskeletal Musculoskeletal ROS IM: no numbness, no tingling - Integumentary Integumentary IM: no rash, no unusual bruising - Neurological Neurological ROS: no confusion, no convulsions, no focal weakness, no numbness, no tingling, no tremor(s) - Hematologic/Lymphatic Hematologic/Lymphatic: no easy bruising - Constitutional Vitals: Temp Pulse Resp BP Pulse Ox 97.9 F 70 16 109/67 99 04/20/17 10:56 04/20/17 10:56 04/20/17 10:56 04/20/17 10:56 04/20/17 10:56 General appearance: Present: A&O X 3, answers questions appropriately - Head Head exam: Present: atraumatic, normocephalic - Eye Eye exam: Present: PERRL, conjuntiva pink, sclera anicteric Pupils: Present: PERRL - Neck Neck exam general surgery: Present: supple, trachea midline. Absent: lymphadenopathy - Respiratory Respiratory exam: Present: rales. Absent: accessory muscle use, rhonchi, wheezes - Cardiovascular Cardiovascular exam: Present: RRR, +S1, +S2. Absent: diastolic murmur, gallop, rubs, systolic murmur - GI/Abdominal GI/Abdominal exam: Present: normal bowel sounds, soft, no peritoneal signs. Absent: distended, tenderness - Extremities Exam Extremities exam: Present: pedal edema, warm, radial pulses palpable and symetrical. Absent: calf tenderness, cyanotic - Neurological Exam Neurological exam: Present: CN II-XII intact, oriented X3, no focal deficits. Absent: pronater drift, facial droop, speech deficit - Skin Skin exam: Present: dry, intact Internal Med - H&P Results - Labs CBC & Chem 7: 04/20/17 06:45 04/20/17 06:45 - EKG Data EKG shows normal: sinus rhythm - EKG Data Prior EKG available for review: yes When compared to previous EKG: there is no significant change - Diagnostic Studies Other Images Additional comments: Chest X-Ray 04/20/17 06:24 IMPRESSION: Stable chronic pulmonary fibrosis with no evidence of superimposed edema or consolidation. D/ / 04/20/2017 07:23:34 Twin Zhou MD / Francesca Bowie Interpreting Provider: Twin Zhou MD Chest CTA 04/20/17 07:35 IMPRESSION: 1. Negative CT angiogram for acute pulmonary embolism. 2. Pulmonary fibrosis, not significantly changed from the previous exam. 3. No acute cardiopulmonary process identified. 4. Stable mediastinal and hilar lymphadenopathy. D/ / 04/20/2017 08:43:52 Harvey Hurtado MD / sharon Interpreting Provider: Harvey Hurtado MD
[2017-04-20] MEDS ORDERED: Albuterol 2.5 MG/3 ML NEBULIZER IH PRN (12:01)
[2017-04-20] MEDS ORDERED: *HR* Heparin 5,000 UNIT/ML VIAL IVP ONE (12:02)
[2017-04-20] MEDS ORDERED: *HR* Heparin 5,000 UNIT/ML VIAL IVP PRN ×2 (12:02)
[2017-04-20] MEDS ORDERED: Furosemide 40 MG/4 ML VIAL IVP ONE (12:03)
[2017-04-20] MEDS ORDERED: Heparin 25,000 UNIT/500 ML D5W 25,000 UNIT/500 ML MLS IVC SCH (12:15)
--- NOTE | 2017-04-20 12:30 | Cardiology Consult Note ---
Date of Encounter: 04/20/17 Time of Encounter: 12:00 Assessment and Plan (1) NSTEMI (non-ST elevated myocardial infarction) Current Visit: Yes Status: Acute Presents with typical chest pain symptoms, now pain free. No acute ischemic ECG changes noted, initial troponin 0.27. No acute findings on CTA chest. Hx of CAD s/p CABG. Last LHC 2011 s/p rotablade to LM (post-procedure 80%), MADISON distal LM to pLCX; rotablade/MADISON to RCA lesion. Recent TTE demonstrates preserved LVEF, 65% with normal wall motion. Recommend LHC with possible PCI; patient and family members at bedside agreeable. Risks, benefits, and alternatives discussed at length. Current CODE DNRCCA-DNI; she is agreeable to resend CODE statue to FULL code for 24 hours s/p LHC. Family members (granddaughter) present. Plan for LHC in AM, 04/19/17. Check TTE. Agree with IV heparin gtt, asa, statin, betablocker, nitrates, and plavix. Further recommendations to follow. (2) Coronary artery disease Current Visit: Yes Status: Chronic Hx of CABG in 2006 s/p PCI in 2011. Plan as above Asa, statin, plavix, BB, nitrates Qualifiers: Coronary Disease-Associated Artery/Lesion type: [place] artery [place] vs. 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 Recent transition from coumadin to Xarelto. Last dose of Xarelto 04/19/17 PM. Qualifiers: DVT location: lower extremity Affected thrombotic vein of extremity: unspecified lower extremity distal vein Chronicity: chronic Laterality: left Qualified Code(s): I82.5Z2 - Chronic embolism and thrombosis of unspecified deep veins of left distal lower extremity Discussion w patient/family: The assessment and plan as outlined above was discussed with the patient and/or family members who expressed understanding and agreement. All questions were answered. Thank you for involving us in the care of your patient. Please call with any questions. The patient was discussed and reviewed with Dr. Hensley who agrees with plan as stated above. History of Present Illness Consult date: 04/20/17 Requesting physician: Prema Munoz Consult reason: NSTEMI Chief complaint: Chest pain History of present illness: Ms. Winters is a 81 year old female with PMHx significant for CAD s/p CABG (2006 ) s/p PCI (2011), HTN, HLD, MICHEAL (intolerant to CPAP), interstitial pulmonary fibrosis, GERD, and LLE DVT who presented to the ED after acute onset of mid- sternal chest pain that awoke her from sleep last night around 11:30-12. Pain radiated across chest to left shoulder, reports symptoms similar but more severe than prior CA in the past. She took x2 NTG tabs at home without improvement in pain, states pain eased with ASA that was administered in EMS. Upon arrival to ED, no ischemic ECG changes were noted, initial troponin 0.27. UA consistent with UTI. She was started on coumadin in December 2016 for acute LLE DVT, also diagnosed with PNA in December which required hospitalization. Recently transition from coumadin to Xarelto for AC. Prior CV testing: [facility] 11/23/2011: Left main 90% distal left main stenosis, severe calcification. Rotational arthrectomy performed, postprocedure stenosis 80%. MADISON placed from the distal left main to the proximal circumflex and postdilated to 3.75 mm. LAD 90% proximal stenosis. Circumflex 90% proximal stenosis. RCA 80-90% mid stenosis , rotational atherectomy, MADISON placed. TTE 11/02/2013: LVEF 60-65%. Mild concentric LVH. Mild diastolic dysfunction. No evidence of pulmonary hypertension. No significant valvular dysfunction TTE 02/04/17: LVEF 65%, mild LVDD, normal RV size and function, no significant valvular disease, normal wall motion Past Med Surg Social Fam HX - Past Medical History Attestation: Yes The following information was validated with the patient. Source: patient, old records reviewed, obtained from family Medical history: coronary artery disease, DVT, GERD, hyperlipidemia, hypertension, myocardial infarction, other (interstitial lung disease, MICHEAL) Psychiatric history: depression - Past Surgical History Surgical History: angioplasty/stent, cholecystectomy, coronary bypass (CABG), orthopedic, other, other - Social History Smoking Status: Never smoker Smokeless Tobacco Status: No Alcohol use: none Drug use: none - Family History Mother Living Status: Hx Family Respiratory Disorders: Yes Father Living Status: Sister Adopted: No Living Status: Hx Family Respiratory Disorders: Yes (PULMONARY FIBROSIS) Medications and Allergies Aspirin Enteric Coated [Aspirin EC] 81 mg PO DAILY 05/27/15 [History] Calcium Carbonate/Vitamin D3 [Calcium 600 + D Tablet] 600 mg PO DAILY 05/27/15 [ History] Clopidogrel [Plavix] 75 mg PO QPM 05/27/15 [History] Levothyroxine [Synthroid] 50 mcg PO QAM 05/27/15 [History] Oxygen 4 l NS AD 05/27/15 [History] Albuterol Sulfate [Albuterol Inhaler] 2 puff IH Q6HR PRN 05/28/15 [History] Isosorbide MONOnitrate (24 HR) [Imdur] 60 mg PO QPM 05/28/15 [History] Metoprolol XL (24 HR) Succ [Toprol XL] 25 mg PO HS 05/28/15 [History] Pravastatin Sodium [Pravachol] 40 mg PO QPM 05/28/15 [History] [place] Oil/[place]-3 Fatty Acids [Fish Oil 500 mg Softgel] 1,200 mg PO BID [History] Docusate Sodium [Stool Softener] 100 mg PO 1-2XD PRN 02/05/16 [History] Melatonin [Melatin] 3 mg PO HS 02/05/16 [History] Mv,Calcium,Min/Iron/Folic/Vitk [Multi For Her Tablet] 1 tab PO DAILY 02/05/16 [ History] Nitroglycerin [Nitrostat] 0.4 mg SL Q5M PRN 02/05/16 [History] Cranberry Fruit Extract/Vit C [Azo Cranberry Softgel] 1 cap PO BID 11/25/16 [ History] Alendronate Sodium [Fosamax] 70 mg PO TU 02/03/17 [History] Citalopram [CeleXA] 20 mg PO DAILY 02/03/17 [History] Famotidine [Pepcid] 40 mg PO DAILY 02/03/17 [History] Vitamin E Mixed [Vitamin E] 1,000 unit PO DAILY 02/03/17 [History] Furosemide [Lasix] 20 mg PO DAILY 03/01/17 [History] Ipratropium/Albuterol Neb [Duoneb] 3 ml IH Q6HR PRN 03/01/17 [History] Potassium Chloride 20 meq PO DAILY 03/01/17 [History] Tramadol HCl [Ultram] 50 mg PO Q6H PRN #10 tablet 03/02/17 [Rx] Gabapentin [Neurontin] 150 mg PO BID 04/20/17 [History] Rivaroxaban [Xarelto] 20 mg PO DAILY 04/20/17 [History] Allergies Amoxicillin [From Augmentin] Allergy (Verified 01/23/17 14:43) Rash clavulanic acid [From Augmentin] Allergy (Verified 01/23/17 14:43) Rash lisinopril Allergy (Verified 01/23/17 14:43) Cough nitrofurantoin [From Macrobid] Allergy (Verified 01/23/17 14:43) Rash Penicillins [PCN] Allergy (Verified 01/23/17 14:43) Rash Sulfa (Sulfonamide Antibiotics) Adverse Reaction (Verified 01/23/17 14:43) Nausea All Systems Review: A 10-system review of systems was performed and is negative for pertinent findings except as documented above in the HPI. - Cardiovascular Cardiovascular: as per HPI Physical Examination General: Conversant, No Apparent Distress HEENT: Atraumatic, Normocephaly Cardiac: Reg Rate and Rhythm, Normal S1 and S2 Lungs: Normal Breath Sounds Neuro: Alert and responsive Abdomen: Soft Extremities: Normal Pulses, Other (+1-2 edema BLE) Results 04/20/17 06:45 04/20/17 06:45 Impressions Chest X-Ray 04/20/17 06:24 IMPRESSION: Stable chronic pulmonary fibrosis with no evidence of superimposed edema or consolidation. D/ / 04/20/2017 07:23:34 Twin Zhou MD / Francesca Bowie Interpreting Provider: Twin Zhou MD Chest CTA 04/20/17 07:35 IMPRESSION: 1. Negative CT angiogram for acute pulmonary embolism. 2. Pulmonary fibrosis, not significantly changed from the previous exam. 3. No acute cardiopulmonary process identified. 4. Stable mediastinal and hilar lymphadenopathy. D/ / 04/20/2017 08:43:52 Harvey Hurtado MD / earnold Interpreting Provider: Harvey Hurtado MD Active Medications Acetaminophen (Tylenol) 650 mg PO Q6HR PRN PRN Reason: Mild Pain (1-3) Stop: 10/20/17 11:19 Albuterol Sulfate (Proventil Neb) 2.5 mg IH Q2H PRN PRN Reason: Shortness Of Breath/Wheezing Stop: 10/20/17 12:02 Albuterol/Ipratropium (Duoneb) 3 ml IH Q6HR PRN; Protocol PRN Reason: Shortness Of Breath Stop: 10/20/17 11:32 Aspirin (Aspirin Ec) 81 mg PO DAILY [facility] Stop: 10/21/17 09:01 Atorvastatin Calcium (Lipitor) 40 mg PO HS [facility] Stop: 10/20/17 21:01 Ciprofloxacin HCl (Cipro) 250 mg PO BID [facility] Stop: 04/23/17 11:31 Clopidogrel Bisulfate (Plavix) 75 mg PO QPM [facility] Stop: 10/20/17 18:01 Famotidine (Pepcid) 40 mg PO DAILY [facility] Stop: 10/21/17 09:01 Furosemide (Lasix) 20 mg PO DAILY [facility] Stop: 10/21/17 09:01 Gabapentin (Neurontin) 150 mg PO BID [facility] Stop: 10/20/17 21:01 Heparin Sodium (Porcine) (Heparin) 4,000 unit IVP Q6HR PRN PRN Reason: SEE COMMENTS Stop: 10/20/17 12:03 Heparin Sodium (Porcine) (Heparin) 2,000 unit IVP Q6H PRN PRN Reason: SEE COMMENTS Stop: 10/20/17 12:03 Heparin Sodium/Dextrose (Heparin 25,000 Unit/500 Ml D5w) 25,000 unit in 500 mls @ 18.082 mls/hr IVC .Q24H [facility]; 12 UNIT/KG/HR PRN Reason: Protocol Stop: 10/20/17 12:16 Isosorbide Mononitrate (Imdur) 60 mg PO QPM [facility] Stop: 10/20/17 18:01 Levothyroxine Sodium (Synthroid) 50 mcg PO QAM [facility] Stop: 10/21/17 09:01 Melatonin (Melatonin) 3 mg PO HS [facility] Stop: 10/20/17 21:01 Metoprolol Succinate (Toprol Xl) 25 mg PO HS [facility] Stop: 10/20/17 21:01 Multivitamins/Calcium (Thera M Plus) 1 tab PO DAILY [facility] Stop: 10/21/17 09:01 Naloxone HCl (Narcan) 0.4 mg IVP Q2MIN PRN PRN Reason: Opioid Reversal Stop: 10/20/17 11:19 Nitroglycerin (Nitroglycerin) 0.4 mg SL Q5MIN PRN PRN Reason: Chest Pain Stop: 10/20/17 11:32 Potassium Chloride (Potassium Chloride) 20 meq PO DAILY [facility] Stop: 10/21/17 09:01 Tramadol HCl (Ultram) 50 mg PO Q6H PRN PRN Reason: Pain Stop: 10/20/17 11:32 - Imaging and Cardiology Echo: report reviewed Cardiac cath: report reviewed - EKG Interpretation EKG results cardiology: personally reviewed Consult Discharge Plan - Plan Referrals: Glenroy Lin MD [Primary Care Provider] -
[2017-04-20] MEDS ORDERED: Isosorbide MONOnitrate (24 HR) 60 MG TAB.ER.24H PO SCH (18:00)
[2017-04-20] MEDS: Gabapentin 100 MG CAPSULE PO SCH (19:34)
[2017-04-20] MEDS: FATTY ACIDS PO SCH (19:55)
[2017-04-20] MEDS: CRANBERRY FRUIT EXTRACT PO SCH (19:55)
[2017-04-20] MEDS: OMEGA PO SCH (19:55)
[2017-04-20] MEDS: SALMON OIL PO SCH (19:55)
[2017-04-20] MEDS: VIT C PO SCH (19:55)
[2017-04-20 20:30] LABS: Activated Partial Thrombo Time 118.6 Seconds (26.0-36.0)
[2017-04-20 20:45] LABS: Heparin anti-factor XA UFH 0.96 IU/mL (0.30-0.70)
[2017-04-20] MEDS ORDERED: Metoprolol XL (24 HR) Succ 50 MG TAB.ER.24H PO SCH (21:00)
[2017-04-20] MEDS ORDERED: Gabapentin 300 MG CAPSULE PO SCH (21:00)
[2017-04-20] MEDS ORDERED: Melatonin 3 MG TABLET PO SCH (21:00)
[2017-04-21 04:44] LABS: Basophils % 0.5 %; Eosinophils # 0.9 K/mcL (0.0-0.6); Eosinophils % 10.5 %; Hematocrit 33.3 % (35.3-44.9); Hemoglobin 10.7 g/dL (11.5-15.4); Immature Granulocytes % 0.1 % (0-4); Lymphocytes # 2.1 K/mcL (0.6-4.6); Lymphocytes % 25.7 %; Mean Corpuscular HGB Conc 32.1 g/dL (31.6-35.5); Mean Corpuscular Hemoglobin 30.3 pg (28.0-33.3); Mean Corpuscular Volume 94.3 fL (83.0-100.0); Mean Platelet Volume 9.7 fL (9.4-12.4); Monocytes # 0.7 K/mcL (0.0-1.3); Monocytes % 9.1 %; Neutrophils # 4.4 K/mcL (1.6-8.9); Platelet Count 169 K/mcL (140-400); Red Blood Count 3.53 M/mcL (3.82-4.97); Red Cell Distribution Width 15.7 % (11.5-14.5); Segmented Neutrophils % 54.1 %
[2017-04-21 05:22] LABS: BUN/Creatinine Ratio 16 (6-26); Blood Urea Nitrogen 13 mg/dL (7-20); Calcium 9.2 mg/dL (8.6-10.8); Carbon Dioxide 30 mEq/L (19-29); Chloride 105 mEq/L (98-109); Chol/HDL Ratio 3.6 (0-4.9); Cholesterol 141 mg/dL (< 200); Glucose 92 mg/dL (70-99); HDL Cholesterol 39 mg/dL (40-59); LDL Cholesterol,Calculated 82 mg/dL (0-99); Magnesium 1.8 mg/dL (1.6-2.6); Osmolality,Calculated 290 (280-300); Potassium 4.2 mEq/L (3.5-4.5); Sodium 140 mEq/L (136-145); Triglycerides 99 mg/dL (< 150); eGFR For African Americans > 60 (> 60); eGFR For Non-African Americans > 60 (> 60)
[2017-04-21] MEDS: OMEGA PO SCH (08:10)
[2017-04-21] MEDS: VIT C PO SCH (08:10)
[2017-04-21] MEDS: FATTY ACIDS PO SCH (08:10)
[2017-04-21] MEDS: Gabapentin 100 MG CAPSULE PO SCH (08:10)
[2017-04-21] MEDS: SALMON OIL PO SCH (08:10)
[2017-04-21] MEDS: CRANBERRY FRUIT EXTRACT PO SCH (08:10)
[2017-04-21] MEDS ORDERED: *HR* Rivaroxaban 10 MG TABLET PO SCH ×2 (09:00→17:00)
[2017-04-21] MEDS ORDERED: Aspirin Enteric Coated 81 MG Tablet PO SCH (09:00)
[2017-04-21] MEDS ORDERED: Famotidine 20 MG TABLET PO SCH (09:00)
[2017-04-21] MEDS ORDERED: (Calcium Carbonate/Vitamin D3 [Calcium 600 + D Tablet PO SCH (09:00)
[2017-04-21] MEDS ORDERED: Multivit/Ca/Min/Fe/FA 1 TAB TABLET PO SCH (09:00)
[2017-04-21] MEDS ORDERED: Furosemide 20 MG TABLET PO SCH (09:00)
[2017-04-21] MEDS ORDERED: VITAMIN E MIXED 1000 UNIT PO SCH (09:00)
[2017-04-21] MEDS ORDERED: *HR* FentaNYL (PF) 100 MCG/2 ML VIAL ONE (09:53)
[2017-04-21] MEDS ORDERED: *HR* Midazolam HCl 2 MG/2 ML VIAL ONE (09:53)
[2017-04-21] MEDS ORDERED: 0.9 % Sodium Chloride 2,000 ML ONE (09:54)
[2017-04-21] MEDS ORDERED: *HR* Heparin 10,000 UNIT/10 ML VIAL ONE (09:54)
[2017-04-21] MEDS ORDERED: Heparin 1,000 UNITS/500 mL NS 500 ML ONE (09:54)
[2017-04-21] MEDS ORDERED: Nitroglycerin 1,000 MCG/10 ML VIAL IV ONE (09:55)
--- NOTE | 2017-04-21 09:59 | Pre-Sedation Evaluation ---
Pre-sedation evaluation - Pre-sedation checklist Date of procedure: 04/21/17 Procedure: Heart Cath Recent Vitals: Last Vital Signs Temp 98.8 F 04/21/17 07:01 Pulse 61 04/21/17 07:01 Resp 14 04/21/17 07:01 BP 97/61 04/21/17 07:01 Pulse Ox 98 04/21/17 07:01 H&P (including ROS) documented in medical record: Yes Previous reaction to sedatives/anesthetics: No Dietary Status: NPO after Midnight Airway Assessment: Patient can open mouth completely, TMJ function normal, Micrognathia (under-bite, receding chin) absent, Neck with adequate range of motion Dentition: dentures removed Possible difficult airway: No ASA Classification *see protocol: CLASS II-Mild systemic disease Plan of Care: Pt appropriate candidate for procedure/moderate/conscious sedation , Risks/benefits of procedure/sedation discussed w/ patient/family
--- NOTE | 2017-04-21 11:28 | Invasive Diagnostic Lab Proc ---
Name: Kathryn Winters Date of Study: 04/21/2017 Date: 1935 Ht: 59.8in Medical Record#: [id number] Age: 81 Wt: 157.19lb Gender: Female BSA: 1.68 Order #: [id number] BMI: 30.86 Physicians Procedure Physician: Ricci Hensley MD, FACC Referring MD: Referring MD: Staff Name Position Time In Sites, Garima RT (R) Scrub 10:25 AM Felicitas Smith RN Guide Delegate 10:25 AM Helena Bhatia RT (R) Monitor 10:26 AM Indications Indication Non-Stemi Procedures Performed Procedure L HRT ART/GRFT ANGIO Pre-Procedure Checklist Informed consent is complete signed and on chart. H\T\P is on chart. ID band is on and ID verified with patient. Patient NPO for procedure The procedure was described for the patient and questions were answered. ECG is on chart. Plan of Care Patient will tolerate the procedure without complications. Adequate level of comfort will be maintained. Hemodynamics will remain stable Patient will recover from procedure without complications. Respiratory function will be maintained. Cardiac rhythm will remain stable. Patient temperature will be maintained. Patient and/or family have verbalized understanding of the procedure. Patient Education Chief Complaint/Reason for Test: Cardiac Cath Developmental Category: Geriatric (65+ years) Developmentally Appropriate for Age: Yes Learning Barriers: None Education Needs: Procedure Education Method: Verbal Information Taught: Cardiac Cath Educational Evaluation: Able to repeat information Allergies Penicillins Sulfa (Sulfonamide Antibiotics) lisinopril nitrofurantoin ZOCOR AMOXICILLIN/CLAVULANATE Simvastatin clavulanic acid Amoxicillin Vital Signs Time BP (mmHg) HR (bpm) O2 Sat. RR (bpm) LOC 08:38 AM 97 / 61 61 98 % 14 10:29 AM / % 5 = Fully awake and oriented or at pre-proc level 10:29 AM / % 5 = Fully awake and oriented or at pre-proc level 10:24 AM 111 / 69 65 96 % 13 10:27 AM 108 / 64 67 94 % 22 10:30 AM 97 / 54 69 91 % 20 10:33 AM 98 / 51 66 92 % 20 10:36 AM 96 / 52 66 96 % 18 10:39 AM 105 / 48 66 97 % 18 10:42 AM 104 / 51 71 98 % 18 10:45 AM 100 / 52 70 98 % 21 10:48 AM 111 / 54 69 98 % 25 10:51 AM 115 / 65 66 98 % 18 10:54 AM 114 / 55 67 98 % 18 10:57 AM 111 / 59 65 97 % 13 10:44 AM / % 5 = Fully awake and oriented or at pre-proc level Procedural Medications Time Medication Dose Units Method Given By 10:27 AM Versed 1 mg Intravenous AndrewsFelicitas cook RN 10:27 AM Fentanyl 25 mcg Intravenous LuisFelicitas cook RN 10:27 AM Oxygen 4 L/min nasal cannula Andrews, Felicitas GUY 10:32 AM Oxygen 6 L/min nasal cannula Luis, Felicitas GUY 10:33 AM Lidocaine 2% 17 ml Subcutaneous Alma Boudreaux MD, FACC 10:35 AM Oxygen 8 L/min Oxy Mask Luis, Felicitas GUY 10:41 AM Oxygen 6 L/min Oxy Mask AndrewsFelicitas cook RN ASA Classification: CLASS II- Mild systemic disease (i.e. well-controlled diabetes, hypertension, asthma, cigarette smoking) Christian Score Preprocedure Postprocedure Activity 2- Moves 4 extremities sustained head lift Activity 2- Moves 4 extremities sustained head lift Circulation 2- SBP +/= 20 points of pre-anesthetic level Circulation 2- SBP +/= 20 points of pre-anesthetic level Consciousness 2- Awake and alert oriented x 3 Consciousness 2- Awake and alert oriented x 3 O2 Saturation 1- Needs O2 inhalation to maintain O2 saturation of 90% O2 Saturation 2- Able to maintain O2 satruation of 92% on room air Respiratory 2- Able to deep breathe and cough well Respiratory 2- Able to deep breathe and cough well Total Score 9 Total Score 10 Contrast Agent: Isovue Diagnostic Contrast: 71 ml Total Contrast: 71 ml Fluoro Dose: 146 mGy Procedure Log Time Note Enter By 10:23 AM CathStat 10:23 AM Vitals capture started with the following parameters, Patient=Adult, Interval=3 min, Initial Gpdpscew=299 mmHg, Deflation Rate=5 mmHg, Cuff placed on Right Arm 10:24 AM HR=65 bpm, CROB=481/69 mmhg, SpO2=96.0 %, Resp=13 B/min, Comment=NSR 10:25 AM Pt arrived to laborer/grade check 2 at 10:25 [facility] 10:25 AM Garima Coyle RT (R) Position: Scrub Time in: 10: 10: AM Felicitas Smith RN Position: Guide Delegate Time in: :: AM Helena Bhatia (R) Position: Monitor Time in: : 10: AM Patient charges- Angio tray pack, Navilyst 3mm J, Pulse Oximetry and ACIST tubing and transducer : AM IV Supplies used: J loop Angio Cath. : AM Case Delayed No : AM Hair removed from procedure site in procedure lab using clippers. Bilateral groin prepped with Chloraprep by Helena Bhatia (R), safety strap applied then patient was draped. Skin intact. : AM Physician arrived : 10: AM ASA Class CLASS II- Mild systemic disease (i.e. well-controlled diabetes, hypertension, asthma, cigarette smoking) [facility]: AM Meet and grerosendo completed : AM Sign in performed according to hospital policy. : AM Procedure start : 10: AM HR=67 bpm, BGOE=588/64 mmhg, SpO2=94.0 %, Resp=22 B/min, Comment=NSR : AM Time: 10: Versed 1 mg Intravenous Given by Felicitas Smith RN : AM Time: : Fentanyl 25 mcg Intravenous Given by Felicitas Smith RN [facility] : AM Time: : Oxygen on at 4 L/min per nasal cannula by Felicitas Smith RN [facility]: AM Time: 10: Patient comfortable and pain free: Yes : AM Time: 10:LOC: 5 = Fully awake and oriented or at pre-proc level dsp 10:30 AM HR=69 bpm, NIBP=97/54 mmhg, SpO2=91.0 %, Resp=20 B/min, Comment=NSR 10: AM Time out performed according to hospital policy 10:32 AM Clinical Presentation: Non-STEMI ell 10:33 AM HR=66 bpm, NIBP=98/51 mmhg, SpO2=92.0 %, Resp=20 B/min, Comment=NSR 10:33 AM Time: 10:32 Oxygen on at 6 L/min per nasal cannula by Felicitas Smith RN [facility] 10:34 AM Time: 10:33 17 ml Lidocaine 2% to right groin Subcutaneous Given by Ricci Hensley MD, [facility] 10:34 AM Access obtained by percutaneous puncture. 5Fr 10cm Terumo Antelope sheath placed in right Femoral artery. [id number] dspellman 10:34 AM 5Fr FL 4 catheter inserted over the wire [facility] 10:35 AM 0.035 145cm Navilyst 3mmJ wire [id number] dspellman 10:35 AM LCA angiography performed in multiple views. dspell 10:35 AM Time: 10:35 Oxygen on at 8 L/min per Oxy mask by Felicitas Smith RN [facility] 10:36 AM HR=66 bpm, NIBP=96/52 mmhg, SpO2=96.0 %, Resp=18 B/min, Comment=NSR 10:36 AM Recorded Pressure: Ao, HR=67, Condition=Condition 1 (Aorta) Ao 85/49/65 10:37 AM Catheter removed dspell 10:37 AM 5Fr FR 4 catheter inserted over the wire [facility] 10:37 AM RCA angiography performed in multiple views. dspell 10:39 AM HR=66 bpm, TTCX=951/48 mmhg, SpO2=97.0 %, Resp=18 B/min, Comment=NSR 10:39 AM Catheter removed dspell 10:40 AM 5Fr IM catheter inserted over the wire [id number] dspellgalloway 10:41 AM Time: 10:41 Oxygen on at 6 L/min per Oxy Mask by Felicitas Smith RN [facility] 10:42 AM HR=71 bpm, HDLB=381/51 mmhg, SpO2=98.0 %, Resp=18 B/min, Comment=NSR 10:42 AM Recorded Pressure: Ao, HR=71, Condition=Condition 1 (Aorta) Ao 88/28/58 10:42 AM Left LUIS MANUEL to the LAD angio performed in multiple views. dspell 10:44 AM Time: :29 Patient comfortable and pain free: Yes dspellman 10:44 AM Time: 10:29LOC: 5 = Fully awake and oriented or at pre-proc level dspellman 10:44 AM Catheter removed dspellman 10:45 AM HR=70 bpm, DCPJ=548/52 mmhg, SpO2=98.0 %, Resp=21 B/min, Comment=NSR 10:45 AM 5Fr Pigtail catheter inserted over the wire C dspellman 10:45 AM Recorded Pressure: LV, HR=70, Condition=Condition 1 (Left Ventricle) LV 91/8/10 10:46 AM Recorded Pressure: LV, Ao, HR=68, Condition=Condition 1 (Left Ventricle) LV 76/13/11, (Aorta) Ao 88/52/69 10:46 AM Catheter selectively placed in left ventricle dspellman 10:47 AM Bolus angiogram of left Ventricle complete: 8 ml/sec for a total of 24 mls dspellman 10:47 AM Catheter removed dspellman 10:48 AM HR=69 bpm, JRUU=568/54 mmhg, SpO2=98.0 %, Resp=25 B/min, Comment=NSR 10:48 AM Bolus angiogram of right Femoral complete: 4 ml/sec for a total of 7 mls dspellman 10:48 AM Procedure completed at 10:48 dspellman 10:49 AM Sign out completed: Radiation Dose 145.72 mGy Fluoro Time: 4.3 Isovue 370 - 200ml contrast 71 ml given by Ricci Hensley MD, [facility]. Complications: NoneCardiac Rehab Consult needed: NoConfirmed administered medications: Yes dspell 10:51 AM HR=66 bpm, JKRF=583/65 mmhg, SpO2=98.0 %, Resp=18 B/min, Comment=NSR 10:52 AM Isovue 370 - 200ml,1 Bottle(s) used. dspell 10:52 AM Arterial sheath pulled, Mynx closure device used and was Successful S/N. dspellman 10:52 AM Post ECG NSR dspellman 10:53 AM Post Blood Pressure 115/65 dspellman 10:53 AM Information taught Cardiac Cath and Mynx dspellman 10:53 AM Education needs Procedure, Plan of Care, and Responsibilities of Patient in Care dspellman 10:53 AM Learning barriers :None dspellman 10:53 AM Education Methods Verbal dspellman 10:53 AM Education evaluation Able to repeat information dspellman 10:53 AM Site status No bleeding/hematoma - Rt Groin as reported by Sites, Garima RT (R) at 10:53 dspellman 10:53 AM Opsite applied dspellman 10:54 AM HR=67 bpm, JNVY=440/55 mmhg, SpO2=98.0 %, Resp=18 B/min, Comment=NSR 10:54 AM Family placed in consult room. dspellman 10:54 AM Complications: None dspellman 10:54 AM Fluoro Time: 4.3 dspellman 10:54 AM Isovue 370 - 200ml contrast 71 ml given by Ricci Hensley MD, [facility]. dspellman 10:55 AM Radiation Dose 145.72 mGy dspellman 10:57 AM HR=65 bpm, CQYA=254/59 mmhg, SpO2=97.0 %, Resp=13 B/min, Comment=NSR 10:58 AM Lesion found in LMCA. Pre Stenosis: 15 Pre CAROL Flow: dspellman 10:59 AM Lesion found in Proximal LAD. Pre Stenosis: 99 Pre CAROL Flow: dspellman 10:59 AM Lesion found in Mid LAD. Pre Stenosis: 100 Pre CAROL Flow: dspellman 10:59 AM Time: 10:44LOC: 5 = Fully awake and oriented or at pre-proc level dspellman 10:59 AM Time: 10:44 Patient comfortable and pain free: Yes dspellman 11:00 AM Lesion found in Proximal Circumflex. Pre Stenosis: 20 Pre CAROL Flow: dspellman 11:01 AM Lesion found in Proximal RCA. Pre Stenosis: 40 Pre CAROL Flow: dspellman 11:01 AM Lesion found in Mid RCA. Pre Stenosis: 15 Pre CAROL Flow: dspellman 11:05 AM Left Main Coronary Artery with 15% stenosis dspellman 11:06 AM Proximal Left Anterior Descending Coronary Artery with 99% stenosis. If graft is supplying this territory, 0 % stenosis. dspellman 11:06 AM Mid/Distal Left Anterior Descending Coronary Artery and diagonal branches with 100% stenosis. If graft is supplying this area, 0 % stenosis dspellman 11:06 AM Circumflex, Obtuse Marginal, Left Posterior Descending, and Left Posterolateral Coronary Arteries with 20 % stenosis. If graft is supplying this area, 0 % stenosis dspellman 11:08 AM Report given to Anastasia GUY Pt taken to Room #12. 11:07 dspellman 11:08 AM Patient out of room: 11:08 dspellgalloway 11:09 AM Fluoro Time: 4.3 dspellgalloway 11:09 AM Isovue 370 - 200ml contrast 71 ml given by Ricci Hensley MD, [facility]. dspellgalloway 11:09 AM Radiation Dose 145.72 mGy [email or web address] Complications Complication None None Hemodynamics Pressures Site Systolic/A Wave Diastolic/V Wave Mean AO 85 49 65 AO 88 28 58 LV 91 8 10 LV 76 13 11 AO 88 52 69 Post Procedure Information Blood Pressure: 115/65 mmHg Rhythm: NSR Post procedural instructions were given Closure Device Time Device Success/Fail 04/21/2017 11:10:00 AM MynxGrip Successful Site Checks Time Location Status Staff Sheath In? Note 10:53 AM Rt Groin No bleeding/hematoma Sites, Garima RT (R) Pulses Time Site Pre-Procedure Post-Procedure Note Bilateral DP \T\ PT 2+ Bilateral radial 2+ Updated by Helena Bhatia RT (R) on 04/21/2017 11:23:53 AM Helena Bhatia RT electronically signed on 04/21/2017 11:24:27 AM with status of Final
--- NOTE | 2017-04-21 13:04 | Event Note ---
Date of Encounter: 04/21/17 Time of Encounter: 12:30 - Cardiology Event Note Seen and examined. Reviewed [facility] findings with Dr. Alma Boudreaux--patent stents, patent CALDERA-LAD; non-obstructive CAD and no significant changes from prior [facility] in 2011. Medical therapy recommended. LVEDp=10 on LHC (normal diastolic filling pressure), EF normal. No concern for CHF. Continue current CV medications including asa, statin, nitrates, and betablocker. Consider increasing nitrates if able in the future. Xarelto to be resumed this evening. FULL code 24 hours s/p [facility]. No further inpatient recommendations from Cardiology standpoint. Continue supportive care for UTI. Will arrange for follow-up with Dr. Olivier. Cardiology will sign-off, please call with questions.
--- NOTE | 2017-04-21 14:50 | Invasive Diagnostic Lab ---
Name: Kathryn Winters Date of Study: 04/21/2017 Date: 1935 Ht: 152.0 cm /59.8 in Medical Record#: [id number] Age: 81 Wt: 71.3 kg / 157.19 lb Account/Order#: [id number] Gender: Female BSA: 1.68 Order #: [id number] Fluoro Dose: 146 mGy BMI: 30.86 Procedure Physician: Alma Boudreaux MD, [facility] Referring MD: Referring MD: Procedures Performed: LEFT HEART CATH W/ GRAFTS Indications: Non-Stemi Impressions: Triple vessel coronary artery disease. The left ventricle is normal and has normal contractility EF 60% S/P CABG 1 of 3 patent bypass grafts. Previously stented L main/ostial Cx and mid RCA widely patent. Recommendations: Optimal medical therapy of patient's disease. Aggressive risk factor modification. History/Risk Factors: GERD MICHEAL Hypertension Dyslipidemia Family History of CAD Peripheral Vascular Disease Chronic Lung Disease Prior DC Previous PCI Previous CABG Procedure Access obtained in the right Femoral artery by percutaneous puncture Complications: None, None Contrast: Isovue 71ml Closure Device: MynxGrip Hemodynamics: Pressures Site Systolic/ A Wave Diastolic/ V Wave End Diastolic/ Mean HR AO 85 49 65 67 AO 88 28 58 71 LV 91 8 10 70 LV 76 13 11 68 AO 88 52 69 69 LV Ventriculography Ejection Method: LV Gram Ejection Fraction: 60% Wall Motion: MEDINA Anterobasal Normal Anterolateral Normal Apical: Normal Inferoapical Normal Inferobasal Normal Coronary Dominance: right Lesion Findings/Interventions * Left Main Coronary Artery There is a 15% instent restenosis in the LMCA. * Left Anterior Descending There is a 99% stenosis in the ostial/Proximal LAD. The lesion has severe calcification noted. There is a 100% stenosis in the Mid LAD- [employer]. Mid/distal LAD fill via patent CALDERA graft. * Circumflex There is a 20% instent restenosis in the Proximal Circumflex. * Right Coronary Artery There is a 40% stenosis in the Proximal RCA. There is a 15% instent restenosis in the Mid RCA. Additional Findings: Grafts * The left internal mammary graft to the Mid LAD is patent. CAROL flow is 3. * The saphenous vein graft to the 1st Marginal is occluded. * The saphenous vein graft to the Right PDA is occluded. SVGs to OM1 and RCA not selectively injected- previously documented to be occluded. Updated by Alma Boudreaux MD, FACC on 04/21/2017 2:42:31 PM Alma Boudreaux MD, FACC electronically signed on 04/21/2017 2:44:04 PM with status of Final
[2017-04-21 15:14] VITALS: BP 160/92
--- NOTE | 2017-04-21 15:14 | Discharge Summary ---
Date of Encounter: 04/21/17 Time of Encounter: 15:05 - Discharge Diagnosis (1) Chest pain Priority: Primary Status: Acute Qualifiers: Chest pain type: precordial pain Qualified Code(s): R07.2 - Precordial pain (2) Interstitial lung disease Priority: Primary Status: Chronic (3) Chronic respiratory failure Priority: Secondary Status: Chronic Qualifiers: Respiratory failure complication: hypoxia Qualified Code(s): J96.11 - Chronic respiratory failure with hypoxia (4) Coronary artery disease Priority: Secondary Status: Chronic Qualifiers: Coronary Disease-Associated Artery/Lesion type: ruby artery [place] vs. transplanted heart: ruby heart Associated angina: with unstable angina Qualified Code(s): I25.110 - Atherosclerotic heart disease of ruby coronary artery with unstable angina pectoris (5) Depression Priority: Secondary Status: Chronic Qualifiers: Depression Type: reactive depression Qualified Code(s): F32.9 - Major depressive disorder, single episode, unspecified (6) Hypertension Priority: Secondary Status: Chronic Qualifiers: Hypertension type: essential hypertension Qualified Code(s): I10 - Essential (primary) hypertension (7) Hypothyroidism Priority: Secondary Status: Chronic Qualifiers: Hypothyroidism type: acquired Qualified Code(s): E03.9 - Hypothyroidism, unspecified - Discharge Medications Prescriptions: Ciprofloxacin [Cipro] 250 mg PO BID #4. tablet Home Medications: Aspirin Enteric Coated [Aspirin EC] 81 mg PO DAILY 05/27/15 [History] Calcium Carbonate/Vitamin D3 [Calcium 600 + D Tablet] 600 mg PO DAILY 05/27/15 [ History] Clopidogrel [Plavix] 75 mg PO QPM 05/27/15 [History] Levothyroxine [Synthroid] 50 mcg PO QAM 05/27/15 [History] Oxygen 4 l NS AD 05/27/15 [History] Albuterol Sulfate [Albuterol Inhaler] 2 puff IH Q6HR PRN 05/28/15 [History] Isosorbide MONOnitrate (24 HR) [Imdur] 60 mg PO QPM 05/28/15 [History] Metoprolol XL (24 HR) Succ [Toprol XL] 25 mg PO HS 05/28/15 [History] Pravastatin Sodium [Pravachol] 40 mg PO QPM 05/28/15 [History] [place] Oil/[place]-3 Fatty Acids [Fish Oil 500 mg Softgel] 1,200 mg PO BID [History] Docusate Sodium [Stool Softener] 100 mg PO 1-2XD PRN 02/05/16 [History] Melatonin [Melatin] 3 mg PO HS 02/05/16 [History] Mv,Calcium,Min/Iron/Folic/Vitk [Multi For Her Tablet] 1 tab PO DAILY 02/05/16 [ History] Nitroglycerin [Nitrostat] 0.4 mg SL Q5M PRN 02/05/16 [History] Cranberry Fruit Extract/Vit C [Azo Cranberry Softgel] 1 cap PO BID 11/25/16 [ History] Alendronate Sodium [Fosamax] 70 mg PO TU 02/03/17 [History] Citalopram [CeleXA] 20 mg PO DAILY 02/03/17 [History] Famotidine [Pepcid] 40 mg PO DAILY 02/03/17 [History] Vitamin E Mixed [Vitamin E] 1,000 unit PO DAILY 02/03/17 [History] Furosemide [Lasix] 20 mg PO DAILY 03/01/17 [History] Ipratropium/Albuterol Neb [Duoneb] 3 ml IH Q6HR PRN 03/01/17 [History] Potassium Chloride 20 meq PO DAILY 03/01/17 [History] Tramadol HCl [Ultram] 50 mg PO Q6H PRN #10 tablet 03/02/17 [Rx] Gabapentin [Neurontin] 600 mg PO BID 04/20/17 [History] Rivaroxaban [Xarelto] 20 mg PO DAILY 04/20/17 [History] Ciprofloxacin [Cipro] 250 mg PO BID #4. tablet 04/21/17 [Rx] Allergies/Adverse Reactions: Allergies Amoxicillin [From Augmentin] Allergy (Verified 01/23/17 14:43) Rash clavulanic acid [From Augmentin] Allergy (Verified 01/23/17 14:43) Rash lisinopril Allergy (Verified 01/23/17 14:43) Cough nitrofurantoin [From Macrobid] Allergy (Verified 01/23/17 14:43) Rash Penicillins [PCN] Allergy (Verified 01/23/17 14:43) Rash Sulfa (Sulfonamide Antibiotics) Adverse Reaction (Verified 01/23/17 14:43) Nausea Procedures/tests Complete & Pending: Procedures Performed prior 72 hours Category Date Time Status CL Cardiac Catheterization [CL] Routine Shot Lighter 04/21/17 07:53 Completed Date of admission: 04/20/17 11:59 Primary care physician: Glenroy Lin MD Consults: 04/20/17 12:59 Consult to Cardiac Rehabilitation-Phase1 [CONS] Routine Comment: Reason for Consult: NSTEMI--[facility] 04/21 Call Completed: No - Patient Status Disposition: Home, Self-Care Condition: Good Functional capacity at discharge: uses cane/walker Overall status at discharge: patient is progressing back to baseline - Discharge Instructions Follow Up With: Glenroy Lin MD [Primary Care Provider] - (f/u in 1 week) - Diet and Activity Activity: wear oxygen at all times (4 L NC) Diet: low fat, low cholesterol, low salt diet Interval History: patient has no complains. she is eager to go home. Hospital course: Ms. Winters is a 81 year old female with past medical history of progressive pulmonary fibrosis on 4 L oxygen, CAD s/p CABG 8 years ago, LLE DVT, MICHEAL, and hypertension who presented with a chief complaint of left-sided chest pain. Troponin peaked at 0.54. EKG showed no acute ischemic changes. Patient underwent left heart catheterization revealing patent stent, patent CALDERA to LAD , nonobstructive CAD. Normal LVEF. Plan to continue him medical therapy including aspirin, statin, nitrates, and beta rut. Elevated troponin and symptoms could be secondary to progression of pulmonary fibrosis. Patient was told earlier this year that her progressive fibrosis is progressing. Incidentally, she was diagnosed with asymptomatic bacteriuria and given comorbidities and older age she was started on ciprofloxacin for a total of 3 days. PLAN: Follow-up with primary care physician next week. - Time Spent with Patient Total time spent providing and/or coordinating discharge services: - Constitutional Vitals: Temp Pulse Resp BP Pulse Ox 97.6 F 66 16 95/54 98 04/21/17 11:20 04/21/17 12:15 04/21/17 12:15 04/21/17 12:15 04/21/17 12:15 General appearance: Present: cooperative, A&O X 3, pleasant, no acute distress, answers questions appropriately - Eye Eye exam: Present: PERRL, sclera anicteric - Respiratory Respiratory exam: Present: rales (fine rales bibasal) - Cardiovascular Cardiovascular exam: Present: RRR - GI/Abdominal GI/Abdominal exam: Present: normal bowel sounds, soft. Absent: distended, tenderness - Extremities Exam Extremities exam: Present: pedal edema (ankle) - Back Exam Back exam: Absent: CVA tenderness (L), CVA tenderness (R) - Neurological Exam Neurological exam: Present: alert, oriented X3, no focal deficits, strengths equal and symetr throughout. Absent: facial droop, speech deficit
--- NOTE | 2017-04-23 18:09 | Event Note ---
Date of Encounter: 04/22/17 Time of Encounter: 11:00 Late entry: I was informed of the urine culture results of Ms Winters. urine culture grew E coli resistance to cipro. Patient was asymptomatic and responded well to ciprofloxacin. I recommend to continue ciprofloxacin and a repeat urine culture in her next outpatient appointment.
== END 2017-04-21 16:40 | disposition home or self-care (01) | DRG 281 ==
LOC: 3BNU 06:02 → EMEROO 06:02 → 3BNU 10:00 → SUATTDRO 11:59
PROVIDERS: ADMIT Registered Nurse; ATTEND Internal Medicine

== ENCOUNTER 2017-07-07 22:59 | Observation (INO) ==
--- NOTE | 2017-07-07 23:25 | Emergency Department Note ---
Disposition Clinical Impression: Syncope due to orthostatic hypotension, Weakness Fracture of greater tuberosity of humerus Qualifiers: Encounter type: initial encounter Fracture type: closed Fracture alignment: displaced Laterality: right Qualified Code(s): S42.251A - Displaced fracture of greater tuberosity of right humerus, initial encounter for closed fracture Fall Qualifiers: Encounter type: initial encounter Qualified Code(s): W19.XXXA - Unspecified fall, initial encounter Disposition: Admitted As Inpatient Condition: Fair Time of Disposition: 04:20 Syncope HPI - General Chief Complaint: ED Syncope Stated Complaint: syncope Time Seen by Provider: 07/07/17 23:04 Source: patient, family Limitations: no limitations Nursing Notes Reviewed: Yes Vital Signs Reviewed: Yes - History of Present Illness HPI Narrative: Female patient had a mechanical fall earlier today. She was checked out here for that. Diagnosed with a humeral fracture. End up having 2 episodes of syncope after going home. No trauma during the 2 episodes syncope. She was assisted to the ground. Mentating appropriately at this time. - Related Data Home Medications Medication Instructions Recorded Confirmed Aspirin Enteric Coated [Aspirin EC] 81 mg PO DAILY 05/27/15 07/08/17 Calcium Carbonate/Vitamin D3 600 mg PO DAILY 05/27/15 07/08/17 [Calcium 600 + D Tablet] Levothyroxine [Synthroid] 50 mcg PO QAM 05/27/15 07/08/17 Oxygen 4 l NS AD 05/27/15 07/08/17 Albuterol Sulfate [Albuterol 2 puff IH Q6HR PRN 05/28/15 07/08/17 Inhaler] Isosorbide MONOnitrate (24 HR) 60 mg PO QPM 05/28/15 07/08/17 [Imdur] Metoprolol XL (24 HR) Succ [Toprol 25 mg PO DAILY 05/28/15 07/08/17 XL] Pravastatin Sodium [Pravachol] 40 mg PO QPM 05/28/15 07/08/17 [place] Oil/[place]-3 Fatty Acids 1,000 mg PO BID 05/28/15 07/08/17 [Fish Oil 500 mg Softgel] Melatonin [Melatin] 3 mg PO HS 02/05/16 07/08/17 Mv,Calcium,Min/Iron/Folic/Vitk 1 tab PO DAILY 02/05/16 07/08/17 [Multi For Her Tablet] Nitroglycerin [Nitrostat] 0.4 mg SL Q5M PRN 02/05/16 07/08/17 Cranberry Fruit Extract/Vit C [Azo 1 cap PO BID 11/25/16 07/08/17 Cranberry Softgel] Alendronate Sodium [Fosamax] 70 mg PO TH 02/03/17 07/08/17 Citalopram [CeleXA] 20 mg PO DAILY 02/03/17 07/08/17 Furosemide [Lasix] 20 mg PO DAILY PRN 03/01/17 07/08/17 Rivaroxaban [Xarelto] 20 mg PO DAILY 04/20/17 07/08/17 Esbriet 3 cap PO TID 05/13/17 07/08/17 Myrbetriq 50 mg PO DAILY 05/13/17 07/08/17 Docusate [Colace] 100 mg PO DAILY 07/08/17 07/08/17 Ranitidine HCl [Zantac] 150 mg PO BID 07/08/17 07/08/17 Allergies Allergy/AdvReac Type Severity Reaction Status Date / Time lisinopril Allergy Intermediate Cough Verified 07/07/17 23:00 Amoxicillin [From Augmentin] Allergy Mild Rash Verified 07/07/17 23:00 clavulanic acid Allergy Mild Rash Verified 07/07/17 23:00 [From Augmentin] nitrofurantoin Allergy Mild Rash Verified 07/07/17 23:00 [From Macrobid] Penicillins [PCN] Allergy Mild Rash Verified 07/07/17 23:00 Sulfa (Sulfonamide AdvReac Mild Nausea Verified 07/07/17 23:00 Antibiotics) All systems ED: reviewed and negative except as stated. Constitutional: Denies: fever, chills Eyes: Reports: other (Pain to the right side of her face. Bruising to the right side of her face.). Denies: eye pain, vision change Cardiovascular: Reports: syncope (2 episodes today.). Denies: chest pain, palpitations, dyspnea on exertion, edema Respiratory: Denies: cough, dyspnea Gastrointestinal: Denies: abdominal pain, nausea, vomiting, diarrhea, hematemesis, melena, hematochezia Genitourinary: Denies: urgency, dysuria, frequency, hematuria Musculoskeletal: Reports: other (Right arm pain.). Denies: back pain, neck pain Integumentary: Denies: rash, abrasion Neurological: Reports: weakness. Denies: headache, numbness, paresthesias Past Medical History - Past Medical History Attestation: Yes The following information was validated with the patient. Source: patient Medical history: Reports: arthritis, CHF, coronary artery disease, DVT, GERD, hyperlipidemia, hypertension, myocardial infarction, osteoporosis, thyroid disease, other Surgical history: Reports: angioplasty/stent, cholecystectomy, coronary bypass ( CABG), orthopedic, other, other Psychiatric history: Reports: depression - Social History Smoking Status: Never smoker Smokeless Tobacco Status: No Alcohol use: Reports: none Drug use: Reports: none Physical Exam - General Limitations: no limitations General appearance: alert, in no apparent distress - Head Head exam: normocephalic, other (Swelling and ecchymosis to right orbit area. Small laceration to right orbit.) - Eye Eye exam: Present: normal appearance, PERRL, EOMI. Absent: scleral icterus, conjunctival injection - ENT ENT exam: normal exam, normal oropharynx, mucous membranes moist - Neck Neck exam: Present: normal inspection, full ROM, trachea midline. Absent: tenderness, meningismus - Chest Chest inspection: Present: normal inspection, symmetric chest wall rise. Absent : tenderness - Respiratory Respiratory exam: Present: normal lung sounds bilaterally. Absent: respiratory distress, wheezes, accessory muscle use - Cardiovascular Cardiovascular exam: Present: regular rate, normal rhythm, normal heart sounds - Abdominal Exam Abdominal exam: Present: soft, Non-Tender, normal bowel sounds. Absent: tenderness, distention, guarding, rebound, rigidity, organomegaly - Expanded Upper Extremity Exam Shoulder exam: Present: other (Pain to right shoulder area.) Arm exam: Present: normal inspection, full ROM Elbow exam: Present: normal inspection, full ROM Forearm/Wrist exam: Present: normal inspection, full ROM Hand exam: Present: normal inspection, full ROM Vascular exam: Normal: capillary refill, radial pulse - Back Exam Back exam: Present: normal inspection, full ROM. Absent: tenderness - Neurological Exam Neurological exam: Present: alert, oriented X3 - Psychiatric Psychiatric exam: Present: normal affect, normal mood - Skin Skin exam: Present: warm, dry, intact, normal color. Absent: rash, cyanosis, diaphoresis, erythema Course Course Narrative: Female patient presenting to the emergency department by EMS for syncope. She was seen here earlier today for a mechanical fall due to tripping over some oxygen tubing. Does have a hematoma and abrasions as well as ecchymosis to the right side of her forehead. Her arm is in a sling. The daughter states that the patient had 2 episodes of syncope since she has been home. She states each time she helped the patient to the floor. She states that every time she gets up to walk she then becomes mute and will not talk and is unresponsive. They then help her to the ground. She has been confused for a short period of time after she is on the ground however quickly comes around. The patient is alert and oriented 3 on arrival here. Her vitals are stable. EMS reports a normal blood glucose. Family is insistent there is been no trauma since her visit here earlier today. Reviewing the CT scan of her head as well as imaging that was obtained she had a right humeral head and greater tuberosity fracture. There are no signs of acute bleeding to her brain earlier. She is mentating appropriately. Pupils are equal and reactive. She appears to be in no distress. She is smiling and talking to me appropriately. Lung sounds are clear heart tones are normal. We will get a Basic lab workup on patient and I anticipate admission to the hospital. - Reevaluation(s) Reevaluation #1: Since lab workup is grossly normal. She does have orthostasis. Her initial lying blood pressure was 131/68. After standing it dropped to 87/47. We will admit patient to the hospital. - Consultations Consultation #1: Dr. Mckeon accepted patient in stable condition. Time: 00:38 Vital Signs Temperature 97.8 F 07/07/17 23:01 Pulse Rate 82 07/07/17 23:01 Respiratory Rate 20 07/07/17 23:01 Blood Pressure 131/68 07/07/17 23:01 O2 Sat by Pulse Oximetry 99 07/07/17 23:01 Temperature 97.9 F 07/08/17 02:20 Pulse Rate 74 07/08/17 02:20 Respiratory Rate 16 07/08/17 02:20 Blood Pressure 116/72 07/08/17 02:20 O2 Sat by Pulse Oximetry 97 07/08/17 02:20 Oxygen Delivery Oxygen Delivery Room Air Syncope - Medical Records Medical records reviewed: Yes I reviewed the patient's medical records. - Lab Data Lab results reviewed: Yes I reviewed the patient's lab results. Result diagrams: 07/07/17 23:23 07/07/17 23:23 Lab Results 07/07/17 07/07/17 07/07/17 Range/Units 23:23 23:23 23:23 WBC 10.4 (4.3-11.1) K/mcL RBC 3.67 L (3.82-4.97) M/mcL Hgb 11.3 L (11.5-15.4) g/dL Hct 35.9 (35.3-44.9) % MCV 97.8 (83.0-100.0) fL MCH 30.8 (28.0-33.3) pg MCHC 31.5 L (31.6-35.5) g/dL RDW 14.0 (11.5-14.5) % Plt Count 198 (140-400) K/mcL MPV 8.6 L (9.4-12.4) fL Immature Gran % 0.3 (0-4) % Seg Neutrophils % 65.1 % Lymphocytes % 22.4 % Monocytes % 8.9 % Eosinophils % 2.9 % Basophils % 0.4 % Neutrophils # 6.8 (1.6-8.9) K/mcL Lymphocytes # 2.3 (0.6-4.6) K/mcL Monocytes # 0.9 (0.0-1.3) K/mcL Eosinophils # 0.3 (0.0-0.6) K/mcL Basophils # 0.0 (0.0-0.2) K/mcL Sodium 136 (136-145) mEq/L Potassium 4.6 H (3.5-4.5) mEq/L Chloride 104 (98-109) mEq/L Carbon Dioxide 25 (19-29) mEq/L BUN 17 (7-20) mg/dL Creatinine 0.93 (0.57-1.11) mg/dL Est GFR ( Amer) > 60 (> 60) Est GFR (Non-Af Amer) 58 L (> 60) BUN/Creatinine Ratio 18 (6-26) Glucose 128 H (70-99) mg/dL Calculated Osmolality 285 (280-300) Calcium 9.7 (8.6-10.8) mg/dL Troponin I 0.01 (0-0.03) ng/mL Urine Color (Yellow) Urine Clarity (Clear) Urine pH (5.0-8.0) pH Units Ur Specific [place] (1.010-1.025) Urine Protein (Neg-Trace) mg/dL Urine Glucose (UA) (Normal) mg/dL Urine Ketones (Negative) mg/dL Urine Blood (Negative) Urine Nitrite (Negative) Urine Bilirubin (Negative) Urine Urobilinogen (Normal) mg/dL Ur Leukocyte Esterase (Negative) Ur Culture Indicated? (NO) 07/08/17 Range/Units 00:04 WBC (4.3-11.1) K/mcL RBC (3.82-4.97) M/mcL Hgb (11.5-15.4) g/dL Hct (35.3-44.9) % MCV (83.0-100.0) fL MCH (28.0-33.3) pg MCHC (31.6-35.5) g/dL RDW (11.5-14.5) % Plt Count (140-400) K/mcL MPV (9.4-12.4) fL Immature Gran % (0-4) % Seg Neutrophils % % Lymphocytes % % Monocytes % % Eosinophils % % Basophils % % Neutrophils # (1.6-8.9) K/mcL Lymphocytes # (0.6-4.6) K/mcL Monocytes # (0.0-1.3) K/mcL Eosinophils # (0.0-0.6) K/mcL Basophils # (0.0-0.2) K/mcL Sodium (136-145) mEq/L Potassium (3.5-4.5) mEq/L Chloride (98-109) mEq/L Carbon Dioxide (19-29) mEq/L BUN (7-20) mg/dL Creatinine (0.57-1.11) mg/dL Est GFR ( Amer) (> 60) Est GFR (Non-Af Amer) (> 60) BUN/Creatinine Ratio (6-26) Glucose (70-99) mg/dL Calculated Osmolality (280-300) Calcium (8.6-10.8) mg/dL Troponin I (0-0.03) ng/mL Urine Color Yellow (Yellow) Urine Clarity Clear (Clear) Urine pH 6.5 (5.0-8.0) pH Units Ur Specific [place] 1.023 (1.010-1.025) Urine Protein Negative (Neg-Trace) mg/dL Urine Glucose (UA) Normal (Normal) mg/dL Urine Ketones Negative (Negative) mg/dL Urine Blood Negative (Negative) Urine Nitrite Negative (Negative) Urine Bilirubin Negative (Negative) Urine Urobilinogen Normal (Normal) mg/dL Ur Leukocyte Esterase Negative (Negative) Ur Culture Indicated? NO (NO) - Radiology Data Radiology results reviewed: Yes I reviewed the patient's radiology results. Chest X-Ray 07/08/17 01:07 IMPRESSION: Stable appearance of the chest without acute intrathoracic process chronic findings as described. D/ / Blossom Tapia MD / Blossom Tapia MD Interpreting Provider: Blossom Tapia MD - EKG Data EKG attestation: Yes I reviewed and interpreted this EKG. EKG results narrative: Normal sinus rhythm at a rate 84. GA interval is 139. QRS duration is 83. QT is 354. QTC is 395. No signs of acute ischemia. She does have peaked P waves as well as ST depressions in leads V1 and V2 V3 and V4 V5 with T-wave inversions. These were on her previous EKG dated 04/20/2017. Attestation Statement - Attestation Attestation: I, Derrell Funes MD, personally evaluated this patient and discussed their management with the resident physician. I reviewed the resident's note and agree with the documented findings, medical decision making, and plan of care. 81-year-old female who was seen here in the emergency department earlier today after a fall. She had a CT of her head. She was found to have a fracture of the proximal right humerus. Patient was discharged home but returns tonight because after going home she had 2 syncopal episodes. Family reports that she just became weak and dizzy and lightheaded and then became unresponsive. Daughter reports that she was unresponsive for about 10-15 minutes then started waking up. Initially she was confused and disoriented with garbled speech but then this rapidly resolved and she returned to baseline. No falls or injury from the syncopal episodes tonight. No chest pain. She does admit to feeling short of breath with the syncopal episodes. On examination patient is a well-developed well-nourished elderly female in no acute distress. She is alert and cooperative and follows commands. There is no cyanosis or diaphoresis. Breath sounds are clear and equal bilaterally. Heart regular rate and rhythm. Abdomen soft and nontender with normal bowel sounds. No gross focal neurological deficits noted. The hospitalist, Dr. Mckeon, was consulted and accepted admission of the patient.
[2017-07-07] MEDS ORDERED: Tdap (Boostrix) Vaccine 0.5 ML SYRINGE IM ONE (23:26)
[2017-07-07 23:29] LABS: Basophils % 0.4 %; Eosinophils # 0.3 K/mcL (0.0-0.6); Eosinophils % 2.9 %; Hematocrit 35.9 % (35.3-44.9); Hemoglobin 11.3 g/dL (11.5-15.4); Immature Granulocytes % 0.3 % (0-4); Lymphocytes # 2.3 K/mcL (0.6-4.6); Lymphocytes % 22.4 %; Mean Corpuscular HGB Conc 31.5 g/dL (31.6-35.5); Mean Corpuscular Hemoglobin 30.8 pg (28.0-33.3); Mean Corpuscular Volume 97.8 fL (83.0-100.0); Mean Platelet Volume 8.6 fL (9.4-12.4); Monocytes # 0.9 K/mcL (0.0-1.3); Monocytes % 8.9 %; Neutrophils # 6.8 K/mcL (1.6-8.9); Platelet Count 198 K/mcL (140-400); Red Blood Count 3.67 M/mcL (3.82-4.97); Segmented Neutrophils % 65.1 %
[2017-07-07 23:44] LABS: BUN/Creatinine Ratio 18 (6-26); Blood Urea Nitrogen 17 mg/dL (7-20); Calcium 9.7 mg/dL (8.6-10.8); Carbon Dioxide 25 mEq/L (19-29); Chloride 104 mEq/L (98-109); Glucose 128 mg/dL (70-99); Osmolality,Calculated 285 (280-300); Potassium 4.6 mEq/L (3.5-4.5); Sodium 136 mEq/L (136-145); eGFR For African Americans > 60 (> 60); eGFR For Non-African Americans 58 (> 60)
[2017-07-08 00:16] LABS: Bilirubin,Urine Negative (Negative); Blood,Urine Negative (Negative); Clarity,Urine Clear (Clear); Color,Urine Yellow (Yellow); Glucose,Urine (UA) Normal (Normal); Ketones,Urine Negative (Negative); Leukocyte Esterase,Urine Negative (Negative); Nitrite,Urine Negative (Negative); PH,Urine 6.5 pH Units (5.0-8.0); Protein,Urine Negative (Neg-Trace); Specific Gravity,Urine 1.023 (1.010-1.025); Urobilinogen,Urine Normal (Normal)
[2017-07-08] MEDS ORDERED: Naloxone 0.4 MG/ML INJ IVP PRN (01:08)
--- NOTE | 2017-07-08 01:21 | Internal Med History&Physical ---
Date of Encounter: 07/08/17 Time of Encounter: 01:13 Assessment and Plan (1) Syncope due to autonomic failure Current visit: Yes Status: Acute Her syncope, presyncopal episode may be related to a orthostasis. Her daughter reports having low blood pressure on cardiac medications. I have therefore discontinued imdur with continuation of metoprolol IVF PT/OT eval for placement due to safety issues at home alone Trend Orthostatic vitals Compression stockings (2) Fracture of greater tuberosity of humerus Current visit: No Status: Acute now in a sling. Consult ortho in the morning Qualifiers: Encounter type: initial encounter Fracture type: closed Fracture alignment: displaced Laterality: right Qualified Code(s): S42.251A - Displaced fracture of greater tuberosity of right humerus, initial encounter for closed fracture (3) Coronary artery disease Current visit: No Status: Chronic d/c imdur due to orthostasis. Continue metoprolol. Qualifiers: Coronary Disease-Associated Artery/Lesion type: [place] artery [place] vs. transplanted heart: [place] heart Associated angina: with unstable angina Qualified Code(s): I25.110 - Atherosclerotic heart disease of [place] coronary artery with unstable angina pectoris (4) DVT (deep venous thrombosis) Current visit: No Status: Chronic Chronic LLE > RLE swelling reported by family. LLE DVT reported to be provoked. Due to fall will d/c xarelto. Risk greater than benefit. Also has completed adequate length with 3-6 months duration Qualifiers: DVT location: lower extremity Affected thrombotic vein of extremity: unspecified lower extremity distal vein Chronicity: chronic Laterality: left Qualified Code(s): I82.5Z2 - Chronic embolism and thrombosis of unspecified deep veins of left distal lower extremity (5) Hypothyroidism Current visit: No Status: Chronic Synthroid Qualifiers: Hypothyroidism type: acquired Qualified Code(s): E03.9 - Hypothyroidism, unspecified (6) Pulmonary fibrosis Current visit: No Status: Chronic Almost Dr. Hernandez at [facility] . On chronic 4 L [place] Internal Medicine - H&P: HPI Chief complaint: Presyncope/syncope History of present illness: Ms. Winters is a 81 year old female who presents with acute syncope/presyncopal in last 24 hours. She has a history of CAD status post CABG in 2006, stents in 2008, 11, follows with Dr. Olivier, has idiopathic pulmonary fibrosis on 4 L oxygen, history of provoked left lower extremity DVT in December 2016 relating to hospitalization on xarelto anticoagulation. At baseline she lives at home alone and uses a Rollator. She was seen in the ER this afternoon for a suppose it for with trauma to her right upper extremity to result in a comminuted fracture of the right humeral head. She was sent home with a sling and instructions for orthopedic outpatient follow-up. However when she was at home, close monitoring by her family noted 2 episodes of presyncope phenomena. The first incident happened at 8 PM when she was getting up from bed into the Rollator. She walked 10 feet before becoming sweaty, shortness of breath and we will became minimally responsive. The daughter present by her side slowly eased her to the ground. She was unresponsive for approximately 15 minutes before regaining consciousness with some early confusion. The second incident happened at around 10 PM when she was about to get dressed for bed. She was walking with her Rollator when she suddenly slowed down became sweaty again, had heavy breathing and had to be eased on the Rollator seatby his son. She was minimally responsive but noted to be overweight just like to first episode In the ED objectively she was found to be orthostatic. Review she reported frontal headache in the past week but CT of the head was negative for sinusitis. EKG reviewed personally with rate 84, normal sinus rhythm, T-wave inversion in the anterior leads that is unchanged from prior EKG UA was negative CT/CT head/brain wo con IMPRESSION: No acute intracranial abnormality. Mild periventricular white matter small vessel ischemic disease. CT/CT cervical spine wo con IMPRESSION: 1. No acute osseous abnormality of cervical spine. 2. Moderate multilevel degenerative changes. XR/XR wrist complete 3V RT IMPRESSION: Moderate to severe degenerative changes at the base of the thumb. No acute fracture or dislocation of the right wrist or right hand. XR/XR shoulder complete RT IMPRESSION: Comminuted fracture of the humeral head involving the greater tuberosity. XR/XR elbow complete RT IMPRESSION: Mild soft tissue swelling without acute osseous abnormality. Past Med Surg Social Fam HX - Past Medical History Medical history: arthritis, CHF, coronary artery disease, DVT, GERD, hyperlipidemia, hypertension, myocardial infarction, osteoporosis, thyroid disease, other Psychiatric history: depression - Past Surgical History Surgical History: angioplasty/stent, cholecystectomy, coronary bypass (CABG), orthopedic, other, other - Social History Smoking Status: Never smoker Smokeless Tobacco Status: No Alcohol use: none Drug use: none - Family History Mother Living Status: Hx Family Respiratory Disorders: Yes Father Adopted: No Family Member Ethnicity: Non- Living Status: Hx Family Cardiac Disorders: No Hx Family Respiratory Disorders: Yes (Pulmonary fibrosis) Hx Family Cancer: No Hx Family GI Disorders: Yes (GERD) Hx Family Endocrine Disorder: No Hx Family Neuromuscular Disorders: No Hx Family Neurologic Disorders: No Hx Family HEENT Disorders: No Hx Family Autoimmune Disorders: No Sister Adopted: No Living Status: Hx Family Respiratory Disorders: Yes (PULMONARY FIBROSIS) Internal Medicine - H&P: Meds Aspirin Enteric Coated [Aspirin EC] 81 mg PO DAILY 05/27/15 [History] Calcium Carbonate/Vitamin D3 [Calcium 600 + D Tablet] 600 mg PO DAILY 05/27/15 [ History] Levothyroxine [Synthroid] 50 mcg PO QAM 05/27/15 [History] Oxygen 4 l NS AD 05/27/15 [History] Albuterol Sulfate [Albuterol Inhaler] 2 puff IH Q6HR PRN 05/28/15 [History] Isosorbide MONOnitrate (24 HR) [Imdur] 60 mg PO QPM 05/28/15 [History] Metoprolol XL (24 HR) Succ [Toprol XL] 25 mg PO DAILY 05/28/15 [History] Pravastatin Sodium [Pravachol] 40 mg PO QPM 05/28/15 [History] [place] Oil/[place]-3 Fatty Acids [Fish Oil 500 mg Softgel] 1,000 mg PO BID [History] Melatonin [Melatin] 3 mg PO HS 02/05/16 [History] Mv,Calcium,Min/Iron/Folic/Vitk [Multi For Her Tablet] 1 tab PO DAILY 02/05/16 [ History] Nitroglycerin [Nitrostat] 0.4 mg SL Q5M PRN 02/05/16 [History] Cranberry Fruit Extract/Vit C [Azo Cranberry Softgel] 1 cap PO BID 11/25/16 [ History] Alendronate Sodium [Fosamax] 70 mg PO TH 02/03/17 [History] Citalopram [CeleXA] 20 mg PO DAILY 02/03/17 [History] Furosemide [Lasix] 20 mg PO DAILY PRN 03/01/17 [History] Rivaroxaban [Xarelto] 20 mg PO DAILY 04/20/17 [History] Esbriet 3 cap PO TID 05/13/17 [History] Myrbetriq 50 mg PO DAILY 05/13/17 [History] Ranitidine HCl [Zantac] 150 mg PO BID 07/08/17 [History] 3 Allergy/AdvReac Type Severity Reaction Status Date / Time lisinopril Allergy Intermediate Cough Verified 07/07/17 23:00 Amoxicillin [From Augmentin] Allergy Mild Rash Verified 07/07/17 23:00 clavulanic acid Allergy Mild Rash Verified 07/07/17 23:00 [From Augmentin] nitrofurantoin Allergy Mild Rash Verified 07/07/17 23:00 [From Macrobid] Penicillins [PCN] Allergy Mild Rash Verified 07/07/17 23:00 Sulfa (Sulfonamide AdvReac Mild Nausea Verified 07/07/17 23:00 Antibiotics) All Systems PM: A 10-system review of systems was performed and is negative for pertinent findings except as documented above in the HPI. Review of systems: ROS 14 point review of systems reviewed as best as possible given presentation. Pertinent positive or negative as per HPI or otherwise reviewed as negative - Constitutional Vitals: Temp Pulse Resp BP Pulse Ox 97.8 F 74 18 121/72 98 07/07/17 23:01 07/08/17 00:04 07/08/17 00:54 07/08/17 00:54 07/08/17 00:04 Exam: General - AAO x 3 Psych - Appropriate affect/speech. No agitation Eyes - EDILMA. Eye lids intact. No scleral icterus Neuro - No gross peripheral or central neuro deficits with intact CN 2-12 exam Heart - Sinus. RRR. S1 and S2 present. No added HS/murmurs appreciated. No elevated JVD appreciated. Lung - Adequate air entry b/l, No crackles/wheezes appreciated GI - Soft, non-tender. No hepatosplenomegaly/ascites. BS+ - No CVA/suprapubic tenderness or palpable bladder distension Skin - chronic left lower extremity swelling greater than right. Warm extremities MSK - right arm in sling Internal Med - H&P Results - Labs CBC & Chem 7: 07/07/17 23:23 07/07/17 23:23
[2017-07-08] MEDS: 0.9 % Sodium Chloride 1,000 ML IVC SCH ×2 (02:33→13:52)
[2017-07-08] MEDS: traMADol 50 MG TABLET PO PRN ×2 (03:34→10:41)
[2017-07-08 05:00] LABS: Basophils % 0.4 %; Eosinophils # 0.3 K/mcL (0.0-0.6); Eosinophils % 2.5 %; Hematocrit 32.6 % (35.3-44.9); Hemoglobin 10.4 g/dL (11.5-15.4); Immature Granulocytes % 0.3 % (0-4); Lymphocytes # 2.8 K/mcL (0.6-4.6); Lymphocytes % 27.7 %; Mean Corpuscular HGB Conc 31.9 g/dL (31.6-35.5); Mean Corpuscular Hemoglobin 31.1 pg (28.0-33.3); Mean Corpuscular Volume 97.6 fL (83.0-100.0); Monocytes % 9.6 %; Platelet Count 177 K/mcL (140-400); Red Blood Count 3.34 M/mcL (3.82-4.97); Red Cell Distribution Width 14.2 % (11.5-14.5); Segmented Neutrophils % 59.5 %
[2017-07-08 05:17] LABS: BUN/Creatinine Ratio 20 (6-26); Blood Urea Nitrogen 15 mg/dL (7-20); Calcium 9.2 mg/dL (8.6-10.8); Carbon Dioxide 25 mEq/L (19-29); Chloride 106 mEq/L (98-109); Glucose 98 mg/dL (70-99); Magnesium 2.2 mg/dL (1.6-2.6); Osmolality,Calculated 287 (280-300); Potassium 4.5 mEq/L (3.5-4.5); Sodium 138 mEq/L (136-145); eGFR For African Americans > 60 (> 60); eGFR For Non-African Americans > 60 (> 60)
--- NOTE | 2017-07-08 08:44 | Internal Med Progress Note ---
Date of Encounter: 07/08/17 Time of Encounter: 08:41 - Assessment and plan (1) Syncope due to orthostatic hypotension Current Visit: Yes Status: Acute Assessment and plan: Kathryn Guajardo is a 81 y/o female with PMH CAD, idiopathic pulmonary fibrosis on 4 L oxygen, provoked left lower extremity DVT and hypothyridism who presented to [facility] on 07/07/2017 after 2 syncopal episodes at home with + LOC. She was fund to have a right humerus fracture, therefore, she was placed in observation status for Ortho consultation and further work-up of syncope. Syncope: with 2 syncopal episodes on day of presentation with witnessed LOC. Strongly suspect secondary to orthostatic hypotension; in ED, BP 131/68 lying and 87/47 standing. BP remains soft/borderline. Holding all BP medications for now. She does have a hx recent DVT and has been on Xarelto, low suspicion for pulmonary embolism, however will check chest CTA to rule out pulmonary embolus, dissection. Trend orthstatics. Echo, carotid dopplers, chest CTA pending. Monitor on tele. PT/OT eval for possible placement due to safety issues at home alone. (2) Fracture of greater tuberosity of humerus Current Visit: Yes Status: Acute Assessment and plan: secondary to mechanical fall on day of presentation. Right shoulder x-ray with comminuted fracture of the humeral head involving the greater tuberosity. Right arm placed in sling. Ortho consulted Qualifiers: Encounter type: initial encounter Fracture type: closed Fracture alignment: displaced Laterality: right Qualified Code(s): S42.251A - Displaced fracture of greater tuberosity of right humerus, initial encounter for closed fracture (3) Coronary artery disease Current Visit: No Status: Chronic Assessment and plan: per hx. Asymptomatic, denies chest pain. EKG without acute ST changes. Cont home ASA, statin. Holding home nitrate and BB with hypotension. Resume as BP allows Qualifiers: Coronary Disease-Associated Artery/Lesion type: [place] artery [place] vs. transplanted heart: [place] heart Associated angina: with unstable angina Qualified Code(s): I25.110 - Atherosclerotic heart disease of [place] coronary artery with unstable angina pectoris (4) DVT (deep venous thrombosis) Current Visit: No Status: Chronic Assessment and plan: to left leg 12/2016; LLE DVT reported to be provoked. Home xarelto stopped on admission as bleeding risk greater than benefit. Also has completed adequate 6 months duration. Qualifiers: DVT location: lower extremity Affected thrombotic vein of extremity: unspecified lower extremity distal vein Chronicity: chronic Laterality: left Qualified Code(s): I82.5Z2 - Chronic embolism and thrombosis of unspecified deep veins of left distal lower extremity (5) Hypothyroidism Current Visit: No Status: Chronic Assessment and plan: per hx. 04/2017 TSH 6.1, consistent with subclinical hypothyroidism. Repeat TSH per daughter request. Cont home levothyroxine Qualifiers: Hypothyroidism type: acquired Qualified Code(s): E03.9 - Hypothyroidism, unspecified (6) DVT prophylaxis Current Visit: No Status: Acute Assessment and plan: heparin - Time Spent With Patient Greater than 35 minutes (daughter updated in depth at bedside) - Subjective Interval history: Seen and examined at bedside; patient is new to me. Information obtained from chart review and patient report. Patient says she feels much better now. No lightheadedness, no dizziness or palpitations. Says right arm is a little sore, n numbness or tingling. Daughter at bedside and updated; daughter is requesting repeat TSH and echo. Patient denies chest pain, no SOB - Constitutional Vitals: Temp Pulse Resp BP Pulse Ox 98.4 F 72 16 127/75 99 07/08/17 06:57 07/08/17 06:57 07/08/17 06:57 07/08/17 06:57 07/08/17 06:57 General appearance: Present: A&O X 3, no acute distress - Head Head exam: Present: atraumatic, normocephalic - Eye Eye exam: Present: PERRL, conjuntiva pink, sclera anicteric Pupils: Present: PERRL Additional comments: right eye harsh-orbital laceration - Neck Neck exam general surgery: Present: supple, trachea midline. Absent: lymphadenopathy - Respiratory Respiratory exam: Present: CTAB. Absent: accessory muscle use, rales, rhonchi, wheezes - Cardiovascular Cardiovascular exam: Present: RRR, +S1, +S2. Absent: diastolic murmur, gallop, rubs, systolic murmur - GI/Abdominal GI/Abdominal exam: Present: normal bowel sounds, soft, no peritoneal signs. Absent: distended, tenderness - Extremities Exam Extremities exam: Present: warm, radial pulses palpable and symmetrical. Absent : calf tenderness, cyanotic, pedal edema Additional comments: right arm sling - Neurological Exam Neurological exam: Present: CN II-XII intact, oriented X3, no focal deficits. Absent: pronater drift, facial droop, speech deficit - Skin Skin exam: Present: dry, intact Internal Medicine: Result - Labs CBC & Chem 7: 07/08/17 04:00 07/08/17 04:00 Labs: Short CBC 07/08/17 Range/Units 04:00 WBC 10.1 (4.3-11.1) K/mcL Hgb 10.4 L (11.5-15.4) g/dL Hct 32.6 L (35.3-44.9) % Plt Count 177 (140-400) K/mcL Neutrophils # 6.0 (1.6-8.9) K/mcL BMP 07/08/17 04:00 Sodium 138 Potassium 4.5 Chloride 106 Carbon Dioxide 25 BUN 15 Creatinine 0.74 Glucose 98 Calcium 9.2 - Impressions Impressions Chest X-Ray 07/08/17 01:07 IMPRESSION: Stable appearance of the chest without acute intrathoracic process chronic findings as described. D/ / Blossom Tapia MD / Blossom Tapia MD Interpreting Provider: Blossom Tapia MD Consult Discharge Plan - Plan Referrals: Glenroy Lin MD [Primary Care Provider] -
[2017-07-08] MEDS ORDERED: Metoprolol XL (24 HR) Succ 50 MG TAB.ER.24H PO SCH (09:00)
--- NOTE | 2017-07-08 09:13 | Orthopedic Consult Note ---
Date of Encounter: 07/08/17 Time of Encounter: 08:00 Assessment and Plan (1) Fracture of greater tuberosity of humerus Current Visit: Yes Status: Acute This patient is a 81-year-old female with a right proximal humerus fracture as described above. Treatment options include observation with sling and early mobilization with therapy versus open reduction and internal fixation in order to stabilize the displaced fragment. Given her age and medical comorbidities as well as previous cuff tendinopathy as evidenced by old calcific lesion seen on x-ray my recommendation is for nonoperative management. We will continue the sling for comfort and institute therapy for pendulum swings. Nonweightbearing to the right upper extremity. She will require radiographic follow-up and an x-ray in 1 week. She can follow up with us at the [facility] with one of our sports medicine doctors. I will be available as needed while she remains in the hospital. Anticipate long-term facility/rehab upon discharge. Qualifiers: Encounter type: initial encounter Fracture type: closed Fracture alignment: displaced Laterality: right Qualified Code(s): S42.251A - Displaced fracture of greater tuberosity of right humerus, initial encounter for closed fracture History of Present Illness HPI: Ms. Winters is a 81 year old with multiple medical comorbidities and a history of a DVT currently on Xarelto. She was admitted to the hospitalist after multiple falls yesterday one of which at least was syncopal. She did sustain a displaced right greater tuberosity fracture and orthopedics was consulted. On my evaluation she complains of moderate pain localized to the right shoulder and no other injuries. She denies any headaches, neck pain, chest pain, abdominal pain, left upper extremity pain, and bilateral lower extremity pain. She denies any new numbness, tingling, or any other associated signs or symptoms. She was placed in a sling on the right upper extremity and pain is worse with movement and better at rest. Past Med Surg Social Fam HX - Past Medical History Medical history: arthritis, CHF, coronary artery disease, DVT, GERD, hyperlipidemia, hypertension, myocardial infarction, osteoporosis, thyroid disease, other Psychiatric history: depression - Past Surgical History Surgical History: angioplasty/stent, cholecystectomy, coronary bypass (CABG), orthopedic, other, other - Social History Smoking Status: Never smoker Smokeless Tobacco Status: No Alcohol use: none Drug use: none - Family History Mother Living Status: Hx Family Respiratory Disorders: Yes Father Adopted: No Family Member Ethnicity: Non- Living Status: Hx Family Cardiac Disorders: No Hx Family Respiratory Disorders: Yes (Pulmonary fibrosis) Hx Family Cancer: No Hx Family GI Disorders: Yes (GERD) Hx Family Endocrine Disorder: No Hx Family Neuromuscular Disorders: No Hx Family Neurologic Disorders: No Hx Family HEENT Disorders: No Hx Family Autoimmune Disorders: No Sister Adopted: No Living Status: Hx Family Respiratory Disorders: Yes (PULMONARY FIBROSIS) Medications and Allergies Aspirin Enteric Coated [Aspirin EC] 81 mg PO DAILY 05/27/15 [History] Calcium Carbonate/Vitamin D3 [Calcium 600 + D Tablet] 600 mg PO DAILY 05/27/15 [ History] Levothyroxine [Synthroid] 50 mcg PO QAM 05/27/15 [History] Oxygen 4 l NS AD 05/27/15 [History] Albuterol Sulfate [Albuterol Inhaler] 2 puff IH Q6HR PRN 05/28/15 [History] Isosorbide MONOnitrate (24 HR) [Imdur] 60 mg PO QPM 05/28/15 [History] Metoprolol XL (24 HR) Succ [Toprol XL] 25 mg PO DAILY 05/28/15 [History] Pravastatin Sodium [Pravachol] 40 mg PO QPM 05/28/15 [History] [place] Oil/[employer]-3 Fatty Acids [Fish Oil 500 mg Softgel] 1,000 mg PO BID [History] Melatonin [Melatin] 3 mg PO HS 02/05/16 [History] Mv,Calcium,Min/Iron/Folic/Vitk [Multi For Her Tablet] 1 tab PO DAILY 02/05/16 [ History] Nitroglycerin [Nitrostat] 0.4 mg SL Q5M PRN 02/05/16 [History] Cranberry Fruit Extract/Vit C [Azo Cranberry Softgel] 1 cap PO BID 11/25/16 [ History] Alendronate Sodium [Fosamax] 70 mg PO TH 02/03/17 [History] Citalopram [CeleXA] 20 mg PO DAILY 02/03/17 [History] Furosemide [Lasix] 20 mg PO DAILY PRN 03/01/17 [History] Rivaroxaban [Xarelto] 20 mg PO DAILY 04/20/17 [History] Mirabegron [Myrbetriq] 50 mg PO DAILY 05/13/17 [History] Pirfenidone [Esbriet] 801 mg PO TID 05/13/17 [History] Docusate [Colace] 100 mg PO DAILY 07/08/17 [History] Ranitidine HCl [Zantac] 150 mg PO BID 07/08/17 [History] 3 Allergy/AdvReac Type Severity Reaction Status Date / Time lisinopril Allergy Intermediate Cough Verified 07/07/17 23:00 Amoxicillin [From Augmentin] Allergy Mild Rash Verified 07/07/17 23:00 clavulanic acid Allergy Mild Rash Verified 07/07/17 23:00 [From Augmentin] nitrofurantoin Allergy Mild Rash Verified 07/07/17 23:00 [From Macrobid] Penicillins [PCN] Allergy Mild Rash Verified 07/07/17 23:00 Sulfa (Sulfonamide AdvReac Mild Nausea Verified 07/07/17 23:00 Antibiotics) All Systems Reviewed: Constitutional and musculoskeletal systems were reviewed and are negative unless otherwise stated in history of present illness. Physical Exam - Constitutional Vitals: Temp Pulse Resp BP Pulse Ox 98.4 F 72 16 127/75 99 07/08/17 06:57 07/08/17 06:57 07/08/17 06:57 07/08/17 06:57 07/08/17 06:57 Constitutional -Vitals reviewed -The patient is well developed and well nourished. -Mood is pleasant. -The patient is well groomed. Psychiatric -The patient is fully alert and oriented x 3. Respiratory: -Respiratory effort normal Abdomen: -Soft abdomen -Non tender -Non distended: Left upper extremity: -No deformities. The overlying skin is intact. No obvious signs of acute trauma. -No tenderness to palpation throughout. -No significant pain with passive motion of the shoulder, elbow, wrist, and fingers within the limits of the bed. -Able to make an "OK" sign, cross the index and long fingers, and extend the thumb. -Sensation grossly intact to light touch throughout the median, radial, and ulnar distributions. -Radial pulse is present; Fingers have good capillary refill. Right upper extremity: -No deformities are noted. The sling is temporarily taken down. The skin and the soft tissue lip are intact. -Tenderness about the shoulder region. No other tenderness noted. -Significant pain with any attempts at shoulder motion. -No significant pain with passive motion of the elbow, wrist, and fingers within the limits of the bed. -Able to make an "OK" sign, cross the index and long fingers, and extend the thumb. -Sensation grossly intact to light touch throughout the median, radial, and ulnar distributions. -Radial pulse is present; Fingers have good capillary refill. Left lower extremity: -No deformities. The overlying skin is intact. No obvious signs of acute trauma. -No tenderness to palpation throughout. -No pain with passive motion of the hip, knee, ankle, and toes within the limits of the bed. -No pain with axial loading of the thigh. -Able to dorsiflex and plantarflex the ankle and toes. -Sensation is grossly intact to light touch throughout the sural, saphenous, superficial peroneal, and deep peroneal distributions. -Toes have good capillary refill. Right lower extremity: -No deformities. The overlying skin is intact. No obvious signs of acute trauma. -No tenderness to palpation throughout. -No pain with passive motion of the hip, knee, ankle, and toes within the limits of the bed. -No pain with axial loading of the thigh. -Able to dorsiflex and plantarflex the ankle and toes. -Sensation is grossly intact to light touch throughout the sural, saphenous, superficial peroneal, and deep peroneal distributions. -Toes have good capillary refill. Diagnostic Imaging: I did personally review and interpret x-rays of the right hand, wrist, and elbow which showed degenerative changes without fracture. X-rays of the right shoulder show a posteriorly displaced right greater tuberosity fracture with pre -existing tendinopathy. Results - Labs Result Diagrams: 07/08/17 04:00 07/08/17 04:00 Labs: Abnormal lab results RBC 3.34 M/mcL (3.82-4.97) L 07/08/17 04:00 Hgb 10.4 g/dL (11.5-15.4) L 07/08/17 04:00 Hct 32.6 % (35.3-44.9) L 07/08/17 04:00 MPV 9.0 fL (9.4-12.4) L 07/08/17 04:00 H & H 07/08/17 Range/Units 04:00 Hgb 10.4 L (11.5-15.4) g/dL Hct 32.6 L (35.3-44.9) % All other labs normal. Consult Discharge Plan - Plan Referrals: Glenroy Lin MD [Primary Care Provider] -
[2017-07-08] MEDS: FISH OIL 500 MG PO SCH ×2 (10:24→21:27)
[2017-07-08] MEDS: Famotidine 20 MG TABLET PO SCH ×2 (10:24→21:27)
[2017-07-08] MEDS: Aspirin Enteric Coated 81 MG Tablet PO SCH (10:24)
[2017-07-08] MEDS ORDERED: traMADol 50 MG TABLET PO PRN (13:09)
[2017-07-08] MEDS: *HR* Heparin 5,000 UNIT/ML VIAL SQ SCH ×2 (13:51→21:29)
--- NOTE | 2017-07-08 14:29 | Physician Discharge Referral ---
ExtendedCare Referral Info Transfer To: F Provider in Charge: Virginia Curry CNP Provider in Charge after Transfer: Other (F physician) Institutional Level of Care: Intermediate - Diagnosis (1) Syncope due to orthostatic hypotension Status: Acute (2) Fracture of greater tuberosity of humerus Status: Acute (3) Coronary artery disease Status: Chronic (4) DVT (deep venous thrombosis) Status: Chronic (5) Hypothyroidism Status: Chronic (6) DVT prophylaxis Status: Acute - Transfer Medications Home Medications: Aspirin Enteric Coated [Aspirin EC] 81 mg PO DAILY 05/27/15 [History] Calcium Carbonate/Vitamin D3 [Calcium 600 + D Tablet] 600 mg PO DAILY 05/27/15 [ History] Levothyroxine [Synthroid] 50 mcg PO QAM 05/27/15 [History] Oxygen 4 l NS AD 05/27/15 [History] Albuterol Sulfate [Albuterol Inhaler] 2 puff IH Q6HR PRN 05/28/15 [History] Isosorbide MONOnitrate (24 HR) [Imdur] 60 mg PO QPM 05/28/15 [History] Metoprolol XL (24 HR) Succ [Toprol XL] 25 mg PO DAILY 05/28/15 [History] Pravastatin Sodium [Pravachol] 40 mg PO QPM 05/28/15 [History] [place] Oil/[place]-3 Fatty Acids [Fish Oil 500 mg Softgel] 1,000 mg PO BID [History] Melatonin [Melatin] 3 mg PO HS 02/05/16 [History] Mv,Calcium,Min/Iron/Folic/Vitk [Multi For Her Tablet] 1 tab PO DAILY 02/05/16 [ History] Nitroglycerin [Nitrostat] 0.4 mg SL Q5M PRN 02/05/16 [History] Cranberry Fruit Extract/Vit C [Azo Cranberry Softgel] 1 cap PO BID 11/25/16 [ History] Alendronate Sodium [Fosamax] 70 mg PO TH 02/03/17 [History] Citalopram [CeleXA] 20 mg PO DAILY 02/03/17 [History] Furosemide [Lasix] 20 mg PO DAILY PRN 03/01/17 [History] Rivaroxaban [Xarelto] 20 mg PO DAILY 04/20/17 [History] Mirabegron [Myrbetriq] 50 mg PO DAILY 05/13/17 [History] Pirfenidone [Esbriet] 801 mg PO TID 05/13/17 [History] Docusate [Colace] 100 mg PO DAILY 07/08/17 [History] Ranitidine HCl [Zantac] 150 mg PO BID 07/08/17 [History] Allergies/Adverse Reactions: 3 Allergy/AdvReac Type Severity Reaction Status Date / Time lisinopril Allergy Intermediate Cough Verified 07/07/17 23:00 Amoxicillin [From Augmentin] Allergy Mild Rash Verified 07/07/17 23:00 clavulanic acid Allergy Mild Rash Verified 07/07/17 23:00 [From Augmentin] nitrofurantoin Allergy Mild Rash Verified 07/07/17 23:00 [From Macrobid] Penicillins [PCN] Allergy Mild Rash Verified 07/07/17 23:00 Sulfa (Sulfonamide AdvReac Mild Nausea Verified 07/07/17 23:00 Antibiotics) - Respiratory Orders Oxygen / L per min (3-4 L/m) Smoking Cessation: Smoking cessation has been advised. For more information, call the [place] Tobacco Quit Line at 0-877-RGQI-NOW. - Ancillary Orders May use pressure relief devices daily prn - Advance Directives Code Status: Full Code - Mobility Orders Other (Per therapy recommendations) - Rehabiliation Orders Rehab Potential: Fair Rehab Orders: Evaluation for Physical Therapy, Evaluation for Occupational Therapy, Evaluation for Speech Therapy - Diet Orders Regular CERTIFICATION: I certify that the transfer of the above named patient to an Extended Care Facility is necessary for the continuing treatment of the diagnosis listed. The above information is true and accurate reflection of patient's current condition. Confidential - Redisclosure prohibited without a patient's written consent.
--- NOTE | 2017-07-08 17:04 | Carotid Imaging Report ---
Carotid Duplex Patient Name:Kathryn Winters Order Number:[id number] Procedure Date:07/08/2017 Date:1935ge:81 yrs Gender:Female Location:[facility] Room #: 3B13 Offset Printing Pressmen:Vinicius Golden RN, RDCS Referring MD:Virginia Zambrano, RUBBER [employer]OR [employer]ER Reading MD:Rigoberto Magaña MD , FACS Primary Indications:Syncope Risk Factors Yes/No Hypertension Yes Diabetes No Hypercholesterolemia Yes Smoker Previous No Hx of TIA No Hx of CVA No Anticoagulants Yes Hx of CAD/PTCA Yes Impressions: Findings: Bilateral carotid system have nonstenotic plaque. Recommendations: Test completed on 07/08/2017 at 12:45:00 pm. Findings Carotid Duplex: Right: The right proximal common carotid artery has a PSV of 112 cm/s and a EDV of 17 cm/s. The right mid common carotid artery has a PSV of 87 cm/s and a EDV of 21 cm/s. The right distal common carotid artery has a PSV of 72 cm/s and a EDV of 25 cm/s. There is nonstenotic plaque in the right bifurcation with a PSV of 68 cm/s and a EDV of 23 cm/s. There is smooth heterogeneous plaque. There is nonstenotic plaque in the right proximal internal carotid artery with a PSV of 75 cm/s and a EDV of 24 cm/s. There is smooth heterogeneous plaque. The right mid internal carotid artery has a PSV of 94 cm/s and a EDV of 28 cm/s. The right distal internal carotid artery has a PSV of 79 cm/s and a EDV of 27 cm/s. The right eca has a PSV of 73 cm/s and a EDV of 12 cm/s. The right vertebral artery has a PSV of 63 cm/s and a EDV of 15 cm/s. Left: The left proximal common carotid artery has a PSV of 120 cm/s and a EDV of 19 cm/s. The left mid common carotid artery has a PSV of 71 cm/s and a EDV of 20 cm/s. The left distal common carotid artery has a PSV of 69 cm/s and a EDV of 20 cm/s. There is nonstenotic plaque in the left bifurcation with a PSV of 62 cm/s and a EDV of 19 cm/s. There is smooth heterogeneous plaque. There is nonstenotic plaque in the left proximal internal carotid artery with a PSV of 56 cm/s and a EDV of 18 cm/s. There is smooth heterogeneous plaque. The left mid internal carotid artery has a PSV of 83 cm/s and a EDV of 24 cm/s. The left distal internal carotid artery has a PSV of 106 cm/s and a EDV of 39 cm/s. The left eca has a PSV of 60 cm/s and a EDV of 12 cm/s. The left vertebral artery has a PSV of 59 cm/s and a EDV of 14 cm/s. Prior Study: No prior study available for comparison. Carotid Results Right PSV EDV Assessment Proximal CCA 112 17 Normal Mid CCA 87 21 Normal Distal CCA 72 25 Normal Bifurcation 68 23 Non Stenotic Plaque Proximal ICA 75 24 Non Stenotic Plaque Mid ICA 94 28 Normal Distal ICA 79 27 Normal ECA 73 12 Normal Vertebral Artery 63 15 Normal Left PSV EDV Assessment Proximal CCA 120 19 Normal Mid CCA 71 20 Normal Distal CCA 69 20 Normal Bifurcation 62 19 Non Stenotic Plaque Proximal ICA 56 18 Non Stenotic Plaque Mid ICA 83 24 Normal Distal ICA 106 39 Normal ECA 60 12 Normal Vertebral Artery 59 14 Normal Ratio's Right ICA/CCA Ratio: 1.08 ICA/CCA Values: 94/87 Left ICA/CCA Ratio: 1.49 ICA/CCA Values: 106/71 Updated by Rigoberto Magaña MD, FACS on 07/08/2017 4:57:13 PM Rigoberto Magaña MD electronically signed on 07/08/2017 4:57:40 PM with status of Final
--- NOTE | 2017-07-08 19:45 | Electrocardiograph Report ---
[address] [place], [place] [address] Test Date: 2017-07-07 Pat Name: Kathryn Winters Department: 103 Room: 3B13 Gender: F Machine Assembler: : 1935 Requested By: Krysta Frazier Order Number: [id number] Reading MD: Ricci Hensley MD Measurements Intervals Griffin Rate: 84 P: 40 SD: 139 QRS: 7 QRSD: 83 T: 30 QT: 354 QTc: 395 Interpretive Statements SINUS RHYTHM LOW QRS VOLTAGE IN PRECORDIAL LEADS BASELINE ARTIFACT ANTEROSEPTAL ISCHEMIA Electronically Signed On 07-08-2017 19:43:54 EDT by Ricci Hensley MD
[2017-07-08] MEDS ORDERED: Melatonin 3 MG TABLET PO SCH (21:00)
[2017-07-09] MEDS: Acetaminophen 325 MG TABLET PO PRN ×3 (01:47→17:30)
[2017-07-09] MEDS: 0.9 % Sodium Chloride 1,000 ML IVC SCH ×2 (01:47→11:44)
[2017-07-09 03:37] LABS: Hematocrit 31.3 % (35.3-44.9); Mean Corpuscular HGB Conc 31.9 g/dL (31.6-35.5); Mean Corpuscular Hemoglobin 31.6 pg (28.0-33.3); Mean Corpuscular Volume 99.1 fL (83.0-100.0); Mean Platelet Volume 9.2 fL (9.4-12.4); Platelet Count 147 K/mcL (140-400); Red Blood Count 3.16 M/mcL (3.82-4.97); Red Cell Distribution Width 14.1 % (11.5-14.5)
[2017-07-09 03:41] LABS: Alanine Aminotransferase 39 Units/L (0-55); Albumin 2.7 g/dL (3.5-5.0); Alkaline Phosphatase 48 Units/L (38-126); Aspartate Amino Transferase 32 Units/L (5-34); BUN/Creatinine Ratio 13 (6-26); Bilirubin,Total 0.5 mg/dL (0.2-1.2); Blood Urea Nitrogen 8 mg/dL (7-20); Calcium 8.4 mg/dL (8.6-10.8); Carbon Dioxide 22 mEq/L (19-29); Chloride 107 mEq/L (98-109); Globulin 2.8 g/dL (2.4-3.5); Glucose 98 mg/dL (70-99); Osmolality,Calculated 280 (280-300); Potassium 4.2 mEq/L (3.5-4.5); Sodium 136 mEq/L (136-145); Total Protein 5.5 g/dL (6.0-8.3); eGFR For African Americans > 60 (> 60); eGFR For Non-African Americans > 60 (> 60)
[2017-07-09] MEDS: *HR* Heparin 5,000 UNIT/ML VIAL SQ SCH ×2 (06:04→15:24)
[2017-07-09] MEDS: Aspirin Enteric Coated 81 MG Tablet PO SCH (09:29)
[2017-07-09] MEDS: Famotidine 20 MG TABLET PO SCH (09:30)
[2017-07-09] MEDS: FISH OIL 500 MG PO SCH (09:31)
[2017-07-09 11:55] VITALS: BP 150/83
--- NOTE | 2017-07-09 13:59 | Internal Med Progress Note ---
Date of Encounter: 07/07/17 Time of Encounter: 08:30 - Assessment and plan (1) Syncope due to autonomic failure Status: Acute Assessment and plan: Patient has been deconditioned for past 5 yeas and gradually worsened with strength. PT/OT is needed for her as outpatient as well as SNF. Neuro will evaluate patient today. (2) Fracture of greater tuberosity of humerus Status: Acute Assessment and plan: secondary to mechanical fall on day of presentation. Right shoulder x-ray with comminuted fracture of the humeral head involving the greater tuberosity. Right arm placed in sling. Ortho consulted. Anticoagulation is held due to fall risk. Qualifiers: Encounter type: initial encounter Fracture type: closed Fracture alignment: displaced Laterality: right Qualified Code(s): S42.251A - Displaced fracture of greater tuberosity of right humerus, initial encounter for closed fracture - Subjective Interval history: No acute events. Shoulder pain still bothersome. Admits to a history of trauma 3 months ago that may be contributory. States she has been getting weaker for the past 5 years and not able to be as active as before. - Constitutional Vitals: Temp Pulse Resp BP Pulse Ox 97.8 F 78 15 150/83 99 07/09/17 11:54 07/09/17 11:54 07/09/17 11:54 07/09/17 11:54 07/09/17 11:54 General appearance: Present: A&O X 3, no acute distress Internal Medicine: Result - Labs CBC & Chem 7: 07/09/17 02:54 07/09/17 02:54 Labs: Short CBC 07/09/17 Range/Units 02:54 WBC 7.8 (4.3-11.1) K/mcL Hgb 10.0 L (11.5-15.4) g/dL Hct 31.3 L (35.3-44.9) % Plt Count 147 (140-400) K/mcL BMP 07/09/17 02:54 Sodium 136 Potassium 4.2 Chloride 107 Carbon Dioxide 22 BUN 8 Creatinine 0.63 Glucose 98 Calcium 8.4 L Liver Function 07/09/17 Range/Units 02:54 Total Bilirubin 0.5 (0.2-1.2) mg/dL AST 32 (5-34) Units/L ALT 39 (0-55) Units/L Alkaline Phosphatase 48 (38-126) Units/L Albumin 2.7 L (3.5-5.0) g/dL - Impressions Impressions Echocardiogram 07/08/17 08:41 Impressions: Normal LV systolic function, LVEF 65%. Atypical septal motion consistent with prior cardiac surgery. Normal right ventricular size and function. Mildly dilated left atrium. No significant valvular dysfunction. No evidence of pulmonary hypertension. Left Ventricular Wall Motion: Rest Echo Findings All wall segments showed normal motion. Findings: Study Quality * Suboptimal echo windows. ECG Findings * Normal sinus rhythm. Left Ventricle * Normal LV systolic function, LVEF 65%. * Atypical septal motion consistent with prior cardiac surgery. * Normal LV chamber size and wall thickness. * Normal left ventricular diastolic function. Right Ventricle * Normal right ventricular size and function. Left Atrium * Mildly dilated left atrium. Right Atrium * Normal right atrial size. Aorta * Normally sized aortic root. Pericardium * There is no pericardial effusion present. IVC * The IVC is not dilated. Aortic Valve * Trileaflet aortic valve. * Mildly sclerotic aortic valve leaflets. * No aortic stenosis. * No aortic regurgitation. Mitral Valve * Normal mitral valve structure. * No mitral stenosis. * Trace mitral regurgitation. Tricuspid Valve * Normal tricuspid valve structure. * No tricuspid stenosis. * Trace tricuspid regurgitation. * No evidence of pulmonary hypertension. Pulmonic Valve * Normal pulmonic valve structure. * No pulmonic stenosis. * Trace pulmonic regurgitation. Consult Discharge Plan - Plan Additional Instructions: Follow-up with Neurology Dr. Canales in one week. Follow-up with Orthopedics in 1-2 weeks. Referrals: Hari Bowie MD [Partnered Physician] - (We have requested a follow up appointment with Dr Bowie. The office will call you at home with an appointment date and time.) Glenroy Lin MD [Primary Care Provider] - 07/14/17 2:45 pm Tee Canales MD [Partnered Physician] - (We requested a follow up appointment with Dr Canales. The office will call you at home with an appointment date and time.)
--- NOTE | 2017-07-09 15:24 | Neurology - Consult Note ---
Date of Encounter: 07/09/17 Time of Encounter: 15:15 Assessment and Plan (1) Syncope and collapse Current Visit: Yes Status: Acute Patient without past history of seizure disorder who passed out in one day, not associated with motor activity, no warnings, associated with significant diaphoresis afterwards and is concerned for seizures due to presence of postital confusion/fatigue. patient has no prior history of seizures. The passing out spells occurred during one day after having a mechanical fall. Do not feel these are seizures. Will check routine EEG, carotid artery duplex. May benefit from cardiac rhythm monitoring. Please continue medical and supportive care. neurological examination is essentially non-focal and with normal speech and mentation i do not believe she needs an MRI. (2) Unable to ambulate Current Visit: No Status: Acute These are chronic issue and has been going on since the last 5 years. Started after diagnosis of IPF. This appears to be multefactorial in etiology. She is not myelopathic due to absent DTRs, and no level of sensory loss so this is not something needing acute intervention. She may have underlying neuropathy due to absent DTRs and she does have mild tingling in her feet. Will prefer outpatient work up and i would like to see her in neurology clinic in few weeks. History of Present Illness Chief complaint: passing out x2 and balance difficulty HPI: Ms. Winters is a 81 year old female with PMH significant for IPF, oxygen dependent, bilateral knee replacement, depression, DVT, history of compression fracture, HTN, HLD, CAD, GERD who developed a fall and then passing out spells x2. Patient is able to give details information regarding her current illness. She states that she was at home and was walking and probably manager photography over something and fell and hit her head. There was a pad of blood. She was sent to outside hospital and examined and released home. That evening, she passed out twice. She states she knew when she was going down but finally lost her consciousness. After she regained her consciousness she felt real sweaty. She was brought in the ER for further evaluation. Initial CT of head was unremarkable. She does reports dizziness and lightheadedness when standing up too fast. She however, only passed out twice. She has has some chronic balance difficulty since the last 5 years, after she was diagnosed as having IPF. she uses oxygen at home. She has bilateral knee replacement many years ago. She has to use a walker to walk. No bowel and bladder incontinence. neurology was consulted due to having postictal confusion, possible seizures and chronic balance difficulty Past Med Surg Social Fam HX - Past Medical History Medical history: arthritis, CHF, coronary artery disease, DVT, GERD, hyperlipidemia, hypertension, myocardial infarction, osteoporosis, thyroid disease, other Psychiatric history: depression - Past Surgical History Surgical History: angioplasty/stent, cholecystectomy, coronary bypass (CABG), orthopedic, other, other - Social History Smoking Status: Never smoker Smokeless Tobacco Status: No Alcohol use: none Drug use: none - Family History Mother Living Status: Hx Family Respiratory Disorders: Yes Father Adopted: No Family Member Ethnicity: Non- Living Status: Hx Family Cardiac Disorders: No Hx Family Respiratory Disorders: Yes (Pulmonary fibrosis) Hx Family Cancer: No Hx Family GI Disorders: Yes (GERD) Hx Family Endocrine Disorder: No Hx Family Neuromuscular Disorders: No Hx Family Neurologic Disorders: No Hx Family HEENT Disorders: No Hx Family Autoimmune Disorders: No Sister Adopted: No Living Status: Hx Family Respiratory Disorders: Yes (PULMONARY FIBROSIS) Medications and Allergies Aspirin Enteric Coated [Aspirin EC] 81 mg PO DAILY 05/27/15 [History] Calcium Carbonate/Vitamin D3 [Calcium 600 + D Tablet] 600 mg PO DAILY 05/27/15 [ History] Levothyroxine [Synthroid] 50 mcg PO QAM 05/27/15 [History] Oxygen 4 l NS AD 05/27/15 [History] Albuterol Sulfate [Albuterol Inhaler] 2 puff IH Q6HR PRN 05/28/15 [History] Isosorbide MONOnitrate (24 HR) [Imdur] 60 mg PO QPM 05/28/15 [History] Metoprolol XL (24 HR) Succ [Toprol XL] 25 mg PO DAILY 05/28/15 [History] Pravastatin Sodium [Pravachol] 40 mg PO QPM 05/28/15 [History] [place] Oil/[place]-3 Fatty Acids [Fish Oil 500 mg Softgel] 1,000 mg PO BID [History] Melatonin [Melatin] 3 mg PO HS 02/05/16 [History] Mv,Calcium,Min/Iron/Folic/Vitk [Multi For Her Tablet] 1 tab PO DAILY 02/05/16 [ History] Nitroglycerin [Nitrostat] 0.4 mg SL Q5M PRN 02/05/16 [History] Cranberry Fruit Extract/Vit C [Azo Cranberry Softgel] 1 cap PO BID 11/25/16 [ History] Alendronate Sodium [Fosamax] 70 mg PO TH 02/03/17 [History] Citalopram [CeleXA] 20 mg PO DAILY 02/03/17 [History] Furosemide [Lasix] 20 mg PO DAILY PRN 03/01/17 [History] Rivaroxaban [Xarelto] 20 mg PO DAILY 04/20/17 [History] Mirabegron [Myrbetriq] 50 mg PO DAILY 05/13/17 [History] Pirfenidone [Esbriet] 801 mg PO TID 05/13/17 [History] Docusate [Colace] 100 mg PO DAILY 07/08/17 [History] Ranitidine HCl [Zantac] 150 mg PO BID 07/08/17 [History] 3 Allergy/AdvReac Type Severity Reaction Status Date / Time lisinopril Allergy Intermediate Cough Verified 07/07/17 23:00 Amoxicillin [From Augmentin] Allergy Mild Rash Verified 07/07/17 23:00 clavulanic acid Allergy Mild Rash Verified 07/07/17 23:00 [From Augmentin] nitrofurantoin Allergy Mild Rash Verified 07/07/17 23:00 [From Macrobid] Penicillins [PCN] Allergy Mild Rash Verified 07/07/17 23:00 Sulfa (Sulfonamide AdvReac Mild Nausea Verified 07/07/17 23:00 Antibiotics) All Systems: A 10-system review of systems was performed and is negative for pertinent findings except as documented above in the HPI. Physical Examination - Vital Signs Vital Signs: Initial Vital Signs Temp Pulse Resp BP Pulse Ox 97.8 F 82 20 131/68 99 07/07/17 23:01 07/07/17 23:01 07/07/17 23:01 07/07/17 23:01 07/07/17 23:01 - Constitutional General appearance: comfortable - Neurologic Sensorimotor examination: intact (Grossly intact. May have reduced pinprick sensation to her feet bilaterally. ) Detailed motor examination: grossly full strength in all extremities Motor examination - right side: 5/5: deltoids, biceps, triceps, wrist flexion, wrist extension, centrifugal casting machine tender, hip flexors, tibialis Anterior, quadriceps, toe extension (EHL), plantarflexion Motor examination - left side: 5: hip flexors, quadriceps, tibialis Anterior, toe extension (EHL), plantarflexion Detailed sensory examination: intact (Grossly intact, may have reduced pinprick sensastion to her feet bilaterally) Posture: other (NOne) Reflexes: Biceps: 1+, Triceps: 1+, Brachioradialis: 1+, Patella: 1+, Achilles: 1 + Mental Status Examination: awake, alert, oriented to person, oriented to place, oriented to time, follows commands appropriately, answers questions appropriately, no agnosia, no aphasia, no aproxia Cranial nerve examination: PERRL, EOMI, visual thapa intact, corneal reflexes brisk symmetrically, sensory to face intact, mastication intact, no facial asymmetry is present, no dysarthria, hearing is intact symmetrically, soft palate elevates bilaterally upon phonation, gag reflex intact, flexes SCM and trapezius muscles symmetrically with full power, tongue protrudes midline, no atrophy or facial fasiculations present Results - Laboratory Findings CBC and BMP: 07/09/17 02:54 07/09/17 02:54 Abnormal lab findings: Abnormal lab results RBC 3.16 M/mcL (3.82-4.97) L 07/09/17 02:54 Hgb 10.0 g/dL (11.5-15.4) L 07/09/17 02:54 Hct 31.3 % (35.3-44.9) L 07/09/17 02:54 MPV 9.2 fL (9.4-12.4) L 07/09/17 02:54 Calcium 8.4 mg/dL (8.6-10.8) L 07/09/17 02:54 Serum Total Protein 5.5 g/dL (6.0-8.3) L 07/09/17 02:54 Albumin 2.7 g/dL (3.5-5.0) L 07/09/17 02:54 Albumin/Globulin Ratio 1.0 (1.1-2.2) L 07/09/17 02:54 Consult Discharge Plan - Plan Referrals: Glenroy Lin MD [Primary Care Provider] - 07/14/17 2:45 pm
--- NOTE | 2017-07-09 16:33 | EEG/EMG/Oth Biometrics Report ---
EEG Procedure Report Date of procedure: 07/09/17 EEG Procedure: Routine EEG Procedure Note: This EEG was acquired with standard international 10-20 electrode placement system with EKG recording. The background EEG activity was characterized by a mixture of posterior dominant alpha and theta activity with the best frequency up to 11 Hz. The background EEG activity was reactive to eye openings. Sleep stages were not identified during this recording. There are no electrographic seizures identified during this tracing. No epileptiform discharges or focal slowing noted during this recording. Photic stimulation produced no abnormalities. Hyperventilation procedure was not performed during the study. EKG tracing showed normal sinus rhythm. Impression: This is a normal awake and drowsy EEG. Clinical correlation: Normal EEGs, however, do not exclude epilepsy. Clinical correlation is advised.
--- NOTE | 2017-07-09 17:05 | Discharge Summary ---
Date of Encounter: 07/09/17 Time of Encounter: 16:51 - Discharge Diagnosis (1) Syncope and collapse Priority: Primary Status: Acute (2) Fracture of greater tuberosity of humerus Priority: Secondary Status: Acute Qualifiers: Encounter type: initial encounter Fracture type: closed Fracture alignment: displaced Laterality: right Qualified Code(s): S42.251A - Displaced fracture of greater tuberosity of right humerus, initial encounter for closed fracture (3) Weakness Priority: Secondary Status: Chronic - Discharge Medications Home Medications: Aspirin Enteric Coated [Aspirin EC] 81 mg PO DAILY 05/27/15 [History] Calcium Carbonate/Vitamin D3 [Calcium 600 + D Tablet] 600 mg PO DAILY 05/27/15 [ History] Levothyroxine [Synthroid] 50 mcg PO QAM 05/27/15 [History] Oxygen 4 l NS AD 05/27/15 [History] Albuterol Sulfate [Albuterol Inhaler] 2 puff IH Q6HR PRN 05/28/15 [History] Isosorbide MONOnitrate (24 HR) [Imdur] 60 mg PO QPM 05/28/15 [History] Metoprolol XL (24 HR) Succ [Toprol XL] 25 mg PO DAILY 05/28/15 [History] Pravastatin Sodium [Pravachol] 40 mg PO QPM 05/28/15 [History] [place] Oil/[place]-3 Fatty Acids [Fish Oil 500 mg Softgel] 1,000 mg PO BID [History] Melatonin [Melatin] 3 mg PO HS 02/05/16 [History] Mv,Calcium,Min/Iron/Folic/Vitk [Multi For Her Tablet] 1 tab PO DAILY 02/05/16 [ History] Nitroglycerin [Nitrostat] 0.4 mg SL Q5M PRN 02/05/16 [History] Cranberry Fruit Extract/Vit C [Azo Cranberry Softgel] 1 cap PO BID 11/25/16 [ History] Alendronate Sodium [Fosamax] 70 mg PO TH 02/03/17 [History] Citalopram [CeleXA] 20 mg PO DAILY 02/03/17 [History] Furosemide [Lasix] 20 mg PO DAILY PRN 03/01/17 [History] Mirabegron [Myrbetriq] 50 mg PO DAILY 05/13/17 [History] Pirfenidone [Esbriet] 801 mg PO TID 05/13/17 [History] Docusate [Colace] 100 mg PO DAILY 07/08/17 [History] Ranitidine HCl [Zantac] 150 mg PO BID 07/08/17 [History] Allergies/Adverse Reactions: 3 Allergy/AdvReac Type Severity Reaction Status Date / Time lisinopril Allergy Intermediate Cough Verified 07/07/17 23:00 Amoxicillin [From Augmentin] Allergy Mild Rash Verified 07/07/17 23:00 clavulanic acid Allergy Mild Rash Verified 07/07/17 23:00 [From Augmentin] nitrofurantoin Allergy Mild Rash Verified 07/07/17 23:00 [From Macrobid] Penicillins [PCN] Allergy Mild Rash Verified 07/07/17 23:00 Sulfa (Sulfonamide AdvReac Mild Nausea Verified 07/07/17 23:00 Antibiotics) Procedures/tests Complete & Pending: Procedures Performed prior 72 hours Category Date Time Status CT angio chest [CT] Routine Cat Scan 07/08/17 10:00 Draft EV carotid duplex imaging BI Routine Y 07/08/17 08:41 Completed EV echocardiogram Routine Y 07/08/17 08:41 Completed Date of admission: 07/08/17 00:44 Primary care physician: Glenroy Lin MD Consults: 07/08/17 01:08 Consult to Orthopedic Surgery [CONS] Routine Consulting Provider: Orthopedics [facility] Reason for Consult: right humeral fracture Call Completed: Yes 07/08/17 01:10 Consult to Occupational Therapy [CONS] Routine Comment: Evaluate, develop and implement POC Reason for Consult: ambulate and assess Consult to Physical Therapy [CONS] Routine Comment: Evaluate, develop and implement POC Reason for Consult: ambulate assess for placement need 07/08/17 02:10 Consult to Fuel Buyer [CONS] Routine Reason for SW Consult: Discharge planning/needs 07/09/17 12:18 Consult to Neurology [CONS] Routine Consulting Provider: Neurology [facility] Reason for Consult: 81 year old female with episodes of syncope with presyncopal symptoms and few months history of gait abnormalities. Call Completed: Yes 07/09/17 16:32 Consult to Interpret Exam [CONS] Routine Consulting Provider: Tee Canales Consult to Interpret Exam: Interpret EEG Discharging clinician: Tyrese Rheem Ghanem - Patient Status Disposition: Transfer SNF Condition: Fair Functional capacity at discharge: wheelchair bound Overall status at discharge: patient is progressing back to baseline - Discharge Instructions Follow Up With: Glenroy Lin MD [Primary Care Provider] - 07/14/17 2:45 pm Additional Instructions: Follow-up with Neurology Dr. Canales in one week. Follow-up with Orthopedics in 1-2 weeks. - Diet and Activity Activity: as per physical therapy Diet: regular diet Hospital course: Ms. Winters is a 81 year old female - Time Spent with Patient Total time spent providing and/or coordinating discharge services: - Constitutional Vitals: Temp Pulse Resp BP Pulse Ox 97.8 F 78 15 150/83 99 07/09/17 11:54 07/09/17 11:54 07/09/17 11:54 07/09/17 11:54 07/09/17 11:54 General appearance: Present: A&O X 3, no acute distress
--- NOTE | 2017-07-09 17:09 | Physician Discharge Referral ---
ExtendedCare Referral Info Transfer To: [facility] Provider in Charge after Transfer: PCP Institutional Level of Care: Skilled - Diagnosis (1) Syncope and collapse Priority: Primary Status: Chronic (2) Fracture of greater tuberosity of humerus Priority: Secondary Status: Acute (3) Weakness Priority: Secondary Status: Chronic Prognosis: Fair Aware of Diagnosis: Patient, Family Aware of Prognosis: Patient, Family - Transfer Medications Home Medications: Aspirin Enteric Coated [Aspirin EC] 81 mg PO DAILY 05/27/15 [History] Calcium Carbonate/Vitamin D3 [Calcium 600 + D Tablet] 600 mg PO DAILY 05/27/15 [ History] Levothyroxine [Synthroid] 50 mcg PO QAM 05/27/15 [History] Oxygen 4 l NS AD 05/27/15 [History] Albuterol Sulfate [Albuterol Inhaler] 2 puff IH Q6HR PRN 05/28/15 [History] Isosorbide MONOnitrate (24 HR) [Imdur] 60 mg PO QPM 05/28/15 [History] Metoprolol XL (24 HR) Succ [Toprol XL] 25 mg PO DAILY 05/28/15 [History] Pravastatin Sodium [Pravachol] 40 mg PO QPM 05/28/15 [History] [place] Oil/[place]-3 Fatty Acids [Fish Oil 500 mg Softgel] 1,000 mg PO BID [History] Melatonin [Melatin] 3 mg PO HS 02/05/16 [History] Mv,Calcium,Min/Iron/Folic/Vitk [Multi For Her Tablet] 1 tab PO DAILY 02/05/16 [ History] Nitroglycerin [Nitrostat] 0.4 mg SL Q5M PRN 02/05/16 [History] Cranberry Fruit Extract/Vit C [Azo Cranberry Softgel] 1 cap PO BID 11/25/16 [ History] Alendronate Sodium [Fosamax] 70 mg PO TH 02/03/17 [History] Citalopram [CeleXA] 20 mg PO DAILY 02/03/17 [History] Furosemide [Lasix] 20 mg PO DAILY PRN 03/01/17 [History] Mirabegron [Myrbetriq] 50 mg PO DAILY 05/13/17 [History] Pirfenidone [Esbriet] 801 mg PO TID 05/13/17 [History] Docusate [Colace] 100 mg PO DAILY 07/08/17 [History] Ranitidine HCl [Zantac] 150 mg PO BID 07/08/17 [History] Allergies/Adverse Reactions: 3 Allergy/AdvReac Type Severity Reaction Status Date / Time lisinopril Allergy Intermediate Cough Verified 07/07/17 23:00 Amoxicillin [From Augmentin] Allergy Mild Rash Verified 07/07/17 23:00 clavulanic acid Allergy Mild Rash Verified 07/07/17 23:00 [From Augmentin] nitrofurantoin Allergy Mild Rash Verified 07/07/17 23:00 [From Macrobid] Penicillins [PCN] Allergy Mild Rash Verified 07/07/17 23:00 Sulfa (Sulfonamide AdvReac Mild Nausea Verified 07/07/17 23:00 Antibiotics) - Respiratory Orders Smoking Cessation: Smoking cessation has been advised. For more information, call the [employer] [employer] Quit Line at 6-271-OMXZ-NOW. - Ancillary Orders May use pressure relief devices daily prn - Mobility Orders Chair - Rehabiliation Orders Rehab Potential: Fair Rehab Orders: ROM Exercises, Evaluation for Physical Therapy, Evaluation for Occupational Therapy - Treatments Skin tear care topically daily PRN per policy, May check for fecal impaction rectally daily PRN - Diet Orders Regular CERTIFICATION: I certify that the transfer of the above named patient to an Extended Care Facility is necessary for the continuing treatment of the diagnosis listed. The above information is true and accurate reflection of patient's current condition. Confidential - Redisclosure prohibited without a patient's written consent.
== END 2017-07-09 19:21 ==
LOC: EMEROO 22:59 → 3BNU 22:59
PROVIDERS: ADMIT Internal Medicine Hematology & Oncology; ATTEND Registered Nurse

== ENCOUNTER 2020-07-09 12:34 | Inpatient (IN) ==
[2020-07-09] MEDS ORDERED: Aspirin 81 MG TAB.CHEW PO SCH (13:00)
[2020-07-09 13:15] LABS: INR 1.3; Prothrombin Time 14.6 Seconds (9.4-12.1)
[2020-07-09 13:18] LABS: Activated Partial Thrombo Time 38.5 Seconds (26.0-36.0); Hematocrit 38.5 % (35.3-44.9); Hemoglobin 12.3 g/dL (11.5-15.4); Mean Corpuscular HGB Conc 31.9 g/dL (31.6-35.5); Mean Corpuscular Hemoglobin 32.6 pg (28.0-33.3); Mean Corpuscular Volume 102.1 fL (83.0-100.0); Mean Platelet Volume 8.7 fL (9.4-12.4); Platelet Count 202 K/mcL (140-400); Red Blood Count 3.77 M/mcL (3.82-4.97); Red Cell Distribution Width 13.6 % (11.5-14.5); White Blood Count 10.9 K/mcL (4.3-11.1)
[2020-07-09 13:44] LABS: BUN/Creatinine Ratio 16 (6-26); Blood Urea Nitrogen 10 mg/dL (8-23); Calcium 9.8 mg/dL (8.6-10.3); Carbon Dioxide 27 mEq/L (23-29); Chloride 105 mEq/L (98-107); Glucose 100 mg/dL (70-105); Osmolality,Calculated 285 (280-300); Sodium 138 mEq/L (136-145); Troponin I < 0.03 ng/mL (< 0.04); eGFR For African Americans > 60 (> 60); eGFR For Non-African Americans > 60 (> 60)
[2020-07-09 14:03] LABS: Bacteria,Urine Few per hpf (None-Few); Bilirubin,Urine Negative (Negative); Blood,Urine Negative (Negative); Clarity,Urine Clear (Clear); Color,Urine Light-Yellow (Yellow); Glucose,Urine (UA) Normal (Normal); Ketones,Urine Negative (Negative); Leukocyte Esterase,Urine Moderate (Negative); Mucus,Urine Few per lpf (None-Few); Nitrite,Urine Positive (Negative); PH,Urine 7.5 pH Units (5.0-8.0); Protein,Urine Negative (Neg-Trace); RBC,Urine 0-3 per hpf (0-3); Renal Epithelial Cells,Urine Few per hpf (None-Few); Specific Gravity,Urine 1.012 (1.010-1.025); Squamous Epithelial Cell,Urine Few per hpf (None-Few); Urobilinogen,Urine Normal (Normal); WBC,Urine 30-50 per hpf (0-3)
[2020-07-09] MEDS ORDERED: levoFLOXacin 750 MG/150 ML 750 MG/150 ML BAG IVPB ONE (15:31)
[2020-07-09] MEDS ORDERED: Naloxone 0.4 MG/ML INJ IVP PRN (16:22)
[2020-07-09] MEDS ORDERED: Ondansetron 4 MG/2 ML VIAL IVP PRN (16:22)
[2020-07-09] MEDS ORDERED: Perflutren Lipid Microsphere 1.3 ML in 0.9 % Sodium Chloride 8.7 ML IVP PRN (16:24)
[2020-07-09] MEDS ORDERED: Furosemide 20 MG TABLET PO PRN (16:50)
[2020-07-09] MEDS: 0.9 % Sodium Chloride 1,000 ML IVC SCH (17:09)
[2020-07-09] MEDS: polyethylene glycoL 3350 17 GM POWD.PACK PO SCH (17:43)
[2020-07-09] MEDS: Melatonin 3 MG TABLET PO SCH (19:56)
[2020-07-09] MEDS: Pirfenidone [Esbriet] 801 MG PO SCH ×3 (19:57→20:21)
[2020-07-09] MEDS: Pirfenidone [Esbriet] 267 MG PO SCH (20:22)
[2020-07-10 08:28] LABS: Basophils # 0.1 K/mcL (0.0-0.2); Basophils % 0.7 %; Eosinophils # 0.5 K/mcL (0.0-0.6); Eosinophils % 6.1 %; Hematocrit 35.1 % (35.3-44.9); Hemoglobin 11.3 g/dL (11.5-15.4); Immature Granulocytes % 0.2 % (0-4); Lymphocytes # 2.5 K/mcL (0.6-4.6); Lymphocytes % 30.6 %; Mean Corpuscular HGB Conc 32.2 g/dL (31.6-35.5); Mean Corpuscular Hemoglobin 32.9 pg (28.0-33.3); Mean Corpuscular Volume 102.3 fL (83.0-100.0); Mean Platelet Volume 8.6 fL (9.4-12.4); Monocytes # 0.7 K/mcL (0.0-1.3); Neutrophils # 4.5 K/mcL (1.6-8.9); Platelet Count 168 K/mcL (140-400); Red Blood Count 3.43 M/mcL (3.82-4.97); Red Cell Distribution Width 13.3 % (11.5-14.5); Segmented Neutrophils % 54.4 %; White Blood Count 8.3 K/mcL (4.3-11.1)
[2020-07-10 08:34] LABS: BUN/Creatinine Ratio 15 (6-26); Blood Urea Nitrogen 8 mg/dL (8-23); Calcium 9.5 mg/dL (8.6-10.3); Carbon Dioxide 25 mEq/L (23-29); Chloride 107 mEq/L (98-107); Chol/HDL Ratio 3.1 (0-4.9); Cholesterol 122 mg/dL (< 200); Glucose 84 mg/dL (70-105); HDL Cholesterol 40 mg/dL (40-59); LDL Cholesterol,Calculated 71 mg/dL (< 100); Magnesium 2.1 mg/dL (1.6-2.6); Osmolality,Calculated 278 (280-300); Phosphorous 3.2 mg/dL (2.7-4.5); Potassium 4.3 mEq/L (3.5-5.1); Sodium 135 mEq/L (136-145); Triglycerides 57 mg/dL (< 150); eGFR For African Americans > 60 (> 60); eGFR For Non-African Americans > 60 (> 60)
[2020-07-10 09:19] LABS: Folate > 22.3 ng/mL (3.0-16.0); Vitamin B12 446 pg/mL (250-1100)
[2020-07-10] MEDS: cefTRIAXone 1,000 MG in 0.9 % Sodium Chloride Mini Bag 100 ML IVPB SCH (10:12)
[2020-07-10] MEDS: Multivit/Ca/Min/Fe/FA 1 TAB TABLET PO SCH (10:12)
[2020-07-10] MEDS: Isosorbide MONOnitrate (24 HR) 60 MG TAB.ER.24H PO SCH (10:12)
[2020-07-10] MEDS: Mirabegron [Myrbetriq] 50 MG PO SCH (10:13)
[2020-07-10] MEDS: Pirfenidone [Esbriet] 267 MG PO SCH ×3 (10:13→20:49)
[2020-07-10] MEDS: Aspirin Enteric Coated 81 MG Tablet PO SCH (10:13)
[2020-07-10] MEDS: 0.9 % Sodium Chloride 1,000 ML IVC SCH (16:07)
[2020-07-10] MEDS ORDERED: *HR* Rivaroxaban 10 MG TABLET PO SCH (17:00)
[2020-07-10] MEDS: Melatonin 3 MG TABLET PO SCH (20:44)
[2020-07-11 03:16] VITALS: BP 122/74
[2020-07-11] MEDS: cefTRIAXone 1,000 MG in 0.9 % Sodium Chloride Mini Bag 100 ML IVPB SCH (09:29)
[2020-07-11] MEDS: Isosorbide MONOnitrate (24 HR) 60 MG TAB.ER.24H PO SCH (09:29)
[2020-07-11] MEDS: Pirfenidone [Esbriet] 267 MG PO SCH (09:30)
[2020-07-11] MEDS: Multivit/Ca/Min/Fe/FA 1 TAB TABLET PO SCH (09:30)
[2020-07-11] MEDS: Aspirin Enteric Coated 81 MG Tablet PO SCH (09:30)
[2020-07-11] MEDS: Mirabegron [Myrbetriq] 50 MG PO SCH (09:30)
[2020-07-11] MEDS: polyethylene glycoL 3350 17 GM POWD.PACK PO SCH (09:30)
== END 2020-07-11 11:26 | disposition home health service (06) | DRG 69 ==
LOC: EMEROOARM 12:34 → 3BNU 12:34
PROVIDERS: ADMIT Pharmacist; ATTEND Pharmacist

== ENCOUNTER 2020-09-15 11:20 | Observation (INO) ==
[2020-09-15 11:44] LABS: Hematocrit 39.8 % (35.3-44.9); Hemoglobin 12.5 g/dL (11.5-15.4); Mean Corpuscular HGB Conc 31.4 g/dL (31.6-35.5); Mean Corpuscular Hemoglobin 32.7 pg (28.0-33.3); Mean Corpuscular Volume 104.2 fL (83.0-100.0); Mean Platelet Volume 8.3 fL (9.4-12.4); Platelet Count 225 K/mcL (140-400); Red Blood Count 3.82 M/mcL (3.82-4.97); Red Cell Distribution Width 13.6 % (11.5-14.5); White Blood Count 10.3 K/mcL (4.3-11.1)
[2020-09-15 11:51] LABS: INR 1.8
[2020-09-15 12:00] LABS: BUN/Creatinine Ratio 19 (6-26); Blood Urea Nitrogen 14 mg/dL (8-23); Calcium 9.8 mg/dL (8.6-10.3); Carbon Dioxide 28 mEq/L (23-29); Chloride 104 mEq/L (98-107); Glucose 83 mg/dL (70-105); Osmolality,Calculated 284 (280-300); Sodium 137 mEq/L (136-145); eGFR For African Americans > 60 (> 60); eGFR For Non-African Americans > 60 (> 60)
[2020-09-15 12:02] LABS: Troponin I < 0.03 ng/mL (< 0.04)
[2020-09-15 12:40] LABS: Bilirubin,Urine Negative (Negative); Blood,Urine Negative (Negative); Clarity,Urine Clear (Clear); Color,Urine Light-Yellow (Yellow); Glucose,Urine (UA) Normal (Normal); Ketones,Urine Trace mg/dL (Negative); Leukocyte Esterase,Urine Trace (Negative); Mucus,Urine Few per lpf (None-Few); Nitrite,Urine Negative (Negative); PH,Urine 6.5 pH Units (5.0-8.0); Protein,Urine Negative (Neg-Trace); RBC,Urine 0-3 per hpf (0-3); Specific Gravity,Urine 1.017 (1.010-1.025); Squamous Epithelial Cell,Urine Few per hpf (None-Few); Urobilinogen,Urine Normal (Normal)
[2020-09-15 13:25] LABS: Adenovirus Not Detected (Not Detect); Bordetella Pertussis Not Detected (Not Detect); Chlamydophila pneumoniae Not Detected (Not Detect); Coronavirus 229E Not Detected (Not Detect); Coronavirus HKU1 Not Detected (Not Detect); Coronavirus NL63 Not Detected (Not Detect); Coronavirus OC43 Not Detected (Not Detect); Human Metapneumovirus Not Detected (Not Detect); Human Rhinovirus/Enterovirus Not Detected (Not Detect); Influenza A Subtype 2009 H1 Not Detected (Not Detect); Influenza B Not Detected (Not Detect); Mycoplasma pneumoniae Not Detected (Not Detect); Parainfluenza Virus 1 Not Detected (Not Detect); Parainfluenza Virus 2 Not Detected (Not Detect); Parainfluenza Virus 3 Not Detected (Not Detect); Parainfluenza Virus 4 Not Detected (Not Detect); Respiratory Syncytial Virus Not Detected (Not Detect); SARS-CoV-2 Not Detected (Not Detect)
[2020-09-15] MEDS ORDERED: Acetaminophen 325 MG TABLET PO PRN (14:33)
[2020-09-15] MEDS ORDERED: Naloxone 0.4 MG/ML INJ IVP PRN (14:33)
[2020-09-15 14:45] LABS: ABG Base Excess 0 mEq/L (-2 to 3); ABG HCO3 25 mEq/L (21-27); ABG Oxygen Saturation 100 % (95-98); ABG PCO2 42 mmHg (35-45); ABG PH 7.39 pH Units (7.32-7.45); ABG PO2 176 mmHg (85-104); ABG TCO2 27 mEq/L (20-26)
[2020-09-15] MEDS: Aspirin Enteric Coated 81 MG Tablet PO SCH (14:45)
[2020-09-15] MEDS ORDERED: Levalbuterol Neb 1.25 MG/3 ML IH PRN (14:45)
[2020-09-15] MEDS ORDERED: cefTRIAXone 1,000 MG in Water for inj. (sterile) 10 ML IVP SCH (15:00)
[2020-09-15] MEDS ORDERED: cefTRIAXone 1,000 MG in 0.9 % Sodium Chloride Mini Bag 100 ML IVPB SCH (15:00)
[2020-09-15] MEDS ORDERED: Ondansetron 4 MG/2 ML VIAL IVP PRN (16:21)
[2020-09-15] MEDS ORDERED: Furosemide 20 MG TABLET PO PRN (16:55)
[2020-09-15] MEDS ORDERED: polyethylene glycoL 3350 17 GM POWD.PACK PO SCH (17:00)
[2020-09-15] MEDS ORDERED: NON-FORMULARY MEDICATION 1 EACH EACH (Pirfenidone [Esbriet] 801 MG) PO SCH (17:00)
[2020-09-15] MEDS ORDERED: Prochlorperazine 10 MG/2 ML VIAL IVP PRN (18:37)
[2020-09-15] MEDS ORDERED: Lactobacillus 1 EACH CAP.SPRINK PO SCH (18:45)
[2020-09-15] MEDS: ESBRIET 267 MG PO SCH (19:07)
[2020-09-15] MEDS: Gabapentin 100 MG CAPSULE PO SCH (19:27)
[2020-09-15] MEDS ORDERED: Melatonin 3 MG TABLET PO SCH (21:00)
[2020-09-15] MEDS ORDERED: *HR* Rivaroxaban 10 MG TABLET PO SCH (21:00)
[2020-09-16 03:01] LABS: Hematocrit 38.3 % (35.3-44.9); Hemoglobin 12.2 g/dL (11.5-15.4); Mean Corpuscular HGB Conc 31.9 g/dL (31.6-35.5); Mean Corpuscular Hemoglobin 32.5 pg (28.0-33.3); Mean Corpuscular Volume 102.1 fL (83.0-100.0); Mean Platelet Volume 8.9 fL (9.4-12.4); Platelet Count 208 K/mcL (140-400); Red Blood Count 3.75 M/mcL (3.82-4.97); Red Cell Distribution Width 13.2 % (11.5-14.5); White Blood Count 8.4 K/mcL (4.3-11.1)
[2020-09-16 03:24] LABS: BUN/Creatinine Ratio 19 (6-26); Blood Urea Nitrogen 11 mg/dL (8-23); Calcium 9.4 mg/dL (8.6-10.3); Carbon Dioxide 26 mEq/L (23-29); Chloride 104 mEq/L (98-107); Chol/HDL Ratio 3.7 (0-4.9); Cholesterol 146 mg/dL (< 200); Glucose 79 mg/dL (70-105); HDL Cholesterol 40 mg/dL (40-59); LDL Cholesterol,Calculated 90 mg/dL (< 100); Magnesium 2.1 mg/dL (1.6-2.6); Osmolality,Calculated 280 (280-300); Potassium 4.2 mEq/L (3.5-5.1); Sodium 136 mEq/L (136-145); Triglycerides 79 mg/dL (< 150); Troponin I < 0.03 ng/mL (< 0.04); eGFR For African Americans > 60 (> 60); eGFR For Non-African Americans > 60 (> 60)
[2020-09-16 03:37] LABS: Thyroid Stimulating Hormone 10.326 mcIU/mL (0.340-5.600)
[2020-09-16] MEDS ORDERED: Isosorbide MONOnitrate (24 HR) 60 MG TAB.ER.24H PO SCH (09:00)
[2020-09-16] MEDS ORDERED: Lactobacillus 1 EACH CAP.SPRINK PO SCH (09:00)
[2020-09-16] MEDS ORDERED: Cholecalciferol (D-3) 1,000 UNIT (25MCG) TABLET PO SCH (09:00)
[2020-09-16] MEDS: Gabapentin 100 MG CAPSULE PO SCH (09:27)
[2020-09-16] MEDS: Aspirin Enteric Coated 81 MG Tablet PO SCH (09:27)
[2020-09-16] MEDS: ESBRIET 267 MG PO SCH ×2 (09:30→12:10)
[2020-09-16 10:44] LABS: Triiodothyronine (T3) Total 0.63 ng/mL (0.87-1.78)
[2020-09-16 13:29] VITALS: BP 102/58
== END 2020-09-16 17:19 | disposition hospice, home (50) ==
LOC: EMEROOARM 11:20 → 3BNU 11:20 → SUATTDRO 16:13 → 3BNU 17:11
PROVIDERS: ADMIT Internal Medicine; ATTEND Internal Medicine